=== PATIENT | female | born 1955 | race Caucasian/White ===

== ENCOUNTER → 2016-09-05 | Outpatient (CLI) | payer OTHER ==
--- NOTE | 2016-09-05 13:54 | MM ---
Reason for exam: follow-up at short interval from prior study. Last mammogram was performed 9 months ago. Physical Findings: Nurse did not find any significant physical abnormalities on exam. MG Diagnostic Mammo w CAD JENNIE Bilateral CC and MLO view(s) were taken. Prior study comparison: December 07, 2015, bilateral MG work up mamm w CAD BILAT. November 16, 2015, bilateral MG screening mammo w CAD. The breast tissue is heterogeneously dense. This may lower the sensitivity of mammography. There is no discrete abnormality. These results were verbally communicated with the patient and result sheet given to the patient on 09/05/16. ASSESSMENT: Negative, BI-RAD 1 RECOMMENDATION: Routine screening mammogram of both breasts in 1 year.
== END | disposition home or self-care (01) ==
LOC: RADMAMWWP 13:03
PROVIDERS: ATTEND Family Medicine
DX: R92.8 Other abnormal and inconclusive findings on diagnostic imaging of breast (principal)

== ENCOUNTER → 2017-04-11 | Outpatient (CLI) | payer OTHER ==
--- NOTE | 2017-04-11 13:12 | WWHP ---
[facility] - HISTORY AND PHYSICAL DATE OF SERVICE: 04/11/2017 CHIEF COMPLAINT: The patient is here for her routine gynecologic exam. HPI: This is a 61-year-old, G1, P1, with an LMP of 2006. The patient states she continues to have vaginal discomfort with intercourse. She states it feels very dry and uncomfortable. She did not use the estrogen cream which was prescribed to her last year. She believes it was because of the cost. The patient had an abnormal Pap smear showing atypical squamous cells of undetermined significance last year. Reflex HPV testing was negative for high-risk HPV. PAST MEDICAL HISTORY: Chronic hypertension, emphysema and arthritis. MEDICATIONS: Albuterol inhaler p.r.n. ALLERGIES: Allergies to SULFA, which caused hives. PAST SURGICAL HISTORY: section x1, tonsillectomy in the past and upper endoscopy 2016. PAST CALCIMINER HISTORY: She has been menopausal since 2006 and has no history of STDs. SOCIAL HISTORY: She continues to smoke about 1 pack of cigarettes per day and denies current alcohol use. She is a recovering alcoholic. She denies drug use. She quit drinking alcohol in 06/2015. She has been with her boyfriend since about 2000. 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 FAMILY HISTORY: Sister has diabetes. REVIEW OF SYSTEMS: Weight has been stable. She denies respiratory, cardiac or GI problems. PHYSICAL EXAM: Blood pressure 127/81, height 5 feet 1 inch, weight 120 pounds, temperature 98.2, pulse 82. This is a well-developed, well-nourished, white female, who is alert and oriented x3, in no acute distress. HEENT is within normal limits. NECK: Supple without mass or thyromegaly. CHEST AND LUNGS: Clear to auscultation. HEART: Regular rate and rhythm. Breasts are without mass or discharge. Axillary exam is negative for adenopathy. BACK: Negative for CVA tenderness. ABDOMEN: Soft, nontender, without palpable masses. PELVIC EXAM: External genitalia reveals [id number]-gm-[id number] atrophy without lesions. Cervix and vagina reveals dcrx-ph-[id number] atrophy without lesions. There is no evidence of prolapse. The uterus is mid position, nongravid size and nontender. There are no palpable adnexal masses or tenderness. Rectovaginal exam is negative for mass or tenderness and is negative for occult blood. EXTREMITIES: Nontender. IMPRESSION: 1. A 61-year-old, menopausal female with dcnx-xv-zwkhlbax genital atrophy in otherwise unremarkable gynecologic exam. 2. Dyspareunia probably secondary to genital atrophy. The patient did not use the estrogen vaginal cream, which was prescribed last year. 3. Previous abnormal Pap smear showing ASCUS with negative high-risk HPV last year. PLAN: 1. Pap smear was performed. 2. Self breast examination was discussed. 3. Mammogram was done in November of 2015 and they did recommend a diagnostic left mammogram in 6 months. A slip was given to the patient for this. 4. Trial of Premarin vaginal cream 1to 2 grams intravaginally 2 times weekly. 5. I have recommended screening colonoscopy based on her age and she states she will look into doing this. 6. I have recommended that she try to quit smoking. 7. She will return in one year. MMODL / IJN: [id number] /
== END ==
LOC: WWCWWP 08:40
PROVIDERS: ATTEND Obstetrics & Gynecology
DX: Z01.419 Encounter for gynecological examination (general) (routine) without abnormal findings (principal)

== ENCOUNTER → 2017-09-11 | Outpatient (CLI) | payer OTHER ==
--- NOTE | 2017-09-13 13:54 | MM ---
Reason for exam: screening (asymptomatic). Last mammogram was performed 1 year ago. Physical Findings: A clinical breast exam by your physician is recommended on an annual basis and results should be correlated with mammographic findings. MG Screening Mammo w CAD Bilateral CC and MLO view(s) were taken. Prior study comparison: September 05, 2016, bilateral MG diagnostic mammo w CAD JENNIE. December 07, 2015, bilateral MG work up mamm w CAD BILAT. The breast tissue is heterogeneously dense. This may lower the sensitivity of mammography. There is chronic nodularity bilaterally. No significant changes when compared with prior studies. ASSESSMENT: Benign, BI-RAD 2 RECOMMENDATION: Routine screening mammogram of both breasts in 1 year.
== END ==
LOC: RADMAMWWP 11:56
PROVIDERS: ATTEND Family Medicine
DX: Z12.31 Encounter for screening mammogram for malignant neoplasm of breast (principal)
CPT/HCPCS: 77067

== ENCOUNTER 2018-01-15 20:11 | Inpatient (IN) | payer OTHER ==
[2018-01-15] MEDS ORDERED: SODIUM CHLORIDE 0.9% 1,000 ML IV STA (21:03)
[2018-01-15 21:25] LABS: ALT 76 U/L (9-52); AST 109 U/L (14-36); Albumin 3.5 g/dL (3.5-5.0); Alkaline Phosphatase 105 U/L (38-126); Amylase <30 U/L (30-110); Anion Gap 21 mmol/L; Blood Urea Nitrogen 4 mg/dL (7-17); Calcium 7.4 mg/dL (8.4-10.2); Carbon Dioxide 33 mmol/L (22-30); Glucose 94 mg/dL (74-99); Lipase 30 U/L (23-300); Total Bilirubin 1.5 mg/dL (0.2-1.3); Total Protein 5.9 g/dL (6.3-8.2)
[2018-01-15 21:27] LABS: Basophils % (A) 0 %; Eosinophils # (A) 0.1 k/uL (0-0.7); Eosinophils % (A) 1 %; HCT 40.3 % (34.0-46.0); HGB 14.5 gm/dL (11.4-16.0); Hyperchromasia Moderate; INR 1.1 (<1.2); Lymphocytes # (A) 1.5 k/uL (1.0-4.8); Lymphocytes % (A) 31 %; MCH 34.9 pg (25.0-35.0); MCV 97.1 fL (80.0-100.0); Mean Platelet Volume 7.3; Monocytes # (A) 0.4 k/uL (0-1.0); Monocytes % (A) 7 %; Neutrophils # (A) 2.9 k/uL (1.3-7.7); Neutrophils % (A) 59 %; Partial Thromboplastin Time 24.2 sec (22.0-30.0); Prothrombin Time 10.7 sec (9.0-12.0); RBC 4.15 m/uL (3.80-5.40); RDW 14.4 % (11.5-15.5); WBC 4.9 k/uL (3.8-10.6)
[2018-01-15 21:29] LABS: Chloride 63 mmol/L (98-107); Potassium 1.9 mmol/L (3.5-5.1); Sodium 117 mmol/L (137-145)
--- NOTE | 2018-01-15 21:41 | ED ---
General Adult HPI - General Chief complaint: Alcohol Stated complaint: Weakness Time Seen by Provider: 01/15/18 20:29 Source: EMS Mode of arrival: EMS Limitations: no limitations - History of Present Illness Initial comments: 62-year-old female patient with past medical history significant for chronic alcohol abuse presents the emergency department today for evaluation of dizziness. Patient states that she has been sick for the last 9 days with upper respiratory symptoms including cough and nasal congestion. Patient states for the last several days she has been dizzy, states it is worsened today. Patient states whenever she stands up she feels like she is going to fall over. She denies any headache, chest pain, shortness of breath, nausea, vomiting, or abdominal pain. She denies any fevers or chills with this. States she is coughing up sputum however she does have COPD this is normal for her. Denies any numbness, tingling, or weakness in her extremities. Patient denies any recent rash, diarrhea, constipation, back pain, numbness, tingling, hematuria, dysuria, urinary urgency, urinary frequency, visual changes, or any other complaints. - Related Data Home Medications Medication Instructions Recorded Confirmed Albuterol Inhaler [Ventolin Hfa 1 - 2 puff INHALATION RT-Q6H PRN 06/25/16 Inhaler] Multivitamins, Thera [Multivitamin 1 tab PO DAILY 06/25/16 01/15/18 (formulary)] Allergies Allergy/AdvReac Type Severity Reaction Status Date / Time Sulfa (Sulfonamide AdvReac Unknown Verified 01/15/18 20:30 Antibiotics) Review of Systems ROS Statement: Those systems with pertinent positive or pertinent negative responses have been documented in the HPI. ROS Other: All systems not noted in ROS Statement are negative. Past Medical History Past Medical History: Hypertension Additional Past Medical History / Comment(s): Alcohol dependence; C-diff 06/2015 History of Any Multi-Drug Resistant Organisms: None Reported Past Surgical History: Section Past Anesthesia/Blood Transfusion Reactions: No Reported Reaction Past Psychological History: Anxiety, Depression Smoking Status: Current every day smoker Past Alcohol Use History: Abuse, Daily, Heavy Past Drug Use History: None Reported General Exam Limitations: no limitations General appearance: alert, in no apparent distress, other (This is a thin appearing elderly female patient in no acute distress. Vital signs upon presentation are temperature 98.3F, pulse 93, respirations 18, blood pressure 168/94, pulse ox 95% on room air.) Eye exam: Present: normal appearance, PERRL, EOMI. Absent: scleral icterus, conjunctival injection, nystagmus, periorbital swelling Neck exam: Present: normal inspection. Absent: tenderness, meningismus, lymphadenopathy Respiratory exam: Present: normal lung sounds bilaterally. Absent: respiratory distress, wheezes, rales, rhonchi, stridor Cardiovascular Exam: Present: regular rate, normal rhythm, normal heart sounds. Absent: systolic murmur, diastolic murmur, rubs, gallop, clicks GI/Abdominal exam: Present: soft, normal bowel sounds. Absent: distended, tenderness, guarding, rebound, rigid Neurological exam: Present: alert, oriented X3, CN II-XII intact Psychiatric exam: Present: normal affect, normal mood Skin exam: Present: warm, dry, intact, normal color. Absent: rash Course Vital Signs 01/15/18 20:18 Temperature 98.3 F Pulse Rate 93 Respiratory 18 Rate Blood Pressure 168/94 O2 Sat by Pulse 95 Oximetry EKG Findings - EKG Comments: EKG Findings:: EKG obtained at 2140 shows normal sinus rhythm with ventricular rate of 96, DE interval 174, QR mormonism 86, QT 436, QTc 550. No evidence of ST elevation or depression. Reading is somewhat limited by motion artifact. Medical Decision Making - Medical Decision Making 62-year-old female patient presented to the emergency department today for evaluation of dizziness. Patient states that she has been feeling dizzy for the last few days. Labs reviewed and did show potassium level of 1.9, sodium 117, chloride 63, we did repeat these levels for confirmation showed a sodium of 120, potassium 2.2, chloride of 70. We will replace potassium. Patient was started on a banana bag. She'll be admitted to the hospital for monitoring. Alcohol withdrawal protocol entered. Admission to Dr. Elizabeth. - Lab Data Result diagrams: 01/15/18 21:06 01/15/18 21:39 Lab Results 01/15/18 01/15/18 01/15/18 Range/Units 21:06 21:06 21:06 WBC 4.9 (3.8-10.6) k/uL RBC 4.15 (3.80-5.40) m/uL Hgb 14.5 (11.4-16.0) gm/dL Hct 40.3 (34.0-46.0) % MCV 97.1 (80.0-100.0) fL MCH 34.9 (25.0-35.0) pg MCHC 36.0 (31.0-37.0) g/dL RDW 14.4 (11.5-15.5) % Plt Count 69 L (150-450) k/uL Neutrophils % 59 % Lymphocytes % 31 % Monocytes % 7 % Eosinophils % 1 % Basophils % 0 % Neutrophils # 2.9 (1.3-7.7) k/uL Lymphocytes # 1.5 (1.0-4.8) k/uL Monocytes # 0.4 (0-1.0) k/uL Eosinophils # 0.1 (0-0.7) k/uL Basophils # 0.0 (0-0.2) k/uL Manual Slide Review Performed Hyperchromasia Moderate PT 10.7 (9.0-12.0) sec INR 1.1 (<1.2) APTT 24.2 (22.0-30.0) sec Sodium 117 L* (137-145) mmol/L Potassium 1.9 L* (3.5-5.1) mmol/L Chloride 63 L* (98-107) mmol/L Carbon Dioxide 33 H (22-30) mmol/L Anion Gap 21 mmol/L BUN 4 L (7-17) mg/dL Creatinine 0.40 L (0.52-1.04) mg/dL Est GFR (CKD-EPI)AfAm >90 (>60 ml/min/1.73 sqM) Est GFR (CKD-EPI)NonAf >90 (>60 ml/min/1.73 sqM) Glucose 94 (74-99) mg/dL Calcium 7.4 L (8.4-10.2) mg/dL Total Bilirubin 1.5 H (0.2-1.3) mg/dL AST 109 H (14-36) U/L ALT 76 H (9-52) U/L Alkaline Phosphatase 105 (38-126) U/L Troponin I (0.000-0.034) ng/mL Total Protein 5.9 L (6.3-8.2) g/dL Albumin 3.5 (3.5-5.0) g/dL Amylase <30 L (30-110) U/L Lipase 30 (23-300) U/L Urine Color Urine Appearance (Clear) Urine pH (5.0-8.0) Ur Specific Lena (1.001-1.035) Urine Protein (Negative) Urine Glucose (UA) (Negative) Urine Ketones (Negative) Urine Blood (Negative) Urine Nitrite (Negative) Urine Bilirubin (Negative) Urine Urobilinogen (<2.0) mg/dL Ur Leukocyte Esterase (Negative) Urine RBC (0-5) /hpf Urine WBC (0-5) /hpf Ur Squamous Epith Cells (0-4) /hpf Urine Bacteria (None) /hpf Urine Mucus (None) /hpf 01/15/18 01/15/18 01/15/18 Range/Units 21:06 21:39 22:01 WBC (3.8-10.6) k/uL RBC (3.80-5.40) m/uL Hgb (11.4-16.0) gm/dL Hct (34.0-46.0) % MCV (80.0-100.0) fL MCH (25.0-35.0) pg MCHC (31.0-37.0) g/dL RDW (11.5-15.5) % Plt Count (150-450) k/uL Neutrophils % % Lymphocytes % % Monocytes % % Eosinophils % % Basophils % % Neutrophils # (1.3-7.7) k/uL Lymphocytes # (1.0-4.8) k/uL Monocytes # (0-1.0) k/uL Eosinophils # (0-0.7) k/uL Basophils # (0-0.2) k/uL Manual Slide Review Hyperchromasia PT (9.0-12.0) sec INR (<1.2) APTT (22.0-30.0) sec Sodium 120 L* (137-145) mmol/L Potassium 2.2 L* (3.5-5.1) mmol/L Chloride 70 L* (98-107) mmol/L Carbon Dioxide 33 H (22-30) mmol/L Anion Gap 17 mmol/L BUN 4 L (7-17) mg/dL Creatinine 0.30 L (0.52-1.04) mg/dL Est GFR (CKD-EPI)AfAm >90 (>60 ml/min/1.73 sqM) Est GFR (CKD-EPI)NonAf >90 (>60 ml/min/1.73 sqM) Glucose 88 (74-99) mg/dL Calcium 6.8 L (8.4-10.2) mg/dL Total Bilirubin 1.5 H (0.2-1.3) mg/dL AST 101 H (14-36) U/L ALT 72 H (9-52) U/L Alkaline Phosphatase 91 (38-126) U/L Troponin I <0.012 (0.000-0.034) ng/mL Total Protein 5.3 L (6.3-8.2) g/dL Albumin 3.1 L (3.5-5.0) g/dL Amylase (30-110) U/L Lipase (23-300) U/L Urine Color Yellow Urine Appearance Clear (Clear) Urine pH 6.5 (5.0-8.0) Ur Specific Lena 1.003 (1.001-1.035) Urine Protein 1+ H (Negative) Urine Glucose (UA) Negative (Negative) Urine Ketones Negative (Negative) Urine Blood Negative (Negative) Urine Nitrite Negative (Negative) Urine Bilirubin Negative (Negative) Urine Urobilinogen 2.0 (<2.0) mg/dL Ur Leukocyte Esterase Large H (Negative) Urine RBC 3 (0-5) /hpf Urine WBC 12 H (0-5) /hpf Ur Squamous Epith Cells <1 (0-4) /hpf Urine Bacteria Rare H (None) /hpf Urine Mucus Rare H (None) /hpf - Radiology Data Radiology results: report reviewed, image reviewed Two-view x-ray of the chest is obtained. There is no heart failure flung pneumonic infiltrate. costophrenic angles are clear. thoracic aorta is atheromatous. there are chest leads. there is no pleural effusion. bony thorax is intact. impression by dr. truong shows no active cardiopulmonary disease. No change. Disposition Clinical Impression: Hypokalemia, Hyponatremia, Hypochloremia, Alcohol intoxication Disposition: ADMITTED IP TO THIS [facility] Condition: Serious Referrals: Luz Marina Hannon MD [Primary Care Provider] - 1-2 days Decision to Admit Reason: Admit from EC Decision Date: 01/15/18 Decision Time: 23:31
[2018-01-15 22:02] LABS: Platelet Count 69 k/uL (150-450)
[2018-01-15 22:04] LABS: ALT 72 U/L (9-52); AST 101 U/L (14-36); Albumin 3.1 g/dL (3.5-5.0); Alkaline Phosphatase 91 U/L (38-126); Anion Gap 17 mmol/L; Blood Urea Nitrogen 4 mg/dL (7-17); Calcium 6.8 mg/dL (8.4-10.2); Carbon Dioxide 33 mmol/L (22-30); Glucose 88 mg/dL (74-99); Total Bilirubin 1.5 mg/dL (0.2-1.3); Total Protein 5.3 g/dL (6.3-8.2)
[2018-01-15 22:08] LABS: Chloride 70 mmol/L (98-107); Potassium 2.2 mmol/L (3.5-5.1); Sodium 120 mmol/L (137-145)
--- NOTE | 2018-01-15 22:12 | XR ---
EXAMINATION TYPE: XR chest 2V DATE OF EXAM: 01/15/2018 COMPARISON: NONE HISTORY: Cough TECHNIQUE: Frontal and lateral views of the chest are obtained. FINDINGS: There is no heart failure nor confluent pneumonic infiltrate. Costophrenic angles are marcos r. Thoracic aorta is atheromatous. There are chest leads. There is no pleural effusion. Bony thorax i s intact. IMPRESSION: No active cardiopulmonary disease. No change.
[2018-01-15 22:14] LABS: Appearance,Urine Clear (Clear); Bacteria,Urine Rare /hpf; Bilirubin,Urine Negative (Negative); Blood,Urine Negative (Negative); Color,Urine Yellow; Glucose,Urine (UA) Negative (Negative); Ketones,Urine Negative (Negative); Leukocyte Esterase,Urine Large (Negative); Mucus,Urine Rare /hpf; Nitrite,Urine Negative (Negative); PH, Urine 6.5 (5.0-8.0); Protein,Urine 1+ (Negative); RBC,Urine 3 /hpf (0-5); Specific Gravity,Urine 1.003 (1.001-1.035); Squamous Epithelial Cell,Urine <1 /hpf (0-4); WBC,Urine 12 /hpf (0-5)
[2018-01-15] MEDS ORDERED: Potassium Replacement Protocol 1 EACH MISC MISCELLANE PRN (22:30)
[2018-01-15] MEDS: POTASSIUM CHLORIDE 10 MEQ in WATER FOR INJECTION 1 100ML.BAG IVPB SCH (23:00)
[2018-01-15] MEDS ORDERED: THIAMINE 100 MG/ML 2 ML VIAL IM STA (23:26)
[2018-01-15] MEDS ORDERED: NALOXONE 0.4 MG/ML 1 ML VIAL IV PRN (23:26)
[2018-01-15] MEDS ORDERED: LORazepam 2 MG/ML INJ IV PRN ×3 (23:26)
[2018-01-15 23:44] LABS: Phosphorus 2.8 mg/dL (2.5-4.5)
[2018-01-15 23:53] LABS: Magnesium 0.8 mg/dL (1.6-2.3)
[2018-01-15] MEDS ORDERED: Magnesium Replacement Protocol 1 EACH MISC MISCELLANE PRN (23:56)
[2018-01-16] MEDS ORDERED: SODIUM CHLORIDE 0.9% 1,000 ML with MVI, ADULT NO.4 WITH VIT K 10 ML, THIAMINE 100 MG, F... IV ONE ×4
[2018-01-16] MEDS: POTASSIUM CHLORIDE 10 MEQ in WATER FOR INJECTION 1 100ML.BAG IVPB SCH ×2 (00:13→01:55)
[2018-01-16] MEDS: THIAMINE 100 MG TAB PO SCH ×3 (00:22→18:31)
[2018-01-16] MEDS: MAGNESIUM SULFATE-D5W PMX 1 GM in DEXTROSE/WATER 1 100ML.BAG IVPB SCH ×4 (03:39→07:15)
[2018-01-16 09:36] LABS: ALT 68 U/L (9-52); AST 129 U/L (14-36); Albumin 2.9 g/dL (3.5-5.0); Alkaline Phosphatase 105 U/L (38-126); Anion Gap 11 mmol/L; Blood Urea Nitrogen 5 mg/dL (7-17); Carbon Dioxide 38 mmol/L (22-30); Glucose 125 mg/dL (74-99); Sodium 125 mmol/L (137-145); Total Bilirubin 2.4 mg/dL (0.2-1.3)
[2018-01-16 10:02] LABS: Chloride 76 mmol/L (98-107); Potassium 2.2 mmol/L (3.5-5.1)
[2018-01-16] MEDS: POTASSIUM CHLORIDE 20 MEQ in WATER FOR INJECTION 1 100ML.BAG IVPB SCH ×2 (10:29→12:53)
[2018-01-16] MEDS ORDERED: DEXTROSE 5% IN WATER 1,000 ML IV SCH (10:30)
[2018-01-16 11:16] LABS: Glucose,Whole Blood 115 mg/dL (75-99)
--- NOTE | 2018-01-16 11:28 | P.HPIM ---
History of Present Illness This is a pleasant 62 years old female with past medical history of hypertension and alcohol dependence, C. diff in 2015, depression, hyponatremia and 2016 as low as 118, and in 2015 as low as 120 , current smoker and alcohol abuse. Patient is a drowsy this morning when I came to see the patient , she is easy to arouse but go back to sleep right away, patient could not contribute to the history so most of the information is taken from medical records and the staff. As per ED input Patient came to the emergency room last night for evaluation of dizziness. Patient has been sick for 9 days with upper respiratory symptoms including cough and nasal congestion. Associated with dizziness over the last several days which was worse on the day of admission. Patient stated whenever she stands up she feels like she is going to fall over. She denied headache, no chest pain or shortness of breath. No nausea vomiting or abdominal pain either. Patient denies fever or chills. Patient has cough with phlegm of unspecified color. Patient denies numbness, tingling or weakness in her extremities. No back pain or change in urine habits like no hematuria no dysuria no urinary urgency or frequency. No visual changes or other complaints. I have been told by the ED staff about this patient this morning when I came to the hospital and that she's been admitted with sodium 117, 120. She has already got 2 L of normal saline by ED staff .Repeat sodium level was ordered right away and show sodium 125, nephrology consult is called right away and the recommended D5W and recheck sodium and 2 hours. Potassium was low on admission at 1.91 up to 2.2. Patient's has prolonged QTc at 550 and 560 on EKGx2. Alcohol level Was 15 [WNL]. UA was suspicion for infection with leukocyte esterase: large and 12 WBC, we will send for urine culture and start ceftriaxone empirically , patient was admitted originally to the fourth floor, when I saw the patient we transferred her to the intensive care unit. Discussed with the staff. i spoke with daughter Lois Ordonez at [phone], and updated her about her mother's situation. As per Daughter who is next of kin [she told me the patient was not , and she doesn't have siblings other than this her daughter] patient has been sick with common cold and not feeling well for the last few days and she is alcoholic she drinks about a pint a day of liquor usually vodka as per daughter. Ask about the patient wishes doctor said there is nothing documented but according to her knowledge she wanted to be DO NOT RESUSCITATE/DO NOT INTUBATE, she says at baseline she doesn't use a walker but she has COPD and uses inhaler for, patient was informed about the clinical situations of the daughters and she currently took note of this Review of Systems unable to perform Past Medical History Past Medical History: Hypertension Additional Past Medical History / Comment(s): Alcohol dependence; C-diff 06/2015 History of Any Multi-Drug Resistant Organisms: None Reported Past Surgical History: Section Past Anesthesia/Blood Transfusion Reactions: No Reported Reaction Past Psychological History: Anxiety, Depression Smoking Status: Current every day smoker Past Alcohol Use History: Abuse, Daily, Heavy Past Drug Use History: None Reported Medications and Allergies Home Medications Medication Instructions Recorded Confirmed Type Albuterol Inhaler [Ventolin Hfa 1 - 2 puff INHALATION RT-Q6H PRN 06/25/16 History Inhaler] Multivitamins, Thera [Multivitamin 1 tab PO DAILY 06/25/16 01/15/18 History (formulary)] Allergies Allergy/AdvReac Type Severity Reaction Status Date / Time Sulfa (Sulfonamide AdvReac Unknown Verified 01/15/18 20:30 Antibiotics) Physical Exam Vitals: Vital Signs Temp Pulse Pulse Resp BP BP BP 01/16/18 07:59 120/64 01/16/18 06:13 98.3 F 97 18 90/58 01/16/18 01:46 98.6 F 106 H 17 143/88 01/16/18 00:23 99.0 F 100 17 172/95 01/15/18 23:48 106 H 18 161/97 01/15/18 20:18 98.3 F 93 18 168/94 Pulse Ox 01/16/18 07:59 01/16/18 06:13 90 L 01/16/18 01:46 91 L 01/16/18 00:23 96 01/15/18 23:48 94 L 01/15/18 20:18 95 Intake and Output 01/15/18 01/16/18 01/16/18 22:59 06:59 14:59 Other: # Voids 2 # Bowel Movements 1 Weight 49.895 kg 49.895 kg -GENERAL: The patient is drowsy , she wakes up but goes to sleep right away, not participate in conversation and not follow commands. HEENT: Pupils are round and equally reacting to light. EOMI. No scleral icterus. No conjunctival pallor. Normocephalic, atraumatic. No pharyngeal erythema. No thyromegaly. CARDIOVASCULAR: S1 and S2 present. No murmurs, rubs, or gallops. PULMONARY: Chest is clear to auscultation, no wheezing or crackles. ABDOMEN: Soft, nontender, nondistended, normoactive bowel sounds. No palpable organomegaly. MUSCULOSKELETAL: No joint swelling or deformity. EXTREMITIES: No cyanosis, clubbing, or pedal edema. -NEUROLOGICAL: Gross neurological examination did not reveal any focal deficits. sensory and motor exam or difficult because of patient mental statu Meningeal signs are absents . SKIN: No rashes. Results CBC & Chem 7: 01/15/18 21:06 01/16/18 08:02 Labs: Abnormal Lab Results - Last 24 Hours (Table) 01/15/18 01/15/18 01/15/18 Range/Units 21:06 21:06 21:39 Plt Count 69 L (150-450) k/uL Sodium 117 L* 120 L* (137-145) mmol/L Potassium 1.9 L* 2.2 L* (3.5-5.1) mmol/L Chloride 63 L* 70 L* (98-107) mmol/L Carbon Dioxide 33 H 33 H (22-30) mmol/L BUN 4 L 4 L (7-17) mg/dL Creatinine 0.40 L 0.30 L (0.52-1.04) mg/dL Glucose (74-99) mg/dL Calcium 7.4 L 6.8 L (8.4-10.2) mg/dL Magnesium (1.6-2.3) mg/dL Total Bilirubin 1.5 H 1.5 H (0.2-1.3) mg/dL AST 109 H 101 H (14-36) U/L ALT 76 H 72 H (9-52) U/L Total Protein 5.9 L 5.3 L (6.3-8.2) g/dL Albumin 3.1 L (3.5-5.0) g/dL Amylase <30 L (30-110) U/L Urine Protein (Negative) Ur Leukocyte Esterase (Negative) Urine WBC (0-5) /hpf Urine Bacteria (None) /hpf Urine Mucus (None) /hpf 01/15/18 01/15/18 01/16/18 Range/Units 21:39 22:01 08:02 Plt Count (150-450) k/uL Sodium 125 L (137-145) mmol/L Potassium 2.2 L* (3.5-5.1) mmol/L Chloride 76 L* (98-107) mmol/L Carbon Dioxide 38 H (22-30) mmol/L BUN 5 L (7-17) mg/dL Creatinine 0.40 L (0.52-1.04) mg/dL Glucose 125 H (74-99) mg/dL Calcium 7.0 L (8.4-10.2) mg/dL Magnesium 0.8 L* 3.0 H (1.6-2.3) mg/dL Total Bilirubin 2.4 H (0.2-1.3) mg/dL AST 129 H (14-36) U/L ALT 68 H (9-52) U/L Total Protein 5.0 L (6.3-8.2) g/dL Albumin 2.9 L (3.5-5.0) g/dL Amylase (30-110) U/L Urine Protein 1+ H (Negative) Ur Leukocyte Esterase Large H (Negative) Urine WBC 12 H (0-5) /hpf Urine Bacteria Rare H (None) /hpf Urine Mucus Rare H (None) /hpf Microbiology - Last 24 Hours (Table) 01/15/18 22:01 Urine Culture - Preliminary Urine,Voided Thrombosis Risk Factor Assmnt - Choose All That Apply Any of the Below Risk Factors Present?: Yes Each Factor Represents 1 point: Age 41-60 years Other Risk Factors: No Thrombosis Risk Factor Assessment Total Risk Factor Score: 1 Thrombosis Risk Factor Assessment Level: Low Risk Assessment and Plan Plan: -Hyponatremia of 117 on admissions went up to 125 this morning, patient already got 2 L of normal saline in the ED. nephrology consult was contacted and recommended D5W and the re-check sodium in 2 hours. Patient will be admitted to the ICU for further monitoring of electrolytes and clinical status. We will consult pediatric critical care nurse -hypokalemia with potassium 1.9 on admissions went up to 2.2, continue with telemetry and check EKG normal sinus rhythm at 91 BPM, no significant ST-T changes, prolonged QTC 565 [was 550 in ED]. Replace electrolytes, check magnesium level and Admit to the ICU with cardiology consult -Acute delirium secondary mostly to metabolic encephalopathy, as patients with alcohol intoxication, hyponatremia, possible UTI as well as patient got Ativan for her CIWA protocol. No asymmetry is noted in the exam . meningeal signs are absent. No fever and leukocytosis. We will check a stat CT of the head -Possible UTI as per UA, possible contributing to metabolic encephalopathy. Send UC and start Rocephin 1 g daily -History of upper respiratory infection, we'll check influenza DVT prophylaxis subcutaneous heparin GI prophylaxis Pepcid PT/OT, not ordered given condition condition CODE STATUS: Unable to discuss with the patient due to her clinical situation, as per daughter patient wishes to be DO NOT INTUBATE/DO NOT RESUSCITATE. We'll keep patient is DO NOT RESUSCITATE now and We will discuss with the patient if she wakes up Prognosis is very guarded given the severity and multiple medical problems Discussed with staff Time spent more than 35 minutes
[2018-01-16] MEDS: cefTRIAXone IN SWFI 1,000 MG/10 ML SYRINGE IVP SCH (12:53)
[2018-01-16] MEDS ORDERED: POTASSIUM CHLORIDE 40 MEQ in DEXTROSE 5% IN WATER 250 ML IV SCH ×4 (13:00→15:00)
--- NOTE | 2018-01-16 13:40 | CT ---
EXAMINATION TYPE: CT brain kristan chiu con DATE OF EXAM: 01/16/2018 COMPARISON: NONE HISTORY: 62-year-old female unarousable, possible fall CT DLP: 1337.4 mGycm Automated exposure control for dose reduction was used. Technique: Examination of the head was done in axial plane without intravenous contrast. Coronal and sagittal reconstructions performed. CT of the cervical spine was obtained in axial plane without intravenous injection of contrast mater ial. Coronal and sagittal reformatted images were obtained from the axial views for evaluation of f ractures, spinal alignment and canal. FINDINGS: Head: There is no evidence of acute intracranial hemorrhage, acute ischemic changes, mass, mass-effect, or extra-axial fluid collection. There is no effacement of cerebral sulci or basal subarachnoid cister ns. There is no hydrocephalus. There is no midline shift. Dalotn-white matter distinction is preserv ed. Mild generalized supratentorial volume loss and moderate patchy white matter hypodensities in both ce rebral hemispheres suggesting changes of chronic small vessel ischemic disease. Moderate to severe mucosal thickening right greater than left maxillary sinuses. Rightward nasal sept al deviation. Mastoid air cells well pneumatized. No calvarial fracture. Orbits and globes appear int act. Cervical spine: No craniocervical junction abnormality, predental space widening, or prevertebral soft tissue swellin g. Multilevel ligamentum flavum thickening and scattered facet degenerative change. Mild degenerative di sc disease with disc osteophyte complex particularly at C5-C6. Bulging discs are present at multiple levels along with a small central disc protrusion at C6-C7 which mildly narrows the spinal canal. Scattered mild facet and uncovertebral joint degenerative change. This results in mild right-sided ne ural foraminal narrowing at C5-C6 Preserved alignment of the cervical spine. No acute fracture. Medial biapical pleural parenchymal sca rring with underlying volume loss and emphysema. Sagittal and coronal reformatted images confirm above findings. COMBINED IMPRESSION: 1. Similar mild atrophy and moderate patchy changes of chronic small vessel ischemic disease. No acut e intracranial abnormality seen. 2. No acute fracture or malalignment of the cervical spine. Mild spondylotic change as outlined above . A small central disc herniation at C6-C7 mildly narrows the spinal canal. 3. Moderate chronic maxillary sinusitis.
[2018-01-16 14:29] LABS: Anion Gap 11 mmol/L; Blood Urea Nitrogen 6 mg/dL (7-17); Calcium 7.2 mg/dL (8.4-10.2); Carbon Dioxide 34 mmol/L (22-30); Chloride 81 mmol/L (98-107); Glucose 116 mg/dL (74-99); Magnesium 1.9 mg/dL (1.6-2.3); Sodium 126 mmol/L (137-145)
[2018-01-16 14:43] LABS: Potassium 2.6 mmol/L (3.5-5.1)
[2018-01-16] MEDS ORDERED: POTASSIUM CHLORIDE 20 MEQ in WATER FOR INJECTION 1 100ML.BAG IVPB ONE (15:22)
[2018-01-16] MEDS ORDERED: DEXTROSE 5% IN WATER 1,000 ML with POTASSIUM CHLORIDE 40 MEQ IV SCH (15:30)
[2018-01-16] MEDS: POTASSIUM CHLORIDE ER 20 MEQ TAB.ER PO SCH ×2 (15:54→18:11)
[2018-01-16] MEDS: VANCOMYCIN ORAL SOLUTION 250 MG/5 ML BOTTLE PO SCH ×3 (15:54→23:08)
--- NOTE | 2018-01-16 16:57 | P.CNPUL ---
History of Present Illness Consult date: 01/16/18 Chief complaint: Altered mental status, electrolyte imbalance, critical care management History of present illness: A pleasant 62-year-old female patient, alcoholic, known to me from prior hospitalization, as the patient has history of alcoholic liver disease in addition to stigmata of chronic liver disease secondary to alcoholism. The patient also has history of C. diff colitis, depression and hypertension. The patient comes into the hospital because of generalized weakness, chest congestion and increased cough and increased dyspnea and in the center the patient was getting profoundly weak and having altered mentation. No headaches. No neck stiffness. No pleurisy. No hemoptysis. No nausea or vomiting. No abdominal distention. No worsening in lower extremity edema. She drinks around pint of vodka on a daily basis pH she drinks also wind. She smokes a pack of cigarettes on a daily basis. The patient presented to the hospital and the patient was found to have a sodium level of 117 initially and she was given a bolus of normal saline in the emergency department and she was given another bolus making a total of 2 L. In addition the patient was found to have profound hypokalemia and the potassium on admission was as low as 1.9 and came up to 2.2 after being replaced with 80 mEq of potassium. Potassium level remains low and the sodium level has come up to 125 and based on that nephrology has made the adjustment to switch her to D5 water with 40 mEq of potassium running at 50 mL an hour. At the same time the patient will be given an additional 80 mEq of potassium right now. The patient also had her magnesium level replaced knowing that on presentation she had hypomagnesemia with a magnesium level of 0.8. Clinically she is improved and the patient is more awake and at this point time she is following commands and answering questions. No focal neurological deficits. CAT scan of the head and cervical spine showed no acute abnormalities and the findings are essentially of a chronic in nature. EKG showed no significant changes related to hypokalemia. No signs of acute delirium tremens for now. There is a concern of an underlying urine checked infection and the patient was given a dose of Rocephin. Also, after arriving to the intensive care unit the patient started developing diarrhea and stool analysis showed positivity towards C. diff and the patient was started on oral vancomycin. No abdominal distention. No fever or chills. No reported aspiration. Chest x-ray is not showing any acute pneumonia. The patient is tolerating oral intake at this point in time. Review of Systems Constitutional: Reports daytime sleepiness, Reports fatigue, Reports lethargy, Reports poor appetite, Reports weakness, Reports weight loss Eyes: denies blurred vision, denies bulging eye, denies decreased vision Ears: deny: decreased hearing, ear discharge, earache Ears, nose, mouth and throat: Denies headache, Denies sore throat Cardiovascular: Reports decreased exercise tolerance, Reports dyspnea on exertion Respiratory: Reports cough, Reports dyspnea Gastrointestinal: Reports as per HPI, Reports diarrhea Genitourinary: Denies dysuria, Denies hematuria Menstruation: Reports as per HPI Musculoskeletal: Reports gait dysfunction, Reports muscle cramps, Reports muscle weakness Musculoskeletal: absent: ankle pain, ankle stiffness, ankle swelling Integumentary: Denies pruritus, Denies rash Neurological: Reports gait dysfunction, Reports weakness Psychiatric: Reports as per HPI Endocrine: Reports fatigue, Reports weight change Hematologic/Lymphatic: Reports as per HPI Allergic/Immunologic: Reports as per HPI Past Medical History Past Medical History: Hypertension Additional Past Medical History / Comment(s): Alcohol dependence; C-diff 06/2015 , alcoholic liver disease, COPD, anxiety, depression, alcoholism History of Any Multi-Drug Resistant Organisms: None Reported Past Surgical History: Section Past Anesthesia/Blood Transfusion Reactions: No Reported Reaction Past Psychological History: Anxiety, Depression Smoking Status: Current every day smoker Past Alcohol Use History: Abuse, Daily, Heavy Past Drug Use History: None Reported Medications and Allergies Home Medications Medication Instructions Recorded Confirmed Type Albuterol Inhaler [Ventolin Hfa 1 - 2 puff INHALATION RT-Q6H PRN 06/25/16 History Inhaler] Multivitamins, Thera [Multivitamin 1 tab PO DAILY 06/25/16 01/15/18 History (formulary)] Allergies Allergy/AdvReac Type Severity Reaction Status Date / Time Sulfa (Sulfonamide AdvReac Unknown Verified 01/15/18 20:30 Antibiotics) Physical Exam Vitals: Vital Signs Temp Pulse Pulse Resp BP BP BP 01/16/18 07:59 120/64 01/16/18 06:13 98.3 F 97 18 90/58 01/16/18 01:46 98.6 F 106 H 17 143/88 01/16/18 00:23 99.0 F 100 17 172/95 01/15/18 23:48 106 H 18 161/97 01/15/18 20:18 98.3 F 93 18 168/94 Pulse Ox 01/16/18 07:59 01/16/18 06:13 90 L 01/16/18 01:46 91 L 01/16/18 00:23 96 01/15/18 23:48 94 L 01/15/18 20:18 95 Intake and Output 01/16/18 01/16/18 01/16/18 06:59 14:59 22:59 Other: # Voids 2 # Bowel Movements 1 Weight 49.895 kg 49.895 kg Clinically the patient is calm and comfortable and she is laying comfortably in bed. She is arousable however she can go back to sleep if left unstimulated. No agitation. She is slow in answering questions however she is aware that she is in the hospital and she was able to recognize her daughter the bedside. She is not jaundiced. Head exam was generally normal. There was no scleral icterus or corneal arcus. Mucous membranes were moist. Examination of the neck shows no neck stiffness no goiter or neck masses. The patient is conjunctival icterus and pallor. No nystagmus. Pupils are equal and reactive to light. There is no facial asymmetry. Lungs were clear to auscultation and percussion, and with normal diaphragmatic excursion. No wheezes or rales were noted. Cardiac exam revealed the PMI to be normally situated and sized. The rhythm was regular and no extrasystoles were noted during several minutes of auscultation. The first and second heart sounds were normal and physiologic splitting of the second heart sound was noted. There were no murmurs, rubs, clicks, or gallops.Abdominal exam revealed normal bowel sounds. The abdomen was soft, non- tender, and without masses, organomegaly, or appreciable enlargement of the abdominal aorta. Examination of the extremities revealed easily palpable radial, femoral and pedal pulses. There was no cyanosis, clubbing or edema. Skin shows no ulcerations or open wounds. The patient is profoundly jaundiced. Neurologically, the patient is moving all 4 extremities. She is awake 3. Cranial nerves are intact. Results - Laboratory Findings CBC and BMP: 01/15/18 21:06 01/16/18 13:41 PT/INR, D-dimer PT 10.7 sec (9.0-12.0) 01/15/18 21:06 INR 1.1 (<1.2) 01/15/18 21:06 Abnormal lab findings: Abnormal Labs 01/15/18 01/15/18 01/15/18 21:06 21:06 21:39 Plt Count 69 L Sodium 117 L* 120 L* Potassium 1.9 L* 2.2 L* Chloride 63 L* 70 L* Carbon Dioxide 33 H 33 H BUN 4 L 4 L Creatinine 0.40 L 0.30 L Glucose POC Glucose (mg/dL) Calcium 7.4 L 6.8 L Magnesium Total Bilirubin 1.5 H 1.5 H AST 109 H 101 H ALT 76 H 72 H Total Protein 5.9 L 5.3 L Albumin 3.1 L Amylase <30 L Urine Protein Ur Leukocyte Esterase Urine WBC Urine Bacteria Urine Mucus Ur Random Sodium C. difficile (EIA) Intrp 01/15/18 01/15/18 01/15/18 21:39 22:01 22:01 Plt Count Sodium Potassium Chloride Carbon Dioxide BUN Creatinine Glucose POC Glucose (mg/dL) Calcium Magnesium 0.8 L* Total Bilirubin AST ALT Total Protein Albumin Amylase Urine Protein 1+ H Ur Leukocyte Esterase Large H Urine WBC 12 H Urine Bacteria Rare H Urine Mucus Rare H Ur Random Sodium 11 L C. difficile (EIA) Intrp 01/16/18 01/16/18 01/16/18 08:02 11:13 12:05 Plt Count Sodium 125 L Potassium 2.2 L* Chloride 76 L* Carbon Dioxide 38 H BUN 5 L Creatinine 0.40 L Glucose 125 H POC Glucose (mg/dL) 115 H Calcium 7.0 L Magnesium 3.0 H Total Bilirubin 2.4 H AST 129 H ALT 68 H Total Protein 5.0 L Albumin 2.9 L Amylase Urine Protein Ur Leukocyte Esterase Urine WBC Urine Bacteria Urine Mucus Ur Random Sodium C. difficile (EIA) Intrp Positive A 01/16/18 13:41 Plt Count Sodium 126 L Potassium 2.6 L* Chloride 81 L Carbon Dioxide 34 H BUN 6 L Creatinine 0.40 L Glucose 116 H POC Glucose (mg/dL) Calcium 7.2 L Magnesium Total Bilirubin AST ALT Total Protein Albumin Amylase Urine Protein Ur Leukocyte Esterase Urine WBC Urine Bacteria Urine Mucus Ur Random Sodium C. difficile (EIA) Intrp - Diagnostic Findings Chest x-ray: image reviewed Assessment and Plan Plan: Assessment 1 acute symptoms of bronchitis without indication for an underlying pneumonia 2 acute diarrhea with C. diff colitis 3 severe electrolyte imbalance with hypokalemia and hypomagnesemia and hyponatremia, being replaced accordingly 4 acute change in mental status secondary to above 5 chronic alcoholic liver disease/cirrhosis with stigmata of chronic renal failure 6 alcoholism, active 7 abnormalities in LFTs related to alcoholic hepatitis 8 chronic anxiety/depression 9 chronic normocytic. 10 questionable urine tract infection Plan Check urine and blood cultures. Rocephin of the cultures come back negative. Oral vancomycin regarding C. diff colitis. Fluid with D5 water and potassium supplements. Avoid rapid correction of the sodium level due to concerns of PIN OR [employer]IP [employer]ENER toxicity of chronic hyponatremia. Replace magnesium. Replace potassium. Watch for any signs of delirium tremens. Pepcid 20 mg IV every 12 hours for GI prophylaxis. Gradually advance diet as tolerated. We'll continue to follow. Keep the patient ICU for another 24 hours.
[2018-01-16] MEDS: FAMOTIDINE 20 MG/2 ML VIAL IV SCH (21:16)
[2018-01-16] MEDS: HEPARIN SODIUM,PORCINE 5,000 UNIT/ML 1 ML VIAL SQ SCH (21:17)
[2018-01-16] MEDS ORDERED: POTASSIUM CHLORIDE ER 20 MEQ TAB.ER PO SCH (22:00)
[2018-01-17 00:29] LABS: Potassium 3.6 mmol/L (3.5-5.1)
[2018-01-17] MEDS ORDERED: POTASSIUM CHLORIDE ER 20 MEQ TAB.ER PO SCH (02:00)
[2018-01-17 04:55] LABS: Basophils % (A) 0 %; Eosinophils # (A) 0.1 k/uL (0-0.7); Eosinophils % (A) 2 %; HCT 35.5 % (34.0-46.0); HGB 12.9 gm/dL (11.4-16.0); Lymphocytes # (A) 1.2 k/uL (1.0-4.8); Lymphocytes % (A) 32 %; MCH 36.6 pg (25.0-35.0); MCHC 36.4 g/dL (31.0-37.0); MCV 100.6 fL (80.0-100.0); Macrocytosis Slight; Mean Platelet Volume 7.9; Monocytes # (A) 0.3 k/uL (0-1.0); Monocytes % (A) 8 %; Neutrophils # (A) 2.1 k/uL (1.3-7.7); Neutrophils % (A) 56 %; RBC 3.53 m/uL (3.80-5.40); RDW 14.1 % (11.5-15.5); WBC 3.8 k/uL (3.8-10.6)
[2018-01-17 04:57] LABS: Platelet Count 54 k/uL (150-450)
[2018-01-17 05:10] LABS: ALT 86 U/L (9-52); AST 200 U/L (14-36); Albumin 2.8 g/dL (3.5-5.0); Alkaline Phosphatase 104 U/L (38-126); Anion Gap 5 mmol/L; Blood Urea Nitrogen 3 mg/dL (7-17); Calcium 7.9 mg/dL (8.4-10.2); Carbon Dioxide 33 mmol/L (22-30); Chloride 90 mmol/L (98-107); Glucose 98 mg/dL (74-99); Magnesium 1.3 mg/dL (1.6-2.3); Phosphorus 1.7 mg/dL (2.5-4.5); Sodium 128 mmol/L (137-145); Total Bilirubin 1.7 mg/dL (0.2-1.3); Total Protein 5.1 g/dL (6.3-8.2)
[2018-01-17] MEDS: MAGNESIUM SULFATE-D5W PMX 1 GM in DEXTROSE/WATER 1 100ML.BAG IVPB SCH ×3 (06:45→09:28)
[2018-01-17] MEDS: VANCOMYCIN ORAL SOLUTION 250 MG/5 ML BOTTLE PO SCH ×3 (06:45→17:37)
--- NOTE | 2018-01-17 07:36 | P.PN ---
Subjective Progress Note Date: 01/17/18 A pleasant 62-year-old female patient, alcoholic, known to me from prior hospitalization, as the patient has history of alcoholic liver disease in addition to stigmata of chronic liver disease secondary to alcoholism. The patient also has history of C. diff colitis, depression and hypertension. The patient comes into the hospital because of generalized weakness, chest congestion and increased cough and increased dyspnea and in the center the patient was getting profoundly weak and having altered mentation. No headaches. No neck stiffness. No pleurisy. No hemoptysis. No nausea or vomiting. No abdominal distention. No worsening in lower extremity edema. She drinks around pint of vodka on a daily basis pH she drinks also wind. She smokes a pack of cigarettes on a daily basis. The patient presented to the hospital and the patient was found to have a sodium level of 117 initially and she was given a bolus of normal saline in the emergency department and she was given another bolus making a total of 2 L. In addition the patient was found to have profound hypokalemia and the potassium on admission was as low as 1.9 and came up to 2.2 after being replaced with 80 mEq of potassium. Potassium level remains low and the sodium level has come up to 125 and based on that nephrology has made the adjustment to switch her to D5 water with 40 mEq of potassium running at 50 mL an hour. At the same time the patient will be given an additional 80 mEq of potassium right now. The patient also had her magnesium level replaced knowing that on presentation she had hypomagnesemia with a magnesium level of 0.8. Clinically she is improved and the patient is more awake and at this point time she is following commands and answering questions. No focal neurological deficits. CAT scan of the head and cervical spine showed no acute abnormalities and the findings are essentially of a chronic in nature. EKG showed no significant changes related to hypokalemia. No signs of acute delirium tremens for now. There is a concern of an underlying urine checked infection and the patient was given a dose of Rocephin. Also, after arriving to the intensive care unit the patient started developing diarrhea and stool analysis showed positivity towards C. diff and the patient was started on oral vancomycin. No abdominal distention. No fever or chills. No reported aspiration. Chest x-ray is not showing any acute pneumonia. The patient is tolerating oral intake at this point in time. On 01/18/2008 and I'm seeing this patient for a follow-up. The patient is awake and alert and following commands and answering questions. Sodium level is up to 128 and the patient is currently on no IV fluids. She is KVO IV fluids. Potassium was replaced and it's up to 4.0. Magnesium is also being replaced this morning. She is afebrile. She has a congested cough that she may have an underlying component of chronic bronchitis. She is a chronic smoker. No shaking. No tremors. No confusion. No delirium. No agitation. She is resting comfortably in bed. She had another bout of diarrhea last night and this morning she has no nausea or vomiting or abdominal pain and in fact she is stating that she is hungry and she is requesting for foods. She is on IV Rocephin as an empiric antibiotic coverage and she is also receiving oral vancomycin regarding her C. diff colitis. No fever. No chills. Adequate urine output. No altered mentation. No focal neurological deficit. Objective - Vital Signs Vital signs: Vital Signs Temp 97.9 F 01/17/18 04:00 Pulse 88 01/17/18 07:00 Resp 20 01/17/18 07:00 BP 124/86 01/17/18 07:00 Pulse Ox 98 01/17/18 07:00 Intake & Output 01/16/18 01/17/18 01/17/18 18:59 06:59 18:59 Intake Total 750 290 100 Output Total 850 1510 125 Balance -100 -1220 -25 Weight 49.895 kg 39 kg Intake: Intake, IV Titration 350 50 100 Amount Dextrose 5% in Water 1, 200 000 ml @ 50 mls/hr IV . Q20H ALEX Rx#:[id number] Dextrose 5% in Water 1, 150 50 000 ml @ 50 mls/hr IV . [id number] ALEX with Potassium Chloride 40 meq Rx#:[id number] Magnesium Sulfate-D5w Pmx 100 1 gm In Dextrose/Water 1 100ml.bag @ 100 mls/hr IVPB Q1H ALEX Rx#: [id number] Oral 400 240 Output: Urine 850 1510 125 Other: Voiding Method Bedside Commode Bedside Commode # Voids 1 1 # Bowel Movements 1 - Exam Clinically the patient is calm and comfortable and she is laying comfortably in bed. Head exam was generally normal. There was no scleral icterus or corneal arcus. Mucous membranes were moist. Examination of the neck shows no neck stiffness no goiter or neck masses. The patient is conjunctival icterus and pallor. No nystagmus. Pupils are equal and reactive to light. There is no facial asymmetry. Lungs were clear to auscultation and percussion, and with normal diaphragmatic excursion. No wheezes or rales were noted. Cardiac exam revealed the PMI to be normally situated and sized. The rhythm was regular and no extrasystoles were noted during several minutes of auscultation. The first and second heart sounds were normal and physiologic splitting of the second heart sound was noted. There were no murmurs, rubs, clicks, or gallops.Abdominal exam revealed normal bowel sounds. The abdomen was soft, non- tender, and without masses, organomegaly, or appreciable enlargement of the abdominal aorta. Examination of the extremities revealed easily palpable radial, femoral and pedal pulses. There was no cyanosis, clubbing or edema. Skin shows no ulcerations or open wounds. The patient is profoundly jaundiced. Neurologically, the patient is moving all 4 extremities. She is awake 3. Cranial nerves are intact. - Labs CBC & Chem 7: 01/17/18 04:38 01/17/18 04:38 Labs: Abnormal Lab Results - Last 24 Hours (Table) 01/15/18 01/16/18 01/16/18 Range/Units 22:01 08:02 11:13 RBC (3.80-5.40) m/uL MCV (80.0-100.0) fL MCH (25.0-35.0) pg Plt Count (150-450) k/uL Sodium 125 L (137-145) mmol/L Potassium 2.2 L* (3.5-5.1) mmol/L Chloride 76 L* (98-107) mmol/L Carbon Dioxide 38 H (22-30) mmol/L BUN 5 L (7-17) mg/dL Creatinine 0.40 L (0.52-1.04) mg/dL Glucose 125 H (74-99) mg/dL POC Glucose (mg/dL) 115 H (75-99) mg/dL Calcium 7.0 L (8.4-10.2) mg/dL Phosphorus (2.5-4.5) mg/dL Magnesium 3.0 H (1.6-2.3) mg/dL Total Bilirubin 2.4 H (0.2-1.3) mg/dL AST 129 H (14-36) U/L ALT 68 H (9-52) U/L Total Protein 5.0 L (6.3-8.2) g/dL Albumin 2.9 L (3.5-5.0) g/dL Ur Random Sodium 11 L (30-90) mmol/L C. difficile (EIA) Intrp (Negative) 01/16/18 01/16/18 01/16/18 Range/Units 12:05 13:41 18:29 RBC (3.80-5.40) m/uL MCV (80.0-100.0) fL MCH (25.0-35.0) pg Plt Count (150-450) k/uL Sodium 126 L 125 L (137-145) mmol/L Potassium 2.6 L* (3.5-5.1) mmol/L Chloride 81 L (98-107) mmol/L Carbon Dioxide 34 H (22-30) mmol/L BUN 6 L (7-17) mg/dL Creatinine 0.40 L (0.52-1.04) mg/dL Glucose 116 H (74-99) mg/dL POC Glucose (mg/dL) (75-99) mg/dL Calcium 7.2 L (8.4-10.2) mg/dL Phosphorus (2.5-4.5) mg/dL Magnesium (1.6-2.3) mg/dL Total Bilirubin (0.2-1.3) mg/dL AST (14-36) U/L ALT (9-52) U/L Total Protein (6.3-8.2) g/dL Albumin (3.5-5.0) g/dL Ur Random Sodium (30-90) mmol/L C. difficile (EIA) Intrp Positive A (Negative) 01/16/18 01/17/18 01/17/18 Range/Units 23:44 04:38 04:38 RBC 3.53 L (3.80-5.40) m/uL MCV 100.6 H (80.0-100.0) fL MCH 36.6 H (25.0-35.0) pg Plt Count 54 L (150-450) k/uL Sodium 126 L 128 L (137-145) mmol/L Potassium (3.5-5.1) mmol/L Chloride 90 L (98-107) mmol/L Carbon Dioxide 33 H (22-30) mmol/L BUN 3 L (7-17) mg/dL Creatinine 0.30 L (0.52-1.04) mg/dL Glucose (74-99) mg/dL POC Glucose (mg/dL) (75-99) mg/dL Calcium 7.9 L (8.4-10.2) mg/dL Phosphorus 1.7 L (2.5-4.5) mg/dL Magnesium 1.3 L (1.6-2.3) mg/dL Total Bilirubin 1.7 H (0.2-1.3) mg/dL AST 200 H (14-36) U/L ALT 86 H (9-52) U/L Total Protein 5.1 L (6.3-8.2) g/dL Albumin 2.8 L (3.5-5.0) g/dL Ur Random Sodium (30-90) mmol/L C. difficile (EIA) Intrp (Negative) Microbiology - Last 24 Hours (Table) 01/16/18 16:10 Urine Culture - Preliminary Urine,Catheterized 01/15/18 22:01 Urine Culture - Preliminary Urine,Voided Assessment and Plan Plan: Assessment 1 acute symptoms of bronchitis without indication for an underlying pneumonia also a component of chronic bronchitis as the patient is a chronic smoker. 2 acute diarrhea with C. diff colitis, currently on oral vancomycin 3 severe electrolyte imbalance with hypokalemia and hypomagnesemia and hyponatremia, being replaced accordingly, and the potassium level is normalized and the sodium level is up to 128 4 acute change in mental status secondary to above 5 chronic alcoholic liver disease/cirrhosis with stigmata of chronic hepatic failure 6 alcoholism, active 7 abnormalities in LFTs related to alcoholic hepatitis 8 chronic anxiety/depression 9 chronic normocytic. 10 questionable urine tract infection Plan lStop the Rocephin. Continue oral vancomycin. Start the patient on DuoNeb nebulized treatments twice a day. Advance diet. IV fluids to KVO. Monitor electrolytes. Monitor LFTs. Can be transferred to a medical floor.
[2018-01-17] MEDS: FAMOTIDINE 20 MG/2 ML VIAL IV SCH ×2 (08:10→20:17)
[2018-01-17] MEDS: HEPARIN SODIUM,PORCINE 5,000 UNIT/ML 1 ML VIAL SQ SCH ×2 (08:10→20:17)
--- NOTE | 2018-01-17 08:42 | P.PN ---
Objective - Vital Signs Vital signs: Vital Signs Temp 97.9 F 01/17/18 04:00 Pulse 111 H 01/17/18 08:00 Resp 22 01/17/18 08:00 BP 119/81 01/17/18 08:00 Pulse Ox 93 L 01/17/18 08:00 Intake & Output 01/16/18 01/17/18 01/17/18 18:59 06:59 18:59 Intake Total 750 290 560 Output Total 850 1510 275 Balance -100 -1220 285 Weight 49.895 kg 39 kg Intake: Intake, IV Titration 350 50 200 Amount Dextrose 5% in Water 1, 200 000 ml @ 50 mls/hr IV . Q20H ALEX Rx#:[id number] Dextrose 5% in Water 1, 150 50 000 ml @ 50 mls/hr IV . [id number] ALEX with Potassium Chloride 40 meq Rx#:[id number] Magnesium Sulfate-D5w Pmx 200 1 gm In Dextrose/Water 1 100ml.bag @ 100 mls/hr IVPB Q1H ALEX Rx#: [id number] Oral 400 240 360 Output: Urine 850 1510 275 Other: Voiding Method Bedside Commode Bedside Commode Bedside Commode # Voids 1 1 # Bowel Movements 1 - Exam GENERAL: The patient is alert and oriented x3, not in any acute distress. Well developed, well nourished. HEENT: Pupils are round and equally reacting to light. EOMI. No scleral icterus. No conjunctival pallor. Normocephalic, atraumatic. No pharyngeal erythema. No thyromegaly. CARDIOVASCULAR: S1 and S2 present. No murmurs, rubs, or gallops. -PULMONARY: Chest is clear to auscultation, no crackles. She has some bilateral scattered wheezing, with harsh breath sounds ABDOMEN: Soft, nontender, nondistended, normoactive bowel sounds. No palpable organomegaly. MUSCULOSKELETAL: No joint swelling or deformity. EXTREMITIES: No cyanosis, clubbing, or pedal edema. NEUROLOGICAL: Gross neurological examination did not reveal any focal deficits. SKIN: No rashes. - Labs CBC & Chem 7: 01/17/18 04:38 01/17/18 04:38 Labs: Abnormal Lab Results - Last 24 Hours (Table) 01/15/18 01/16/18 01/16/18 Range/Units 22:01 08:02 11:13 RBC (3.80-5.40) m/uL MCV (80.0-100.0) fL MCH (25.0-35.0) pg Plt Count (150-450) k/uL Sodium 125 L (137-145) mmol/L Potassium 2.2 L* (3.5-5.1) mmol/L Chloride 76 L* (98-107) mmol/L Carbon Dioxide 38 H (22-30) mmol/L BUN 5 L (7-17) mg/dL Creatinine 0.40 L (0.52-1.04) mg/dL Glucose 125 H (74-99) mg/dL POC Glucose (mg/dL) 115 H (75-99) mg/dL Calcium 7.0 L (8.4-10.2) mg/dL Phosphorus (2.5-4.5) mg/dL Magnesium 3.0 H (1.6-2.3) mg/dL Total Bilirubin 2.4 H (0.2-1.3) mg/dL AST 129 H (14-36) U/L ALT 68 H (9-52) U/L Total Protein 5.0 L (6.3-8.2) g/dL Albumin 2.9 L (3.5-5.0) g/dL Ur Random Sodium 11 L (30-90) mmol/L C. difficile (EIA) Intrp (Negative) 01/16/18 01/16/18 01/16/18 Range/Units 12:05 13:41 18:29 RBC (3.80-5.40) m/uL MCV (80.0-100.0) fL MCH (25.0-35.0) pg Plt Count (150-450) k/uL Sodium 126 L 125 L (137-145) mmol/L Potassium 2.6 L* (3.5-5.1) mmol/L Chloride 81 L (98-107) mmol/L Carbon Dioxide 34 H (22-30) mmol/L BUN 6 L (7-17) mg/dL Creatinine 0.40 L (0.52-1.04) mg/dL Glucose 116 H (74-99) mg/dL POC Glucose (mg/dL) (75-99) mg/dL Calcium 7.2 L (8.4-10.2) mg/dL Phosphorus (2.5-4.5) mg/dL Magnesium (1.6-2.3) mg/dL Total Bilirubin (0.2-1.3) mg/dL AST (14-36) U/L ALT (9-52) U/L Total Protein (6.3-8.2) g/dL Albumin (3.5-5.0) g/dL Ur Random Sodium (30-90) mmol/L C. difficile (EIA) Intrp Positive A (Negative) 01/16/18 01/17/18 01/17/18 Range/Units 23:44 04:38 04:38 RBC 3.53 L (3.80-5.40) m/uL MCV 100.6 H (80.0-100.0) fL MCH 36.6 H (25.0-35.0) pg Plt Count 54 L (150-450) k/uL Sodium 126 L 128 L (137-145) mmol/L Potassium (3.5-5.1) mmol/L Chloride 90 L (98-107) mmol/L Carbon Dioxide 33 H (22-30) mmol/L BUN 3 L (7-17) mg/dL Creatinine 0.30 L (0.52-1.04) mg/dL Glucose (74-99) mg/dL POC Glucose (mg/dL) (75-99) mg/dL Calcium 7.9 L (8.4-10.2) mg/dL Phosphorus 1.7 L (2.5-4.5) mg/dL Magnesium 1.3 L (1.6-2.3) mg/dL Total Bilirubin 1.7 H (0.2-1.3) mg/dL AST 200 H (14-36) U/L ALT 86 H (9-52) U/L Total Protein 5.1 L (6.3-8.2) g/dL Albumin 2.8 L (3.5-5.0) g/dL Ur Random Sodium (30-90) mmol/L C. difficile (EIA) Intrp (Negative) Microbiology - Last 24 Hours (Table) 01/16/18 16:10 Urine Culture - Preliminary Urine,Catheterized 01/15/18 22:01 Urine Culture - Preliminary Urine,Voided Assessment and Plan Plan: -Hyponatremia of 117 on admissions went up to 128 this morning, patient iv fluids was a stopped. nephrology consult is appreciated. Patient is more stable and can be transferred out of the ICU -C. diff colitis, she has 1 bowel movement last night which is loose. Improving. No abdominal pain nausea vomiting. DC Rocephin and continue with oral vancomycin -Elevated liver enzymes, follow-up levels -hypokalemia and hypomagnesemia were placed -Acute delirium secondary mostly to metabolic encephalopathy, resolveing and today patient is more awake and alert. CT of the head: No acute changes -Possible UTI as per UA, possible contributing to metabolic encephalopathy. Send UC and start Rocephin 1 g daily -History of upper respiratory infection, influenza is negative, resolved -Heavy smoker she smokes 1 pack per day. With some elements of COPD with expiratory wheezing. Continue with a breathing treatment DVT prophylaxis subcutaneous heparin GI prophylaxis Pepcid PT/OT, pending CODE STATUS: Discussed with the patient today and she prefers full code. Orders placed in the system. Patient has capacity to make medical decisions based upon my evaluation Prognosis is very guarded given the severity and multiple medical problems Discussed with staff Time spent more than 35 minutes
[2018-01-17] MEDS: POTASSIUM PHOSPHATE 10 MMOL in SODIUM CHLORIDE 0.9% 250 ML IV SCH ×2 (09:29→12:46)
[2018-01-17] MEDS: IPRATROPIUM-ALBUTEROL 3 ML NEB INHALATION SCH ×2 (10:59→19:09)
[2018-01-17 11:34] VITALS: BMI 16.2
[2018-01-17] MEDS: THIAMINE 100 MG TAB PO SCH ×2 (12:48→17:37)
[2018-01-17] MEDS: cefTRIAXone IN SWFI 1,000 MG/10 ML SYRINGE IVP SCH (12:50)
--- NOTE | 2018-01-17 14:43 | CONS ---
CONSULTATION REASON FOR CONSULT: Hyponatremia. HISTORY OF PRESENT ILLNESS: The patient is a 62-year-old female with history of EtOH abuse. She was admitted to the hospital with the complaints of dizziness, feeling weak and tired. She was also having some cough and nasal congestion. The blood pressure was not low. It was at 168/94 when she initially presented. The patient was noted to have a serum sodium of 117. The patient received normal saline initially and serum sodium improved, although there was a rapid increase to 125. Following which patient was started on D5W to slow correction. The patient states she is feeling much better. She did get Ativan for DTs and her mentation is back to baseline. PAST MEDICAL HISTORY: History of EtOH abuse, hypertension, history of C diff colitis, COPD, anxiety, depression. PAST SURGICAL HISTORY: . SOCIAL HISTORY: Positive for smoking as well as heavy alcohol use. MEDICATIONS: Medications at home include a multivitamin. ALLERGIES: Include SULFA. REVIEW OF SYSTEMS: As per HPI. Other systems negative. EXAMINATION: Patient is comfortable, awake. She is not in any acute distress. She is oriented x3. Blood pressure is 102/70. This morning it was 117/88. Examination of the heart: S1, S2. Examination lungs: Bilateral breath sounds are heard. Abdomen is soft, nontender. Examination lower extremities shows no evidence of edema. RN OR LPN exam is grossly intact. Patient is moving all 4 extremities. LABS: Show sodium 128, potassium 4.0, BUN 3, serum creatinine 0.3, hemoglobin 12.9 g/dL. Magnesium is 1.3, phosphorus 1.7, albumin 2.8. C diff toxin is negative. ASSESSMENT: 1. Hyponatremia initially hypovolemic. Urine sodium was low and urine osmolality was low as well. The patient initially received normal saline, following which the correction was slowed down, but now patient is off of all IV fluids. We can allow serum sodium to continue to rise. I will maintain her off of all IV fluids and she can increase her oral intake. 2. Severe hypokalemia associated with decreased oral intake and diarrhea, status post replacement and now improved. 3. C diff colitis with previous history of C diff colitis, maintained on oral vancomycin. 4. Hypomagnesemia secondary to ETOH abuse and decreased oral intake, currently being replaced. 5. Hypophosphatemia secondary to malnutrition and an element of hungry bone disease. PLAN: Increase oral intake. Repeat labs in a.m. Replace magnesium and phosphorus. Thank you for this consultation. We will continue to follow the patient with you during her hospitalization. JF / FRIEDA: [id number] /
[2018-01-18] MEDS: VANCOMYCIN ORAL SOLUTION 250 MG/5 ML BOTTLE PO SCH ×4 (00:20→17:42)
[2018-01-18 04:56] LABS: Basophils % (A) 1 %; Eosinophils # (A) 0.1 k/uL (0-0.7); Eosinophils % (A) 2 %; HCT 35.8 % (34.0-46.0); HGB 12.5 gm/dL (11.4-16.0); Lymphocytes # (A) 1.6 k/uL (1.0-4.8); Lymphocytes % (A) 39 %; MCH 36.2 pg (25.0-35.0); MCV 103.4 fL (80.0-100.0); Macrocytosis Slight; Mean Platelet Volume 8.1; Monocytes # (A) 0.3 k/uL (0-1.0); Monocytes % (A) 8 %; Neutrophils % (A) 48 %; RBC 3.46 m/uL (3.80-5.40); WBC 4.2 k/uL (3.8-10.6)
[2018-01-18 05:09] LABS: Platelet Count 61 k/uL (150-450)
[2018-01-18 05:11] LABS: ALT 90 U/L (9-52); AST 154 U/L (14-36); Alkaline Phosphatase 89 U/L (38-126); Anion Gap 10 mmol/L; Bilirubin, Delta 0.7 mg/dL (0.0-0.2); Bilirubin,Unconjugated 0.7 mg/dL (0.0-1.1); Blood Urea Nitrogen 3 mg/dL (7-17); Calcium 8.1 mg/dL (8.4-10.2); Carbon Dioxide 27 mmol/L (22-30); Chloride 89 mmol/L (98-107); Glucose 140 mg/dL (74-99); Magnesium 1.1 mg/dL (1.6-2.3); Potassium 3.8 mmol/L (3.5-5.1); Sodium 126 mmol/L (137-145); Total Bilirubin 1.4 mg/dL (0.2-1.3); Total Protein 5.3 g/dL (6.3-8.2)
[2018-01-18] MEDS ORDERED: POTASSIUM CHLORIDE ER 20 MEQ TAB.ER PO SCH (06:00)
[2018-01-18] MEDS: MAGNESIUM SULFATE-D5W PMX 1 GM in DEXTROSE/WATER 1 100ML.BAG IVPB SCH ×3 (06:58→11:45)
--- NOTE | 2018-01-18 07:58 | PN ---
PROGRESS NOTE Patient is seen for followup for hyponatremia which was mainly hypovolemic. Serum sodium increased from 117 to 125. The patient received D5W for a short period of time following which it was discontinued and the serum sodium had come up to 128. The patient was not on any fluids overnight and this morning her sodium is down to 126. She has been eating. Urine osmolality was low at 104 and random urine sodium was also low at 11. This morning I will start the patient on normal saline. PHYSICAL EXAMINATION: On examination, blood pressure is 120/71, heart rate 84 per minute. She is afebrile. EXAMINATION OF THE HEART: S1, S2. EXAMINATION OF THE LUNGS: Bilateral breath sounds are heard. Abdomen is soft, nontender. Exam of lower extremities shows no evidence of edema. REGISTERED NURSE CARDIAC exam is grossly intact. Patient moving all 4 extremities. She is not confused. She is awake and alert. LAB: Labs show sodium 126, potassium 3.8, BUN 3, serum creatinine 0.3, hemoglobin 12.5 g/dL. ALT, AST are decreasing. ALT is 90 and AST 154, albumin 3.0. ASSESSMENT: 1. Hypovolemic hyponatremia. Serum sodium had come up to 128 and this morning it is down to 126. The patient has been started on normal saline. We will recheck another sodium level in about 3 to 4 hours. 2. Severe hypomagnesemia secondary to malnutrition and EtOH abuse, status post replacement. 3. Severe hypokalemia secondary to decreased oral intake, gastrointestinal fluid loss and ETOH abuse, currently status post replacement and improved. 4. Elevated liver enzymes associated with ethanol abuse. 5. Altered mentation with mild delirium tremens, now resolved. PLAN: Start normal saline. Repeat sodium in 3 to 4 hours. Continue potassium and magnesium replacement. MMODL / IJN: [id number] /
[2018-01-18] MEDS: IPRATROPIUM-ALBUTEROL 3 ML NEB INHALATION SCH ×2 (08:03→20:11)
[2018-01-18] MEDS: SODIUM CHLORIDE 0.9% 1,000 ML IV SCH (08:06)
[2018-01-18] MEDS: HEPARIN SODIUM,PORCINE 5,000 UNIT/ML 1 ML VIAL SQ SCH ×2 (08:06→22:46)
[2018-01-18] MEDS: FAMOTIDINE 20 MG/2 ML VIAL IV SCH ×2 (08:06→22:46)
--- NOTE | 2018-01-18 08:32 | P.PN ---
Subjective Subjective Patient is more awake today, she answers appropriately and she knows where she is and why she is in the hospital. Patient denies nausea vomiting, no chest pain or dyspnea. Patient had 1 loose bowel movement yesterday. No urinary complaints and no fever. As patient is more awake she get more history stating that she has been feeling generally weak, with nausea vomiting, with worsening cough and phlegm over the few days before coming to the hospital without specification per patient.Patient confirms to me history of drinking alcohol and smoking cigarettes 1 PDD. Patient's sodium this morning was 128, she she was on IV fluids which were stopped now. Patient is able to eat and drink with no problems. Patient states she is able to ambulate with no problems 01/18/2018 Patient is still having diarrhea, she had 1 loose bowel movement this morning, she had about 2-3 BPM as per patient over the last 24 hours area patient doesn' t complain from abdominal pain, no nausea vomiting. And abdominal examination shows mild generalized tenderness with no rebound tenderness. Patient is fully awake oriented, not in respiratory distress. No chest pain, no dyspnea. Her sodium still on the low side went from 1.8-126. Discussed the case with the coach professional athletes on the case and will going to start her on IV fluids as her sodium in the urine is low too. Patient might benefit from sodium tablets on discharge as per nephrology recommendation since she is chronic alcohol drinker with recurrent problems of hyponatremia ROS CONSTITUTIONAL: No fever, no malaise, no fatigue. HEENT: No recent visual problems or hearing problems. Denied any sore throat. CARDIOVASCULAR: No orthopnea, PND, no palpitations, no syncope. PULMONARY: No shortness of breath, no cough, no hemoptysis. GASTROINTESTINAL: no nausea, no vomiting, no abdominal pain. Normoactive bowel sounds. NEUROLOGICAL: No headaches, no weakness, no numbness. HEMATOLOGICAL: Denies any bleeding or petechiae. GENITOURINARY: Denies any burning micturition, frequency, or urgency. MUSCULOSKELETAL/RHEUMATOLOGICAL: Denies any joint pain, swelling, or any muscle pain. ENDOCRINE: Denies any polyuria or polydipsia. Objective - Vital Signs Vital signs: Vital Signs Temp 98.3 F 01/18/18 04:00 Pulse 82 01/18/18 08:13 Resp 17 01/18/18 04:00 BP 120/71 01/18/18 04:00 Pulse Ox 95 01/18/18 08:03 Intake & Output 01/17/18 01/18/18 01/18/18 18:59 06:59 18:59 Intake Total 1400 960 250 Output Total 1750 1800 300 Balance -350 -840 -50 Weight 39 kg 40 kg 40 kg Intake: Intake, IV Titration 800 250 Amount Magnesium Sulfate-D5w Pmx 300 1 gm In Dextrose/Water 1 100ml.bag @ 100 mls/hr IVPB Q1H ALEX Rx#: [id number] Magnesium Sulfate-D5w Pmx 200 1 gm In Dextrose/Water 1 100ml.bag @ 100 mls/hr IVPB Q1H ALEX Rx#: [id number] Potassium Phosphate 10 500 mmol In Sodium Chloride 0 .9% 250 ml @ 125 mls/hr IV Q2H ALEX Rx#:[id number] Sodium Chloride 0.9% 1, 50 000 ml @ 50 mls/hr IV . Q20H ALEX Rx#:[id number] Oral 600 720 Tube Feeding 240 Output: Urine 1750 1800 300 Other: Voiding Method Bedside Commode Bedside Commode # Voids 1 # Bowel Movements 2 2 - Labs CBC & Chem 7: 01/18/18 04:38 01/18/18 04:38 Labs: Abnormal Lab Results - Last 24 Hours (Table) 01/18/18 01/18/18 Range/Units 04:38 04:38 RBC 3.46 L (3.80-5.40) m/uL MCV 103.4 H (80.0-100.0) fL MCH 36.2 H (25.0-35.0) pg Plt Count 61 L (150-450) k/uL Sodium 126 L (137-145) mmol/L Chloride 89 L (98-107) mmol/L BUN 3 L (7-17) mg/dL Creatinine 0.30 L (0.52-1.04) mg/dL Glucose 140 H (74-99) mg/dL Calcium 8.1 L (8.4-10.2) mg/dL Magnesium 1.1 L (1.6-2.3) mg/dL Total Bilirubin 1.4 H (0.2-1.3) mg/dL Delta Bilirubin 0.7 H (0.0-0.2) mg/dL AST 154 H (14-36) U/L ALT 90 H (9-52) U/L Total Protein 5.3 L (6.3-8.2) g/dL Albumin 3.0 L (3.5-5.0) g/dL Microbiology - Last 24 Hours (Table) 01/16/18 16:10 Urine Culture - Final Urine,Catheterized 01/15/18 22:01 Urine Culture - Final Urine,Voided Assessment and Plan Plan: -Hyponatremia of 117 on admissions went up to 128 to 128, start iv fluids as per nephrology recommendations. Mostly related to her diarrhea and history of drinking -C. diff colitis, still has loose bowel movement . No abdominal pain nausea vomiting. DC Rocephin and continue with oral vancomycin --Elevated liver enzymes, follow-up levels -hypokalemia and hypomagnesemia were placed -Acute delirium secondary mostly to metabolic encephalopathy, resolved and today patient is more awake and alert. CT of the head: No acute changes -Possible asymptomatic bacteriuria versus contamination. UC is negative and DC Rocephin 1 g daily. -History of upper respiratory infection, influenza is negative, resolved -Heavy smoker she smokes 1 pack per day. With some elements of COPD with expiratory wheezing. Continue with a breathing treatment DVT prophylaxis subcutaneous heparin GI prophylaxis Pepcid PT/OT, pending CODE STATUS: Discussed with the patient today and she prefers full code. Orders placed in the system. Patient has capacity to make medical decisions based upon my evaluation Prognosis is very guarded given the severity and multiple medical problems Discussed with staff Time spent more than 35 minutes
[2018-01-18 10:32] LABS: Potassium 4.2 mmol/L (3.5-5.1)
[2018-01-18] MEDS: THIAMINE 100 MG TAB PO SCH ×2 (11:46→17:43)
--- NOTE | 2018-01-18 14:29 | P.PN ---
Subjective Progress Note Date: 01/18/18 A pleasant 62-year-old female patient, alcoholic, known to me from prior hospitalization, as the patient has history of alcoholic liver disease in addition to stigmata of chronic liver disease secondary to alcoholism. The patient also has history of C. diff colitis, depression and hypertension. The patient comes into the hospital because of generalized weakness, chest congestion and increased cough and increased dyspnea and in the center the patient was getting profoundly weak and having altered mentation. No headaches. No neck stiffness. No pleurisy. No hemoptysis. No nausea or vomiting. No abdominal distention. No worsening in lower extremity edema. She drinks around pint of vodka on a daily basis pH she drinks also wind. She smokes a pack of cigarettes on a daily basis. The patient presented to the hospital and the patient was found to have a sodium level of 117 initially and she was given a bolus of normal saline in the emergency department and she was given another bolus making a total of 2 L. In addition the patient was found to have profound hypokalemia and the potassium on admission was as low as 1.9 and came up to 2.2 after being replaced with 80 mEq of potassium. Potassium level remains low and the sodium level has come up to 125 and based on that nephrology has made the adjustment to switch her to D5 water with 40 mEq of potassium running at 50 mL an hour. At the same time the patient will be given an additional 80 mEq of potassium right now. The patient also had her magnesium level replaced knowing that on presentation she had hypomagnesemia with a magnesium level of 0.8. Clinically she is improved and the patient is more awake and at this point time she is following commands and answering questions. No focal neurological deficits. CAT scan of the head and cervical spine showed no acute abnormalities and the findings are essentially of a chronic in nature. EKG showed no significant changes related to hypokalemia. No signs of acute delirium tremens for now. There is a concern of an underlying urine checked infection and the patient was given a dose of Rocephin. Also, after arriving to the intensive care unit the patient started developing diarrhea and stool analysis showed positivity towards C. diff and the patient was started on oral vancomycin. No abdominal distention. No fever or chills. No reported aspiration. Chest x-ray is not showing any acute pneumonia. The patient is tolerating oral intake at this point in time. On 01/18/2008 and I'm seeing this patient for a follow-up. The patient is awake and alert and following commands and answering questions. Sodium level is up to 128 and the patient is currently on no IV fluids. She is KVO IV fluids. Potassium was replaced and it's up to 4.0. Magnesium is also being replaced this morning. She is afebrile. She has a congested cough that she may have an underlying component of chronic bronchitis. She is a chronic smoker. No shaking. No tremors. No confusion. No delirium. No agitation. She is resting comfortably in bed. She had another bout of diarrhea last night and this morning she has no nausea or vomiting or abdominal pain and in fact she is stating that she is hungry and she is requesting for foods. She is on IV Rocephin as an empiric antibiotic coverage and she is also receiving oral vancomycin regarding her C. diff colitis. No fever. No chills. Adequate urine output. No altered mentation. No focal neurological deficit. On 01/18/2018, I'm seeing this patient for a follow-up. The patient is looking well. No specific complaints. She is still having some liquidy diarrhea and the patient will be taken off the Rocephin and the patient will be continued on oral vancomycin. Note that she was diagnosed having a recurrent C. diff colitis. May consider transferring this patient to [facility] if there is no improvement. Otherwise, her sodium level is up to 1:30. Potassium level is up to 4.2. No significant electrodes imbalance. Magnesium level is at 1.1 and this will be replaced. Patient is awake and alert and following commands and answering questions appropriately. No respiratory distress. No fever or chills. No abdominal distention. Adequate urine output. No other significant events overnight. Objective - Vital Signs Vital signs: Vital Signs Temp 98.2 F 01/18/18 12:00 Pulse 87 01/18/18 12:00 Resp 17 01/18/18 12:00 BP 125/68 01/18/18 12:00 Pulse Ox 95 01/18/18 08:03 Intake & Output 01/17/18 01/18/18 01/18/18 18:59 06:59 18:59 Intake Total 1400 960 910 Output Total 1750 1800 900 Balance -350 -840 10 Weight 39 kg 40 kg 40 kg Intake: Intake, IV Titration 800 550 Amount Magnesium Sulfate-D5w Pmx 300 1 gm In Dextrose/Water 1 100ml.bag @ 100 mls/hr IVPB Q1H ALEX Rx#: [id number] Magnesium Sulfate-D5w Pmx 300 1 gm In Dextrose/Water 1 100ml.bag @ 100 mls/hr IVPB Q1H ALEX Rx#: [id number] Potassium Phosphate 10 500 mmol In Sodium Chloride 0 .9% 250 ml @ 125 mls/hr IV Q2H ALEX Rx#:[id number] Sodium Chloride 0.9% 1, 250 000 ml @ 50 mls/hr IV . Q20H ALEX Rx#:[id number] Oral 600 720 360 Tube Feeding 240 Output: Urine 1750 1800 900 Other: Voiding Method Bedside Commode Bedside Commode Bedside Commode # Voids 1 # Bowel Movements 2 2 - Exam Clinically the patient is calm and comfortable and she is laying comfortably in bed. Head exam was generally normal. There was no scleral icterus or corneal arcus. Mucous membranes were moist. Examination of the neck shows no neck stiffness no goiter or neck masses. The patient is conjunctival icterus and pallor. No nystagmus. Pupils are equal and reactive to light. There is no facial asymmetry. Lungs were clear to auscultation and percussion, and with normal diaphragmatic excursion. No wheezes or rales were noted. Cardiac exam revealed the PMI to be normally situated and sized. The rhythm was regular and no extrasystoles were noted during several minutes of auscultation. The first and second heart sounds were normal and physiologic splitting of the second heart sound was noted. There were no murmurs, rubs, clicks, or gallops.Abdominal exam revealed normal bowel sounds. The abdomen was soft, non- tender, and without masses, organomegaly, or appreciable enlargement of the abdominal aorta. Examination of the extremities revealed easily palpable radial, femoral and pedal pulses. There was no cyanosis, clubbing or edema. Skin shows no ulcerations or open wounds. The patient is profoundly jaundiced. Neurologically, the patient is moving all 4 extremities. She is awake 3. Cranial nerves are intact. - Labs CBC & Chem 7: 01/18/18 04:38 01/18/18 10:11 Labs: Abnormal Lab Results - Last 24 Hours (Table) 01/18/18 01/18/18 01/18/18 Range/Units 04:38 04:38 10:11 RBC 3.46 L (3.80-5.40) m/uL MCV 103.4 H (80.0-100.0) fL MCH 36.2 H (25.0-35.0) pg Plt Count 61 L (150-450) k/uL Sodium 126 L 130 L (137-145) mmol/L Chloride 89 L (98-107) mmol/L BUN 3 L (7-17) mg/dL Creatinine 0.30 L (0.52-1.04) mg/dL Glucose 140 H (74-99) mg/dL Calcium 8.1 L (8.4-10.2) mg/dL Magnesium 1.1 L (1.6-2.3) mg/dL Total Bilirubin 1.4 H (0.2-1.3) mg/dL Delta Bilirubin 0.7 H (0.0-0.2) mg/dL AST 154 H (14-36) U/L ALT 90 H (9-52) U/L Total Protein 5.3 L (6.3-8.2) g/dL Albumin 3.0 L (3.5-5.0) g/dL Microbiology - Last 24 Hours (Table) 01/16/18 16:10 Urine Culture - Final Urine,Catheterized 01/15/18 22:01 Urine Culture - Final Urine,Voided Assessment and Plan Plan: Assessment 1 acute symptoms of bronchitis without indication for an underlying pneumonia also a component of chronic bronchitis as the patient is a chronic smoker. His symptoms improved with a combination of DuoNeb nebulized treatments around the clock. 2 acute diarrhea with C. diff colitis, currently on oral vancomycin, the diarrhea has improved although not completely subsided. 3 severe electrolyte imbalance with hypokalemia and hypomagnesemia and hyponatremia, being replaced accordingly, and the potassium level is normalized and the sodium level is up to 130 4 acute change in mental status secondary to above, improved and recovered and the patient is back to normal 5 chronic alcoholic liver disease/cirrhosis with stigmata of chronic hepatic failure 6 alcoholism, active 7 abnormalities in LFTs related to alcoholic hepatitis 8 chronic anxiety/depression 9 chronic normocytic. 10 questionable urine tract infection Plan Stop the IV Rocephin. Continue oral vancomycin. Monitor mental status. Monitor electrolytes. Replace magnesium. Continue DuoNeb the regiment around- the-clock. Transfer this patient to a medical floor. We'll continue to follow.
[2018-01-19] MEDS: VANCOMYCIN ORAL SOLUTION 250 MG/5 ML BOTTLE PO SCH ×4 (00:55→17:14)
[2018-01-19] MEDS: SODIUM CHLORIDE 0.9% 1,000 ML IV SCH (05:58)
[2018-01-19 07:32] LABS: Basophils % (A) 1 %; Eosinophils # (A) 0.1 k/uL (0-0.7); Eosinophils % (A) 2 %; HCT 35.7 % (34.0-46.0); HGB 11.9 gm/dL (11.4-16.0); Lymphocytes # (A) 1.5 k/uL (1.0-4.8); Lymphocytes % (A) 34 %; MCH 35.5 pg (25.0-35.0); MCHC 33.4 g/dL (31.0-37.0); MCV 106.6 fL (80.0-100.0); Macrocytosis Moderate; Mean Platelet Volume 7.9; Monocytes # (A) 0.4 k/uL (0-1.0); Monocytes % (A) 10 %; Neutrophils # (A) 2.1 k/uL (1.3-7.7); Neutrophils % (A) 50 %; RBC 3.35 m/uL (3.80-5.40); RDW 15.1 % (11.5-15.5); WBC 4.3 k/uL (3.8-10.6)
[2018-01-19] MEDS: IPRATROPIUM-ALBUTEROL 3 ML NEB INHALATION SCH ×2 (07:36→19:09)
[2018-01-19 07:42] LABS: ALT 87 U/L (9-52); AST 127 U/L (14-36); Alkaline Phosphatase 85 U/L (38-126); Anion Gap 11 mmol/L; Bilirubin, Delta 0.5 mg/dL (0.0-0.2); Bilirubin,Unconjugated 0.5 mg/dL (0.0-1.1); Blood Urea Nitrogen 3 mg/dL (7-17); Calcium 8.3 mg/dL (8.4-10.2); Carbon Dioxide 25 mmol/L (22-30); Chloride 94 mmol/L (98-107); Glucose 111 mg/dL (74-99); Magnesium 1.1 mg/dL (1.6-2.3); Phosphorus 3.8 mg/dL (2.5-4.5); Potassium 3.8 mmol/L (3.5-5.1); Sodium 130 mmol/L (137-145); Total Protein 5.3 g/dL (6.3-8.2)
[2018-01-19 07:42] LABS: Platelet Count 76 k/uL (150-450)
[2018-01-19] MEDS: FAMOTIDINE 20 MG/2 ML VIAL IV SCH ×2 (08:06→21:08)
[2018-01-19] MEDS: HEPARIN SODIUM,PORCINE 5,000 UNIT/ML 1 ML VIAL SQ SCH ×2 (08:06→21:08)
--- NOTE | 2018-01-19 11:19 | P.PN ---
Subjective Patient is seen in follow-up for hyponatremia. Sodium level stable at 130 today. She is noted to be C. diff positive. She does admit to having loose bowel movements. Oral intake is fair. She does make to drinking quite a bit of water. No vomiting. Vital signs are stable. General: The patient appeared well nourished and normally developed. HEENT: Head exam is unremarkable. Neck is without jugular venous distension. LUNGS: Lungs are clear to auscultation and percussion. Breath sounds decreased. HEART: Rate and Rhythm are regular. First and second heart sounds normal. No murmurs, rubs or gallops. ABDOMEN: Abdominal exam reveals normal bowel sounds. Non-tender and non- distended. No evidence of peritonitis. EXTREMITITES: No clubbing, cyanosis, or edema. Objective - Vital Signs Vital signs: Vital Signs Temp 98.0 F 01/19/18 05:59 Pulse 96 01/19/18 07:50 Resp 15 01/19/18 05:59 BP 121/68 01/19/18 05:59 Pulse Ox 98 01/19/18 05:59 Intake & Output 01/18/18 01/19/18 01/19/18 18:59 06:59 18:59 Intake Total 1110 170 Output Total 902 1 Balance 208 169 Weight 40 kg Intake: IV 50 Sodium Chloride 0.9% 1, 50 000 ml @ 50 mls/hr IV . Q20H ALEX Rx#:[id number] Intake, IV Titration 750 Amount Magnesium Sulfate-D5w Pmx 300 1 gm In Dextrose/Water 1 100ml.bag @ 100 mls/hr IVPB Q1H ALEX Rx#: [id number] Sodium Chloride 0.9% 1, 450 000 ml @ 50 mls/hr IV . Q20H ALEX Rx#:[id number] Oral 360 120 Output: Urine 900 Stool 2 1 Other: Voiding Method Bedside Commode Toilet # Voids 2 1 - Labs CBC & Chem 7: 01/19/18 07:17 01/19/18 07:11 Labs: Abnormal Lab Results - Last 24 Hours (Table) 01/19/18 01/19/18 Range/Units 07:11 07:17 RBC 3.35 L (3.80-5.40) m/uL MCV 106.6 H (80.0-100.0) fL MCH 35.5 H (25.0-35.0) pg Plt Count 76 L (150-450) k/uL Sodium 130 L (137-145) mmol/L Chloride 94 L (98-107) mmol/L BUN 3 L (7-17) mg/dL Creatinine 0.35 L (0.52-1.04) mg/dL Glucose 111 H (74-99) mg/dL Calcium 8.3 L (8.4-10.2) mg/dL Magnesium 1.1 L (1.6-2.3) mg/dL Delta Bilirubin 0.5 H (0.0-0.2) mg/dL AST 127 H (14-36) U/L ALT 87 H (9-52) U/L Total Protein 5.3 L (6.3-8.2) g/dL Albumin 3.0 L (3.5-5.0) g/dL Assessment and Plan Plan: Assessment: 1. Hypovolemic hyponatremia improved with IV hydration. Sodium level stable at 130 this morning. Component of tea and toast diet as urine sodium is low at 11 and urine osmolality is quite dilute at 104. 2. Hypomagnesemia from alcohol abuse and malnutrition. 3. Alcohol abuse. 4. C. diff colitis. Plan: Continue normal saline at 50 mL an hour. Encouraged oral solute intake. 1.5 L fluid restriction. Replace magnesium. 4 g IV today to be infused over 24 hours for better absorption. Repeat electrolytes in the morning.
--- NOTE | 2018-01-19 11:52 | P.PN ---
Subjective Progress Note Date: 01/19/18 Principal diagnosis: Acute diarrhea with C. difficile colitis. Acute on chronic bronchitis. A pleasant 62-year-old female patient, alcoholic, known to me from prior hospitalization, as the patient has history of alcoholic liver disease in addition to stigmata of chronic liver disease secondary to alcoholism. The patient also has history of C. diff colitis, depression and hypertension. The patient comes into the hospital because of generalized weakness, chest congestion and increased cough and increased dyspnea and in the center the patient was getting profoundly weak and having altered mentation. No headaches. No neck stiffness. No pleurisy. No hemoptysis. No nausea or vomiting. No abdominal distention. No worsening in lower extremity edema. She drinks around pint of vodka on a daily basis pH she drinks also wind. She smokes a pack of cigarettes on a daily basis. The patient presented to the hospital and the patient was found to have a sodium level of 117 initially and she was given a bolus of normal saline in the emergency department and she was given another bolus making a total of 2 L. In addition the patient was found to have profound hypokalemia and the potassium on admission was as low as 1.9 and came up to 2.2 after being replaced with 80 mEq of potassium. Potassium level remains low and the sodium level has come up to 125 and based on that nephrology has made the adjustment to switch her to D5 water with 40 mEq of potassium running at 50 mL an hour. At the same time the patient will be given an additional 80 mEq of potassium right now. The patient also had her magnesium level replaced knowing that on presentation she had hypomagnesemia with a magnesium level of 0.8. Clinically she is improved and the patient is more awake and at this point time she is following commands and answering questions. No focal neurological deficits. CAT scan of the head and cervical spine showed no acute abnormalities and the findings are essentially of a chronic in nature. EKG showed no significant changes related to hypokalemia. No signs of acute delirium tremens for now. There is a concern of an underlying urine checked infection and the patient was given a dose of Rocephin. Also, after arriving to the intensive care unit the patient started developing diarrhea and stool analysis showed positivity towards C. diff and the patient was started on oral vancomycin. No abdominal distention. No fever or chills. No reported aspiration. Chest x-ray is not showing any acute pneumonia. The patient is tolerating oral intake at this point in time. On 01/18/2008 and I'm seeing this patient for a follow-up. The patient is awake and alert and following commands and answering questions. Sodium level is up to 128 and the patient is currently on no IV fluids. She is KVO IV fluids. Potassium was replaced and it's up to 4.0. Magnesium is also being replaced this morning. She is afebrile. She has a congested cough that she may have an underlying component of chronic bronchitis. She is a chronic smoker. No shaking. No tremors. No confusion. No delirium. No agitation. She is resting comfortably in bed. She had another bout of diarrhea last night and this morning she has no nausea or vomiting or abdominal pain and in fact she is stating that she is hungry and she is requesting for foods. She is on IV Rocephin as an empiric antibiotic coverage and she is also receiving oral vancomycin regarding her C. diff colitis. No fever. No chills. Adequate urine output. No altered mentation. No focal neurological deficit. On 01/18/2018, I'm seeing this patient for a follow-up. The patient is looking well. No specific complaints. She is still having some liquidy diarrhea and the patient will be taken off the Rocephin and the patient will be continued on oral vancomycin. Note that she was diagnosed having a recurrent C. diff colitis. May consider transferring this patient to [facility] if there is no improvement. Otherwise, her sodium level is up to 1:30. Potassium level is up to 4.2. No significant electrodes imbalance. Magnesium level is at 1.1 and this will be replaced. Patient is awake and alert and following commands and answering questions appropriately. No respiratory distress. No fever or chills. No abdominal distention. Adequate urine output. No other significant events overnight. The patient is seen again today 01/19/2018 in follow-up on the regular medical floor. She's been up ambulating in her room. She is doing quite well from the pulmonary standpoint. No worsening shortness of breath, cough or congestion. Maintaining good O2 saturations in the high 90s on room air. She has not had any further diarrhea. She remains on oral vancomycin. White count 4.3. Hemoglobin 11.9. Creatinine 0.35. Objective - Vital Signs Vital signs: Vital Signs Temp 98.0 F 01/19/18 05:59 Pulse 96 01/19/18 07:50 Resp 15 01/19/18 05:59 BP 121/68 01/19/18 05:59 Pulse Ox 98 01/19/18 05:59 Intake & Output 01/18/18 01/19/18 01/19/18 18:59 06:59 18:59 Intake Total 1110 170 Output Total 902 1 Balance 208 169 Weight 40 kg Intake: IV 50 Sodium Chloride 0.9% 1, 50 000 ml @ 50 mls/hr IV . Q20H ALEX Rx#:[id number] Intake, IV Titration 750 Amount Magnesium Sulfate-D5w Pmx 300 1 gm In Dextrose/Water 1 100ml.bag @ 100 mls/hr IVPB Q1H ALEX Rx#: [id number] Sodium Chloride 0.9% 1, 450 000 ml @ 50 mls/hr IV . Q20H ALEX Rx#:[id number] Oral 360 120 Output: Urine 900 Stool 2 1 Other: Voiding Method Bedside Commode Toilet # Voids 2 1 - Exam Clinically the patient is calm and comfortable and she is laying comfortably in bed. Head exam was generally normal. There was no scleral icterus or corneal arcus. Mucous membranes were moist. Examination of the neck shows no neck stiffness no goiter or neck masses. The patient is conjunctival icterus and pallor. No nystagmus. Pupils are equal and reactive to light. There is no facial asymmetry. Lungs were clear to auscultation and percussion, and with normal diaphragmatic excursion. No wheezes or rales were noted. Cardiac exam revealed the PMI to be normally situated and sized. The rhythm was regular and no extrasystoles were noted during several minutes of auscultation. The first and second heart sounds were normal and physiologic splitting of the second heart sound was noted. There were no murmurs, rubs, clicks, or gallops.Abdominal exam revealed normal bowel sounds. The abdomen was soft, non- tender, and without masses, organomegaly, or appreciable enlargement of the abdominal aorta. Examination of the extremities revealed easily palpable radial, femoral and pedal pulses. There was no cyanosis, clubbing or edema. Skin shows no ulcerations or open wounds. The patient is profoundly jaundiced. Neurologically, the patient is moving all 4 extremities. She is awake 3. Cranial nerves are intact. - Labs CBC & Chem 7: 01/19/18 07:17 01/19/18 07:11 Labs: Abnormal Lab Results - Last 24 Hours (Table) 01/19/18 01/19/18 Range/Units 07:11 07:17 RBC 3.35 L (3.80-5.40) m/uL MCV 106.6 H (80.0-100.0) fL MCH 35.5 H (25.0-35.0) pg Plt Count 76 L (150-450) k/uL Sodium 130 L (137-145) mmol/L Chloride 94 L (98-107) mmol/L BUN 3 L (7-17) mg/dL Creatinine 0.35 L (0.52-1.04) mg/dL Glucose 111 H (74-99) mg/dL Calcium 8.3 L (8.4-10.2) mg/dL Magnesium 1.1 L (1.6-2.3) mg/dL Delta Bilirubin 0.5 H (0.0-0.2) mg/dL AST 127 H (14-36) U/L ALT 87 H (9-52) U/L Total Protein 5.3 L (6.3-8.2) g/dL Albumin 3.0 L (3.5-5.0) g/dL Assessment and Plan Assessment: Assessment 1 acute symptoms of bronchitis without indication for an underlying pneumonia also a component of chronic bronchitis as the patient is a chronic smoker. His symptoms improved with a combination of DuoNeb nebulized treatments around the clock. 2 acute diarrhea with C. diff colitis, currently on oral vancomycin, the diarrhea has improved although not completely subsided. 3 severe electrolyte imbalance with hypokalemia and hypomagnesemia and hyponatremia, being replaced accordingly, and the potassium level is normalized and the sodium level is up to 130 4 acute change in mental status secondary to above, improved and recovered and the patient is back to normal 5 chronic alcoholic liver disease/cirrhosis with stigmata of chronic hepatic failure 6 alcoholism, active 7 abnormalities in LFTs related to alcoholic hepatitis 8 chronic anxiety/depression 9 chronic normocytic. 10 questionable urine tract infection Plan The patient was seen and evaluated by Dr. Barron. She is stable from the pulmonary and critical care standpoint. We'll continue with her current medications. We'll follow the patient as-needed basis. I, the cosigning physician, performed a history & physical examination of the patient. Lungs sounds are clear. Maintaining good O2 saturations in the 90s on room air. I discussed the assessment and plan of care with my nurse practitioner, Jacki Castaneda. I attest to the above note as dictated by her.
[2018-01-19] MEDS: MAGNESIUM SULFATE-D5W PMX 1 GM in DEXTROSE/WATER 1 100ML.BAG IVPB SCH ×2 (12:23→17:10)
[2018-01-19] MEDS: THIAMINE 100 MG TAB PO SCH ×2 (12:24→17:10)
--- NOTE | 2018-01-19 13:19 | P.PN ---
Subjective Subjective Patient is more awake today, she answers appropriately and she knows where she is and why she is in the hospital. Patient denies nausea vomiting, no chest pain or dyspnea. Patient had 1 loose bowel movement yesterday. No urinary complaints and no fever. As patient is more awake she get more history stating that she has been feeling generally weak, with nausea vomiting, with worsening cough and phlegm over the few days before coming to the hospital without specification per patient.Patient confirms to me history of drinking alcohol and smoking cigarettes 1 PDD. Patient's sodium this morning was 128, she she was on IV fluids which were stopped now. Patient is able to eat and drink with no problems. Patient states she is able to ambulate with no problems 01/18/2018 Patient is still having diarrhea, she had 1 loose bowel movement this morning, she had about 2-3 BPM as per patient over the last 24 hours area patient doesn' t complain from abdominal pain, no nausea vomiting. And abdominal examination shows mild generalized tenderness with no rebound tenderness. Patient is fully awake oriented, not in respiratory distress. No chest pain, no dyspnea. Her sodium still on the low side went from 128 to 126. Discussed the case with the machine bookkeeper on the case and will going to start her on IV fluids as her sodium in the urine is low too. Patient might benefit from sodium tablets on discharge as per nephrology recommendation since she is chronic alcohol drinker with recurrent problems of hyponatremia 1 01/19/2018 Patient is fully awake and oriented. She still have diarrhea. She has 3 episodes since morning which were loose. No nausea vomiting or abdominal pain. Sodium is trending up slowly with IV fluids and nephrology R following the patient. Patient is consult to restrict water drinking ROS CONSTITUTIONAL: No fever, no malaise, no fatigue. HEENT: No recent visual problems or hearing problems. Denied any sore throat. CARDIOVASCULAR: No orthopnea, PND, no palpitations, no syncope. PULMONARY: No shortness of breath, no cough, no hemoptysis. GASTROINTESTINAL: no nausea, no vomiting, no abdominal pain. Normoactive bowel sounds. NEUROLOGICAL: No headaches, no weakness, no numbness. HEMATOLOGICAL: Denies any bleeding or petechiae. GENITOURINARY: Denies any burning micturition, frequency, or urgency. MUSCULOSKELETAL/RHEUMATOLOGICAL: Denies any joint pain, swelling, or any muscle pain. ENDOCRINE: Denies any polyuria or polydipsia. Objective - Vital Signs Vital signs: Vital Signs Temp 98.0 F 01/19/18 05:59 Pulse 95 01/19/18 08:00 Resp 15 01/19/18 08:00 BP 121/68 01/19/18 05:59 Pulse Ox 98 01/19/18 05:59 Intake & Output 01/18/18 01/19/18 01/19/18 18:59 06:59 18:59 Intake Total 1110 170 Output Total 902 1 Balance 208 169 Weight 40 kg Intake: IV 50 Sodium Chloride 0.9% 1, 50 000 ml @ 50 mls/hr IV . Q20H ALEX Rx#:[id number] Intake, IV Titration 750 Amount Magnesium Sulfate-D5w Pmx 300 1 gm In Dextrose/Water 1 100ml.bag @ 100 mls/hr IVPB Q1H ALEX Rx#: [id number] Sodium Chloride 0.9% 1, 450 000 ml @ 50 mls/hr IV . Q20H ALEX Rx#:[id number] Oral 360 120 Output: Urine 900 Stool 2 1 Other: Voiding Method Bedside Commode Toilet Toilet # Voids 2 1 - Exam GENERAL: The patient is alert and oriented x3, not in any acute distress. Well developed, well nourished. HEENT: Pupils are round and equally reacting to light. EOMI. No scleral icterus. No conjunctival pallor. Normocephalic, atraumatic. No pharyngeal erythema. No thyromegaly. CARDIOVASCULAR: S1 and S2 present. No murmurs, rubs, or gallops. -PULMONARY: Chest is clear to auscultation, no crackles. She has some bilateral scattered wheezing, with harsh breath sounds ABDOMEN: Soft, nontender, nondistended, normoactive bowel sounds. No palpable organomegaly. MUSCULOSKELETAL: No joint swelling or deformity. EXTREMITIES: No cyanosis, clubbing, or pedal edema. NEUROLOGICAL: Gross neurological examination did not reveal any focal deficits. SKIN: No rashes. - Labs CBC & Chem 7: 01/19/18 07:17 01/19/18 07:11 Labs: Abnormal Lab Results - Last 24 Hours (Table) 01/19/18 01/19/18 Range/Units 07:11 07:17 RBC 3.35 L (3.80-5.40) m/uL MCV 106.6 H (80.0-100.0) fL MCH 35.5 H (25.0-35.0) pg Plt Count 76 L (150-450) k/uL Sodium 130 L (137-145) mmol/L Chloride 94 L (98-107) mmol/L BUN 3 L (7-17) mg/dL Creatinine 0.35 L (0.52-1.04) mg/dL Glucose 111 H (74-99) mg/dL Calcium 8.3 L (8.4-10.2) mg/dL Magnesium 1.1 L (1.6-2.3) mg/dL Delta Bilirubin 0.5 H (0.0-0.2) mg/dL AST 127 H (14-36) U/L ALT 87 H (9-52) U/L Total Protein 5.3 L (6.3-8.2) g/dL Albumin 3.0 L (3.5-5.0) g/dL Assessment and Plan Plan: -Hyponatremia of 117 on admissions went up to 122 to 130, start iv fluids as per nephrology recommendations. Mostly related to her diarrhea and history of drinking -C. diff colitis, still has loose bowel movement . No abdominal pain nausea vomiting. DC Rocephin and continue with oral vancomycin --Elevated liver enzymes, follow-up levels -hypokalemia and hypomagnesemia were placed -Acute delirium secondary mostly to metabolic encephalopathy, resolved and today patient is more awake and alert. CT of the head: No acute changes -Possible asymptomatic bacteriuria versus contamination. UC is negative and DC Rocephin 1 g daily. -History of upper respiratory infection, influenza is negative, resolved -Heavy smoker she smokes 1 pack per day. With some elements of COPD with expiratory wheezing. Continue with a breathing treatment DVT prophylaxis subcutaneous heparin GI prophylaxis Pepcid PT/OT, home with home health care CODE STATUS: Discussed with the patient today and she prefers full code. Orders placed in the system. Patient has capacity to make medical decisions based upon my evaluation Prognosis is very guarded given the severity and multiple medical problems Discussed with staff Time spent more than 35 minutes
[2018-01-20] MEDS: MAGNESIUM SULFATE-D5W PMX 1 GM in DEXTROSE/WATER 1 100ML.BAG IVPB SCH ×2 (00:02→06:12)
[2018-01-20] MEDS: VANCOMYCIN ORAL SOLUTION 250 MG/5 ML BOTTLE PO SCH ×4 (00:02→17:45)
[2018-01-20] MEDS: SODIUM CHLORIDE 0.9% 1,000 ML IV SCH ×2 (06:13→10:31)
[2018-01-20 08:45] LABS: Basophils % (A) 1 %; Eosinophils % (A) 1 %; HCT 37.2 % (34.0-46.0); HGB 12.5 gm/dL (11.4-16.0); Lymphocytes # (A) 1.1 k/uL (1.0-4.8); Lymphocytes % (A) 31 %; MCH 36.1 pg (25.0-35.0); MCHC 33.6 g/dL (31.0-37.0); MCV 107.6 fL (80.0-100.0); Macrocytosis Moderate; Mean Platelet Volume 8.8; Monocytes # (A) 0.4 k/uL (0-1.0); Monocytes % (A) 10 %; Neutrophils % (A) 55 %; RBC 3.46 m/uL (3.80-5.40); RDW 15.4 % (11.5-15.5); WBC 3.6 k/uL (3.8-10.6)
[2018-01-20] MEDS: IPRATROPIUM-ALBUTEROL 3 ML NEB INHALATION SCH (08:50)
[2018-01-20 09:00] LABS: Platelet Count 84 k/uL (150-450)
[2018-01-20 09:05] LABS: ALT 86 U/L (9-52); AST 106 U/L (14-36); Albumin 3.2 g/dL (3.5-5.0); Alkaline Phosphatase 76 U/L (38-126); Anion Gap 8 mmol/L; Bilirubin, Delta 0.4 mg/dL (0.0-0.2); Bilirubin,Unconjugated 0.5 mg/dL (0.0-1.1); Blood Urea Nitrogen 3 mg/dL (7-17); Calcium 8.5 mg/dL (8.4-10.2); Carbon Dioxide 27 mmol/L (22-30); Chloride 99 mmol/L (98-107); Glucose 103 mg/dL (74-99); Magnesium 1.9 mg/dL (1.6-2.3); Potassium 3.6 mmol/L (3.5-5.1); Sodium 134 mmol/L (137-145); Total Bilirubin 0.9 mg/dL (0.2-1.3); Total Protein 5.5 g/dL (6.3-8.2)
[2018-01-20] MEDS: FAMOTIDINE 20 MG/2 ML VIAL IV SCH (10:23)
[2018-01-20] MEDS: HEPARIN SODIUM,PORCINE 5,000 UNIT/ML 1 ML VIAL SQ SCH (10:23)
[2018-01-20] MEDS: THIAMINE 100 MG TAB PO SCH ×2 (10:24→17:45)
--- NOTE | 2018-01-20 11:28 | P.PN ---
Subjective Patient is seen in follow-up for hyponatremia. Sodium level improved to 134 today. She is noted to be C. diff positive. Denies diarrhea. Oral intake is fair. She does admit to drinking quite a bit of water and was put on fluid restriction yesterday. No vomiting. Vital signs are stable. General: The patient appeared well nourished and normally developed. HEENT: Head exam is unremarkable. Neck is without jugular venous distension. LUNGS: Lungs are clear to auscultation and percussion. Breath sounds decreased. HEART: Rate and Rhythm are regular. First and second heart sounds normal. No murmurs, rubs or gallops. ABDOMEN: Abdominal exam reveals normal bowel sounds. Non-tender and non- distended. No evidence of peritonitis. EXTREMITITES: No clubbing, cyanosis, or edema. Objective - Vital Signs Vital signs: Vital Signs Temp 98.5 F 01/20/18 05:36 Pulse 80 01/20/18 08:59 Resp 16 01/20/18 05:36 BP 132/80 01/20/18 05:36 Pulse Ox 98 01/20/18 05:36 Intake & Output 01/19/18 01/20/18 01/20/18 18:59 06:59 18:59 Output Total 1 Balance -1 Output: Stool 1 Other: Voiding Method Toilet Toilet Toilet # Voids 2 - Labs CBC & Chem 7: 01/20/18 08:26 01/20/18 08:26 Labs: Abnormal Lab Results - Last 24 Hours (Table) 01/20/18 01/20/18 Range/Units 08:26 08:26 WBC 3.6 L (3.8-10.6) k/uL RBC 3.46 L (3.80-5.40) m/uL MCV 107.6 H (80.0-100.0) fL MCH 36.1 H (25.0-35.0) pg Plt Count 84 L (150-450) k/uL Sodium 134 L (137-145) mmol/L BUN 3 L (7-17) mg/dL Creatinine 0.33 L (0.52-1.04) mg/dL Glucose 103 H (74-99) mg/dL Delta Bilirubin 0.4 H (0.0-0.2) mg/dL AST 106 H (14-36) U/L ALT 86 H (9-52) U/L Total Protein 5.5 L (6.3-8.2) g/dL Albumin 3.2 L (3.5-5.0) g/dL Assessment and Plan Plan: Assessment: 1. Hypovolemic hyponatremia improved with IV hydration. Sodium level improved to 134 this morning. Component of tea and toast diet as urine sodium is low at 11 and urine osmolality is quite dilute at 104. 2. Hypomagnesemia from alcohol abuse and malnutrition. Improved post replacement. 3. Alcohol abuse. 4. C. diff colitis. Plan: Continue normal saline at 50 mL an hour. Encouraged oral solute intake. 1.5 L fluid restriction. Repeat electrolytes in the morning.
[2018-01-20] MEDS ORDERED: POTASSIUM CHLORIDE ER 20 MEQ TAB.ER PO STA (12:02)
[2018-01-20] MEDS ORDERED: MAGNESIUM SULFATE-D5W PMX 1 GM in DEXTROSE/WATER 1 100ML.BAG IVPB ONE (12:30)
--- NOTE | 2018-01-20 15:02 | P.PN ---
Subjective Progress Note Date: 01/20/18 A pleasant 62-year-old female patient, alcoholic, known to me from prior hospitalization, as the patient has history of alcoholic liver disease in addition to stigmata of chronic liver disease secondary to alcoholism. The patient also has history of C. diff colitis, depression and hypertension. The patient comes into the hospital because of generalized weakness, chest congestion and increased cough and increased dyspnea and in the center the patient was getting profoundly weak and having altered mentation. No headaches. No neck stiffness. No pleurisy. No hemoptysis. No nausea or vomiting. No abdominal distention. No worsening in lower extremity edema. She drinks around pint of vodka on a daily basis pH she drinks also wind. She smokes a pack of cigarettes on a daily basis. The patient presented to the hospital and the patient was found to have a sodium level of 117 initially and she was given a bolus of normal saline in the emergency department and she was given another bolus making a total of 2 L. In addition the patient was found to have profound hypokalemia and the potassium on admission was as low as 1.9 and came up to 2.2 after being replaced with 80 mEq of potassium. Potassium level remains low and the sodium level has come up to 125 and based on that nephrology has made the adjustment to switch her to D5 water with 40 mEq of potassium running at 50 mL an hour. At the same time the patient will be given an additional 80 mEq of potassium right now. The patient also had her magnesium level replaced knowing that on presentation she had hypomagnesemia with a magnesium level of 0.8. Clinically she is improved and the patient is more awake and at this point time she is following commands and answering questions. No focal neurological deficits. CAT scan of the head and cervical spine showed no acute abnormalities and the findings are essentially of a chronic in nature. EKG showed no significant changes related to hypokalemia. No signs of acute delirium tremens for now. There is a concern of an underlying urine checked infection and the patient was given a dose of Rocephin. Also, after arriving to the intensive care unit the patient started developing diarrhea and stool analysis showed positivity towards C. diff and the patient was started on oral vancomycin. No abdominal distention. No fever or chills. No reported aspiration. Chest x-ray is not showing any acute pneumonia. The patient is tolerating oral intake at this point in time. On 01/18/2008 and I'm seeing this patient for a follow-up. The patient is awake and alert and following commands and answering questions. Sodium level is up to 128 and the patient is currently on no IV fluids. She is KVO IV fluids. Potassium was replaced and it's up to 4.0. Magnesium is also being replaced this morning. She is afebrile. She has a congested cough that she may have an underlying component of chronic bronchitis. She is a chronic smoker. No shaking. No tremors. No confusion. No delirium. No agitation. She is resting comfortably in bed. She had another bout of diarrhea last night and this morning she has no nausea or vomiting or abdominal pain and in fact she is stating that she is hungry and she is requesting for foods. She is on IV Rocephin as an empiric antibiotic coverage and she is also receiving oral vancomycin regarding her C. diff colitis. No fever. No chills. Adequate urine output. No altered mentation. No focal neurological deficit. On 01/18/2018, I'm seeing this patient for a follow-up. The patient is looking well. No specific complaints. She is still having some liquidy diarrhea and the patient will be taken off the Rocephin and the patient will be continued on oral vancomycin. Note that she was diagnosed having a recurrent C. diff colitis. May consider transferring this patient to [facility] if there is no improvement. Otherwise, her sodium level is up to 1:30. Potassium level is up to 4.2. No significant electrodes imbalance. Magnesium level is at 1.1 and this will be replaced. Patient is awake and alert and following commands and answering questions appropriately. No respiratory distress. No fever or chills. No abdominal distention. Adequate urine output. No other significant events overnight. The patient is seen again today 01/19/2018 in follow-up on the regular medical floor. She's been up ambulating in her room. She is doing quite well from the pulmonary standpoint. No worsening shortness of breath, cough or congestion. Maintaining good O2 saturations in the high 90s on room air. She has not had any further diarrhea. She remains on oral vancomycin. White count 4.3. Hemoglobin 11.9. Creatinine 0.35. On 01/20/2018 I'm seeing this patient for a follow-up. The patient is doing extremely well. No signs of any shortness of breath chest pain or altered mentation. Sodium level is improved and is up to 134. Potassium level is up to 3.6. Creatinine is stable with a creatinine level of 0.3. Diarrhea is improved as the patient is receiving oral vancomycin. Afebrile. No nausea vomiting. No abdominal pain. Platelet counts are stable at 84,000. Objective - Vital Signs Vital signs: Vital Signs Temp 98.5 F 01/20/18 05:36 Pulse 80 01/20/18 08:59 Resp 16 01/20/18 05:36 BP 132/80 01/20/18 05:36 Pulse Ox 98 01/20/18 05:36 Intake & Output 01/19/18 01/20/18 01/20/18 18:59 06:59 18:59 Output Total 1 Balance -1 Output: Stool 1 Other: Voiding Method Toilet Toilet Toilet # Voids 2 - Exam Clinically the patient is calm and comfortable and she is laying comfortably in bed. Head exam was generally normal. There was no scleral icterus or corneal arcus. Mucous membranes were moist. Examination of the neck shows no neck stiffness no goiter or neck masses. The patient is conjunctival icterus and pallor. No nystagmus. Pupils are equal and reactive to light. There is no facial asymmetry. Lungs were clear to auscultation and percussion, and with normal diaphragmatic excursion. No wheezes or rales were noted. Cardiac exam revealed the PMI to be normally situated and sized. The rhythm was regular and no extrasystoles were noted during several minutes of auscultation. The first and second heart sounds were normal and physiologic splitting of the second heart sound was noted. There were no murmurs, rubs, clicks, or gallops.Abdominal exam revealed normal bowel sounds. The abdomen was soft, non- tender, and without masses, organomegaly, or appreciable enlargement of the abdominal aorta. Examination of the extremities revealed easily palpable radial, femoral and pedal pulses. There was no cyanosis, clubbing or edema. Skin shows no ulcerations or open wounds. The patient is profoundly jaundiced. Neurologically, the patient is moving all 4 extremities. She is awake 3. Cranial nerves are intact. - Labs CBC & Chem 7: 01/20/18 08:26 01/20/18 08:26 Labs: Abnormal Lab Results - Last 24 Hours (Table) 01/20/18 01/20/18 Range/Units 08:26 08:26 WBC 3.6 L (3.8-10.6) k/uL RBC 3.46 L (3.80-5.40) m/uL MCV 107.6 H (80.0-100.0) fL MCH 36.1 H (25.0-35.0) pg Plt Count 84 L (150-450) k/uL Sodium 134 L (137-145) mmol/L BUN 3 L (7-17) mg/dL Creatinine 0.33 L (0.52-1.04) mg/dL Glucose 103 H (74-99) mg/dL Delta Bilirubin 0.4 H (0.0-0.2) mg/dL AST 106 H (14-36) U/L ALT 86 H (9-52) U/L Total Protein 5.5 L (6.3-8.2) g/dL Albumin 3.2 L (3.5-5.0) g/dL Assessment and Plan Plan: Assessment 1 acute symptoms of bronchitis without indication for an underlying pneumonia also a component of chronic bronchitis as the patient is a chronic smoker. His symptoms improved with a combination of DuoNeb nebulized treatments around the clock. Clinically improved and the patient shortness of breath is improved considerably while being on DuoNeb the regiment [id number]. 2 acute diarrhea with C. diff colitis, currently on oral vancomycin, the diarrhea has improved although not completely subsided. Patient remains on oral vancomycin. 3 severe electrolyte imbalance with hypokalemia and hypomagnesemia and hyponatremia, recovered 4 acute change in mental status secondary to above, improved and recovered and the patient is back to normal 5 chronic alcoholic liver disease/cirrhosis with stigmata of chronic hepatic failure 6 alcoholism, active 7 abnormalities in LFTs related to alcoholic hepatitis 8 chronic anxiety/depression 9 chronic normocytic. 10 questionable urine tract infection Plan Continue oral vancomycin. Electrodes are within normal limits. We'll sign off the case.
[2018-01-20 16:05] VITALS: BP 142/83; PULSE 96; RESP 18; TEMP 97.9
--- NOTE | 2018-01-20 18:34 | P.DS ---
Providers Date of admission: 01/15/18 23:31 Attending physician: Farrukh Elizabeth MD Consults: 01/16/18 10:30 Consult Physician Routine Consulting Provider: Alysia Lopes Consult Reason/Comments: hyponatremia, Do you want consulting provider notified?: Yes 01/16/18 10:36 Consult Physician Routine Consulting Provider: Marcos Barron Consult Reason/Comments: icu management Do you want consulting provider notified?: Yes 01/16/18 12:01 Consult Physician Routine Consulting Provider: Alysia Lopes Consult Reason/Comments: hyponatremia, hypokalemia Do you want consulting provider notified?: Yes Primary care physician: [facility] Course: This is a pleasant 62 years old female with past medical history of hypertension and alcohol dependence, C. diff in 2015, depression, hyponatremia and 2016 as low as 118, and in 2015 as low as 120 , current smoker and alcohol abuse. Patient came to the emergency room for evaluation of dizziness. Patient has been sick for 9 days with upper respiratory symptoms including cough and nasal congestion. Associated with dizziness over the last several days which was worse on the day of admission. Patient stated whenever she stands up she feels like she is going to fall over. On admission patient was noticed to have low sodium level in view of her history of hyponatremia. Her sodium level on admission was 117, 120. She has already got 2 L of normal saline in the ED. patient was admitted to the intensive care unit for close monitoring of her Na level, and paint tester team has evaluated the patient and starting on fluid management with fluid restriction sodium trended up slowly and on the day of the discharge was 134. Patient to the ICU was found to have diarrhea. C. diff test came back positive. Patient was started on oral vancomycin and she showed interval improvement. On the day of discharge patient told me that her last area was yesterday and last night her bowel movement was almost formed. She denies abdominal pain. No nausea vomiting. She tolerating diet. She is mobile with no difficulty. No fever. She is eating and drinking well with no problems. She denies headache or any other symptoms no chest pain no dyspnea. Physical therapy evaluated the patient and recommended home with home health care. Patient was cleared by pulmonary and nephrology for discharge. Problems and management plan were discussed in details with the patient and she verbalized understanding and acceptance and Patient is found stable and can be discharged home however she needs follow-up as an outpatient. Recommendation was made to follow-up with her PCP in one week and she agrees. Patient stated she'll call and make appointment with Dr. Raza "she is very thorough and she will need the discharge summary" as per pt pt is instructed to restrict fluid to 2000 per day Encourage salt intake counseled against alcohol drinking and smoking pt has elevated liver function tests mostly related to her alcohol effect, it was trending down. pt is asymptomatic eg no RUQ pain. pt is instructed to recheck LFT with her pcp and she wanted prescription to take it to her doctor , she was provided with these scripts upon her request and asked to take the results to her doctor Luz Marina and she verbalized understanding and acceptance " it is not my first time" Patient Condition at Discharge: Serious Plan - Discharge Summary Discharge Rx Participant: Yes New Discharge Prescriptions: New Folic Acid 1 mg PO DAILY #14 tablet Multivitamin [Multivitamins Adult Gummies] 1 each PO DAILY #30 tablet Thiamine [Vitamin B-1] 100 mg PO DAILY 30 Days #30 tab Vancomycin HCl 250 mg PO Q6HR 5 Days #20 capsule Continue Albuterol Inhaler [Ventolin Hfa Inhaler] 1 - 2 puff INHALATION RT-Q6H PRN PRN Reason: Shortness Of Breath Multivitamins, Thera [Multivitamin (formulary)] 1 tab PO DAILY Discharge Medication List Albuterol Inhaler [Ventolin Hfa Inhaler] 1 - 2 puff INHALATION RT-Q6H PRN [History] Multivitamins, Thera [Multivitamin (formulary)] 1 tab PO DAILY 06/25/16 [History ] Folic Acid 1 mg PO DAILY #14 tablet 01/20/18 [Rx] Multivitamin [Multivitamins Adult Gummies] 1 each PO DAILY #30 tablet 01/20/18 [ Rx] Thiamine [Vitamin B-1] 100 mg PO DAILY 30 Days #30 tab 01/20/18 [Rx] Vancomycin HCl 250 mg PO Q6HR 5 Days #20 capsule 01/20/18 [Rx] Follow up Appointment(s)/Referral(s): [facility], [NON-STAFF] - Luz Marina Hannon MD [Primary Care Provider] - 1-2 days Ambulatory/Diagnostic Orders: ALT [LAB.AMB] Time Frame: 1 Week, Location: preference of patient ALT [LAB.AMB] Location: Determined By Patient AST [LAB.AMB] Time Frame: 1 Week, Location: preference of patient Patient Instructions/Handouts: Clostridium Difficile Infection (DC), Abuse of Alcohol (DC), Hyponatremia (DC) Activity/Diet/Wound Care/Special Instructions: cardiac diet , encourage salt intake in moderate amount activity is limited till evaluated by your physician Discharge Disposition: HOME WITH HOME HEALTH SERVICES
--- NOTE | 2018-01-22 08:48 | CDI ---
Last Revision, June 2017 Documentation Clarification Form Date: 01/22/18 From: Christina Cespedes Phone: If you have a question regarding this query, please contact Kathleen Torres at [phone] between 8am and 5pm. Admit Date: 01/15/2018 11:31:00 PM Patient Name: Uma Calix Visit Number: [id number] Discharge Date: 01/20/18 ATTENTION: The Clinical Documentation Specialists (CDI) and [facility] Coding Staff appreciate your assistance in clarifying documentation. Please respond to the clarification below the line at the bottom and electronically sign. The CDI & [facility] Coding staff will review the response and follow-up if needed. Please note: Queries are made part of the Legal Health Record. If you have any questions, please contact the author of this message via ITS. Dr. Chadwick E Sheet Malnutrition has been documented in Dr. Lopes's consult note and progress note and Dr. Torres's progress notes. History/Risk Factors: Patient has a history of alcohol dependence and was admitted for hyponatremia, hypokalemia, hypomagnesemia and alcohol intoxication. Clinical Indicators: Decreased albumin and protein. Labs: Albumin/Total Protein: 3.5 on admission then down to 3.1 on same day/5.9 Current BMI: 16.7 Insufficient energy intake: Per social media designer: suboptimal energy intake Weight Loss: Per Dr. Barron's consult note the patient reports weight loss. Treatment: Dietary Consult: Patient is underweight has decreased appetite and suboptimal energy intake. Supplements/TPN: Magic cup supplement Lab monitoring: Repeated total protein, albumin and electrolytes daily. In your professional opinion, can you please clarify if these findings signify one of the following conditions? Mild Protein-Calorie Malnutrition Moderate Protein-Calorie Malnutrition Severe Protein-Calorie Malnutrition Malnutrition following GI surgery Malnutrition, Unspecified Other condition, please specify Unable to determine unable to determine MTDD
== END 2018-01-20 19:27 | disposition home health service (06) | DRG 640 ==
LOC: EC 20:11 → 4MS4W 23:31 → 6ICU 01-16 10:48 → 5MS5E 01-18 21:04
PROVIDERS: ADMIT Internal Medicine; ATTEND Internal Medicine
DX: E87.1 Hypo-osmolality and hyponatremia (principal); G93.41 Metabolic encephalopathy; A04.71 Enterocolitis due to Clostridium difficile, recurrent; F10.231 Alcohol dependence with withdrawal delirium; J44.0 Chronic obstructive pulmonary disease with (acute) lower respiratory infection; F10.221 Alcohol dependence with intoxication delirium; N39.0 Urinary tract infection, site not specified; E46 Unspecified protein-calorie malnutrition; Z68.1 Body mass index [BMI] 19.9 or less, adult; E87.6 Hypokalemia; E83.42 Hypomagnesemia; E83.39 Other disorders of phosphorus metabolism; E86.1 Hypovolemia; E87.8 Other disorders of electrolyte and fluid balance, not elsewhere classified; F17.210 Nicotine dependence, cigarettes, uncomplicated; F32.9 Major depressive disorder, single episode, unspecified; F41.9 Anxiety disorder, unspecified; I10 Essential (primary) hypertension; J20.9 Acute bronchitis, unspecified; K70.10 Alcoholic hepatitis without ascites; K70.30 Alcoholic cirrhosis of liver without ascites; E83.81 Hungry bone syndrome; I45.81 Long QT syndrome; Z88.2 Allergy status to sulfonamides; Z66 Do not resuscitate; Z86.19 Personal history of other infectious and parasitic diseases; Z71.6 Tobacco abuse counseling; Z71.41 Alcohol abuse counseling and surveillance of alcoholic
CPT/HCPCS: 36415; 70450; 71046; 72125; 80048; 80053; 80076; 80320; 81001; 82150; 83690; 83735; 83935; 84100; 84132; 84295; 84300; 84484; 85025; 85610; 85730; 87086; 87324; 87502; 93005; 94640; 96361; 96365; 96366; 96368; 96372; 99285

== ENCOUNTER 2018-06-20 08:09 | Emergency (ER) | payer OTHER ==
[2018-06-20] MEDS ORDERED: LORazepam 1 MG TAB PO STA (08:43)
[2018-06-20] MEDS ORDERED: SODIUM CHLORIDE 0.9% 1,000 ML IV STA (08:43)
[2018-06-20 09:16] LABS: Albumin 3.6 g/dL (3.5-5.0); Calcium 9.6 mg/dL (8.4-10.2); Magnesium 1.9 mg/dL (1.6-2.3); Phosphorus 3.7 mg/dL (2.5-4.5); Total Protein 6.5 g/dL (6.3-8.2)
[2018-06-20 09:17] LABS: HCT 37.1 % (34.0-46.0); MCH 37.6 pg (25.0-35.0); MCHC 32.4 g/dL (31.0-37.0); MCV 116.2 fL (80.0-100.0); Macrocytosis Marked; Mean Platelet Volume 9.9; Platelet Count 107 k/uL (150-450); RBC 3.19 m/uL (3.80-5.40); RDW 14.2 % (11.5-15.5)
--- NOTE | 2018-06-20 09:19 | CT ---
EXAMINATION TYPE: CT facial bones wo con DATE OF EXAM: 06/20/2018 COMPARISON: None HISTORY: Pain, facial bruising CT DLP: included in brain/c-spine dose mGycm Unenhanced CT of the facial bones was performed in the axial and coronal planes. Bone and soft tissu e window settings are submitted. No significant soft tissue swelling is appreciated. I do not see evidence for displaced facial bone fracture or depressed facial bone fracture. The globes are intact. Chronic right maxillary sinusitis noted. IMPRESSION: 1. No evidence for depressed or displaced facial bone fracture.
[2018-06-20 09:27] LABS: INR 1.4 (<1.2); Potassium 2.4 mmol/L (3.5-5.1); Prothrombin Time 13.5 sec (9.0-12.0); Total Bilirubin 15.7 mg/dL (0.2-1.3)
[2018-06-20] MEDS ORDERED: SODIUM CHLORIDE 0.9% 2,000 ML IV STA (09:39)
--- NOTE | 2018-06-20 09:50 | CT ---
EXAMINATION TYPE: CT brain kristan velazco DATE OF EXAM: 06/20/2018 COMPARISON: None HISTORY: Pain, facial bruising CT DLP: 1046.[address] of the brain was performed. The ventricles, basal cisterns and sulci overlying the cerebral convexities demonstrate mild enlargem ent. Right-sided subdural hematoma noted posterior parietal region with the greatest transverse measuremen t of 1.3 cm. No evidence for midline shift. No additional areas of hemorrhage appreciated. There is decreased attenuation about the periventricular white matter and deep white matter of both c erebral hemispheres, compatible with chronic small vessel ischemia. No mass effects are seen. If symptoms persist consider MRI. Osseous calvarium is intact. IMPRESSION: 1. Right-sided subdural hematoma noted posterior parietal region with the greatest transverse measur ement of 1.3 cm. No evidence for midline shift. No additional areas of hemorrhage appreciated. CT Cervical Spine: Unenhanced CT of the cervical spine was performed with bone and soft tissue window settings submitted . Coronal and sagittal reconstruction is obtained. There is normal alignment and prevertebral soft tissues. No evidence for acute cervical fracture . Scattered degenerative disc disease and spondylosis. Biapical scarring. IMPRESSION: 1. No evidence for acute fracture or subluxation of the cervical spine.
[2018-06-20 09:52] LABS: Band Neutrophils % 1 %; Eosinophils # (M) 0.08 k/uL (0-0.7); Monocytes # (M) 0.33 k/uL (0-1.0); Myelocytes # (M) 0.08 k/uL (0); Myelocytes % 1 %; Neutrophils % (M) 84 %; Nucleated Red Blood Cells 4 /100 WBC (0-0); Total Cells Counted 200; WBC 8.3 k/uL (3.8-10.6)
[2018-06-20 09:54] LABS: Polychromasia Present
[2018-06-20 10:10] LABS: VBG PH 7.23 (7.31-7.41)
[2018-06-20 10:19] LABS: Ammonia 20 umol/L (<30)
[2018-06-20 10:21] LABS: Acetaminophen <10.0 ug/mL; Salicylate <1.0 mg/dL
[2018-06-20 10:44] LABS: Lactic Acid, Venous >24.0 mmol/L (0.7-2.0)
[2018-06-20] MEDS ORDERED: LORazepam 2 MG/ML INJ IV PRN ×3 (11:22)
[2018-06-20] MEDS ORDERED: cefTRIAXone 2,000 MG in SODIUM CHLORIDE 0.9% 100 ML IVPB STA (11:22)
[2018-06-20] MEDS ORDERED: THIAMINE 100 MG/ML 2 ML VIAL IM STA (11:22)
[2018-06-20] MEDS ORDERED: POTASSIUM CHLORIDE ER 20 MEQ TAB.ER PO STA (11:23)
--- NOTE | 2018-06-20 12:04 | XR ---
EXAMINATION TYPE: XR chest 2V DATE OF EXAM: 06/20/2018 COMPARISON: 01/15/2018 HISTORY: Shortness of breath TECHNIQUE: Frontal and lateral views of the chest are obtained. FINDINGS: Scattered senescent parenchymal changes noted. Hyperinflation compatible with COPD. No evidence for infiltrate. No evidence for atelectasis. Heart size is stable. Mediastinal structures are stable and grossly unremarkable. No evidence for hilar prominence. Degenerative changes dorsal spine. IMPRESSION: 1. No evidence for acute pulmonary disease.
--- NOTE | 2018-06-20 12:40 | CT ---
EXAMINATION TYPE: CT abdomen pelvis w con DATE OF EXAM: 06/20/2018 HISTORY: Alcohol withdrawals, pain not further specified per order. CT DLP: 429.1mGycm Automated Exposure Control for Dose Reduction was Utilized. CONTRAST: CT scan of the abdomen and pelvis is performed without oral but with IV Contrast, patient injected wi th 100 ml mL of Isovue 300. COMPARISON: None. FINDINGS: LUNG BASES: There is emphysematous change in lung bases with central linear scarring and/or atelectas is. LIVER/GB: Marked hepatomegaly is present with marked low-density consistent with fatty infiltration. Liver occupies majority of the right abdomen above the umbilicus with significant local mass effect PANCREAS: No significant abnormality is seen. SPLEEN: Splenomegaly is upper limits of normal in size. ADRENALS: No significant abnormality is seen. KIDNEYS: No significant abnormality is seen. BOWEL: Evaluation of bowel is suboptimal secondary to lack of enteric contrast. There is no suspiciou s small or large bowel dilatation. Mass effect and duodenal sweep from hepatomegaly is noted. Mass ef fect and right colon is also present. There is right groin or inguinal hernia containing portion of c ecum seen best on coronal image 34 mild wall thickening is still present in the cecum as well as sigm oid rectal colon. Mild areas of wall thickening throughout small bowel loops are also present. Cannot exclude mild colitis versus products of poor distention. Finding could also be related to underlying liver disease or marked fatty infiltration. Correlate clinically. UTERUS/ADNEXA: Anteverted uterus is seen. LYMPH NODES: No greater than 1cm abdominal or pelvic lymph nodes are appreciated. OSSEOUS STRUCTURES: Focal disc herniation L4-L5 level effaces the anterior thecal sac on sagittal kraig ge 63. OTHER: Moderate to severe calcified plaque of the aorta extends into branch vessels IMPRESSION: Marked hepatomegaly and fatty infiltration of liver. Cannot exclude mild diffuse enteroco litis, correlate clinically though finding is more likely product of underlying alcoholic liver disea se.
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
--- NOTE | 2018-06-20 13:11 | US ---
EXAMINATION TYPE: US gallbladder DATE OF EXAM: 06/20/2018 COMPARISON: CT abdomen and pelvis earlier today. CLINICAL HISTORY: Pain. alcohol withdraw. Poor historian. EXAM MEASUREMENTS: Liver Length: 22.3 cm Gallbladder Wall: 0.6 cm CHD: 0.5 cm Right Kidney: 11.0 x 5.5 x 4.7 cm Limited exam Pancreas: dilated main pancreatic duct - 4.3mm Liver: Enlarged in size. Increased attenuation, decreased visualization of vessels suggestive of fa tty infiltrate Gallbladder: Unable to determine GB vs very prominent loop of bowel. If GB, size- 14.0 cm with thic kened bee. Possible FF adjacent to. Evidence for sonographic Abraham's sign: neg CBD: Obscured by overlying bowel gas CHD: wnl Right Kidney: wnl Main pancreatic duct is dilated in the central body, less prominent in the head. Finding favored rela ethel to mass effect from marked hepatomegaly. Mild proximal ductal stenosis cannot be excluded. No obv ious mass seen on CT or ultrasound images saved. Marked hepatomegaly and fatty infiltration of liver redemonstrated. No free fluid seen near gallbladder on recent CT. Irregular gallbladder wall thickeni ng is seen without shadowing mobile gallstones. IMPRESSION: Marked hepatomegaly and fatty infiltration of liver. No shadowing mobile gallstones. Mode rate irregular gallbladder wall thickening likely product of underlying alcoholic liver disease.
[2018-06-20 13:28] VITALS: TEMP 98
[2018-06-20 13:57] VITALS: BP 110/76; PULSE 108; RESP 18
[2018-06-20] MEDS ORDERED: THIAMINE 100 MG TAB PO SCH (17:00)
== END 2018-06-20 13:55 | disposition other institution (70) ==
LOC: EC 08:09
DX: S06.5X9A Traumatic subdural hemorrhage with loss of consciousness of unspecified duration, initial encounter (principal); E87.2 Acidosis; E87.6 Hypokalemia; E87.1 Hypo-osmolality and hyponatremia; F10.10 Alcohol abuse, uncomplicated; R16.0 Hepatomegaly, not elsewhere classified; K76.0 Fatty (change of) liver, not elsewhere classified; R74.0 Nonspecific elevation of levels of transaminase and lactic acid dehydrogenase [LDH]; I10 Essential (primary) hypertension; F17.200 Nicotine dependence, unspecified, uncomplicated; Z79.899 Other long term (current) drug therapy; Z88.2 Allergy status to sulfonamides; Y09 Assault by unspecified means; Y92.009 Unspecified place in unspecified non-institutional (private) residence as the place of occurrence of the external cause
CPT/HCPCS: 36415; 70450; 70486; 71046; 72125; 74177; 76705; 80053; 80320; 82140; 82150; 82803; 83520; 83605; 83690; 83735; 84100; 85025; 85610; 87040; 93005; 96365; 96375; 99285

== ENCOUNTER 2018-10-31 13:18 | Inpatient (IN) | payer OTHER ==
[2018-10-31] MEDS ORDERED: LORazepam 2 MG/ML INJ IV PRN ×2 (14:03)
[2018-10-31] MEDS ORDERED: THIAMINE 100 MG/ML 2 ML VIAL IM STA (14:03)
--- NOTE | 2018-10-31 14:43 | ED ---
Alcohol HPI <Pepito Gordillo - Last Filed: 10/31/18 17:03> - General Source: patient, EMS Mode of arrival: EMS Limitations: no limitations <Suki Peng - Last Filed: 10/31/18 17:11> - General Chief Complaint: Alcohol Stated Complaint: ETOH Time Seen by Provider: 10/31/18 14:02 - History of Present Illness Initial Comments: 63-year-old female presenting today via EMS with history of alcohol abuse and liver cirrhosis chief complaint of alcohol intoxication, requesting rehabilitation and evaluation. Patient states she has had an issue with alcohol abuse for greater than 20 years. Patient states she believes she has liver cirrhosis. Patient states she has been to rehabilitation facilities twice in the past 10 years. Patient states she has had increasing falls for the past year, she states her last fall was 3 days prior. Patient states she believes she had head injury. Patient denies anticoagulation use. Patient denies loss of consciousness. Patient states that her family brought her walker which is helped with decreasing the frequency of falls. Patient denies any pain in the shoulders back and neck, headache visual changes diplopia speech changes muscle weakness or sensation deficits. Patient remaining review of systems negative, patient denies any recent syncope, seizure activity, fever, chills, shortness of breath, chest pain, back pain, abdominal pain, nausea or vomiting, numbness or tingling, dysuria or hematuria, constipation or diarrhea, headaches or visual changes, or any other complaints. Upon arrival patient is AAOx3. Appearing well. No signs of tremor. (Suki Peng) - Related Data Home Medications Medication Instructions Recorded Confirmed Albuterol Inhaler [Ventolin Hfa 1 - 2 puff INHALATION RT-Q6H PRN 06/25/16 10/31/18 Inhaler] Multivitamins, Thera [Multivitamin 1 tab PO DAILY 06/25/16 10/31/18 (formulary)] amLODIPine [Norvasc] 5 mg PO DAILY 06/20/18 10/31/18 Magnesium Oxide [Mag-Ox] 400 mg PO DAILY 10/31/18 10/31/18 Melatonin 5 mg PO HS 10/31/18 10/31/18 Potassium Chloride ER [K-Dur 20] 20 meq PO BID 10/31/18 10/31/18 Previous Rx's Medication Instructions Recorded Thiamine [Vitamin B-1] 100 mg PO DAILY 30 Days #30 tab 01/20/18 Allergies Allergy/AdvReac Type Severity Reaction Status Date / Time folic acid AdvReac hair falls Verified 10/31/18 16:22 out Sulfa (Sulfonamide AdvReac Unknown Verified 10/31/18 16:22 Antibiotics) Review of Systems ROS Other: All systems not noted in ROS Statement are negative. <Pepito Gordillo - Last Filed: 10/31/18 17:03> ROS Other: All systems not noted in ROS Statement are negative. <TonibreaSuki L - Last Filed: 10/31/18 17:11> ROS Statement: Those systems with pertinent positive or pertinent negative responses have been documented in the HPI. Past Medical History Past Medical History: COPD, Hypertension Additional Past Medical History / Comment(s): Alcohol dependence; C-diff 06/2015, alcoholic liver disease, COPD, anxiety, depression, alcoholism History of Any Multi-Drug Resistant Organisms: None Reported Past Surgical History: Section Past Anesthesia/Blood Transfusion Reactions: No Reported Reaction Past Psychological History: Anxiety, Depression Smoking Status: Current every day smoker Past Alcohol Use History: Abuse, Daily, Heavy Past Drug Use History: Marijuana <TonibreaSuki L - Last Filed: 10/31/18 17:11> General Exam Limitations: no limitations <Elaine Pengyelena Rubin - Last Filed: 10/31/18 17:11> - General Exam Comments Initial Comments: General: The patient is awake and alert, in no distress, and does not appear ac utely ill. Smell of ETOH on breath Eye: +3 mm pupils are equal, round and reactive to light, extra-ocular movements are intact. No nystagmus. There is normal conjunctiva bilaterally. No signs of icterus. Ears, nose, mouth and throat: There are moist mucous membranes and no oral lesions. Neck: The neck is supple, there is no tenderness or JVD. No midline tenderness to cervical spine. No raccoon or Guadalupe sign. No blood in tympanic membrane. Cardiovascular: There is a regular rate and rhythm. No murmur, rub or gallop is appreciated. Respiratory: Lungs are clear to auscultation, respirations are non-labored, breath sounds are equal. No wheezes, stridor, rales, or rhonchi. Gastrointestinal: Soft, non-distended, non-tender abdomen without masses or organomegaly noted. There is no rebound or guarding present. No CVA tenderness. Bowel sounds are unremarkable. Musculoskeletal: Bruising noted over left hand. Patient denies tenderness to palpation. Patient is able to fully range at the upper x-rays including the wrists elbows and shoulders bilaterally. Denies pain. No pain to palpation of these joints. No soft tissue swelling. Normal ROM, no tenderness. Strength 5/5. Sensation intact. Radial pulses equal bilaterally 2+. Neurological: A&O x 3. CN II-XII intact, There are no obvious motor or sensory deficits. Coordination appears grossly intact. Speech is normal. Skin: Skin is warm and dry and no rashes or lesions are noted. Psychiatric: Cooperative (Suki Peng) Course <Pepito Gordillo - Last Filed: 10/31/18 17:03> Vital Signs 10/31/18 10/31/18 10/31/18 13:27 14:34 16:00 Temperature 98.0 F Pulse Rate 105 H 103 H 105 H Respiratory 20 20 20 Rate Blood Pressure 120/70 110/62 125/76 O2 Sat by Pulse 99 99 Oximetry - Reevaluation(s) Reevaluation #1: 10/31/18 17:03 PA supervision: I proceed evaluate this patient's case patient will be admitted she has demonstrate a long history of alcoholism she was intoxicated. She did demonstrate hypokalemia and hypomagnesemia. She will be admitted place on the alcohol withdrawal protocol as well as supplementation of the electrolytes. I did discuss this with Dr. Mott. (Pepito Gordillo) Medical Decision Making - Lab Data Result diagrams: 10/31/18 15:16 10/31/18 15:16 <Pepito Gordillo - Last Filed: 10/31/18 17:03> - Lab Data Result diagrams: 10/31/18 15:16 10/31/18 15:16 <Suki Peng - Last Filed: 10/31/18 17:11> - Medical Decision Making 63-year-old female presenting from: Intoxication, as well as presentation for rehabilitation. Patient states she had a milly and Coke earlier this morning. Patient states she has had increasing recent falls to loss of balance or tripping over objects, states they are mechanical nature. She denies syncope or seizure-like activity. Patient has bruise on left hand upon examination and faint bruising under the eyes bilaterally. Patient be resolving. No focal neurological deficits. No tenderness to palpation of the cervical spine midline. Patient placed on CIWA protocols given thiamine. Pt given IVF. Laboratory studies revealed. (Suki Peng) - Lab Data Lab Results 10/31/18 10/31/18 10/31/18 Range/Units 15:16 15:16 15:16 WBC 6.0 (3.8-10.6) k/uL RBC 3.50 L (3.80-5.40) m/uL Hgb 11.4 (11.4-16.0) gm/dL Hct 32.2 L (34.0-46.0) % MCV 91.9 (80.0-100.0) fL MCH 32.7 (25.0-35.0) pg MCHC 35.6 (31.0-37.0) g/dL RDW 21.9 H (11.5-15.5) % Plt Count 80 L (150-450) k/uL Neutrophils % (Manual) 73 % Lymphocytes % (Manual) 19 % Monocytes % (Manual) 9 % Eosinophils % (Manual) 1 % Neutrophils # (Manual) 4.38 (1.3-7.7) k/uL Lymphocytes # (Manual) 1.14 (1.0-4.8) k/uL Monocytes # (Manual) 0.54 (0-1.0) k/uL Eosinophils # (Manual) 0.06 (0-0.7) k/uL Nucleated RBCs 2 H (0-0) /100 WBC Polychromasia Present Anisocytosis Moderate Macrocytosis Slight PT 11.2 (9.0-12.0) sec INR 1.1 (<1.2) APTT 23.3 (22.0-30.0) sec Sodium 127 L (137-145) mmol/L Potassium 1.9 L* (3.5-5.1) mmol/L Chloride 83 L (98-107) mmol/L Carbon Dioxide 21 L (22-30) mmol/L Anion Gap 23 mmol/L BUN 10 (7-17) mg/dL Creatinine 0.48 L (0.52-1.04) mg/dL Est GFR (CKD-EPI)AfAm >90 (>60 ml/min/1.73 sqM) Est GFR (CKD-EPI)NonAf >90 (>60 ml/min/1.73 sqM) Glucose 107 H (74-99) mg/dL Calcium 8.6 (8.4-10.2) mg/dL Phosphorus 1.7 L (2.5-4.5) mg/dL Magnesium 1.0 L (1.6-2.3) mg/dL Total Bilirubin 3.7 H (0.2-1.3) mg/dL AST 93 H (14-36) U/L ALT 44 (9-52) U/L Alkaline Phosphatase 109 (38-126) U/L Total Protein 6.5 (6.3-8.2) g/dL Albumin 3.8 (3.5-5.0) g/dL Salicylates <1.0 mg/dL Acetaminophen <10.0 ug/mL Serum Alcohol 155 mg/dL Disposition <Pepito Gordillo - Last Filed: 10/31/18 17:03> Is patient prescribed a controlled substance at d/c from ED?: No Time of Disposition: 17:11 Decision to Admit Reason: Admit from EC Decision Date: 10/31/18 Decision Time: 17:11 <Suki Peng - Last Filed: 10/31/18 17:11> Clinical Impression: Hyponatremia, Chronic alcohol abuse, Alcohol intoxication, Hypokalemia, Low magnesium level, Frequent falls Disposition: ADMITTED IP TO THIS [facility] Condition: Serious Referrals: Luz Marina Hannon MD [Primary Care Provider] - 1-2 days
--- NOTE | 2018-10-31 15:11 | CT ---
EXAMINATION TYPE: CT brain cspine wo con DATE OF EXAM: 10/31/2018 COMPARISON: Prior CT brain and cervical spine 06/20/2018 HISTORY: Multiple falls, altered mental status, trauma and pain CT DLP: 1184.3 mGycm Automated exposure control for dose reduction was used. TECHNIQUE: CT scan of the head and cervical spine are performed without contrast. FINDINGS: There is no acute intracranial hemorrhage, mass effect, or midline shift identified. The ventricles and sulci are within normal limits in size. The globes are intact and the visualized sin uses are remarkable for mild mucosal disease right maxillary sinus. Periventricular white matter low- attenuation again noted. Previously identified subdural hematoma has resolved. Cervical spine is visualized in its entirety from C1 through upper thoracic levels and demonstrates s atisfactory alignment without evidence of acute fracture or dislocation. Prevertebral soft tissue ap pears within normal limits. The C1-C2 articulation is unremarkable. Emphysematous changes are extens chapito at the lung apices dense atherosclerotic calcifications present in the carotid artery distributio n. IMPRESSION: 1. There is no acute fracture or dislocation evident in the cervical spine. 2. No acute intracranial hemorrhage, mass effect, or midline shift is seen.
[2018-10-31 15:39] LABS: ALT 44 U/L (9-52); AST 93 U/L (14-36); Acetaminophen <10.0 ug/mL; Albumin 3.8 g/dL (3.5-5.0); Alkaline Phosphatase 109 U/L (38-126); Anion Gap 23 mmol/L; Blood Urea Nitrogen 10 mg/dL (7-17); Calcium 8.6 mg/dL (8.4-10.2); Carbon Dioxide 21 mmol/L (22-30); Chloride 83 mmol/L (98-107); Glucose 107 mg/dL (74-99); Phosphorus 1.7 mg/dL (2.5-4.5); Salicylate <1.0 mg/dL; Sodium 127 mmol/L (137-145); Total Bilirubin 3.7 mg/dL (0.2-1.3); Total Protein 6.5 g/dL (6.3-8.2)
[2018-10-31 15:41] LABS: INR 1.1 (<1.2); Partial Thromboplastin Time 23.3 sec (22.0-30.0); Prothrombin Time 11.2 sec (9.0-12.0)
[2018-10-31 15:42] LABS: Alcohol 155 mg/dL; Potassium 1.9 mmol/L (3.5-5.1)
[2018-10-31 15:53] LABS: Anisocytosis Moderate; HCT 32.2 % (34.0-46.0); HGB 11.4 gm/dL (11.4-16.0); MCH 32.7 pg (25.0-35.0); MCHC 35.6 g/dL (31.0-37.0); MCV 91.9 fL (80.0-100.0); Macrocytosis Slight; Mean Platelet Volume 8.4; RDW 21.9 % (11.5-15.5)
[2018-10-31] MEDS ORDERED: POTASSIUM CHLORIDE ER 20 MEQ TAB.ER PO STA ×2 (15:56→21:44)
[2018-10-31] MEDS: MAGNESIUM SULFATE-D5W PMX 1 GM in DEXTROSE/WATER 1 100ML.BAG IVPB SCH ×2 (16:11→17:09)
[2018-10-31 16:50] LABS: Eosinophils # (M) 0.06 k/uL (0-0.7); Neutrophils % (M) 73 %; Nucleated Red Blood Cells 2 /100 WBC (0-0); Total Cells Counted 200
[2018-10-31 16:51] LABS: Lymphocytes # (M) 1.14 k/uL (1.0-4.8); Monocytes # (M) 0.54 k/uL (0-1.0); Neutrophils # (M) 4.38 k/uL (1.3-7.7); Platelet Count 80 k/uL (150-450); Polychromasia Present
[2018-10-31] MEDS ORDERED: SODIUM CHLORIDE 0.9% 1,000 ML IV ONE (17:04)
[2018-10-31] MEDS ORDERED: NALOXONE 0.4 MG/ML 1 ML VIAL IV PRN (17:05)
[2018-10-31] MEDS ORDERED: 1: MVI, ADULT NO.4 WITH VIT K 10 ML, THIAMINE 100 MG, FOLIC ACID 1 MG in SODIUM CHLORIDE IV SCH ×4 (18:00)
[2018-10-31] MEDS: POTASSIUM CHLORIDE 10 MEQ in WATER FOR INJECTION 1 100ML.BAG IVPB SCH ×4 (18:10→22:17)
[2018-10-31] MEDS: THIAMINE 100 MG TAB PO SCH (19:13)
[2018-10-31] MEDS ORDERED: ALBUTEROL NEBULIZED 2.5 MG/3 ML INHALATION PRN (21:05)
[2018-10-31] MEDS ORDERED: HYDROcodone/APAP 5-325MG 1 EACH TAB PO PRN (21:07)
[2018-10-31 21:34] LABS: ALT 41 U/L (9-52); AST 108 U/L (14-36); Albumin 3.4 g/dL (3.5-5.0); Alkaline Phosphatase 95 U/L (38-126); Anion Gap 18 mmol/L; Blood Urea Nitrogen 9 mg/dL (7-17); Carbon Dioxide 22 mmol/L (22-30); Chloride 87 mmol/L (98-107); Glucose 107 mg/dL (74-99); Potassium 2.8 mmol/L (3.5-5.1); Sodium 127 mmol/L (137-145); Total Bilirubin 3.4 mg/dL (0.2-1.3); Total Protein 6.1 g/dL (6.3-8.2)
[2018-10-31] MEDS: PANTOPRAZOLE 40 MG/10 ML VIAL IVP SCH (22:07)
[2018-10-31] MEDS: SODIUM CHLORIDE 0.9% 1,000 ML with POTASSIUM CHLORIDE 20 MEQ, MVI, ADULT NO.4 WITH VIT ... IV SCH ×5 (22:15)
[2018-10-31 22:29] VITALS: BMI 18.8
--- NOTE | 2018-11-01 | HP ---
HISTORY AND PHYSICAL DATE OF SERVICE: 10/31/2018 CHIEF COMPLAINTS: Weakness and alcohol intoxication and falls. HISTORY OF PRESENT ILLNESS: This 63-year-old woman with a past medical history of multiple medical problems, including COPD, history of hypertension, history of alcohol dependence, history of C difficile colitis, history of anxiety, depression, being followed by Dr. Luz Marina Hannon in the outpatient setting, also has significant smoking. Patient drinks at least a pint a day, and the patient apparently had weakness and multiple falls. The patient came to [facility] today and was admitted for further evaluation. Potassium was found to be 1.9, sodium 127. Magnesium was found to be 1. There is no history of any fever, rigor or chills. No history of headache, loss of consciousness, seizures. The patient is emaciated. PAST MEDICAL HISTORY: 1. Alcoholism. 2. COPD. 3. Hypertension. 4. History of anxiety, depression. HOME MEDICATIONS: 1. Norvasc 5 mg p.o. daily. 2. Vitamin B1 100 mg daily. 3. K-Dur 20 mEq p.o. b.i.d. 4. Multivitamins 1 p.o. daily. 5. Melatonin 5 mg at bedtime. 6. Magnesium oxide 400 mg daily. 7. Ventolin 1-2 puffs q.6 p.r.n. ALLERGIES: FOLIC ACID and SULFA. FAMILY HISTORY: No history of heart disease or strokes in the family. SOCIAL HISTORY: History of alcohol, smoking and marijuana. REVIEW OF SYSTEMS: ENT: Diminished hearing. Diminished vision. CARDIOVASCULAR SYSTEM: No angina, palpitations. RESPIRATORY SYSTEM: As mentioned earlier. GI: As mentioned earlier. : No dysuria or retention. NERVOUS SYSTEM: As mentioned earlier. ALLERGY/IMMUNOLOGY: No asthma, hayfever. MUSCULOSKELETAL: As mentioned earlier. HEMATOLOGY/ONCOLOGY: No history of anemia. ENDOCRINE: No history of diabetes, hypothyroidism. CONSTITUTIONAL: As mentioned earlier. DERMATOLOGY: Negative. RHEUMATOLOGY: Negative. PSYCHIATRY: As mentioned earlier. PHYSICAL EXAMINATION: Patient alert and oriented x3. Pulse is 95, blood pressure 102/56, respirations 16, temperature normal, pulse ox 99% on room air. HEENT: Conjunctivae normal. Oral mucosa moist. NECK: No jugular venous distention. No carotid bruit. No lymph node enlargement. CARDIOVASCULAR SYSTEM: S1, S2 muffled. RESPIRATORY SYSTEM: Breath sounds diminished at the bases. Scattered rhonchi. No crackles. ABDOMEN: Soft, non-tender. No mass palpable. LEGS: No edema. No swelling. NERVOUS SYSTEM: Higher functions as mentioned earlier. Moves all 4 limbs. No focal motor or sensory deficit. LYMPHATICS: No lymph node palpable in neck, axillae or groin. SKIN: No ulcer, rash, bleeding. JOINTS: No active deforming arthropathy. LABS: Labs at this time show WBC 6, hemoglobin 11.4, platelets 80. Sodium 127, potassium 1.9, phosphorus 1.7. Magnesium is 1. AST is 93. Total bilirubin is 3.7. ASSESSMENT: 1. Acute alcohol intoxication and early withdrawal symptoms. 2. Acute alcoholic hepatitis. 3. Severe hypokalemia secondary to alcohol. 4. Hyponatremia. 5. Hypomagnesemia. 6. Alcoholic hepatitis with elevated bilirubin and AST. 7. Thrombocytopenia. 8. History of nicotine dependence. 9. History of chronic obstructive pulmonary disease. 10.Hypertension. 11.History of Clostridium difficile colitis. 12.History of anxiety, depression. 13.FULL CODE. 14.Mild to moderate protein-calorie malnutrition with a body mass index of 18.9. RECOMMENDATIONS AND DISCUSSION: In this 63-year-old woman who presented with multiple complex medical issues, we will monitor the patient closely, continue the current medications, continue with symptomatic treatment. I will initiate CIWA protocol, supplement vitamins, check electrolytes. Supplement electrolyte. Monitor potassium, magnesium. DVT prophylaxis. 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 Guarded prognosis because of multiple complex medical issues. A copy of this dictation is being forwarded to Dr. Luz Marina Hannon, who is the primary physician. MMODL / IJN: [id number] /
[2018-11-01] MEDS: POTASSIUM CHLORIDE 10 MEQ in WATER FOR INJECTION 1 100ML.BAG IVPB SCH ×2 (00:37→02:06)
[2018-11-01] MEDS: TEMAZEPAM 15 MG CAP PO PRN (01:00)
[2018-11-01 06:53] LABS: ALT 48 U/L (9-52); AST 96 U/L (14-36); Albumin 2.9 g/dL (3.5-5.0); Alkaline Phosphatase 93 U/L (38-126); Anion Gap 11 mmol/L; Blood Urea Nitrogen 9 mg/dL (7-17); Calcium 8.1 mg/dL (8.4-10.2); Carbon Dioxide 25 mmol/L (22-30); Chloride 97 mmol/L (98-107); Glucose 78 mg/dL (74-99); Magnesium 1.8 mg/dL (1.6-2.3); Potassium 3.3 mmol/L (3.5-5.1); Sodium 133 mmol/L (137-145); Total Bilirubin 2.6 mg/dL (0.2-1.3); Total Protein 5.4 g/dL (6.3-8.2)
[2018-11-01 07:21] LABS: Anisocytosis Moderate; Basophils % (A) 0 %; Eosinophils # (A) 0.1 k/uL (0-0.7); Eosinophils % (A) 2 %; HCT 28.8 % (34.0-46.0); HGB 10.1 gm/dL (11.4-16.0); Lymphocytes # (A) 0.7 k/uL (1.0-4.8); Lymphocytes % (A) 21 %; MCH 33.1 pg (25.0-35.0); MCHC 34.9 g/dL (31.0-37.0); MCV 94.8 fL (80.0-100.0); Macrocytosis Slight; Mean Platelet Volume 8.5; Monocytes # (A) 0.3 k/uL (0-1.0); Monocytes % (A) 7 %; Neutrophils # (A) 2.4 k/uL (1.3-7.7); Neutrophils % (A) 67 %; RBC 3.04 m/uL (3.80-5.40); RDW 22.2 % (11.5-15.5); WBC 3.5 k/uL (3.8-10.6)
[2018-11-01 07:26] LABS: Platelet Count 57 k/uL (150-450)
[2018-11-01] MEDS: HEPARIN SODIUM,PORCINE 5,000 UNIT/ML 1 ML VIAL SQ SCH ×2 (09:51→20:18)
[2018-11-01] MEDS: NICOTINE 14MG/24HR PATCH TRANSDERM SCH (09:51)
[2018-11-01] MEDS: PANTOPRAZOLE 40 MG/10 ML VIAL IVP SCH (09:51)
[2018-11-01] MEDS: MAGNESIUM OXIDE 400 MG TAB PO SCH (09:52)
[2018-11-01] MEDS: cloNIDine HCL 0.1 MG TAB PO SCH ×3 (09:52→20:31)
[2018-11-01] MEDS: POTASSIUM CHLORIDE ER 20 MEQ TAB.ER PO SCH ×2 (09:52→20:18)
[2018-11-01] MEDS: SODIUM CHLORIDE 0.9% 1,000 ML with POTASSIUM CHLORIDE 20 MEQ, MVI, ADULT NO.4 WITH VIT ... IV SCH ×5 (12:38)
[2018-11-01] MEDS: THIAMINE 100 MG TAB PO SCH ×2 (12:38→17:01)
[2018-11-01 22:06] LABS: Appearance,Urine Cloudy (Clear); Bacteria,Urine Moderate /hpf; Bilirubin,Urine Negative (Negative); Blood,Urine Negative (Negative); Color,Urine Yellow; Glucose,Urine (UA) Negative (Negative); Hyaline Casts,Urine 3 /lpf (0-2); Ketones,Urine Negative (Negative); Leukocyte Esterase,Urine Large (Negative); Mucus,Urine Rare /hpf; Nitrite,Urine Positive (Negative); Protein,Urine Trace (Negative); RBC,Urine 3 /hpf (0-5); Specific Gravity,Urine 1.016 (1.001-1.035); Squamous Epithelial Cell,Urine 1 /hpf (0-4); WBC,Urine 120 /hpf (0-5)
[2018-11-01 22:10] LABS: Amphetamine Screen,Urine Not Detected (NotDetected); Barbiturate Screen,Urine Not Detected (NotDetected); Benzodiazepines Screen,Urine Detected (NotDetected); Cocaine Screen,Urine Not Detected (NotDetected); Methadone Screen, Urine Not Detected (NotDetected); Opiate Screen,Urine Not Detected (NotDetected); Oxycodone Screen, Urine Not Detected (NotDetected); Phencyclidine Screen,Urine Not Detected (NotDetected); Tricyclic Antidepressant,Urine Not Detected (NotDetected); Urn Cannabinoid Scrn Not Detected (NotDetected)
[2018-11-02] MEDS: TEMAZEPAM 15 MG CAP PO PRN ×2 (01:05→22:13)
[2018-11-02] MEDS: SODIUM CHLORIDE 0.9% 1,000 ML with POTASSIUM CHLORIDE 20 MEQ, MVI, ADULT NO.4 WITH VIT ... IV SCH ×10 (02:21→14:38)
--- NOTE | 2018-11-02 08:20 | PN ---
PROGRESS NOTE DATE OF SERVICE: 11/01/2018 This 63-year-old woman was admitted with alcohol intoxication, weakness and also had features of UTI. The patient is complaining of dizziness and weakness. Potassium and magnesium has been replaced. Multiple consultants are following the patient closely. PAST MEDICAL: Reviewed. REVIEW OF SYSTEMS: Cardiac: No chest pain. Respiratory: As mentioned earlier. GI: As mentioned earlier. : No dysuria. Neuro: No weakness, no numbness. CURRENT MEDICATIONS ARE: 1. [place] 5 mg q.6h. 2. ( ) p.r.n. 3. Rocephin 1 g daily. 4. Catapres 0.1 b.i.d. 5. Heparin subcu b.i.d. 6. Ativan, CIWA protocol. 7. Magnesium oxide 400 mg. 8. Narcan 0.2 q.2h p.r.n. 9. Habitrol 14 daily. 10.Protonix 20 mg b.i.d. 11.Restoril 50 mg q.h.s. 12.Vitamin B1 100 mg p.o. daily. PHYSICAL EXAM: HEENT: Conjunctivae normal. Oral mucosa moist. NECK: No jugular venous distention. No lymph node enlargement. CARDIOVASCULAR: S1, S2. RESPIRATORY: Diminished breath sounds at the bases. Scattered rhonchi and crackles. ABDOMEN: Soft, nontender. No mass palpable. LEGS: No edema, no swelling. NERVOUS SYSTEM: Higher functions as mentioned earlier. JOINTS: No active deforming arthropathy. LABS: WBC 3.2, hemoglobin 10.1, platelets 57. Sodium 133, potassium 3.3, and total bilirubin is 2.6 and AST is 96. UA noted. ASSESSMENT: 1. Acute alcohol intoxication with early withdrawal symptoms. 2. Acute urinary tract infection present on admission. 3. Acute alcoholic hepatitis. 4. Severe hypokalemia secondary to alcohol. 5. Hyponatremia. 6. Hypomagnesemia. 7. Alcoholic hepatitis with elevated bilirubin and AST. 8. Thrombocytopenia. 9. History of nicotine dependence. 10.History of chronic obstructive pulmonary disease. 11.Hypertension. 12.History of C. difficile colitis. 13.History of anxiety, depression. 14.FULL CODE. 15.Mild to moderate protein calorie malnutrition with body mass index 18.9. RECOMMENDATIONS AND DISCUSSION: In this 63-year-old woman who presented with multiple complex medical issues, we will monitor the patient closely, continue the current management, continue symptomatic treatment. Recommend repeat cultures, add antibiotics. Otherwise continue with CIWA protocol. PT/OT evaluation. Possible alcohol rehab. Guarded prognosis because of multiple complex medical issues and further recommendations to follow. JF / DANDREN: [id number] /
[2018-11-02] MEDS: NICOTINE 14MG/24HR PATCH TRANSDERM SCH (09:46)
[2018-11-02] MEDS: cloNIDine HCL 0.1 MG TAB PO SCH ×2 (09:47→20:56)
[2018-11-02] MEDS: PANTOPRAZOLE 40 MG/10 ML VIAL IVP SCH (09:47)
[2018-11-02] MEDS: MAGNESIUM OXIDE 400 MG TAB PO SCH (09:47)
[2018-11-02] MEDS: POTASSIUM CHLORIDE ER 20 MEQ TAB.ER PO SCH ×2 (09:47→20:56)
[2018-11-02] MEDS: HEPARIN SODIUM,PORCINE 5,000 UNIT/ML 1 ML VIAL SQ SCH ×2 (09:47→20:56)
[2018-11-02] MEDS: THIAMINE 100 MG TAB PO SCH ×2 (11:51→16:17)
[2018-11-02 12:00] LABS: Anisocytosis Moderate; Basophils % (A) 1 %; Eosinophils # (A) 0.1 k/uL (0-0.7); Eosinophils % (A) 2 %; HCT 27.3 % (34.0-46.0); HGB 8.9 gm/dL (11.4-16.0); Hypochromasia Slight; Lymphocytes # (A) 0.8 k/uL (1.0-4.8); Lymphocytes % (A) 28 %; MCH 32.1 pg (25.0-35.0); MCHC 32.7 g/dL (31.0-37.0); MCV 98.1 fL (80.0-100.0); Macrocytosis Moderate; Mean Platelet Volume 9.2; Monocytes # (A) 0.2 k/uL (0-1.0); Monocytes % (A) 8 %; Neutrophils # (A) 1.6 k/uL (1.3-7.7); Neutrophils % (A) 58 %; RBC 2.78 m/uL (3.80-5.40); RDW 22.3 % (11.5-15.5); WBC 2.8 k/uL (3.8-10.6)
[2018-11-02 12:15] LABS: Platelet Count 53 k/uL (150-450)
[2018-11-02 12:19] LABS: ALT 50 U/L (9-52); AST 143 U/L (14-36); Albumin 2.6 g/dL (3.5-5.0); Alkaline Phosphatase 84 U/L (38-126); Anion Gap 6 mmol/L; Blood Urea Nitrogen 4 mg/dL (7-17); Calcium 8.1 mg/dL (8.4-10.2); Carbon Dioxide 24 mmol/L (22-30); Chloride 105 mmol/L (98-107); Glucose 173 mg/dL (74-99); Magnesium 1.3 mg/dL (1.6-2.3); Potassium 3.8 mmol/L (3.5-5.1); Sodium 135 mmol/L (137-145); Total Bilirubin 1.5 mg/dL (0.2-1.3); Total Protein 4.9 g/dL (6.3-8.2)
[2018-11-02] MEDS ORDERED: Magnesium Replacement Protocol 1 EACH MISC MISCELLANE PRN (13:22)
[2018-11-02] MEDS: MAGNESIUM SULFATE-D5W PMX 1 GM in DEXTROSE/WATER 1 100ML.BAG IVPB SCH ×3 (14:38→17:14)
[2018-11-02] MEDS: guaiFENesin SYRUP 100MG/5ML 200 MG/10 ML CUP PO PRN (22:06)
--- NOTE | 2018-11-02 23:23 | PN ---
PROGRESS NOTE DATE OF SERVICE: 11/02/2018 This 63-year-old woman was admitted with alcohol intoxication also had multiple other medical problems and acute abnormalities. The patient has significant emaciation and weakness. No chest pain. No palpitations. No fever. PT/OT is evaluating the patient for possible ECF rehab. EXAM: Alert and oriented times three. Pulse 101. Blood pressure 114/72, respiration 16, temperature 98.2, pulse ox 98% on room air. HEENT: Conjunctivae normal. NECK: No jugular venous distention. CARDIOVASCULAR: S1, S2 muffled. RESPIRATIONS: Breath sounds diminished in the bases. A few scattered rhonchi and crackles. ABDOMEN soft. NERVOUS SYSTEM: Diffusely weak and wasted. BMI is only 19.4. ASSESSMENT: 1. Acute alcohol intoxication with early withdrawal symptoms present on admission. 2. Acute urinary tract infection present on admission. 3. Acute alcoholic hepatitis. 4. Severe hypokalemia secondary to alcohol. 5. Hyponatremia. 6. Hypomagnesemia. 7. Alcoholic hepatitis with elevated bilirubin, AST. 8. Thrombocytopenia. 9. History of nicotine dependence. 10.History of chronic obstructive pulmonary disease. 11.Hypertension. 12.History of C difficile colitis. 13.History of anxiety, depression. 14.Mild to moderate protein calorie malnutrition with body mass index 19.9. 15.FULL CODE. RECOMMENDATIONS AND DISCUSSION: Recommend to continue current medications, monitoring and symptomatic treatment. Otherwise, at this time, I would recommend continue the current medications, continue with the PT/OT evaluation, possible ECF rehab. Guarded prognosis. Further recommendations to follow. MMODL / IJN: [id number] /
[2018-11-03] MEDS: guaiFENesin SYRUP 100MG/5ML 200 MG/10 ML CUP PO PRN ×3 (05:34→21:04)
[2018-11-03] MEDS: POTASSIUM CHLORIDE ER 20 MEQ TAB.ER PO SCH ×2 (08:07→20:47)
[2018-11-03] MEDS: HEPARIN SODIUM,PORCINE 5,000 UNIT/ML 1 ML VIAL SQ SCH ×2 (08:07→20:47)
[2018-11-03] MEDS: MAGNESIUM OXIDE 400 MG TAB PO SCH ×3 (08:08→20:47)
[2018-11-03] MEDS: PANTOPRAZOLE 40 MG/10 ML VIAL IVP SCH (08:08)
[2018-11-03] MEDS: NICOTINE 14MG/24HR PATCH TRANSDERM SCH (08:08)
[2018-11-03] MEDS: cloNIDine HCL 0.1 MG TAB PO SCH ×2 (08:08→20:45)
[2018-11-03] MEDS: THIAMINE 100 MG TAB PO SCH ×2 (10:57→16:54)
[2018-11-03] MEDS: SODIUM CHLORIDE 0.9% 1,000 ML with POTASSIUM CHLORIDE 20 MEQ, MVI, ADULT NO.4 WITH VIT ... IV SCH ×10 (10:58→16:54)
[2018-11-03 11:47] LABS: Anisocytosis Moderate; Basophils % (A) 1 %; Eosinophils # (A) 0.2 k/uL (0-0.7); Eosinophils % (A) 6 %; HCT 25.8 % (34.0-46.0); HGB 8.4 gm/dL (11.4-16.0); Hypochromasia Slight; Lymphocytes # (A) 0.7 k/uL (1.0-4.8); Lymphocytes % (A) 27 %; MCH 32.6 pg (25.0-35.0); MCHC 32.7 g/dL (31.0-37.0); MCV 99.7 fL (80.0-100.0); Macrocytosis Moderate; Mean Platelet Volume 9.3; Monocytes # (A) 0.2 k/uL (0-1.0); Monocytes % (A) 9 %; Neutrophils # (A) 1.5 k/uL (1.3-7.7); Neutrophils % (A) 54 %; RBC 2.59 m/uL (3.80-5.40); RDW 22.5 % (11.5-15.5); WBC 2.7 k/uL (3.8-10.6)
[2018-11-03 11:58] LABS: ALT 51 U/L (9-52); AST 135 U/L (14-36); Albumin 2.3 g/dL (3.5-5.0); Alkaline Phosphatase 80 U/L (38-126); Anion Gap 5 mmol/L; Blood Urea Nitrogen 2 mg/dL (7-17); Calcium 7.9 mg/dL (8.4-10.2); Carbon Dioxide 25 mmol/L (22-30); Chloride 104 mmol/L (98-107); Glucose 110 mg/dL (74-99); Magnesium 1.4 mg/dL (1.6-2.3); Potassium 3.9 mmol/L (3.5-5.1); Sodium 134 mmol/L (137-145); Total Bilirubin 1.1 mg/dL (0.2-1.3); Total Protein 4.5 g/dL (6.3-8.2)
[2018-11-03 12:04] LABS: Platelet Count 43 k/uL (150-450)
--- NOTE | 2018-11-03 18:24 | PN ---
PROGRESS NOTE DATE OF SERVICE: 11/03/2018 This 63-year-old woman who was admitted with acute alcohol intoxication and also had electrolytes imbalance. Patient improved significantly. PT/OT evaluating the patient. Possible ECF rehab is being considered. Patient has no chest pain. No palpitations. No fever. EXAM: Alert and oriented times three. Pulse 105. Blood pressure 103/64, respiratory 20, temperature 97.2, pulse ox 98% on room air. HEENT: Conjunctivae normal. NECK: No jugular venous distention. CARDIOVASCULAR: S1, S2 muffled. RESPIRATORY: Breath sounds diminished in the bases. A few rhonchi. No crackles. Abdomen is soft, nontender. Legs no edema. No swelling. CENTRAL NERVOUS SYSTEM: Diffusely weak and emaciated. LAB STUDIES: WBC 2.6, hemoglobin is 8.4, sodium 134. UA is noted. ASSESSMENT: 1. Acute alcohol intoxication with early withdrawal symptoms present on admission. 2. Acute urinary tract infection present on admission. 3. Acute alcoholic hepatitis. 4. Severe hypokalemia secondary to alcohol. 5. Hyponatremia. 6. Hypomagnesemia. 7. Alcoholic hepatitis with elevated bilirubin, AST. 8. Thrombocytopenia. 9. History of nicotine dependence. 10.History of chronic obstructive pulmonary disease. 11.Hypertension. 12.History of C difficile colitis. 13.Anxiety, depression. 14.Mild to moderate protein calorie malnutrition with body mass index 19.9. 15.FULL CODE. RECOMMENDATIONS AND DISCUSSION: Recommend to continue current medications, management and symptomatic treatment. Otherwise, at this time, I recommend continue monitor. PT/OT evaluation, possible ECF rehab. Further recommendations to follow. Magnesium is still low. We will continue to replace. MMODL / IJN: [id number] / MTDD
[2018-11-03] MEDS: LORazepam 2 MG/ML INJ IV PRN (23:46)
[2018-11-04] MEDS: SODIUM CHLORIDE 0.9% 1,000 ML with POTASSIUM CHLORIDE 20 MEQ, MVI, ADULT NO.4 WITH VIT ... IV SCH ×5 (05:07)
[2018-11-04] MEDS: POTASSIUM CHLORIDE ER 20 MEQ TAB.ER PO SCH ×2 (08:37→20:30)
[2018-11-04] MEDS: MAGNESIUM OXIDE 400 MG TAB PO SCH ×3 (08:37→20:30)
[2018-11-04] MEDS: NICOTINE 14MG/24HR PATCH TRANSDERM SCH (08:37)
[2018-11-04] MEDS: cloNIDine HCL 0.1 MG TAB PO SCH ×2 (08:38→20:29)
[2018-11-04] MEDS: HEPARIN SODIUM,PORCINE 5,000 UNIT/ML 1 ML VIAL SQ SCH ×2 (08:38→20:29)
[2018-11-04] MEDS: PANTOPRAZOLE 40 MG/10 ML VIAL IVP SCH (08:38)
[2018-11-04 09:07] LABS: Anisocytosis Moderate; Basophils % (A) 0 %; Eosinophils % (A) 2 %; HCT 29.2 % (34.0-46.0); Hypochromasia Moderate; Lymphocytes # (A) 0.7 k/uL (1.0-4.8); Lymphocytes % (A) 28 %; MCH 31.4 pg (25.0-35.0); MCHC 30.7 g/dL (31.0-37.0); MCV 102.3 fL (80.0-100.0); Macrocytosis Marked; Mean Platelet Volume 9.2; Monocytes # (A) 0.3 k/uL (0-1.0); Monocytes % (A) 12 %; Neutrophils # (A) 1.4 k/uL (1.3-7.7); Neutrophils % (A) 56 %; RBC 2.86 m/uL (3.80-5.40); RDW 22.7 % (11.5-15.5); WBC 2.4 k/uL (3.8-10.6)
[2018-11-04 09:13] LABS: Platelet Count 45 k/uL (150-450)
[2018-11-04 09:16] LABS: ALT 57 U/L (9-52); AST 128 U/L (14-36); Albumin 2.4 g/dL (3.5-5.0); Alkaline Phosphatase 73 U/L (38-126); Anion Gap 6 mmol/L; Blood Urea Nitrogen 3 mg/dL (7-17); Calcium 7.9 mg/dL (8.4-10.2); Carbon Dioxide 26 mmol/L (22-30); Chloride 103 mmol/L (98-107); Glucose 102 mg/dL (74-99); Magnesium 1.3 mg/dL (1.6-2.3); Potassium 4.8 mmol/L (3.5-5.1); Sodium 135 mmol/L (137-145); Total Protein 4.7 g/dL (6.3-8.2)
[2018-11-04] MEDS: THIAMINE 100 MG TAB PO SCH ×2 (12:55→15:27)
[2018-11-04] MEDS: MAGNESIUM SULFATE-D5W PMX 1 GM in DEXTROSE/WATER 1 100ML.BAG IVPB SCH ×2 (12:55→13:42)
--- NOTE | 2018-11-04 14:10 | P.DS ---
Providers Date of admission: 10/31/18 17:03 Attending physician: Jen Mott Primary care physician: Luz Marina [facility] Course: Final diagnosis Acute alcohol intoxication with early withdrawal symptoms present on admission Acute UTI present on admission Acute alcoholic hepatitis Severe hypokalemia secondary to alcohol Hyponatremia Hypomagnesemia Acute alcoholic hepatitis with elevated bilirubin AST Thrombocytopenia History and nicotine dependence History of COPD Hypertension History of C. difficile colitis History of anxiety depression Mild to moderate protein calorie malnutrition with body mass in this of 19.9 Full code History of present illness this 63-year-old woman with a past medical history multiple medical problems was admitted with acute alcohol intoxication UTI and multiple medical issues as mentioned earlier patient also had a select. Anemia. Patient was treated with the supplementation. Patient improved significantly. On exam vitals are stable. Cardio S1 and S2 normal. Abdomen soft nontender. Nervous system no focaldeficit. I recommended the patient to attend AA meetings in the outpatient setting and attend alcohol rehab. Currently the patient is severely weak and the patient be transferred to rehab at [facility] in a stable condition with guarded prognosis. Total time taken 35 minutes. Patient Condition at Discharge: Serious Plan - Discharge Summary Discharge Rx Participant: Yes New Discharge Prescriptions: New cloNIDine HCL [Catapres] 0.1 mg PO BID #60 tab Cefuroxime Axetil [Ceftin] 500 mg PO BID 3 Days #6 tab Folic Acid 1 mg PO DAILY #30 tablet Nicotine 14Mg/24Hr Patch [Habitrol] 1 patch TRANSDERM DAILY patch Continue Albuterol Inhaler [Ventolin Hfa Inhaler] 1 - 2 puff INHALATION RT-Q6H PRN PRN Reason: Shortness Of Breath Multivitamins, Thera [Multivitamin (formulary)] 1 tab PO DAILY Thiamine [Vitamin B-1] 100 mg PO DAILY 30 Days #30 tab amLODIPine [Norvasc] 5 mg PO DAILY Potassium Chloride ER [K-Dur 20] 20 meq PO BID Melatonin 5 mg PO HS Changed Magnesium Oxide [Mag-Ox] 400 mg PO TID #120 Discharge Medication List Albuterol Inhaler [Ventolin Hfa Inhaler] 1 - 2 puff INHALATION RT-Q6H PRN 06/25/16 [History] Multivitamins, Thera [Multivitamin (formulary)] 1 tab PO DAILY 06/25/16 [History] Thiamine [Vitamin B-1] 100 mg PO DAILY 30 Days #30 tab 01/20/18 [Rx] amLODIPine [Norvasc] 5 mg PO DAILY 06/20/18 [History] Melatonin 5 mg PO HS 10/31/18 [History] Potassium Chloride ER [K-Dur 20] 20 meq PO BID 10/31/18 [History] Cefuroxime Axetil [Ceftin] 500 mg PO BID 3 Days #6 tab 11/04/18 [Rx] Folic Acid 1 mg PO DAILY #30 tablet 11/04/18 [Rx] Magnesium Oxide [Mag-Ox] 400 mg PO TID #120 11/04/18 [Rx] Nicotine 14Mg/24Hr Patch [Habitrol] 1 patch TRANSDERM DAILY patch 11/04/18 [Rx] cloNIDine HCL [Catapres] 0.1 mg PO BID #60 tab 11/04/18 [Rx] Follow up Appointment(s)/Referral(s): Luz Marina Hannon MD [Primary Care Provider] - 1-2 days (Patient to call Dr. Rodriguez's office to schedule follow up appointment. The office has questions for the patient. ) Ambulatory/Diagnostic Orders: Complete Blood Count w/diff [LAB.AMB] Location: None Selected Patient Instructions/Handouts: Cefuroxime (By mouth), Clonidine (By mouth), Folic Acid (By mouth), Hyponatremia (DC), Alcohol Intoxication (DC), Abuse of Alcohol (DC)
--- NOTE | 2018-11-04 20:01 | PN ---
PROGRESS NOTE DATE OF SERVICE: 11/04/2018 This 63-year-old woman was admitted with acute alcoholic intoxication, UTI is being closely monitored. Patient complaining of weakness. PT/OT evaluating for possible ECF rehab. No chest pain. No palpitation. EXAM: Alert and oriented times three. Pulse 96, blood pressure 103/60, respirations 16, temperature 97.2, pulse ox 94% on room air. HEENT: Conjunctivae normal. NECK: No jugular venous distention. CARDIOVASCULAR: S1, S2 muffled. Respirations: Breath sounds diminished in the bases. A few scattered rhonchi and crackles. Abdomen is soft. CENTRAL NERVOUS SYSTEM: No focal deficits. LAB STUDIES: WBC 2.5, hemoglobin 9, sodium 135. ASSESSMENT: 1. Acute alcohol intoxication with early withdrawal symptoms present on admission. 2. Acute urinary tract infection present on admission. 3. Acute alcoholic hepatitis. 4. Severe hypokalemia secondary to alcohol. 5. Hyponatremia. 6. Hypomagnesemia. 7. Acute alcoholic hepatitis with elevated bilirubin and AST. 8. Thrombocytopenia. 9. History of nicotine dependence. 10.History of chronic obstructive pulmonary disease. 11.Hypertension. 12.C difficile colitis. 13.History of anxiety, depression. 14.History of mild to moderate protein calorie malnutrition with body mass index 19.9. 15.FULL CODE. RECOMMENDATIONS AND DISCUSSION: Recommend to continue current medications, monitoring and symptomatic treatment. Otherwise, continue current medication, continue with alcohol cessation advice. Otherwise, PT/OT evaluation. 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 Guarded prognosis. Further recommendations to follow. MMODL / IJN: [id number] /
[2018-11-04] MEDS: guaiFENesin SYRUP 100MG/5ML 200 MG/10 ML CUP PO PRN (20:29)
[2018-11-05] MEDS: SODIUM CHLORIDE 0.9% 1,000 ML with POTASSIUM CHLORIDE 20 MEQ, MVI, ADULT NO.4 WITH VIT ... IV SCH ×10 (02:11→15:12)
[2018-11-05] MEDS: guaiFENesin SYRUP 100MG/5ML 200 MG/10 ML CUP PO PRN ×2 (03:29→11:35)
[2018-11-05] MEDS: LORazepam 2 MG/ML INJ IV PRN (03:30)
[2018-11-05 05:26] VITALS: TEMP 97.9
[2018-11-05] MEDS ORDERED: PANTOPRAZOLE 40 MG TABLET PO SCH (07:30)
[2018-11-05] MEDS: MAGNESIUM OXIDE 400 MG TAB PO SCH ×2 (07:56→15:15)
[2018-11-05] MEDS: THIAMINE 100 MG TAB PO SCH ×2 (07:56→15:15)
[2018-11-05] MEDS: HEPARIN SODIUM,PORCINE 5,000 UNIT/ML 1 ML VIAL SQ SCH (07:56)
[2018-11-05] MEDS: cloNIDine HCL 0.1 MG TAB PO SCH (07:56)
[2018-11-05] MEDS: POTASSIUM CHLORIDE ER 20 MEQ TAB.ER PO SCH (07:56)
[2018-11-05] MEDS: NICOTINE 14MG/24HR PATCH TRANSDERM SCH (07:57)
[2018-11-05] MEDS ORDERED: LORazepam 0.5 MG TAB PO PRN (10:34)
[2018-11-05] MEDS ORDERED: LORazepam 1 MG TAB PO PRN (10:34)
[2018-11-05 11:03] LABS: ALT 50 U/L (9-52); AST 84 U/L (14-36); Albumin 2.3 g/dL (3.5-5.0); Alkaline Phosphatase 63 U/L (38-126); Anion Gap 3 mmol/L; Blood Urea Nitrogen 6 mg/dL (7-17); Calcium 7.9 mg/dL (8.4-10.2); Carbon Dioxide 23 mmol/L (22-30); Chloride 107 mmol/L (98-107); Glucose 92 mg/dL (74-99); Magnesium 1.5 mg/dL (1.6-2.3); Potassium 4.2 mmol/L (3.5-5.1); Sodium 133 mmol/L (137-145); Total Bilirubin 0.9 mg/dL (0.2-1.3); Total Protein 4.6 g/dL (6.3-8.2)
[2018-11-05 11:04] LABS: Anisocytosis Moderate; Basophils % (A) 1 %; Eosinophils # (A) 0.1 k/uL (0-0.7); Eosinophils % (A) 3 %; HGB 8.3 gm/dL (11.4-16.0); Hypochromasia Marked; Lymphocytes # (A) 0.6 k/uL (1.0-4.8); Lymphocytes % (A) 28 %; MCH 33.5 pg (25.0-35.0); MCV 104.5 fL (80.0-100.0); Macrocytosis Marked; Mean Platelet Volume 9.4; Monocytes # (A) 0.3 k/uL (0-1.0); Monocytes % (A) 12 %; Neutrophils # (A) 1.3 k/uL (1.3-7.7); Neutrophils % (A) 56 %; RBC 2.49 m/uL (3.80-5.40); WBC 2.3 k/uL (3.8-10.6)
[2018-11-05 11:10] LABS: Platelet Count 46 k/uL (150-450)
[2018-11-05 12:47] VITALS: BP 93/60; PULSE 91; RESP 16
--- NOTE | 2018-11-05 18:17 | PN ---
PROGRESS NOTE DATE OF SERVICE: 11/05/2018 This 63-year-old woman who was admitted with acute alcohol intoxication, UTI and multiple other medical problems is being closely monitored. The patient also has severe gait dysfunction. PT/OT evaluated the patient. Rehab is planned. No chest pain. No palpitation. The patient had extreme anxiety as well. PHYSICAL EXAMINATION: Alert and oriented x3. Pulse 100, blood pressure 92/58, respiration 17, temperature 97.9, pulse ox 93% on room air. HEENT: Conjunctivae normal. NECK: No jugular venous distention. CARDIOVASCULAR SYSTEM: S1, S2 muffled. RESPIRATORY SYSTEM: Breath sounds diminished at the bases. No rhonchi. No crackles. ABDOMEN: Soft. NERVOUS SYSTEM: Diffusely emaciated and weak. LABS: WBC 2.3, hemoglobin 8.3, platelets 46. Sodium 133 and magnesium 1.5. ASSESSMENT: 1. Acute alcohol intoxication with early withdrawal symptoms, present on admission. 2. Acute urinary tract infection, present on admission. 3. Acute alcoholic hepatitis. 4. Severe hypokalemia secondary to alcohol and poor oral intake. 5. Hyponatremia. 6. Hypomagnesemia. 7. Acute alcoholic hepatitis, elevated bilirubin and AST. 8. Thrombocytopenia. 9. History of nicotine dependence. 10.History of chronic obstructive pulmonary disease. 11.Hypertension. 12.History of Clostridium difficile colitis. 13.History of anxiety, depression. 14.Mild to moderate protein-calorie malnutrition with body mass of 19.9 and emaciation. 15.Gait dysfunction. 16.FULL CODE. RECOMMENDATIONS AND DISCUSSION: In this 63-year-old woman who presented with multiple complex medical issues, we will monitor the patient closely, continue the current medications, continue with symptomatic treatment. Otherwise at this time I would recommend supplementing magnesium. Continue to monitor. Closely follow with PT/OT as well as Case Management Department for possible discharge. Further recommendations to follow. MMODL / IJN: [id number] / MTDD
--- NOTE | 2018-11-06 09:35 | DS ---
DISCHARGE SUMMARY DISCHARGE ADDENDUM: DATE OF SERVICE: 11/05/2018 HISTORY OF PRESENT ILLNESS: This 63-year-old woman who was admitted with acute alcohol intoxication and multiple medical problems with significant gait dysfunction. Also PT, OT evaluated the patient and recommended ECF rehab. The preauthorization is cleared today apparently. On exam, vitals are stable. CARDIOVASCULAR: S1, S2, muffled. ABDOMEN: Soft. NERVOUS SYSTEM: Mild diffuse weakness. Please refer to my previous dictation for list of diagnoses and list of medications. The patient is stable for discharge. The overall prognosis guarded. Total time taken 35 minutes. MMODL / IJN: [id number] /
== END 2018-11-05 18:23 | DRG 896 ==
LOC: EC 13:18 → 3SCARD 17:03 → 4MS4W 11-01 21:07
PROVIDERS: ADMIT Hospitalist; ATTEND Hospitalist
DX: F10.229 Alcohol dependence with intoxication, unspecified (principal); E41 Nutritional marasmus; E44.0 Moderate protein-calorie malnutrition; E87.1 Hypo-osmolality and hyponatremia; N39.0 Urinary tract infection, site not specified; Z68.1 Body mass index [BMI] 19.9 or less, adult; F10.239 Alcohol dependence with withdrawal, unspecified; Y90.6 Blood alcohol level of 120-199 mg/100 ml; D69.6 Thrombocytopenia, unspecified; D64.9 Anemia, unspecified; E83.42 Hypomagnesemia; E87.6 Hypokalemia; F17.210 Nicotine dependence, cigarettes, uncomplicated; F32.9 Major depressive disorder, single episode, unspecified; F41.9 Anxiety disorder, unspecified; I10 Essential (primary) hypertension; J44.9 Chronic obstructive pulmonary disease, unspecified; K70.10 Alcoholic hepatitis without ascites; R29.6 Repeated falls; S09.90XA Unspecified injury of head, initial encounter; S60.222A Contusion of left hand, initial encounter; S00.12XA Contusion of left eyelid and periocular area, initial encounter; S00.11XA Contusion of right eyelid and periocular area, initial encounter; W19.XXXA Unspecified fall, initial encounter; Z79.899 Other long term (current) drug therapy; Z86.19 Personal history of other infectious and parasitic diseases; Z88.2 Allergy status to sulfonamides; Z88.8 Allergy status to other drugs, medicaments and biological substances
CPT/HCPCS: 36415; 70450; 72125; 80053; 80306; 80320; 81001; 83520; 83735; 84100; 85025; 85610; 85730; 87040; 87077; 87086; 87186; 87502; 93005; 96361; 96365; 96366; 96367; 96368; 96372; 96375; 99285

== ENCOUNTER 2022-02-03 15:01 | Inpatient (IN) | payer OTHER ==
--- NOTE | 2022-02-03 18:05 | ED ---
General Adult HPI - General Chief complaint: Recheck/Abnormal Lab/Rx Stated complaint: ETOH withdrawals Time Seen by Provider: 02/03/22 15:30 Source: patient, RN notes reviewed, old records reviewed Mode of arrival: wheelchair Limitations: no limitations - History of Present Illness Initial comments: This is a 66-year-old female presents emergency Department complaining of alcohol withdrawal. Patient states his been 2 days and she drank. Patient sta charanjit 5 days ago she fell down 14 steps and that is where she get all the bruising. Patient also states her belly is been quite large for a while now and her swelling in her legs is getting progressively worse as of late. Patient denies any difficulty breathing or chest pain. Patient denies hitting her head or neck. Patient denies any headache or neck pain. Patient is able to move all 4 extremities. Patient states all the bruising and ecchymosis on her side and leg are from the fall. Patient states since then she's been able to ablate without problem. She denies any drug use. - Related Data Home Medications Medication Instructions Recorded Confirmed No Known Home Medications 02/03/22 02/03/22 Allergies Allergy/AdvReac Type Severity Reaction Status Date / Time Sulfa (Sulfonamide Allergy Rash/Hives Verified 02/03/22 21:05 Antibiotics) folic acid AdvReac hair falls Verified 02/03/22 21:05 out Review of Systems ROS Statement: Those systems with pertinent positive or pertinent negative responses have been documented in the HPI. ROS Other: All systems not noted in ROS Statement are negative. Past Medical History Past Medical History: COPD, Hypertension Additional Past Medical History / Comment(s): Alcohol dependence; C-diff 06/2015, alcoholic liver disease, COPD, anxiety, depression, alcoholism History of Any Multi-Drug Resistant Organisms: None Reported Past Surgical History: Section Past Anesthesia/Blood Transfusion Reactions: No Reported Reaction Past Psychological History: Anxiety, Depression Past Alcohol Use History: Abuse, Daily, Heavy Past Drug Use History: Marijuana General Exam - General Exam Comments Initial Comments: GENERAL: Patient is well-developed and well-nourished. Patient is nontoxic and well- hydrated and is in mild distress. ENT: Neck is soft and supple. No significant lymphadenopathy is noted. Oropharynx is clear. Moist mucous membranes. Neck has full range of motion without eliciting any pain. EYES: The sclera were anicteric and conjunctiva were pink and moist. Extraocular movements were intact and pupils were equal round and reactive to light. Eyelids were unremarkable. PULMONARY: Unlabored respirations. Good breath sounds bilaterally. No audible rales rhonchi or wheezing was noted. CARDIOVASCULAR: There is a regular rate and rhythm without any murmurs gallops or rubs. ABDOMEN: She is admitted quite distended with an umbilical hernia this is very indicative of ascites.. SKIN: Patient has ecchymosis on her back and around the right hip and down the leg. NEUROLOGIC: Patient is alert and oriented x3. Cranial nerves II through XII are grossly intact. Motor and sensory are also intact. Normal speech, volume and content. Symmetrical smile. MUSCULOSKELETAL: Normal extremities with adequate strength and full range of motion. 2+ edema bilaterally LYMPHATICS: No significant lymphadenopathy is noted PSYCHIATRIC: Normal psychiatric evaluation. Limitations: no limitations Course Vital Signs 02/03/22 02/03/22 15:15 19:06 Temperature 97.4 F L Pulse Rate 105 H 104 H Respiratory 16 18 Rate Blood Pressure 134/73 121/66 O2 Sat by Pulse 98 95 Oximetry Medical Decision Making - Medical Decision Making I spoke with [facility] agreed to admit the patient minute the patient wrote admitting orders. Patient received magnesium and potassium in the emergency department. Patient was also put on a seawall protocol. Chest x-ray shows no acute abnormality - Lab Data Result diagrams: 02/03/22 20:10 02/03/22 18:19 Lab Results 02/03/22 02/03/22 02/03/22 Range/Units 18:19 18:19 18:19 WBC 3.8 (3.8-10.6) k/uL RBC 3.78 L (3.80-5.40) m/uL Hgb 9.7 L (11.4-16.0) gm/dL Hct 32.7 L (34.0-46.0) % MCV 86.5 (80.0-100.0) fL MCH 25.6 (25.0-35.0) pg MCHC 29.7 L (31.0-37.0) g/dL RDW 22.1 H (11.5-15.5) % Plt Count 48 L (150-450) k/uL MPV 9.1 Neutrophils % Not Reportable Neutrophils % (Manual) 66 % Band Neuts % (Manual) 1 % Lymphocytes % Not Reportable Lymphocytes % (Manual) 28 % Monocytes % Not Reportable Monocytes % (Manual) 3 % Eosinophils % Not Reportable Eosinophils % (Manual) 2 % Basophils % Not Reportable Neutrophils # Not Reportable Neutrophils # (Manual) 2.50 (1.3-7.7) k/uL Lymphocytes # Not Reportable Lymphocytes # (Manual) 1.06 (1.0-4.8) k/uL Monocytes # Not Reportable Monocytes # (Manual) 0.11 (0-1.0) k/uL Eosinophils # Not Reportable Eosinophils # (Manual) 0.08 (0-0.7) k/uL Basophils # Not Reportable Nucleated RBCs 1 H (0-0) /100 WBC Manual Slide Review Performed Large Platelets Present Polychromasia Present Hypochromasia Marked Poikilocytosis Slight Anisocytosis Moderate Microcytosis Slight PT (9.0-12.0) sec INR (<1.2) APTT (22.0-30.0) sec Sodium 135 L (137-145) mmol/L Potassium 3.2 L (3.5-5.1) mmol/L Chloride 96 L (98-107) mmol/L Carbon Dioxide 34 H (22-30) mmol/L Anion Gap 5 mmol/L BUN 8 (7-17) mg/dL Creatinine 0.38 L (0.52-1.04) mg/dL Est GFR (CKD-EPI)AfAm >90 (>60 ml/min/1.73 sqM) Est GFR (CKD-EPI)NonAf >90 (>60 ml/min/1.73 sqM) Glucose 116 H (74-99) mg/dL Calcium 8.1 L (8.4-10.2) mg/dL Magnesium 1.2 L (1.6-2.3) mg/dL Total Bilirubin 3.2 H (0.2-1.3) mg/dL AST 74 H (14-36) U/L ALT 34 (4-34) U/L Alkaline Phosphatase 85 (38-126) U/L NT-Pro-B Natriuret Pep 378 pg/mL Total Protein 6.3 (6.3-8.2) g/dL Albumin 3.3 L (3.5-5.0) g/dL Serum Alcohol <10 mg/dL 02/03/22 02/03/22 Range/Units 20:10 20:10 WBC 3.4 L (3.8-10.6) k/uL RBC 3.35 L (3.80-5.40) m/uL Hgb 8.5 L (11.4-16.0) gm/dL Hct 28.5 L (34.0-46.0) % MCV 85.0 (80.0-100.0) fL MCH 25.4 (25.0-35.0) pg MCHC 29.9 L (31.0-37.0) g/dL RDW 21.8 H (11.5-15.5) % Plt Count (150-450) k/uL MPV 8.2 Neutrophils % Neutrophils % (Manual) % Band Neuts % (Manual) % Lymphocytes % Lymphocytes % (Manual) % Monocytes % Monocytes % (Manual) % Eosinophils % Eosinophils % (Manual) % Basophils % Neutrophils # Neutrophils # (Manual) (1.3-7.7) k/uL Lymphocytes # Lymphocytes # (Manual) (1.0-4.8) k/uL Monocytes # Monocytes # (Manual) (0-1.0) k/uL Eosinophils # Eosinophils # (Manual) (0-0.7) k/uL Basophils # Nucleated RBCs (0-0) /100 WBC Manual Slide Review Large Platelets Polychromasia Hypochromasia Marked Poikilocytosis Slight Anisocytosis Moderate Microcytosis Slight PT 14.3 H (9.0-12.0) sec INR 1.4 H (<1.2) APTT 22.8 (22.0-30.0) sec Sodium (137-145) mmol/L Potassium (3.5-5.1) mmol/L Chloride (98-107) mmol/L Carbon Dioxide (22-30) mmol/L Anion Gap mmol/L BUN (7-17) mg/dL Creatinine (0.52-1.04) mg/dL Est GFR (CKD-EPI)AfAm (>60 ml/min/1.73 sqM) Est GFR (CKD-EPI)NonAf (>60 ml/min/1.73 sqM) Glucose (74-99) mg/dL Calcium (8.4-10.2) mg/dL Magnesium (1.6-2.3) mg/dL Total Bilirubin (0.2-1.3) mg/dL AST (14-36) U/L ALT (4-34) U/L Alkaline Phosphatase (38-126) U/L NT-Pro-B Natriuret Pep pg/mL Total Protein (6.3-8.2) g/dL Albumin (3.5-5.0) g/dL Serum Alcohol mg/dL Disposition Clinical Impression: Alcohol abuse, Hypomagnesemia, Hypokalemia, Anemia, Peripheral edema, Ascites Disposition: ADMITTED IP TO THIS HOSP Time of Disposition: 20:46
[2022-02-03 18:42] LABS: ALT 34 U/L (4-34); AST 74 U/L (14-36); African American GFR (CKD) >90 (>60 ml/min/1.73 sqM); Albumin 3.3 g/dL (3.5-5.0); Alcohol <10 mg/dL; Alkaline Phosphatase 85 U/L (38-126); Anion Gap 5 mmol/L; Blood Urea Nitrogen 8 mg/dL (7-17); Calcium 8.1 mg/dL (8.4-10.2); Carbon Dioxide 34 mmol/L (22-30); Chloride 96 mmol/L (98-107); Glucose 116 mg/dL (74-99); Magnesium 1.2 mg/dL (1.6-2.3); Non-African American GFR(CKD) >90 (>60 ml/min/1.73 sqM); Potassium 3.2 mmol/L (3.5-5.1); Sodium 135 mmol/L (137-145); Total Bilirubin 3.2 mg/dL (0.2-1.3); Total Protein 6.3 g/dL (6.3-8.2)
[2022-02-03 18:43] LABS: Anisocytosis Moderate; HCT 32.7 % (34.0-46.0); HGB 9.7 gm/dL (11.4-16.0); Hypochromasia Marked; MCH 25.6 pg (25.0-35.0); MCHC 29.7 g/dL (31.0-37.0); MCV 86.5 fL (80.0-100.0); Mean Platelet Volume 9.1; Microcytosis Slight; Poikilocytosis Slight; RBC 3.78 m/uL (3.80-5.40); RDW 22.1 % (11.5-15.5); WBC 3.8 k/uL (3.8-10.6)
--- NOTE | 2022-02-03 19:20 | XR ---
EXAMINATION TYPE: XR chest 2V DATE OF EXAM: 02/03/2022 COMPARISON: NONE HISTORY: 06/20/2018 TECHNIQUE: 2 views FINDINGS: Heart is normal. Lungs are clear of consolidation. There are no hilar masses. There is slig ht coarsening of interstitial markings in the lower lung owen. No heart failure. There is osteopeni a. There is slight anterior wedging of mid thoracic vertebra. IMPRESSION: No active cardiopulmonary disease. Minimal fibrotic changes. Normal heart. No significant change.
[2022-02-03] MEDS ORDERED: POTASSIUM CHLORIDE ER 20 MEQ TAB.ER PO STA (19:52)
[2022-02-03 20:22] LABS: Anisocytosis Moderate; HCT 28.5 % (34.0-46.0); HGB 8.5 gm/dL (11.4-16.0); Hypochromasia Marked; MCH 25.4 pg (25.0-35.0); MCHC 29.9 g/dL (31.0-37.0); Mean Platelet Volume 8.2; Microcytosis Slight; Poikilocytosis Slight; RBC 3.35 m/uL (3.80-5.40); RDW 21.8 % (11.5-15.5); WBC 3.4 k/uL (3.8-10.6)
[2022-02-03] MEDS: MAGNESIUM SULFATE-D5W PMX 1 GM in DEXTROSE/WATER 1 100ML.BAG IVPB SCH ×2 (20:25→23:11)
[2022-02-03 20:33] LABS: Platelet Count 38 k/uL (150-450)
[2022-02-03] MEDS ORDERED: SODIUM CHLORIDE 0.9% 1,000 ML IV ONE (20:46)
[2022-02-03 20:47] LABS: INR 1.4 (<1.2); Partial Thromboplastin Time 22.8 sec (22.0-30.0); Prothrombin Time 14.3 sec (9.0-12.0)
[2022-02-03] MEDS ORDERED: LORazepam 2 MG/ML INJ IV PRN ×3 (20:55)
[2022-02-03] MEDS ORDERED: THIAMINE 100 MG/ML 2 ML VIAL IM STA (20:55)
[2022-02-03] MEDS ORDERED: chlordiazePOXIDE 25 MG CAP PO PRN ×4 (20:57)
[2022-02-03 21:02] LABS: Band Neutrophils % 1 %; Eosinophils # (M) 0.08 k/uL (0-0.7); Lymphocytes # (M) 1.06 k/uL (1.0-4.8); Monocytes # (M) 0.11 k/uL (0-1.0); Neutrophils % (M) 66 %; Nucleated Red Blood Cells 1 /100 WBC (0-0); Total Cells Counted 100
[2022-02-03 21:03] LABS: Large Platelets Present; Platelet Count 48 k/uL (150-450); Polychromasia Present
[2022-02-03 21:11] LABS: Lymphocytes # (M) 0.88 k/uL (1.0-4.8); Monocytes # (M) 0.14 k/uL (0-1.0); Neutrophils # (M) 2.38 k/uL (1.3-7.7); Neutrophils % (M) 70 %; Nucleated Red Blood Cells 1 /100 WBC (0-0); Total Cells Counted 100
[2022-02-03 21:14] LABS: Large Platelets Present; Polychromasia Present
[2022-02-04] MEDS: ACETAMINOPHEN TAB 325 MG TAB PO PRN ×2 (03:42→10:21)
[2022-02-04] MEDS: THIAMINE 100 MG TAB PO SCH ×2 (07:52→17:32)
[2022-02-04 09:19] LABS: Anisocytosis Moderate; Basophils % (A) 1 %; Eosinophils % (A) 1 %; HCT 28.3 % (34.0-46.0); HGB 8.4 gm/dL (11.4-16.0); Hypochromasia Marked; Lymphocytes # (A) 0.3 k/uL (1.0-4.8); Lymphocytes % (A) 8 %; MCH 26.2 pg (25.0-35.0); MCHC 29.7 g/dL (31.0-37.0); MCV 88.3 fL (80.0-100.0); Mean Platelet Volume 8.4; Microcytosis Slight; Monocytes # (A) 0.2 k/uL (0-1.0); Monocytes % (A) 6 %; Neutrophils % (A) 84 %; Platelet Count 36 k/uL (150-450); Poikilocytosis Slight; RBC 3.21 m/uL (3.80-5.40); RDW 22.2 % (11.5-15.5); WBC 3.6 k/uL (3.8-10.6)
[2022-02-04] MEDS ORDERED: PANTOPRAZOLE 40 MG/10 ML VIAL IVP SCH (09:30)
--- NOTE | 2022-02-04 12:42 | XR ---
EXAMINATION TYPE: XR Hip Complete RT DATE OF EXAM: 02/04/2022 CLINICAL HISTORY: Right hip pain after fall injury. TECHNIQUE: AP and frogleg views of the right hip are obtained. COMPARISON: CT abdomen and pelvis 2018 FINDINGS: Osseous structures are demineralized. There is no acute fracture/dislocation evident in th e right hip. Mild acetabular spurring in the right hip. Scattered tiny pelvic phleboliths are partial ly imaged. IMPRESSION: There is no acute fracture or dislocation in the right hip.
[2022-02-04 12:44] LABS: African American GFR (CKD) 130.5 (60.0-200.0); Albumin 2.9 g/dL (3.8-4.9); Albumin/Globulin Ratio 1.41 (1.60-3.17); Anion Gap 8.4 mmol/L (10.00-18.00); BUN/Creat Ratio 16.14 Ratio (12.00-20.00); Calcium 7.9 mg/dL (8.7-10.3); Carbon Dioxide 28.9 mmol/L (20.0-27.5); Non-African American GFR(CKD) 112.6 (60.0-200.0); Potassium 3.6 mmol/L (3.5-5.5); Total Bilirubin 2.7 mg/dL (0.30-1.20); Total Protein 4.9 g/dL (6.2-8.2)
[2022-02-04 13:13] LABS: INR 1.4 (<1.2); Prothrombin Time 14.1 sec (9.0-12.0)
--- NOTE | 2022-02-04 13:43 | P.HPIM ---
History of Present Illness H&P Date: 02/04/22 This is a 66-year-old female presents to the hospital with concern for acute alcohol withdrawal, patient also had a fall at home 5 days ago states she fell down 14 steps and has significant bruising on her side and legs. On admission alcohol level <10, patient has not had a drink in the last 2 days. Patient follows with Dr. Luz Marina Hannon in the primary care setting, chronic medical conditions include COPD, hypertension, alcohol dependence with alcoholic liver disease, anxiety depression, current daily smoker 1 pack per day also reports 3- 4 drinks of alcohol per day, mixed drinks or beer she drinks more or less depending on her mood and states that it helps her get to sleep. She has cut d own on drinking in the last 10-15 years. She plans for alcohol cessation and will discharged to [place] for rehab. She also follows with Dr Medellin outpatient for umbilical hernia pending surgical repair outpatient. Labs on admission showing a white count 3.4, hemoglobin 8.5 which is dropped from 9.7 on admission, platelet count of 38, INR 1.4, sodium 135, potassium 3.2, chloride 96, CO2 34, BUN 8, creatinine 0.3, glucose 116, magnesium 1.2, AST 74, ALT 34, total bili 3.2, BNP 378, a BUN 3.3. Chest x-ray completed showing no active cardiac disease with minimal fibrotic changes. EKG showing sinus rhythm heart rate of 99, QT interval 410. Patient received 2 g IV magnesium, oral potassium, has been started on thiamine supplementation as well as Librium taper is receiving IV fluids at normal saline 75 mL per hour. Patient is tachycardic at 108, blood pressure 123/76, 92% on room air. Patient is admitted to the hospital for alcohol withdrawal monitoring and evaluation regarding increased peripheral edema and ascites. Repeat labs are pending. REVIEW OF SYSTEMS: CONSTITUTIONAL: No fever, no malaise, no fatigue. HEENT: No recent visual problems or hearing problems. Denied any sore throat. CARDIOVASCULAR: No chest pain, orthopnea, PND, no palpitations, no syncope. PULMONARY: No shortness of breath, no cough, no hemoptysis. GASTROINTESTINAL: No diarrhea, no nausea, no vomiting, no abdominal pain. NEUROLOGICAL: No headaches, no weakness, no numbness. HEMATOLOGICAL: Denies any bleeding or petechiae. GENITOURINARY: Denies any burning micturition, frequency, or urgency. MUSCULOSKELETAL/RHEUMATOLOGICAL: Reports mild pain to her right hip radiating to out of 10 and also pain to her right foot. ENDOCRINE: Denies any polyuria or polydipsia. The rest of the 14-point review of systems is negative. PHYSICAL EXAMINATION: GENERAL: The patient is alert and oriented x3, not in any acute distress. Well developed, well nourished. HEENT: Pupils are round and equally reacting to light. EOMI. No scleral icterus. No conjunctival pallor. Normocephalic, atraumatic. No pharyngeal erythema. No thyromegaly. CARDIOVASCULAR: S1 and S2 present. No murmurs, rubs, or gallops. PULMONARY: Chest is clear to auscultation, no wheezing or crackles. ABDOMEN: Soft, nontender, distended, normoactive bowel sounds. No palpable organomegaly. Abdominal umbilical hernia present. MUSCULOSKELETAL: No joint swelling or deformity. EXTREMITIES: No cyanosis, clubbing, or pedal edema. NEUROLOGICAL: Gross neurological examination did not reveal any focal deficits. SKIN: No rashes. Assessment and plan Assessment Chronic alcohol abuse Acute on chronic alcoholic hepatitis Anemia, normocytic, ongoing work up Thrombocytopenia secondary to chronic liver disease Supratherapeutic INR at 1.4 Tachycardia suspect from acute alcohol withdrawal Hyponatremia from poor oral intake Hypokalemia from poor oral intake Non-anion gap metabolic alkalosis Hyperglycemia Hypomagnesemia History of COPD not in acute exacerbation Hypertension currently normotensive Chronic nicotine dependence GI Prophylaxis IV Protonix DVT Prophylaxis deferred due to low platelet count Full Code Plan Monitor for acute alcohol withdrawal patient is on oral librium Continue with gentle hydration Thiamine supplementation Check B12, Folate, Iron studies Repeat labs pending Replace electrolytes Transfuse for hemoglobin less than 7, platelets less than 10,000 or signs of active bleeding Recommend GI consultation outpatient The impression and plan of care has been dictated by Anay Alford, Nurse Practitioner as directed. Dr. Shelby MD I have performed a history and physical examination and medical decision making of this patient, discussed the same with the dictator, and agree with the dictators assessment and plan as written, documented as a scribe. Based on total visit time, I have performed more than 50% of this visit. Past Medical History Past Medical History: COPD, Hypertension Additional Past Medical History / Comment(s): Alcohol dependence; C-diff 06/2015, alcoholic liver disease, COPD, anxiety, depression, alcoholism History of Any Multi-Drug Resistant Organisms: None Reported Past Surgical History: Section Past Anesthesia/Blood Transfusion Reactions: No Reported Reaction Past Psychological History: Anxiety, Depression Smoking Status: Current every day smoker Past Alcohol Use History: Abuse, Daily, Heavy Additional Past Alcohol Use History / Comment(s): Pt reports that she smokes one pack per day. Started smokin gin 1973. Pt reports that she has 3-4 drinks a day. Past Drug Use History: Marijuana Medications and Allergies Home Medications Medication Instructions Recorded Confirmed Type No Known Home Medications 02/03/22 02/03/22 History Allergies Allergy/AdvReac Type Severity Reaction Status Date / Time Sulfa (Sulfonamide Allergy Rash/Hives Verified 02/03/22 21:05 Antibiotics) folic acid AdvReac hair falls Verified 02/03/22 21:05 out Physical Exam Vitals: Vital Signs Temp Pulse Pulse Resp BP BP Pulse Ox 02/04/22 04:48 98.4 F 108 H 18 123/76 92 L 02/03/22 22:07 98 F 101 H 18 121/71 93 L 02/03/22 21:12 99 16 115/85 94 L 02/03/22 19:06 104 H 18 121/66 95 02/03/22 15:15 97.4 F L 105 H 16 134/73 98 Intake and Output 02/03/22 02/04/22 02/04/22 22:59 06:59 14:59 Intake Total 625 Balance 625 Intake: Intake, IV Titration 625 Amount Magnesium Sulfate-D5w Pmx 100 1 gm In Dextrose/Water 1 100ml.bag @ 100 mls/hr IVPB Q1H [facility] Rx#: [id number] Sodium Chloride 0.9% 1, 525 000 ml @ 75 mls/hr IV . [id number] ONE Rx#:[id number] Other: # Voids 1 # Bowel Movements 1 Weight 68.039 kg Results CBC & Chem 7: 02/04/22 08:21 02/04/22 08:21 Labs: Abnormal Lab Results - Last 24 Hours (Table) 02/03/22 02/03/22 02/03/22 Range/Units 18:19 18:19 20:10 WBC 3.4 L (3.8-10.6) k/uL RBC 3.78 L 3.35 L (3.80-5.40) m/uL Hgb 9.7 L 8.5 L (11.4-16.0) gm/dL Hct 32.7 L 28.5 L (34.0-46.0) % MCHC 29.7 L 29.9 L (31.0-37.0) g/dL RDW 22.1 H 21.8 H (11.5-15.5) % Plt Count 48 L 38 L (150-450) k/uL Lymphocytes # (Manual) 0.88 L (1.0-4.8) k/uL Nucleated RBCs 1 H 1 H (0-0) /100 WBC PT (9.0-12.0) sec INR (<1.2) Sodium 135 L (137-145) mmol/L Potassium 3.2 L (3.5-5.1) mmol/L Chloride 96 L (98-107) mmol/L Carbon Dioxide 34 H (22-30) mmol/L Creatinine 0.38 L (0.52-1.04) mg/dL Glucose 116 H (74-99) mg/dL Calcium 8.1 L (8.4-10.2) mg/dL Magnesium 1.2 L (1.6-2.3) mg/dL Total Bilirubin 3.2 H (0.2-1.3) mg/dL AST 74 H (14-36) U/L Albumin 3.3 L (3.5-5.0) g/dL 02/03/22 Range/Units 20:10 WBC (3.8-10.6) k/uL RBC (3.80-5.40) m/uL Hgb (11.4-16.0) gm/dL Hct (34.0-46.0) % MCHC (31.0-37.0) g/dL RDW (11.5-15.5) % Plt Count (150-450) k/uL Lymphocytes # (Manual) (1.0-4.8) k/uL Nucleated RBCs (0-0) /100 WBC PT 14.3 H (9.0-12.0) sec INR 1.4 H (<1.2) Sodium (137-145) mmol/L Potassium (3.5-5.1) mmol/L Chloride (98-107) mmol/L Carbon Dioxide (22-30) mmol/L Creatinine (0.52-1.04) mg/dL Glucose (74-99) mg/dL Calcium (8.4-10.2) mg/dL Magnesium (1.6-2.3) mg/dL Total Bilirubin (0.2-1.3) mg/dL AST (14-36) U/L Albumin (3.5-5.0) g/dL Thrombosis Risk Factor Assmnt - Choose All That Apply Any of the Below Risk Factors Present?: Yes Each Factor Represents 1 point: Abnormal pulmonary function (COPD) Other Risk Factors: Yes Each Risk Factor Represents 2 Points: Age 61-74 years Other congenital or acquired thrombophilia - If yes, enter type in comment: No Thrombosis Risk Factor Assessment Total Risk Factor Score: 3 Thrombosis Risk Factor Assessment Level: Moderate Risk Assessment and Plan Time with Patient: Less than 30
[2022-02-04] MEDS ORDERED: POTASSIUM CHLORIDE ER 20 MEQ TAB.ER PO STA (14:04)
[2022-02-04] MEDS ORDERED: Magnesium Replacement Protocol 1 EACH MISC MISCELLANE PRN (14:35)
[2022-02-04] MEDS: ALBUTEROL NEBULIZED 2.5 MG/3 ML INHALATION PRN ×2 (15:08→19:05)
[2022-02-04] MEDS: chlordiazePOXIDE 25 MG CAP PO SCH ×2 (17:32→21:08)
[2022-02-05] MEDS: ACETAMINOPHEN TAB 325 MG TAB PO PRN ×2 (01:48→08:51)
[2022-02-05 08:27] LABS: Anisocytosis Moderate; Basophils % (A) 0 %; Eosinophils # (A) 0.1 k/uL (0-0.7); Eosinophils % (A) 1 %; HCT 24.6 % (34.0-46.0); HGB 7.2 gm/dL (11.4-16.0); Hypochromasia Marked; Lymphocytes # (A) 0.7 k/uL (1.0-4.8); Lymphocytes % (A) 18 %; MCH 26.1 pg (25.0-35.0); MCHC 29.2 g/dL (31.0-37.0); MCV 89.5 fL (80.0-100.0); Macrocytosis Slight; Mean Platelet Volume 11.8; Microcytosis Slight; Monocytes # (A) 0.3 k/uL (0-1.0); Monocytes % (A) 6 %; Neutrophils # (A) 2.9 k/uL (1.3-7.7); Neutrophils % (A) 72 %; Poikilocytosis Slight; RBC 2.74 m/uL (3.80-5.40)
[2022-02-05] MEDS: THIAMINE 100 MG TAB PO SCH ×2 (08:44→17:14)
[2022-02-05] MEDS: chlordiazePOXIDE 25 MG CAP PO SCH (08:45)
[2022-02-05] MEDS: PANTOPRAZOLE 40 MG TABLET PO SCH (08:45)
[2022-02-05 10:07] LABS: Platelet Count 42 k/uL (150-450)
[2022-02-05 10:26] LABS: African American GFR (CKD) 127.6 (60.0-200.0); Albumin 2.5 g/dL (3.8-4.9); Albumin/Globulin Ratio 1.25 (1.60-3.17); Anion Gap 7.2 mmol/L (10.00-18.00); BUN/Creat Ratio 18.25 Ratio (12.00-20.00); Blood Urea Nitrogen 7.3 mg/dL (9.0-27.0); Calcium 7.6 mg/dL (8.7-10.3); Carbon Dioxide 26.8 mmol/L (20.0-27.5); Magnesium 1.5 mg/dL (1.5-2.4); Non-African American GFR(CKD) 110.1 (60.0-200.0); Potassium 4.4 mmol/L (3.5-5.5); Total Bilirubin 1.4 mg/dL (0.30-1.20); Total Protein 4.5 g/dL (6.2-8.2)
[2022-02-05] MEDS: FUROSEMIDE 10 MG/ML 4 ML VIAL IV SCH ×2 (11:46→20:05)
[2022-02-05] MEDS: MAGNESIUM SULFATE-D5W PMX 1 GM in DEXTROSE/WATER 1 100ML.BAG IVPB SCH ×2 (11:47→14:47)
[2022-02-05] MEDS: SPIRONOLACTONE 25 MG TAB PO SCH (11:47)
[2022-02-05] MEDS ORDERED: LORazepam 0.5 MG TAB PO PRN (13:38)
--- NOTE | 2022-02-05 13:41 | P.PN ---
Subjective Progress Note Date: 02/05/22 This is a 66-year-old female presents to the hospital with concern for acute alcohol withdrawal, patient also had a fall at home 5 days ago states she fell down 14 steps and has significant bruising on her side and legs. On admission alcohol level <10, patient has not had a drink in the last 2 days. Patient follows with Dr. Luz Marina Hannon in the primary care setting, chronic medical conditions include COPD, hypertension, alcohol dependence with alcoholic liver disease, anxiety depression, current daily smoker 1 pack per day also reports 3- 4 drinks of alcohol per day, mixed drinks or beer she drinks more or less depending on her mood and states that it helps her get to sleep. She has cut down on drinking in the last 10-15 years. She plans for alcohol cessation and will discharged to [place] for rehab. She also follows with Dr Medellin outpatient for umbilical hernia pending surgical repair outpatient. Labs on admission showing a white count 3.4, hemoglobin 8.5 which is dropped from 9.7 on admission, platelet count of 38, INR 1.4, sodium 135, potassium 3.2, chloride 96, CO2 34, BUN 8, creatinine 0.3, glucose 116, magnesium 1.2, AST 74, ALT 34, total bili 3.2, BNP 378, a BUN 3.3. Chest x-ray completed showing no active cardiac disease with minimal fibrotic changes. EKG showing sinus rhythm heart rate of 99, QT interval 410. Patient received 2 g IV magnesium, oral potassium, has been started on thiamine supplementation as well as Librium taper is receiving IV fluids at normal saline 75 mL per hour. Patient is tachycardic at 108, blood pressure 123/76, 92% on room air. Patient is admitted to the hospital for alcohol withdrawal monitoring and evaluation regarding increased peripheral edema and ascites. Repeat labs are pending. 02/05/2022 Patient evaluated today resting in bed, she has been unable to ambulate due to significant weakness. She does report decrease pain to her right lower extremity. She continues with peripheral edema and has been started on IV lasix as well as oral aldactone. She is slightly lethargic today as well and her speech pattern is slow. She states the librium made her hallucinate last night and will discontinue this. We will also check an ammonia level today. Labs today show white count 4.0, hemoglobin 7.2, platelet count 42, sodium 132, potassium 4.4, BUN 7.3, creatinine 0.4, magnesium 1.5, total bili 1.40. Total protein 4.5, albumin 2.5. She is afebrile, heart rate 90, blood pressure on the lower side at 94/60 she is 96% nasal cannula. She does have significant expiratory wheezing today which we will order DuoNeb's. B12 folate and iron studies are pending. Review of Systems Constitutional: Reports fatigue. denied any fever. Cardio vascular: denied any chest pain, palpitations Gastrointestinal: denied any nausea, vomiting, diarrhea Pulmonary: Denied any shortness of breath. Reports cough, wheeze. Neurologic denied any new focal deficits All inpatient medications were reviewed and appropriate changes in these medic ations as dictated in the interval history and assessment and plan. PHYSICAL EXAMINATION: GENERAL: The patient is alert and oriented x3, not in any acute distress. Well developed, well nourished. lethargic. HEENT: Pupils are round and equally reacting to light. EOMI. No scleral icterus. No conjunctival pallor. Normocephalic, atraumatic. No pharyngeal erythema. No thyromegaly. CARDIOVASCULAR: S1 and S2 present. No murmurs, rubs, or gallops. PULMONARY: expiratory wheezing throughout. Bronchospastic cough. ABDOMEN: Soft, nontender, distended, normoactive bowel sounds. No palpable organomegaly. Abdominal umbilical hernia present. MUSCULOSKELETAL: No joint swelling or deformity. EXTREMITIES: No cyanosis, clubbing, or pedal edema. NEUROLOGICAL: Gross neurological examination did not reveal any focal deficits. SKIN: No rashes. Assessment and plan Assessment Chronic alcohol abuse Acute on chronic alcoholic hepatitis Anemia, normocytic, ongoing work up Thrombocytopenia secondary to chronic liver disease Supratherapeutic INR at 1.4 Tachycardia suspect from acute alcohol withdrawal Hyponatremia from poor oral intake Hypokalemia from poor oral intake Non-anion gap metabolic alkalosis Hyperglycemia Hypomagnesemia History of COPD not in acute exacerbation Hypertension currently normotensive Chronic nicotine dependence GI Prophylaxis IV Protonix DVT Prophylaxis deferred due to low platelet count Full Code Plan Monitor for acute alcohol withdrawal IV lasix, aldactone has been added today Thiamine supplementation Check B12, Folate, Iron studies Ammonia level pending Repeat labs pending Replace electrolytes Transfuse for hemoglobin less than 7, platelets less than 10,000 or signs of active bleeding Recommend GI consultation outpatient PT/OT consultation The impression and plan of care has been dictated by Anay Alford Nurse Practitioner as directed. Dr. Shelby MD I have performed a history and physical examination and medical decision making of this patient, discussed the same with the dictator, and agree with the dictators assessment and plan as written, documented as a scribe. Based on total visit time, I have performed more than 50% of this visit. Objective - Vital Signs Vital signs: Vital Signs Temp 98.2 F 02/05/22 05:00 Pulse 100 02/05/22 05:00 Resp 16 02/05/22 05:00 BP 98/63 02/05/22 05:00 Pulse Ox 93 L 02/05/22 05:00 FiO2 Intake & Output 02/04/22 02/05/22 02/05/22 18:59 06:59 18:59 Other: Voiding Method Toilet # Voids 3 4 # Bowel Movements 2 1 - Labs CBC & Chem 7: 02/05/22 05:33 02/05/22 05:33 Labs: Abnormal Lab Results - Last 24 Hours (Table) 02/04/22 02/04/22 02/04/22 Range/Units 08:21 08:21 11:58 WBC 3.6 L (3.8-10.6) k/uL RBC 3.21 L (3.80-5.40) m/uL Hgb 8.4 L (11.4-16.0) gm/dL Hct 28.3 L (34.0-46.0) % MCHC 29.7 L (31.0-37.0) g/dL RDW 22.2 H (11.5-15.5) % Plt Count 36 L (150-450) k/uL Lymphocytes # 0.3 L (1.0-4.8) k/uL PT 14.1 H (9.0-12.0) sec INR 1.4 H (<1.2) Carbon Dioxide 28.9 H (20.0-27.5) mmol/L Anion Gap 8.40 L (10.00-18.00) mmol/L BUN 6.0 L (9.0-27.0) mg/dL Creatinine 0.4 L (0.6-1.5) mg/dL Calcium 7.9 L (8.7-10.3) mg/dL Total Bilirubin 2.70 H (0.30-1.20) mg/dL AST 50 H (13-35) U/L Total Protein 4.9 L (6.2-8.2) g/dL Albumin 2.9 L (3.8-4.9) g/dL Albumin/Globulin Ratio 1.41 L (1.60-3.17) g/dL 02/05/22 Range/Units 05:33 WBC (3.8-10.6) k/uL RBC 2.74 L (3.80-5.40) m/uL Hgb 7.2 L (11.4-16.0) gm/dL Hct 24.6 L (34.0-46.0) % MCHC 29.2 L (31.0-37.0) g/dL RDW 23.0 H (11.5-15.5) % Plt Count (150-450) k/uL Lymphocytes # (1.0-4.8) k/uL PT (9.0-12.0) sec INR (<1.2) Carbon Dioxide (20.0-27.5) mmol/L Anion Gap (10.00-18.00) mmol/L BUN (9.0-27.0) mg/dL Creatinine (0.6-1.5) mg/dL Calcium (8.7-10.3) mg/dL Total Bilirubin (0.30-1.20) mg/dL AST (13-35) U/L Total Protein (6.2-8.2) g/dL Albumin (3.8-4.9) g/dL Albumin/Globulin Ratio (1.60-3.17) g/dL Assessment and Plan Time with Patient: Less than 30
[2022-02-06] MEDS: FUROSEMIDE 10 MG/ML 4 ML VIAL IV SCH ×2 (07:43→19:56)
[2022-02-06] MEDS: PANTOPRAZOLE 40 MG TABLET PO SCH (07:43)
[2022-02-06] MEDS: THIAMINE 100 MG TAB PO SCH ×2 (07:43→18:01)
[2022-02-06] MEDS: SPIRONOLACTONE 25 MG TAB PO SCH (07:43)
--- NOTE | 2022-02-06 07:54 | XR ---
EXAMINATION TYPE: XR chest 2V DATE OF EXAM: 02/06/2022 7:31 AM COMPARISON: Chest radiograph 02/03/2022 TECHNIQUE: XR chest 2V. CLINICAL INDICATION:Female, 66 years old with history of dyspnea; FINDINGS: Lungs/Pleura: There is no evidence of pleural effusion, focal consolidation, or pneumothorax. Simila r slight coarsening of interstitial markings in the lower lung owen. Pulmonary vascularity: Unremarkable. Heart/mediastinum: Cardiomediastinal silhouette is unremarkable. Atherosclerotic calcification of th e aorta. Musculoskeletal: No acute osseous pathology. Similar anterior wedging of the T7 vertebral body from p rior examination. IMPRESSION: No acute cardiopulmonary disease/process. No significant change from prior examination.
[2022-02-06 09:58] LABS: % Iron Saturation 5.13 (12.00-45.00); Ferritin 32.5 ng/mL (10.0-291.0); Magnesium 1.5 mg/dL (1.5-2.4)
[2022-02-06 10:50] LABS: African American GFR (CKD) 127.6 (60.0-200.0); Anion Gap 7.8 mmol/L (10.00-18.00); BUN/Creat Ratio 18.75 Ratio (12.00-20.00); Blood Urea Nitrogen 7.5 mg/dL (9.0-27.0); Calcium 7.7 mg/dL (8.7-10.3); Carbon Dioxide 27.2 mmol/L (20.0-27.5); Non-African American GFR(CKD) 110.1 (60.0-200.0); Potassium 4.3 mmol/L (3.5-5.5)
[2022-02-06 11:34] LABS: Anisocytosis (M) 2+; Basophils # (A) 0.01 X 10*3/uL (0.00-0.10); Basophils % (A) 0.2 %; Eosinophils # (A) 0.17 X 10*3/uL (0.04-0.35); HCT 27.1 % (37.2-46.3); HGB 7.7 g/dL (12.0-15.0); Hypochromasia (M) 2+; Immature Grans, Automated 0.4 %; Immature Platelet Fraction 14.4 % (1.1-6.1); Lymphocytes # (A) 0.86 X 10*3/uL (0.90-5.00); Lymphocytes % (A) 15.3 %; MCH 24.8 pg (27.0-32.0); MCHC 28.4 g/dL (32.0-37.0); MCV 87.4 fL (80.0-97.0); Monocytes # (A) 0.49 X 10*3/uL (0.20-1.00); Monocytes % (A) 8.7 %; NRBC Per 100 WBC 0 /100 WBCS (0.0-0.0); Neutrophils # (A) 4.06 X 10*3/uL (1.80-7.70); Neutrophils % (A) 72.4 %; Platelet Count 47 X 10*3/uL (140-440); RDW 23.5 % (11.5-14.5); WBC 5.61 X 10*3/uL (4.50-10.00)
[2022-02-06] MEDS ORDERED: MAGNESIUM SULFATE-D5W PMX 1 GM in DEXTROSE/WATER 1 100ML.BAG IVPB SCH (13:45)
--- NOTE | 2022-02-06 13:45 | P.PN ---
Subjective Progress Note Date: 02/06/22 This is a 66-year-old female presents to the hospital with concern for acute alcohol withdrawal, patient also had a fall at home 5 days ago states she fell down 14 steps and has significant bruising on her side and legs. On admission alcohol level <10, patient has not had a drink in the last 2 days. Patient follows with Dr. Luz Marina Hannon in the primary care setting, chronic medical conditions include COPD, hypertension, alcohol dependence with alcoholic liver disease, anxiety depression, current daily smoker 1 pack per day also reports 3- 4 drinks of alcohol per day, mixed drinks or beer she drinks more or less depending on her mood and states that it helps her get to sleep. She has cut down on drinking in the last 10-15 years. She plans for alcohol cessation and will discharged to [facility] for rehab. She also follows with Dr Medellin outpatient for umbilical hernia pending surgical repair outpatient. Labs on admission showing a white count 3.4, hemoglobin 8.5 which is dropped from 9.7 on admission, platelet count of 38, INR 1.4, sodium 135, potassium 3.2, chloride 96, CO2 34, BUN 8, creatinine 0.3, glucose 116, magnesium 1.2, AST 74, ALT 34, total bili 3.2, BNP 378, a BUN 3.3. Chest x-ray completed showing no active cardiac disease with minimal fibrotic changes. EKG showing sinus rhythm heart rate of 99, QT interval 410. Patient received 2 g IV magnesium, oral potassium, has been started on thiamine supplementation as well as Librium taper is receiving IV fluids at normal saline 75 mL per hour. Patient is tachycardic at 108, blood pressure 123/76, 92% on room air. Patient is admitted to the hospital for alcohol withdrawal monitoring and evaluation regarding increased peripheral edema and ascites. Repeat labs are pending. 02/05/2022 Patient evaluated today resting in bed, she has been unable to ambulate due to significant weakness. She does report decrease pain to her right lower extremity. She continues with peripheral edema and has been started on IV lasix as well as oral aldactone. She is slightly lethargic today as well and her speech pattern is slow. She states the librium made her hallucinate last night and will discontinue this. We will also check an ammonia level today. Labs today show white count 4.0, hemoglobin 7.2, platelet count 42, sodium 132, potassium 4.4, BUN 7.3, creatinine 0.4, magnesium 1.5, total bili 1.40. Total protein 4.5, albumin 2.5. She is afebrile, heart rate 90, blood pressure on the lower side at 94/60 she is 96% nasal cannula. She does have significant expiratory wheezing today which we will order DuoNeb's. B12 folate and iron studies are pending. 02/06/2022 Patient evaluated today resting in bed, still reports weakness and unable to ambulate. PT has evaluated patient and she will require sub acute rehab on di scharge. Wheezing has improved, continues on 2L Nasal cannula and duonebs as needed. Denies need for nicotine patch. No signs for acute alcohol withdrawal. Librium has been discontinued. Ammonia level 22. hgb today 7.7, platelets 47, sodium 133, potassium 4.3, BUN 7.5, creat 0.4, calcium 7.7. She will continue on IV lasix, mild improvement in lower extremity peripheral edema however still 2+. Iron studies showing total iron 17, %saturation 5.13. TIBC 333. B12 and folate are within normal limits. Heart rate is elevated today at 114, EKG pending. Review of Systems Constitutional: Reports fatigue. denied any fever. Cardio vascular: denied any chest pain, palpitations Gastrointestinal: denied any nausea, vomiting, diarrhea Pulmonary: Denied any shortness of breath. Reports cough, wheeze. Neurologic denied any new focal deficits All inpatient medications were reviewed and appropriate changes in these medications as dictated in the interval history and assessment and plan. PHYSICAL EXAMINATION: GENERAL: The patient is alert and oriented x3, not in any acute distress. Well developed, well nourished. lethargic. HEENT: Pupils are round and equally reacting to light. EOMI. No scleral icterus. No conjunctival pallor. Normocephalic, atraumatic. No pharyngeal erythema. No thyromegaly. CARDIOVASCULAR: S1 and S2 present. No murmurs, rubs, or gallops. PULMONARY: expiratory wheezing throughout, improved Bronchospastic cough. ABDOMEN: Soft, nontender, distended, normoactive bowel sounds. No palpable organomegaly. Abdominal umbilical hernia present. MUSCULOSKELETAL: No joint swelling or deformity. EXTREMITIES: No cyanosis, clubbing. +2 lower extremity and pedal edema. +2 dorsalis pedis pulse bilateral NEUROLOGICAL: Gross neurological examination did not reveal any focal deficits. SKIN: Significant bruising to right hip/groin/upper thigh. There is also skin tear to right kelly. Assessment and plan Assessment Chronic alcohol abuse Acute on chronic alcoholic hepatitis Anemia, normocytic, ongoing work up Thrombocytopenia secondary to chronic liver disease Supratherapeutic INR at 1.4 Tachycardia suspect from acute alcohol withdrawal Hyponatremia from poor oral intake Hypokalemia, resolved Non-anion gap metabolic alkalosis Hypomagnesemia History of COPD, no acute exacerbation Hypertension currently normotensive Chronic nicotine dependence GI Prophylaxis IV Protonix DVT Prophylaxis deferred due to low platelet count Full Code Plan Monitor for acute alcohol withdrawal Continue on IV lasix, aldactone with strict I and O Remy wrap bilateral lower extremity Thiamine supplementation Repeat labs in AM Recommend GI consultation outpatient Patient will require subacute rehab on discharge The impression and plan of care has been dictated by Anay Alford Nurse Practitioner as directed. Dr. Shelby MD I have performed a history and physical examination and medical decision making of this patient, discussed the same with the dictator, and agree with the dictators assessment and plan as written, documented as a scribe. Based on total visit time, I have performed more than 50% of this visit. Objective - Vital Signs Vital signs: Vital Signs Temp 98 F 02/06/22 04:42 Pulse 115 H 02/06/22 04:42 Resp 16 02/06/22 04:42 BP 106/69 02/06/22 04:42 Pulse Ox 91 L 02/06/22 04:42 FiO2 Intake & Output 02/05/22 02/06/22 02/06/22 18:59 06:59 18:59 Intake Total 180 Balance 180 Intake: Oral 180 Other: Voiding Method Toilet # Voids 5 4 1 # Bowel Movements 2 2 1 - Labs CBC & Chem 7: 02/06/22 06:52 02/06/22 06:52 Labs: Abnormal Lab Results - Last 24 Hours (Table) 02/04/22 Range/Units 08:21 Iron 17 L (50-170) ug/dL % Saturation 5.13 L (12.00-45.00) Assessment and Plan Time with Patient: Less than 30
[2022-02-06] MEDS: IPRATROPIUM-ALBUTEROL 3 ML NEB INHALATION PRN (16:37)
[2022-02-07] MEDS: THIAMINE 100 MG TAB PO SCH ×2 (07:55→17:42)
[2022-02-07] MEDS: FUROSEMIDE 10 MG/ML 4 ML VIAL IV SCH ×2 (07:55→20:46)
[2022-02-07] MEDS: PANTOPRAZOLE 40 MG TABLET PO SCH (07:55)
[2022-02-07] MEDS: SPIRONOLACTONE 25 MG TAB PO SCH (07:55)
[2022-02-07] MEDS: predniSONE 20 MG TAB PO SCH (11:05)
[2022-02-07 11:06] LABS: Basophils # (A) 0.02 X 10*3/uL (0.00-0.10); Basophils % (A) 0.5 %; Eosinophils # (A) 0.15 X 10*3/uL (0.04-0.35); Eosinophils % (A) 3.6 %; HCT 27.4 % (37.2-46.3); HGB 7.5 g/dL (12.0-15.0); Immature Grans, Automated 0.5 %; Lymphocytes # (A) 0.99 X 10*3/uL (0.90-5.00); Lymphocytes % (A) 23.5 %; MCH 24.1 pg (27.0-32.0); MCHC 27.4 g/dL (32.0-37.0); MCV 88.1 fL (80.0-97.0); Monocytes # (A) 0.55 X 10*3/uL (0.20-1.00); Monocytes % (A) 13.1 %; NRBC Per 100 WBC 0 /100 WBCS (0.0-0.0); Neutrophils # (A) 2.48 X 10*3/uL (1.80-7.70); Neutrophils % (A) 58.8 %; Platelet Count 58 X 10*3/uL (140-440); RBC 3.11 X 10*6/uL (4.10-5.20); RDW 24.1 % (11.5-14.5); WBC 4.21 X 10*3/uL (4.50-10.00)
[2022-02-07 11:07] LABS: Immature Platelet Fraction 12.4 % (1.1-6.1)
[2022-02-07 11:49] LABS: African American GFR (CKD) 131.6 (60.0-200.0); Anion Gap 9.3 mmol/L (10.00-18.00); BUN/Creat Ratio 25.88 Ratio (12.00-20.00); Blood Urea Nitrogen 9.4 mg/dL (9.0-27.0); Calcium 7.8 mg/dL (8.7-10.3); Carbon Dioxide 27.7 mmol/L (20.0-27.5); Magnesium 1.4 mg/dL (1.5-2.4); Non-African American GFR(CKD) 113.5 (60.0-200.0); Potassium 4.3 mmol/L (3.5-5.5)
[2022-02-07] MEDS ORDERED: MAGNESIUM SULFATE-D5W PMX 1 GM in DEXTROSE/WATER 1 100ML.BAG IVPB ONE (14:11)
--- NOTE | 2022-02-07 14:26 | P.PN ---
Subjective Progress Note Date: 02/07/22 This is a 66-year-old female presents to the hospital with concern for acute alcohol withdrawal, patient also had a fall at home 5 days ago states she fell down 14 steps and has significant bruising on her side and legs. On admission alcohol level <10, patient has not had a drink in the last 2 days. Patient follows with Dr. Luz Marina Hannon in the primary care setting, chronic medical conditions include COPD, hypertension, alcohol dependence with alcoholic liver disease, anxiety depression, current daily smoker 1 pack per day also reports 3- 4 drinks of alcohol per day, mixed drinks or beer she drinks more or less depending on her mood and states that it helps her get to sleep. She has cut down on drinking in the last 10-15 years. She plans for alcohol cessation and will discharged to [facility] for rehab. She also follows with Dr Medellin outpatient for umbilical hernia pending surgical repair outpatient. Labs on admission showing a white count 3.4, hemoglobin 8.5 which is dropped from 9.7 on admission, platelet count of 38, INR 1.4, sodium 135, potassium 3.2, chloride 96, CO2 34, BUN 8, creatinine 0.3, glucose 116, magnesium 1.2, AST 74, ALT 34, total bili 3.2, BNP 378, a BUN 3.3. Chest x-ray completed showing no active cardiac disease with minimal fibrotic changes. EKG showing sinus rhythm heart rate of 99, QT interval 410. Patient received 2 g IV magnesium, oral potassium, has been started on thiamine supplementation as well as Librium taper is receiving IV fluids at normal saline 75 mL per hour. Patient is tachycardic at 108, blood pressure 123/76, 92% on room air. Patient is admitted to the hospital for alcohol withdrawal monitoring and evaluation regarding increased peripheral edema and ascites. Repeat labs are pending. 02/05/2022 Patient evaluated today resting in bed, she has been unable to ambulate due to significant weakness. She does report decrease pain to her right lower extremity. She continues with peripheral edema and has been started on IV lasix as well as oral aldactone. She is slightly lethargic today as well and her speech pattern is slow. She states the librium made her hallucinate last night and will discontinue this. We will also check an ammonia level today. Labs today show white count 4.0, hemoglobin 7.2, platelet count 42, sodium 132, potassium 4.4, BUN 7.3, creatinine 0.4, magnesium 1.5, total bili 1.40. Total protein 4.5, albumin 2.5. She is afebrile, heart rate 90, blood pressure on the lower side at 94/60 she is 96% nasal cannula. She does have significant expiratory wheezing today which we will order DuoNeb's. B12 folate and iron studies are pending. 02/06/2022 Patient evaluated today resting in bed, still reports weakness and unable to ambulate. PT has evaluated patient and she will require sub acute rehab on di scharge. Wheezing has improved, continues on 2L Nasal cannula and duonebs as needed. Denies need for nicotine patch. No signs for acute alcohol withdrawal. Librium has been discontinued. Ammonia level 22. hgb today 7.7, platelets 47, sodium 133, potassium 4.3, BUN 7.5, creat 0.4, calcium 7.7. She will continue on IV lasix, mild improvement in lower extremity peripheral edema however still 2+. Iron studies showing total iron 17, %saturation 5.13. TIBC 333. B12 and folate are within normal limits. Heart rate is elevated today at 114, EKG pending. 02/07/2022 Patient continues to report generalized pain secondary to fall. She does have bruising on her left hip as well. She continues with bilateral peripheral edema and continues on IV lasix. Continue with strict intake and output documentation. REMY wrap to bilateral lower extremities as well. Labs today showing stable hemoglobin 7.5, platelets 58. Sodium today is 135, potassium 4.3, calcium 7.8, magnesium 1.4. She will receive 3 grams of magnesium today. Procalcitonin 0.18. Patient continues with expiratory wheeze. Will continue duonebs and add a short course of oral steroids. She is also tachycardic with heart rate in the low 100s to 110s. EKG completed showing sinus tachycardia will continue with telemetry monitoring. She is afebrile, blood pressure 110/72, 92% on 2L nasal cannula. Review of Systems Constitutional: Reports fatigue. denied any fever. Cardio vascular: denied any chest pain, palpitations Gastrointestinal: denied any nausea, vomiting, diarrhea Pulmonary: Denied any shortness of breath. Reports cough, wheeze. Neurologic denied any new focal deficits All inpatient medications were reviewed and appropriate changes in these medications as dictated in the interval history and assessment and plan. PHYSICAL EXAMINATION: GENERAL: The patient is alert and oriented x3, not in any acute distress. Well developed, well nourished. lethargic. HEENT: Pupils are round and equally reacting to light. EOMI. No scleral icterus. No conjunctival pallor. Normocephalic, atraumatic. No pharyngeal erythema. No thyromegaly. CARDIOVASCULAR: S1 and S2 present. No murmurs, rubs, or gallops. PULMONARY: expiratory wheezing throughout, improved Bronchospastic cough. ABDOMEN: Soft, nontender, distended, normoactive bowel sounds. No palpable organomegaly. Abdominal umbilical hernia present. MUSCULOSKELETAL: No joint swelling or deformity. EXTREMITIES: No cyanosis, clubbing. +2 lower extremity and pedal edema. +2 dorsa lis pedis pulse bilateral NEUROLOGICAL: Gross neurological examination did not reveal any focal deficits. SKIN: Significant bruising to right hip/groin/upper thigh. There is also skin tear to right kelly. bruising noted to left hip as well. Assessment and plan Assessment Chronic alcohol abuse Acute on chronic alcoholic hepatitis Anemia, normocytic, ongoing work up Thrombocytopenia secondary to chronic liver disease Supratherapeutic INR at 1.4 Tachycardia suspect from acute alcohol withdrawal Hyponatremia from poor oral intake, resolved Hypokalemia, resolved metabolic alkalosis Hypomagnesemia History of COPD, mild acute exacerbation Hypertension currently normotensive Chronic nicotine dependence GI Prophylaxis IV Protonix DVT Prophylaxis deferred due to low platelet count Full Code Plan Monitor for acute alcohol withdrawal Continue on IV lasix, aldactone with strict I and O Remy wrap bilateral lower extremity Thiamine supplementation Replace magnesium Repeat labs in AM Recommend GI consultation outpatient Patient will require subacute rehab on discharge Possible D/C tomorrow pending insurance authorization The impression and plan of care has been dictated by Anay Alford Nurse Practitioner as directed. Dr. Shelby MD I have performed a history and physical examination and medical decision making of this patient, discussed the same with the dictator, and agree with the dictators assessment and plan as written, documented as a scribe. Based on total visit time, I have performed more than 50% of this visit. Objective - Vital Signs Vital signs: Vital Signs Temp 98.5 F 02/07/22 03:55 Pulse 100 07/12/22 03:55 Resp 16 02/07/22 03:55 BP 108/66 02/07/22 03:55 Pulse Ox 100 02/07/22 03:55 FiO2 Intake & Output 02/06/22 02/07/22 02/07/22 18:59 06:59 18:59 Other: Voiding Method Toilet # Voids 1 1 # Bowel Movements 1 1 - Labs CBC & Chem 7: 02/07/22 06:19 02/07/22 06:19 Labs: Abnormal Lab Results - Last 24 Hours (Table) 02/04/22 02/06/22 02/06/22 Range/Units 08:21 06:52 06:52 RBC 3.10 L (4.10-5.20) X 10*6/uL Hgb 7.7 L (12.0-15.0) g/dL Hct 27.1 L (37.2-46.3) % MCH 24.8 L (27.0-32.0) pg MCHC 28.4 L (32.0-37.0) g/dL RDW 23.5 H (11.5-14.5) % Plt Count 47 L (140-440) X 10*3/uL Plt Count Comment A Lymphocytes # 0.86 L (0.90-5.00) X 10*3/uL Immature Plt Fraction 14.4 H (1.1-6.1) % Sodium 133 L (135-145) mmol/L Anion Gap 7.80 L (10.00-18.00) mmol/L BUN 7.5 L (9.0-27.0) mg/dL Creatinine 0.4 L (0.6-1.5) mg/dL Calcium 7.7 L (8.7-10.3) mg/dL Iron 17 L (50-170) ug/dL % Saturation 5.13 L (12.00-45.00) Assessment and Plan Time with Patient: Less than 30
[2022-02-07] MEDS: MAGNESIUM SULFATE-D5W PMX 1 GM in DEXTROSE/WATER 1 100ML.BAG IVPB SCH ×3 (16:09→20:46)
[2022-02-08] MEDS: IPRATROPIUM-ALBUTEROL 3 ML NEB INHALATION PRN ×3 (07:59→19:50)
[2022-02-08] MEDS: PANTOPRAZOLE 40 MG TABLET PO SCH (10:11)
[2022-02-08] MEDS: predniSONE 20 MG TAB PO SCH (10:12)
[2022-02-08] MEDS: SPIRONOLACTONE 25 MG TAB PO SCH (10:12)
[2022-02-08] MEDS: THIAMINE 100 MG TAB PO SCH ×2 (10:13→17:40)
[2022-02-08] MEDS: FUROSEMIDE 10 MG/ML 4 ML VIAL IV SCH ×2 (10:13→21:53)
[2022-02-08] MEDS: AZITHROMYCIN 500 MG TAB PO SCH (10:20)
[2022-02-08 10:50] LABS: African American GFR (CKD) 118.5 (60.0-200.0); Anion Gap 9.4 mmol/L (10.00-18.00); BUN/Creat Ratio 20.4 Ratio (12.00-20.00); Blood Urea Nitrogen 10.2 mg/dL (9.0-27.0); Calcium 7.8 mg/dL (8.7-10.3); Carbon Dioxide 30.6 mmol/L (20.0-27.5); Non-African American GFR(CKD) 102.3 (60.0-200.0); Potassium 3.4 mmol/L (3.5-5.5)
[2022-02-08] MEDS ORDERED: POTASSIUM CHLORIDE ER 20 MEQ TAB.ER PO STA (10:55)
[2022-02-08] MEDS: SODIUM FERRIC GLUCONAT-SUCROSE 125 MG in SODIUM CHLORIDE 0.9% 100 ML IVPB SCH (12:46)
[2022-02-08] MEDS: methylPREDNISolone SOD SUCCI 40 MG/ML 1 ML VIAL IV SCH ×2 (12:46→21:53)
--- NOTE | 2022-02-08 12:49 | P.PN ---
Subjective Progress Note Date: 02/08/22 This is a 66-year-old female presents to the hospital with concern for acute alcohol withdrawal, patient also had a fall at home 5 days ago states she fell down 14 steps and has significant bruising on her side and legs. On admission alcohol level <10, patient has not had a drink in the last 2 days. Patient follows with Dr. Luz Marina Hannon in the primary care setting, chronic medical conditions include COPD, hypertension, alcohol dependence with alcoholic liver disease, anxiety depression, current daily smoker 1 pack per day also reports 3- 4 drinks of alcohol per day, mixed drinks or beer she drinks more or less depending on her mood and states that it helps her get to sleep. She has cut down on drinking in the last 10-15 years. She plans for alcohol cessation and will discharged to [place] for rehab. She also follows with Dr Medellin outpatient for umbilical hernia pending surgical repair outpatient. Labs on admission showing a white count 3.4, hemoglobin 8.5 which is dropped from 9.7 on admission, platelet count of 38, INR 1.4, sodium 135, potassium 3.2, chloride 96, CO2 34, BUN 8, creatinine 0.3, glucose 116, magnesium 1.2, AST 74, ALT 34, total bili 3.2, BNP 378, a BUN 3.3. Chest x-ray completed showing no active cardiac disease with minimal fibrotic changes. EKG showing sinus rhythm heart rate of 99, QT interval 410. Patient received 2 g IV magnesium, oral potassium, has been started on thiamine supplementation as well as Librium taper is receiving IV fluids at normal saline 75 mL per hour. Patient is tachycardic at 108, blood pressure 123/76, 92% on room air. Patient is admitted to the hospital for alcohol withdrawal monitoring and evaluation regarding increased peripheral edema and ascites. Repeat labs are pending. 02/05/2022 Patient evaluated today resting in bed, she has been unable to ambulate due to significant weakness. She does report decrease pain to her right lower extremity. She continues with peripheral edema and has been started on IV lasix as well as oral aldactone. She is slightly lethargic today as well and her speech pattern is slow. She states the librium made her hallucinate last night and will discontinue this. We will also check an ammonia level today. Labs today show white count 4.0, hemoglobin 7.2, platelet count 42, sodium 132, potassium 4.4, BUN 7.3, creatinine 0.4, magnesium 1.5, total bili 1.40. Total protein 4.5, albumin 2.5. She is afebrile, heart rate 90, blood pressure on the lower side at 94/60 she is 96% nasal cannula. She does have significant expiratory wheezing today which we will order DuoNeb's. B12 folate and iron studies are pending. 02/06/2022 Patient evaluated today resting in bed, still reports weakness and unable to ambulate. PT has evaluated patient and she will require sub acute rehab on di scharge. Wheezing has improved, continues on 2L Nasal cannula and duonebs as needed. Denies need for nicotine patch. No signs for acute alcohol withdrawal. Librium has been discontinued. Ammonia level 22. hgb today 7.7, platelets 47, sodium 133, potassium 4.3, BUN 7.5, creat 0.4, calcium 7.7. She will continue on IV lasix, mild improvement in lower extremity peripheral edema however still 2+. Iron studies showing total iron 17, %saturation 5.13. TIBC 333. B12 and folate are within normal limits. Heart rate is elevated today at 114, EKG pending. 02/07/2022 Patient continues to report generalized pain secondary to fall. She does have bruising on her left hip as well. She continues with bilateral peripheral edema and continues on IV lasix. Continue with strict intake and output documentation. ISABELLA wrap to bilateral lower extremities as well. Labs today showing stable hemoglobin 7.5, platelets 58. Sodium today is 135, potassium 4.3, calcium 7.8, magnesium 1.4. She will receive 3 grams of magnesium today. Procalcitonin 0.18. Patient continues with expiratory wheeze. Will continue duonebs and add a short course of oral steroids. She is also tachycardic with heart rate in the low 100s to 110s. EKG completed showing sinus tachycardia will continue with telemetry monitoring. She is afebrile, blood pressure 110/72, 92% on 2L nasal cannula. 02/08/2022 Patient evaluated today she is up ambulating in the hallway with physical therapy. Unable to find a sub acute rehab on discharge. Lung sounds have improved this afternoon after breathing treatments, she is now on room air. Labs today showing sodium 136, potassium 3.4, magnesium level pending. She had some green sputum last night and azithromycin for 3 days has been added and IV solumedrol. Covid is negative. Suspect anemia mostly from myelosuppresion probably some underlying iron deficiency and we will also give patient some fe rrlecit. Continue IV lasix overnight, and can transition to oral lasix tomorrow. She is afebrile, heart rate 107, blood pressure 116/65, 92% room air. Possible DC tomorrow. Review of Systems Constitutional: Reports fatigue. denied any fever. Cardio vascular: denied any chest pain, palpitations Gastrointestinal: denied any nausea, vomiting, diarrhea Pulmonary: Denied any shortness of breath. Reports cough, wheeze. Neurologic denied any new focal deficits All inpatient medications were reviewed and appropriate changes in these medications as dictated in the interval history and assessment and plan. PHYSICAL EXAMINATION: GENERAL: The patient is alert and oriented x3, not in any acute distress. Well developed, well nourished. HEENT: Pupils are round and equally reacting to light. EOMI. No scleral icterus. No conjunctival pallor. Normocephalic, atraumatic. No pharyngeal erythema. No t hyromegaly. CARDIOVASCULAR: S1 and S2 present. No murmurs, rubs, or gallops. PULMONARY: Lungs are clear, she does have a congested cough. ABDOMEN: Soft, nontender, distended, normoactive bowel sounds. No palpable organomegaly. Abdominal umbilical hernia present. MUSCULOSKELETAL: No joint swelling or deformity. EXTREMITIES: No cyanosis, clubbing. +2 lower extremity and pedal edema. +2 dorsalis pedis pulse bilateral NEUROLOGICAL: Gross neurological examination did not reveal any focal deficits. SKIN: Significant bruising to right hip/groin/upper thigh. There is also skin tear to right kelly. bruising noted to left hip as well. Assessment and plan Assessment Chronic alcohol abuse Acute on chronic alcoholic hepatitis Anemia most likely chronic from myelosupression with underlying iron deficiency Thrombocytopenia secondary to chronic liver disease Supratherapeutic INR at 1.4 Tachycardia suspect from acute alcohol withdrawal Hyponatremia from poor oral intake, resolved Hypokalemia metabolic alkalosis Hypomagnesemia History of COPD, mild acute exacerbation Hypertension currently normotensive Chronic nicotine dependence GI Prophylaxis: Protonix DVT Prophylaxis deferred due to low platelet count Full Code Plan Monitor for acute alcohol withdrawal Continue on IV lasix, aldactone with strict I and O Patient has been started on IV ferrlecit She is also started on IV solumedrol and azithromycin Recommend GI consultation outpatient Possible discharge home with home care tomorrow Continue to work with PT/OT The impression and plan of care has been dictated by Anay Alford, Nurse Practitioner as directed. Dr. Shelby MD I have performed a history and physical examination and medical decision making of this patient, discussed the same with the dictator, and agree with the dictators assessment and plan as written, documented as a scribe. Based on total visit time, I have performed more than 50% of this visit. Objective - Vital Signs Vital signs: Vital Signs Temp 97.9 F 02/08/22 11:05 Pulse 72 02/08/22 11:42 Resp 16 02/08/22 11:05 BP 116/65 02/08/22 11:05 Pulse Ox 92 L 02/08/22 11:05 FiO2 Intake & Output 02/07/22 02/08/22 02/08/22 18:59 06:59 18:59 Intake Total 240 Balance 240 Intake: Oral 240 Other: Voiding Method Bedside Commode Bedside Commode # Voids 1 4 1 # Bowel Movements 1 1 1 - Labs CBC & Chem 7: 02/07/22 06:19 02/08/22 05:55 Labs: Abnormal Lab Results - Last 24 Hours (Table) 02/07/22 02/07/22 02/08/22 Range/Units 06:19 06:19 05:55 Potassium 3.4 L (3.5-5.5) mmol/L Carbon Dioxide 27.7 H 30.6 H (20.0-27.5) mmol/L Anion Gap 9.30 L 9.40 L (10.00-18.00) mmol/L Creatinine 0.4 L 0.5 L (0.6-1.5) mg/dL BUN/Creatinine Ratio 25.88 H 20.40 H (12.00-20.00) Ratio Glucose 139 H 157 H (70-110) mg/dL Calcium 7.8 L 7.8 L (8.7-10.3) mg/dL Magnesium 1.4 L (1.5-2.4) mg/dL Procalcitonin 0.18 H (0.02-0.09) ng/mL Assessment and Plan Time with Patient: Less than 30
[2022-02-08 12:54] LABS: Basophils # (A) 0 X 10*3/uL (0.00-0.10); Basophils % (A) 0 %; Eosinophils # (A) 0.03 X 10*3/uL (0.04-0.35); Eosinophils % (A) 1.1 %; HCT 24.7 % (37.2-46.3); Immature Grans, Automated 0.4 %; Immature Platelet Fraction 12.7 % (1.1-6.1); Lymphocytes # (A) 0.57 X 10*3/uL (0.90-5.00); Lymphocytes % (A) 21.8 %; MCH 24.6 pg (27.0-32.0); MCHC 28.3 g/dL (32.0-37.0); Monocytes # (A) 0.49 X 10*3/uL (0.20-1.00); Monocytes % (A) 18.7 %; NRBC Per 100 WBC 0 /100 WBCS (0.0-0.0); Neutrophils # (A) 1.52 X 10*3/uL (1.80-7.70); Platelet Count 57 X 10*3/uL (140-440); RBC 2.84 X 10*6/uL (4.10-5.20); RDW 23.5 % (11.5-14.5); WBC 2.62 X 10*3/uL (4.50-10.00)
[2022-02-08] MEDS: ACETAMINOPHEN TAB 325 MG TAB PO PRN (17:40)
[2022-02-09] MEDS: IPRATROPIUM-ALBUTEROL 3 ML NEB INHALATION PRN (07:19)
[2022-02-09] MEDS: PANTOPRAZOLE 40 MG TABLET PO SCH (09:16)
[2022-02-09] MEDS: THIAMINE 100 MG TAB PO SCH ×2 (09:17→17:36)
[2022-02-09] MEDS: SPIRONOLACTONE 25 MG TAB PO SCH (09:18)
[2022-02-09] MEDS: AZITHROMYCIN 500 MG TAB PO SCH (09:18)
[2022-02-09 09:36] LABS: Basophils # (A) 0 X 10*3/uL (0.00-0.10); Basophils % (A) 0 %; Eosinophils # (A) 0 X 10*3/uL (0.04-0.35); Eosinophils % (A) 0 %; HCT 24.8 % (37.2-46.3); Immature Grans, Automated 0.4 %; Immature Platelet Fraction 12.8 % (1.1-6.1); Lymphocytes % (A) 12.8 %; MCH 24.1 pg (27.0-32.0); MCHC 28.2 g/dL (32.0-37.0); MCV 85.5 fL (80.0-97.0); Monocytes # (A) 0.32 X 10*3/uL (0.20-1.00); Monocytes % (A) 13.6 %; NRBC Per 100 WBC 0 /100 WBCS (0.0-0.0); Neutrophils # (A) 1.72 X 10*3/uL (1.80-7.70); Neutrophils % (A) 73.2 %; Platelet Count 71 X 10*3/uL (140-440); RDW 23.1 % (11.5-14.5); WBC 2.35 X 10*3/uL (4.50-10.00)
[2022-02-09] MEDS: SODIUM FERRIC GLUCONAT-SUCROSE 125 MG in SODIUM CHLORIDE 0.9% 100 ML IVPB SCH ×2 (10:40→14:56)
[2022-02-09] MEDS: FUROSEMIDE 10 MG/ML 4 ML VIAL IV SCH ×2 (10:40→21:25)
[2022-02-09] MEDS: methylPREDNISolone SOD SUCCI 40 MG/ML 1 ML VIAL IV SCH ×2 (10:40→21:24)
[2022-02-09 14:24] LABS: Magnesium 1.6 mg/dL (1.5-2.4)
--- NOTE | 2022-02-09 14:33 | P.PN ---
Subjective Progress Note Date: 02/09/22 This is a 66-year-old female presents to the hospital with concern for acute alcohol withdrawal, patient also had a fall at home 5 days ago states she fell down 14 steps and has significant bruising on her side and legs. On admission alcohol level <10, patient has not had a drink in the last 2 days. Patient follows with Dr. Luz Marina Hannon in the primary care setting, chronic medical conditions include COPD, hypertension, alcohol dependence with alcoholic liver disease, anxiety depression, current daily smoker 1 pack per day also reports 3- 4 drinks of alcohol per day, mixed drinks or beer she drinks more or less depending on her mood and states that it helps her get to sleep. She has cut down on drinking in the last 10-15 years. She plans for alcohol cessation and will discharged to [place] for rehab. She also follows with Dr Medellin outpatient for umbilical hernia pending surgical repair outpatient. Labs on admission showing a white count 3.4, hemoglobin 8.5 which is dropped from 9.7 on admission, platelet count of 38, INR 1.4, sodium 135, potassium 3.2, chloride 96, CO2 34, BUN 8, creatinine 0.3, glucose 116, magnesium 1.2, AST 74, ALT 34, total bili 3.2, BNP 378, a BUN 3.3. Chest x-ray completed showing no active cardiac disease with minimal fibrotic changes. EKG showing sinus rhythm heart rate of 99, QT interval 410. Patient received 2 g IV magnesium, oral potassium, has been started on thiamine supplementation as well as Librium taper is receiving IV fluids at normal saline 75 mL per hour. Patient is tachycardic at 108, blood pressure 123/76, 92% on room air. Patient is admitted to the hospital for alcohol withdrawal monitoring and evaluation regarding increased peripheral edema and ascites. Repeat labs are pending. 02/05/2022 Patient evaluated today resting in bed, she has been unable to ambulate due to significant weakness. She does report decrease pain to her right lower extremity. She continues with peripheral edema and has been started on IV lasix as well as oral aldactone. She is slightly lethargic today as well and her speech pattern is slow. She states the librium made her hallucinate last night and will discontinue this. We will also check an ammonia level today. Labs today show white count 4.0, hemoglobin 7.2, platelet count 42, sodium 132, potassium 4.4, BUN 7.3, creatinine 0.4, magnesium 1.5, total bili 1.40. Total protein 4.5, albumin 2.5. She is afebrile, heart rate 90, blood pressure on the lower side at 94/60 she is 96% nasal cannula. She does have significant expiratory wheezing today which we will order DuoNeb's. B12 folate and iron studies are pending. 02/06/2022 Patient evaluated today resting in bed, still reports weakness and unable to ambulate. PT has evaluated patient and she will require sub acute rehab on di scharge. Wheezing has improved, continues on 2L Nasal cannula and duonebs as needed. Denies need for nicotine patch. No signs for acute alcohol withdrawal. Librium has been discontinued. Ammonia level 22. hgb today 7.7, platelets 47, sodium 133, potassium 4.3, BUN 7.5, creat 0.4, calcium 7.7. She will continue on IV lasix, mild improvement in lower extremity peripheral edema however still 2+. Iron studies showing total iron 17, %saturation 5.13. TIBC 333. B12 and folate are within normal limits. Heart rate is elevated today at 114, EKG pending. 02/07/2022 Patient continues to report generalized pain secondary to fall. She does have bruising on her left hip as well. She continues with bilateral peripheral edema and continues on IV lasix. Continue with strict intake and output documentation. REMY wrap to bilateral lower extremities as well. Labs today showing stable hemoglobin 7.5, platelets 58. Sodium today is 135, potassium 4.3, calcium 7.8, magnesium 1.4. She will receive 3 grams of magnesium today. Procalcitonin 0.18. Patient continues with expiratory wheeze. Will continue duonebs and add a short course of oral steroids. She is also tachycardic with heart rate in the low 100s to 110s. EKG completed showing sinus tachycardia will continue with telemetry monitoring. She is afebrile, blood pressure 110/72, 92% on 2L nasal cannula. 02/08/2022 Patient evaluated today she is up ambulating in the hallway with physical therapy. Unable to find a sub acute rehab on discharge. Lung sounds have improved this afternoon after breathing treatments, she is now on room air. Labs today showing sodium 136, potassium 3.4, magnesium level pending. She had some green sputum last night and azithromycin for 3 days has been added and IV solumedrol. Covid is negative. Suspect anemia mostly from myelosuppresion probably some underlying iron deficiency and we will also give patient some fe rrlecit. Continue IV lasix overnight, and can transition to oral lasix tomorrow. She is afebrile, heart rate 107, blood pressure 116/65, 92% room air. Possible DC tomorrow. 02/09/2022 Patient is resting in bed today, she has been up ambulating with physical therapy and feels stronger. Pain has improved somewhat, she reports generalized pain. She continues with Remy wrap to lower extremities. She did lose IV access overnight. Midline was placed today. She continues on IV lasix Q12, and can possibly transition to oral lasix tomorrow. She has been started on IV solumedrol and 3 doses of oral azithromycin for possible COPD exacerbation, her wheezing has significant improved. We will arrange for nebulizer on discharge. One more dose of IV ferrlecit tomorrow and will be transitioned to oral ferrous sulfate on discharge. No chest pain, no shortness of breath. Bowels are moving. Vitals today showing temp 97.8, heart rate 106, blood pressure 113/72, 93% room air. Labs reviewed today showing white count 2.35, hgb 7.0, platelet count 71. Review of Systems Constitutional: Reports fatigue. denied any fever. Cardio vascular: denied any chest pain, palpitations Gastrointestinal: denied any nausea, vomiting, diarrhea Pulmonary: Denied any shortness of breath. Reports cough, improved wheze Neurologic denied any new focal deficits All inpatient medications were reviewed and appropriate changes in these medications as dictated in the interval history and assessment and plan. PHYSICAL EXAMINATION: GENERAL: The patient is alert and oriented x3, not in any acute distress. Well developed, well nourished. HEENT: Pupils are round and equally reacting to light. EOMI. No scleral icterus. No conjunctival pallor. Normocephalic, atraumatic. No pharyngeal erythema. No thyromegaly. CARDIOVASCULAR: S1 and S2 present. No murmurs, rubs, or gallops. PULMONARY: Lungs are clear, she does have a congested cough. ABDOMEN: Soft, nontender, distended, normoactive bowel sounds. No palpable organomegaly. Abdominal umbilical hernia present. MUSCULOSKELETAL: No joint swelling or deformity. EXTREMITIES: No cyanosis, clubbing. +2 lower extremity and pedal edema. +2 dorsalis pedis pulse bilateral NEUROLOGICAL: Gross neurological examination did not reveal any focal deficits. SKIN: Significant bruising to right hip/groin/upper thigh. There is also skin tear to right kelly. bruising noted to left hip as well. Assessment and plan Assessment Chronic alcohol abuse Acute on chronic alcoholic hepatitis Anemia most likely chronic from myelosupression with underlying iron deficiency Thrombocytopenia secondary to chronic liver disease Supratherapeutic INR at 1.4 Tachycardia suspect from acute alcohol withdrawal Hyponatremia from poor oral intake, resolved Hypokalemia metabolic alkalosis Hypomagnesemia History of COPD, mild acute exacerbation Hypertension currently normotensive Chronic nicotine dependence GI Prophylaxis: Protonix DVT Prophylaxis deferred due to low platelet count Full Code Plan Monitor for acute alcohol withdrawal Continue on IV lasix, aldactone with strict I and O Daily weight Continue with IV ferrlecit for one more day, and transition to oral on discharge She is also started on IV solumedrol and azithromycin Recommend GI consultation outpatient Repeat CBC, CMP, Mag in AM Continue to encourage incentive spirometery Possible discharge home with home care tomorrow Continue to work with PT/OT The impression and plan of care has been dictated by Anay Alford, Nurse Practitioner as directed. Dr. Shelby MD I have performed a history and physical examination and medical decision making of this patient, discussed the same with the dictator, and agree with the dictators assessment and plan as written, documented as a scribe. Based on total visit time, I have performed more than 50% of this visit. Objective - Vital Signs Vital signs: Vital Signs Temp 97.8 F 02/09/22 12:30 Pulse 106 H 02/09/22 12:30 Resp 17 02/09/22 12:30 BP 113/72 02/09/22 12:30 Pulse Ox 89 L 02/09/22 12:30 FiO2 21 02/08/22 19:51 Intake & Output 02/08/22 02/09/22 02/09/22 18:59 06:59 18:59 Other: Voiding Method Bedside Commode Bedside Commode Bedside Commode # Voids 1 1 # Bowel Movements 1 - Labs CBC & Chem 7: 02/09/22 05:39 02/08/22 05:55 Labs: Abnormal Lab Results - Last 24 Hours (Table) 02/09/22 Range/Units 05:39 WBC 2.35 L (4.50-10.00) X 10*3/uL RBC 2.90 L (4.10-5.20) X 10*6/uL Hgb 7.0 L (12.0-15.0) g/dL Hct 24.8 L (37.2-46.3) % MCH 24.1 L (27.0-32.0) pg MCHC 28.2 L (32.0-37.0) g/dL RDW 23.1 H (11.5-14.5) % Plt Count 71 L (140-440) X 10*3/uL Neutrophils # 1.72 L (1.80-7.70) X 10*3/uL Lymphocytes # 0.30 L (0.90-5.00) X 10*3/uL Eosinophils # 0 L (0.04-0.35) X 10*3/uL Immature Plt Fraction 12.8 H (1.1-6.1) % Assessment and Plan Time with Patient: Less than 30
[2022-02-10 08:58] LABS: Anisocytosis Moderate; Basophils % (A) 0 %; Eosinophils % (A) 0 %; HCT 31.2 % (34.0-46.0); Hypochromasia Marked; Lymphocytes # (A) 0.6 k/uL (1.0-4.8); Lymphocytes % (A) 13 %; MCH 25.5 pg (25.0-35.0); MCHC 28.4 g/dL (31.0-37.0); MCV 89.6 fL (80.0-100.0); Macrocytosis Slight; Mean Platelet Volume 7.7; Microcytosis Slight; Monocytes # (A) 0.4 k/uL (0-1.0); Monocytes % (A) 9 %; Neutrophils # (A) 3.3 k/uL (1.3-7.7); Neutrophils % (A) 75 %; Poikilocytosis Slight; RBC 3.48 m/uL (3.80-5.40); RDW 21.9 % (11.5-15.5); WBC 4.4 k/uL (3.8-10.6)
[2022-02-10] MEDS: FUROSEMIDE 10 MG/ML 4 ML VIAL IV SCH ×2 (09:11→19:57)
[2022-02-10] MEDS: SODIUM FERRIC GLUCONAT-SUCROSE 125 MG in SODIUM CHLORIDE 0.9% 100 ML IVPB SCH (09:11)
[2022-02-10] MEDS: THIAMINE 100 MG TAB PO SCH ×2 (09:11→18:47)
[2022-02-10] MEDS: methylPREDNISolone SOD SUCCI 40 MG/ML 1 ML VIAL IV SCH ×2 (09:11→19:57)
[2022-02-10] MEDS: PANTOPRAZOLE 40 MG TABLET PO SCH (09:12)
[2022-02-10] MEDS: AZITHROMYCIN 500 MG TAB PO SCH (09:12)
[2022-02-10] MEDS: SPIRONOLACTONE 25 MG TAB PO SCH (09:12)
[2022-02-10 09:20] LABS: HGB 8.9 gm/dL (11.4-16.0); Platelet Count 104 k/uL (150-450)
[2022-02-10 11:59] LABS: African American GFR (CKD) 127.6 (60.0-200.0); Albumin 3.6 g/dL (3.8-4.9); Albumin/Globulin Ratio 1.2 (1.60-3.17); Anion Gap 14.2 mmol/L (10.00-18.00); BUN/Creat Ratio 35.5 Ratio (12.00-20.00); Blood Urea Nitrogen 14.2 mg/dL (9.0-27.0); Carbon Dioxide 31.8 mmol/L (20.0-27.5); Magnesium 1.4 mg/dL (1.5-2.4); Non-African American GFR(CKD) 110.1 (60.0-200.0); Potassium 4.3 mmol/L (3.5-5.5); Total Protein 6.6 g/dL (6.2-8.2)
[2022-02-10 12:06] VITALS: BMI 28.3
--- NOTE | 2022-02-10 15:14 | P.GSCN ---
History of Present Illness Consult date: 02/10/22 History of present illness: CHIEF COMPLAINT: Falling Reason for consult: Iron deficiency anemia HISTORY OF PRESENT ILLNESS: This is a 66-year-old female who is brought into the hospital due to concerns for alcohol withdraw and falling down 14 steps at home. Patient has a known history of alcoholic liver cirrhosis. Patient has significant edema of the lower extremities and is receiving IV Lasix. Patient is anemic. She had a hemoglobin of 9.7 on admission did drop to 7.0 and is now up to 8.9. She has been receiving IV iron. She did have evidence of iron defi ciency anemia. Also likely anemia due to her underlying liver disease. She also has pancytopenia present as well. Patient denies any blood in her stools or black stools. She reports she's never had a colonoscopy. She was supposed to have one scheduled outpatient but has not gotten around to it. Patient has a known history of a umbilical hernia in which she was supposed to have it repaired by Dr. Mdeellin in the outpatient setting during Covid. However, because of Covid that she did not proceed with the surgery. She denies any pain at the umbilical hernia site and it is reducible. Patient denies any nausea or vomiting. Denies any abdominal pain. PAST MEDICAL HISTORY: See list. PAST SURGICAL HISTORY: See list. MEDICATIONS: See list. ALLERGIES: See list. SOCIAL HISTORY: No illicit drug use. REVIEW OF SYSTEMS: CONSTITUTIONAL: Denies fever or chills. HEENT: Denies blurred vision, vision changes, or eye pain. Denies hemoptysis CARDIOVASCULAR: Denies chest pain or pressure. RESPIRATORY: No shortness of breath. GASTROINTESTINAL: See HPI for pertinent findings HEMATOLOGIC: Denies bleeding disorders. GENITOURINARY: Denies any blood in urine or increased urinary frequency. SKIN: Denies pruitis. Denies rash. PHYSICAL EXAM: VITAL SIGNS: Reviewed GENERAL: Well-developed in no acute distress. HEENT: No sclera icterus. Extraocular movements grossly intact. Moist buccal mucosa. Head is atraumatic, normocephalic. No nasal drainage. ABDOMEN: Soft. Distended. Evidence of abdominal fluid. Nontender. Reducible umbilical hernia NEUROLOGIC: Alert and oriented. Cranial nerves II through XII grossly intact. Extremities: Significant bilateral lower extremity edema Skin exam no significant bruising noted LABORATORY DATA: WBC 2.35 to 4.4 HGB 7.0-8.9 platelets 104 sodium 138 potassium 4.3 creatinine 0.4 total bilirubin 1.0 AST 59 ALT 46 albumin 3.6 IMAGING: ASSESSMENT: 1. Iron deficiency anemia with no active signs of bleeding. Anemia possibly due to her underlying liver disease 2. Alcoholic liver cirrhosis 3. Moderate protein calorie malnutrition PLAN: -Further recommendations forthcoming per surgeon -Continue IV iron -Continue PPI -Check stool for occult blood -Continue monitor hemoglobin -Continue to monitor for any signs or symptoms of bleeding -Recommend that she follows up with GI service for her liver cirrhosis -Discussed alcohol cessation Physician Circus Artist note has been reviewed by physician. Signing provider agrees with the documented findings, assessment, and plan of care. Past Medical History Past Medical History: COPD, Hypertension Additional Past Medical History / Comment(s): Alcohol dependence; C-diff 06/2015, alcoholic liver disease, COPD, anxiety, depression, alcoholism History of Any Multi-Drug Resistant Organisms: None Reported Past Surgical History: Section Past Anesthesia/Blood Transfusion Reactions: No Reported Reaction Past Psychological History: Anxiety, Depression Smoking Status: Current every day smoker Past Alcohol Use History: Abuse, Daily, Heavy Additional Past Alcohol Use History / Comment(s): Pt reports that she smokes one pack per day. Started smokin gin 1973. Pt reports that she has 3-4 drinks a day. Past Drug Use History: Marijuana Medications and Allergies Home Medications Medication Instructions Recorded Confirmed Type No Known Home Medications 02/03/22 02/03/22 History Allergies Allergy/AdvReac Type Severity Reaction Status Date / Time Sulfa (Sulfonamide Allergy Rash/Hives Verified 02/03/22 21:05 Antibiotics) folic acid AdvReac hair falls Verified 02/03/22 21:05 out Surgical - Exam Vital Signs Temp Pulse Resp BP Pulse Ox 97.4 F L 105 H 16 134/73 98 02/03/22 15:15 02/03/22 15:15 02/03/22 15:15 02/03/22 15:15 02/03/22 15:15 Results - Labs 02/10/22 08:33 02/10/22 07:47 Abnormal Lab Results - Last 24 Hours (Table) 02/10/22 02/10/22 02/10/22 Range/Units 07:47 07:47 08:33 RBC 3.48 L (3.80-5.40) m/uL Hgb 8.9 L D (11.4-16.0) gm/dL Hct 31.2 L (34.0-46.0) % MCHC 28.4 L (31.0-37.0) g/dL RDW 21.9 H (11.5-15.5) % Plt Count 104 L D (150-450) k/uL Lymphocytes # 0.6 L (1.0-4.8) k/uL Chloride 92 L (96-109) mmol/L Carbon Dioxide 31.8 H (20.0-27.5) mmol/L Creatinine 0.4 L (0.6-1.5) mg/dL BUN/Creatinine Ratio 35.50 H (12.00-20.00) Ratio Glucose 117 H (70-110) mg/dL Magnesium 1.4 L (1.5-2.4) mg/dL AST 59 H (13-35) U/L ALT 46 H (8-44) U/L Albumin 3.6 L (3.8-4.9) g/dL Albumin/Globulin Ratio 1.20 L (1.60-3.17) g/dL Procalcitonin 0.14 H (0.02-0.09) ng/mL Diabetes panel 02/10/22 Range/Units 07:47 Sodium 138 (135-145) mmol/L Potassium 4.3 (3.5-5.5) mmol/L Chloride 92 L (96-109) mmol/L Carbon Dioxide 31.8 H (20.0-27.5) mmol/L BUN 14.2 (9.0-27.0) mg/dL Creatinine 0.4 L (0.6-1.5) mg/dL Glucose 117 H (70-110) mg/dL Calcium 9.0 (8.7-10.3) mg/dL AST 59 H (13-35) U/L ALT 46 H (8-44) U/L Alkaline Phosphatase 79 (41-126) U/L Total Protein 6.6 (6.2-8.2) g/dL Albumin 3.6 L (3.8-4.9) g/dL Calcium panel 02/10/22 Range/Units 07:47 Calcium 9.0 (8.7-10.3) mg/dL Albumin 3.6 L (3.8-4.9) g/dL Pituitary panel 02/10/22 Range/Units 07:47 Sodium 138 (135-145) mmol/L Potassium 4.3 (3.5-5.5) mmol/L Chloride 92 L (96-109) mmol/L Carbon Dioxide 31.8 H (20.0-27.5) mmol/L BUN 14.2 (9.0-27.0) mg/dL Creatinine 0.4 L (0.6-1.5) mg/dL Glucose 117 H (70-110) mg/dL Calcium 9.0 (8.7-10.3) mg/dL Adrenal panel 02/10/22 Range/Units 07:47 Sodium 138 (135-145) mmol/L Potassium 4.3 (3.5-5.5) mmol/L Chloride 92 L (96-109) mmol/L Carbon Dioxide 31.8 H (20.0-27.5) mmol/L BUN 14.2 (9.0-27.0) mg/dL Creatinine 0.4 L (0.6-1.5) mg/dL Glucose 117 H (70-110) mg/dL Calcium 9.0 (8.7-10.3) mg/dL Total Bilirubin 1.00 (0.30-1.20) mg/dL AST 59 H (13-35) U/L ALT 46 H (8-44) U/L Alkaline Phosphatase 79 (41-126) U/L Total Protein 6.6 (6.2-8.2) g/dL Albumin 3.6 L (3.8-4.9) g/dL
[2022-02-10] MEDS: ACETAMINOPHEN TAB 325 MG TAB PO PRN (15:53)
--- NOTE | 2022-02-10 20:51 | P.PN ---
Subjective This is a 66-year-old female presents to the hospital with concern for acute alcohol withdrawal, patient also had a fall at home 5 days ago states she fell down 14 steps and has significant bruising on her side and legs. On admission alcohol level <10, patient has not had a drink in the last 2 days. Patient follows with Dr. Luz Marina Hannon in the primary care setting, chronic medical conditions include COPD, hypertension, alcohol dependence with alcoholic liver disease, anxiety depression, current daily smoker 1 pack per day also reports 3- 4 drinks of alcohol per day, mixed drinks or beer she drinks more or less depending on her mood and states that it helps her get to sleep. She has cut down on drinking in the last 10-15 years. She plans for alcohol cessation and will discharged to [place] for rehab. She also follows with Dr Medellin outpatient for umbilical hernia pending surgical repair outpatient. Labs on admission showing a white count 3.4, hemoglobin 8.5 which is dropped from 9.7 on admission, platelet count of 38, INR 1.4, sodium 135, potassium 3.2, chloride 96, CO2 34, BUN 8, creatinine 0.3, glucose 116, magnesium 1.2, AST 74, ALT 34, total bili 3.2, BNP 378, a BUN 3.3. Chest x-ray completed showing no active c ardiac disease with minimal fibrotic changes. EKG showing sinus rhythm heart rate of 99, QT interval 410. Patient received 2 g IV magnesium, oral potassium, has been started on thiamine supplementation as well as Librium taper is receiving IV fluids at normal saline 75 mL per hour. Patient is tachycardic at 108, blood pressure 123/76, 92% on room air. Patient is admitted to the hospital for alcohol withdrawal monitoring and evaluation regarding increased peripheral edema and ascites. Repeat labs are pending. 02/05/2022 Patient evaluated today resting in bed, she has been unable to ambulate due to significant weakness. She does report decrease pain to her right lower extremity. She continues with peripheral edema and has been started on IV lasix as well as oral aldactone. She is slightly lethargic today as well and her speech pattern is slow. She states the librium made her hallucinate last night and will discontinue this. We will also check an ammonia level today. Labs today show white count 4.0, hemoglobin 7.2, platelet count 42, sodium 132, potassium 4.4, BUN 7.3, creatinine 0.4, magnesium 1.5, total bili 1.40. Total protein 4.5, albumin 2.5. She is afebrile, heart rate 90, blood pressure on the lower side at 94/60 she is 96% nasal cannula. She does have significant expi ratory wheezing today which we will order DuoNeb's. B12 folate and iron studies are pending. 02/06/2022 Patient evaluated today resting in bed, still reports weakness and unable to ambulate. PT has evaluated patient and she will require sub acute rehab on discharge. Wheezing has improved, continues on 2L Nasal cannula and duonebs as needed. Denies need for nicotine patch. No signs for acute alcohol withdrawal. Librium has been discontinued. Ammonia level 22. hgb today 7.7, platelets 47, sodium 133, potassium 4.3, BUN 7.5, creat 0.4, calcium 7.7. She will continue on IV lasix, mild improvement in lower extremity peripheral edema however still 2+. Iron studies showing total iron 17, %saturation 5.13. TIBC 333. B12 and folate are within normal limits. Heart rate is elevated today at 114, EKG pending. 02/07/2022 Patient continues to report generalized pain secondary to fall. She does have bruising on her left hip as well. She continues with bilateral peripheral edema and continues on IV lasix. Continue with strict intake and output documentation. REMY wrap to bilateral lower extremities as well. Labs today showing stable hemoglobin 7.5, platelets 58. Sodium today is 135, potassium 4.3, calcium 7.8, magnesium 1.4. She will receive 3 grams of magnesium today. Procalcitonin 0.18. Patient continues with expiratory wheeze. Will continue duonebs and add a short course of oral steroids. She is also tachycardic with heart rate in the low 100s to 110s. EKG completed showing sinus tachycardia will continue with telemetry monitoring. She is afebrile, blood pressure 110/72, 92% on 2L nasal cannula. 02/08/2022 Patient evaluated today she is up ambulating in the hallway with physical therapy. Unable to find a sub acute rehab on discharge. Lung sounds have improved this afternoon after breathing treatments, she is now on room air. Labs today showing sodium 136, potassium 3.4, magnesium level pending. She had some green sputum last night and azithromycin for 3 days has been added and IV solumedrol. Covid is negative. Suspect anemia mostly from myelosuppresion probably some underlying iron deficiency and we will also give patient some ferrlecit. Continue IV lasix overnight, and can transition to oral lasix tomorrow. She is afebrile, heart rate 107, blood pressure 116/65, 92% room air. Possible DC tomorrow. 02/09/2022 Patient is resting in bed today, she has been up ambulating with physical therapy and feels stronger. Pain has improved somewhat, she reports generalized pain. She continues with Remy wrap to lower extremities. She did lose IV access overnight. Midline was placed today. She continues on IV lasix Q12, and can possibly transition to oral lasix tomorrow. She has been started on IV solumedrol and 3 doses of oral azithromycin for possible COPD exacerbation, her wheezing has significant improved. We will arrange for nebulizer on discharge. One more dose of IV ferrlecit tomorrow and will be transitioned to oral ferrous sulfate on discharge. No chest pain, no shortness of breath. Bowels are moving. Vitals today showing temp 97.8, heart rate 106, blood pressure 113/72, 93% room air. Labs reviewed today showing white count 2.35, hgb 7.0, platelet count 71. 02/10/2022, resume the care of the patient today This is a pleasant 66 years old female who presents because she fell at home from stairs, she is alcohol drinker and this fall was awake, call for her as she describes and she decided to quit drinking and came to emergency room. She is fully awake and oriented, standing and walking in the room, however she is generally weak and she has distended abdomen Physical therapy recommended treatment However most subacute rehab the don't take her insurance, and sent patient wants to go home with home care, discussed with drug abuse social worker. She remains on Zithromax for possible infection, she has significant bilateral leg swelling on IV Lasix 40 mg twice daily however there is no evidence of pulmonary edema. She has history of COPD and she is not compliant with her floor manager for her PCP Dr. kruger. She is currently on Solu-Medrol 40 mg twice daily, she still has some limitation of air entry. She was taken IV iron which is stopped and switched to oral iron from tomorrow. WBC is 4.4 and hemoglobin 8.9 and platelet 104, all numbers shown improvement but looks concentrated sample as she is on IV Lasix. Liver enzymes mildly elevated We will check liver ultrasound and leg ultrasound She has evidence of an deficiency anemia and she never had colonoscopy so surgery team were consulted who recommended occult blood in his stool Vitamin B12 is 724 and folate 17.5. And TSH normal. proCalcitonin not elevated to 0.18 and 0.14 Review of systems CONSTITUTIONAL: No fever, no malaise, no fatigue. HEENT: No recent visual problems or hearing problems. Denied any sore throat. CARDIOVASCULAR: No orthopnea, PND, no palpitations, no syncope. PULMONARY: No shortness of breath, no cough, no hemoptysis. NEUROLOGICAL: No headaches, no weakness, no numbness. HEMATOLOGICAL: Denies any bleeding or petechiae. GENITOURINARY: Denies any burning micturition, frequency, or urgency. Active Medications Generic Name Dose Route Start Last Admin Trade Name Freq PRN Reason Stop Dose Admin Acetaminophen 650 mg 02/04/22 03:33 02/10/22 15:53 Acetaminophen Tab 325 Mg Tab PO 650 mg Q6HR PRN Administration Fever and/ or Pain Albuterol/Ipratropium 3 ml 02/05/22 13:37 02/09/22 07:19 Ipratropium-Albuterol 3 Ml Neb INHALATION 3 ml RT-Q4H PRN Administration Shortness Of Breath Or Wheezing Ferrous Sulfate 325 mg 02/11/22 07:30 Ferrous Sulfate 325 Mg Tab PO BID-W/MEALS ALEX Furosemide 40 mg 02/05/22 11:00 02/10/22 19:57 Furosemide 10 Mg/Ml 4 Ml Vial IV 40 mg Q12HR ALEX Administration Magnesium Sulfate/Dextrose 1 100 mls @ 100 mls/hr 02/10/22 21:00 gm/ IV Solution IVPB 02/10/22 21:59 ONCE ONE Lorazepam 0.5 mg 02/05/22 13:38 02/09/22 21:31 Lorazepam 0.5 Mg Tab PO 0.5 mg Q8H PRN Administration Anxiety Methylprednisolone Sodium Succinate 40 mg 02/08/22 11:00 02/10/22 19:57 Methylprednisolone Sod Succi 40 Mg/Ml 1 Ml Vial IV 40 mg Q12HR ALEX Administration Miscellaneous Information 1 each 02/04/22 14:35 Magnesium Replacement Protocol 1 Each [facility] MISCELLANE DAILY PRN Per Protocol Protocol Pantoprazole Sodium 40 mg 02/05/22 07:30 02/10/22 09:12 Pantoprazole 40 Mg Tablet PO 40 mg [id number] ALEX Administration Spironolactone 50 mg 02/05/22 11:15 02/10/22 09:12 Spironolactone 25 Mg Tab PO 50 mg DAILY ALEX Administration Thiamine HCl 100 mg 02/04/22 07:30 02/10/22 18:47 Thiamine 100 Mg Tab PO 100 mg BID-W/MEALS ALEX Administration Objective - Vital Signs Vital signs: Vital Signs Temp 98 F 02/10/22 11:40 Pulse 98 02/10/22 11:40 Resp 15 02/10/22 11:55 BP 121/72 02/10/22 11:40 Pulse Ox 97 02/10/22 11:55 FiO2 21 02/08/22 19:51 Intake & Output 02/09/22 02/10/22 02/10/22 18:59 06:59 18:59 Weight 68.039 kg Other: Voiding Method Bedside Commode Bedside Commode Bedside Commode # Voids 4 1 # Bowel Movements 4 1 - Exam -GENERAL: The patient is alert and oriented x3, generally weak but mildly, no distress HEENT: Pupils are round and equally reacting to light. EOMI. No scleral icterus. No conjunctival pallor. Normocephalic, atraumatic. No pharyngeal erythema. No thyromegaly. CARDIOVASCULAR: S1 and S2 present. No murmurs, rubs, or gallops. PULMONARY: Chest is clear to auscultation, no wheezing or crackles. -ABDOMEN: Soft, nontender, distended, normoactive bowel sounds. No palpable organomegaly. MUSCULOSKELETAL: No joint swelling or deformity. EXTREMITIES: No cyanosis, clubbing,, 3+ bilateral pitting leg edema NEUROLOGICAL: Gross neurological examination did not reveal any focal deficits. SKIN: No rashes. no petechiae. - Labs CBC & Chem 7: 02/10/22 08:33 02/10/22 07:47 Labs: Abnormal Lab Results - Last 24 Hours (Table) 02/10/22 02/10/22 02/10/22 Range/Units 07:47 07:47 08:33 RBC 3.48 L (3.80-5.40) m/uL Hgb 8.9 L D (11.4-16.0) gm/dL Hct 31.2 L (34.0-46.0) % MCHC 28.4 L (31.0-37.0) g/dL RDW 21.9 H (11.5-15.5) % Plt Count 104 L D (150-450) k/uL Lymphocytes # 0.6 L (1.0-4.8) k/uL Chloride 92 L (96-109) mmol/L Carbon Dioxide 31.8 H (20.0-27.5) mmol/L Creatinine 0.4 L (0.6-1.5) mg/dL BUN/Creatinine Ratio 35.50 H (12.00-20.00) Ratio Glucose 117 H (70-110) mg/dL Magnesium 1.4 L (1.5-2.4) mg/dL AST 59 H (13-35) U/L ALT 46 H (8-44) U/L Albumin 3.6 L (3.8-4.9) g/dL Albumin/Globulin Ratio 1.20 L (1.60-3.17) g/dL Procalcitonin 0.14 H (0.02-0.09) ng/mL Assessment and Plan Assessment: Alcohol abuse at-risk of alcohol withdrawal Anemia most likely chronic from myelosupression with underlying iron deficiency, rule out GI bleed Abdominal distention COPD, mild acute exacerbation Thrombocytopenia secondary to chronic liver disease Fall at home secondary to her liver disease and drinking Bilateral patellar leg edema Mild coagulopathy secondary to liver disease with INR at 1.4 Hyponatremia from poor oral intake, resolved Hypomagnesemia Hypertension currently normotensive Chronic nicotine dependence GI Prophylaxis: Protonix This is a pleasant 66 years old female who presents with alcoholic liver disease, fall, BETTYE and leg edema Continue with IV Lasix Continue with Solu-Medrol Continue with ferrous sulfate Surgical team consult, check occult blood in stool Discontinue Zithromax Labs and medication were reviewed.. Continue same treatment. Continue with symptomatic treatment. Resume home medication. Monitor lytes and vitals. DVT and GI prophylaxis. Further recommendations as per clinical course of the patient DVT prophylaxis: No anticoagulation for significant anemia and thrombocytopenia GI Prophylaxis: Pppu PT/OT: Recommended subacute rehab however patient does not want to go too distant far [facility] because of her insurance so she wants to go home with home care Prognosis is guarded
[2022-02-10] MEDS ORDERED: MAGNESIUM SULFATE-D5W PMX 1 GM in DEXTROSE/WATER 1 100ML.BAG IVPB ONE (21:00)
--- NOTE | 2022-02-10 22:32 | US ---
EXAMINATION TYPE: US venous doppler duplex LE BI DATE OF EXAM: 02/10/2022 10:15 PM COMPARISON: NONE CLINICAL HISTORY: leg swelling. SIDE PERFORMED: Bilateral TECHNIQUE: The lower extremity deep venous system is examined utilizing real time linear array sonog samantha with graded compression, doppler sonography and color-flow sonography. VESSELS IMAGED: Common Femoral Vein Deep Femoral Vein Greater Saphenous Vein * Femoral Vein Popliteal Vein Small Saphenous Vein * Proximal Calf Veins (* superficial vessels) Right Leg: Negative for DVT Left Leg: Negative for DVT Extensive interstitial edema. IMPRESSION: No sign of deep vein thrombosis in both legs.
--- NOTE | 2022-02-10 22:51 | US ---
EXAMINATION TYPE: US abdomen limited DATE OF EXAM: 02/10/2022 COMPARISON: NONE CLINICAL HISTORY: r/o ascites , any other liver lesion. EXAM MEASUREMENTS: Liver Length: 19.7 cm Gallbladder Wall: 0.3 cm CBD: 0.7 cm Right Kidney: 9.3 x 4.3 x 5.1 cm Pancreas: Obscured by bowel gas Liver: enlarged and grossly attenuating Gallbladder: comet tail artifact in wall, probable stone, wall appears slightly thickened Evidence for sonographic Abraham's sign: no CBD: dilated Right Kidney: wnl IMPRESSION: No focal liver defect. There is abdominal ascites. Normal right kidney. Intrahepatic bile ducts are n ot dilated. Gallbladder is contracted. No definite shadowing gallstone. IMPRESSION: There is abdominal ascites. There is increased echogenicity in the liver that could be some fatty inf iltration. No dilated intrahepatic ducts. No definite gallstones.
[2022-02-11] MEDS: FERROUS SULFATE 325 MG TAB PO SCH ×2 (07:45→17:31)
[2022-02-11] MEDS: SPIRONOLACTONE 25 MG TAB PO SCH (07:45)
[2022-02-11] MEDS: methylPREDNISolone SOD SUCCI 40 MG/ML 1 ML VIAL IV SCH (07:45)
[2022-02-11] MEDS: THIAMINE 100 MG TAB PO SCH ×2 (07:45→17:31)
[2022-02-11] MEDS: PANTOPRAZOLE 40 MG TABLET PO SCH (07:45)
[2022-02-11] MEDS: FUROSEMIDE 10 MG/ML 4 ML VIAL IV SCH ×3 (07:46→23:14)
[2022-02-11 08:55] LABS: Basophils # (A) 0 X 10*3/uL (0.00-0.10); Basophils % (A) 0 %; Eosinophils # (A) 0 X 10*3/uL (0.04-0.35); Eosinophils % (A) 0 %; HCT 27.1 % (37.2-46.3); HGB 7.3 g/dL (12.0-15.0); Immature Grans, Automated 1.7 %; Lymphocytes # (A) 0.38 X 10*3/uL (0.90-5.00); Lymphocytes % (A) 9.1 %; MCH 23.9 pg (27.0-32.0); MCHC 26.9 g/dL (32.0-37.0); MCV 88.9 fL (80.0-97.0); Mean Platelet Volume 11.1 fL (9.5-12.2); Monocytes # (A) 0.48 X 10*3/uL (0.20-1.00); Monocytes % (A) 11.5 %; NRBC Per 100 WBC 1.4 /100 WBCS (0.0-0.0); Neutrophils # (A) 3.25 X 10*3/uL (1.80-7.70); Neutrophils % (A) 77.7 %; Platelet Count 105 X 10*3/uL (140-440); RBC 3.05 X 10*6/uL (4.10-5.20); RDW 23.9 % (11.5-14.5); WBC 4.18 X 10*3/uL (4.50-10.00)
[2022-02-11 11:23] LABS: Magnesium 1.4 mg/dL (1.5-2.4)
[2022-02-11] MEDS: MAGNESIUM SULFATE-D5W PMX 1 GM in DEXTROSE/WATER 1 100ML.BAG IVPB SCH ×3 (12:17→14:25)
[2022-02-11 12:29] LABS: African American GFR (CKD) 118.5 (60.0-200.0); Albumin 3.1 g/dL (3.8-4.9); Albumin/Globulin Ratio 1.24 (1.60-3.17); Anion Gap 9.3 mmol/L (10.00-18.00); BUN/Creat Ratio 26.4 Ratio (12.00-20.00); Bilirubin, Conjugated 0.54 mg/dL (0.20-0.40); Bilirubin,Unconjugated 0.26 mg/dL (0.20-1.00); Blood Urea Nitrogen 13.2 mg/dL (9.0-27.0); Calcium 8.2 mg/dL (8.7-10.3); Carbon Dioxide 31.7 mmol/L (20.0-27.5); Globulin 2.5 g/dL (1.6-3.3); Non-African American GFR(CKD) 102.3 (60.0-200.0); Potassium 3.2 mmol/L (3.5-5.5); Total Bilirubin 0.8 mg/dL (0.30-1.20); Total Protein 5.6 g/dL (6.2-8.2)
[2022-02-11] MEDS ORDERED: Potassium Replacement Protocol 1 EACH MISC MISCELLANE PRN (12:53)
[2022-02-11] MEDS: POTASSIUM CHLORIDE ER 20 MEQ TAB.ER PO SCH ×2 (13:20→14:26)
[2022-02-11] MEDS ORDERED: Magnesium Replacement Protocol 1 EACH MISC MISCELLANE PRN (15:15)
--- NOTE | 2022-02-11 15:19 | P.PN ---
Subjective Progress Note Date: 02/11/22 CHIEF COMPLAINT: Iron deficiency anemia HISTORY OF PRESENT ILLNESS: The patient is a 66-year-old female with pre- existing history of anemia. She has chronic liver disease due to alcoholism. She also reports having a ventral hernia. Patient reports not following up with any providers in over 2 years due to the pandemic. She is tolerating diet. She denies acute abdominal pain. ROS: No reports of nausea and vomiting. No bowel movements. No fevers or chills. No new chest pain. No productive sputum PHYSICAL EXAM: VITAL SIGNS: Reviewed CONSTITUTIONAL: Well developed and in no acute distress. EYES: Conjuctivae without sclera icterus. Extraocular movements grossly intact. HEAD, EARS, NOSE, THROAT: Moist buccal mucosa. Head is atraumatic, normocephalic. Hears conversational speech. No nasal drainage. RESPIRATORY: Non-labored respirations and equal bilateral excursions. CARDIOVASCULAR: Palpable 2+ radial pulses. ABDOMEN: Ascites. No abdominal pain. MUSCULOSKELETAL: No gross deformity of the lower extremities noted. No clubbing. No cyanosis. SKIN: Good skin turgor. Well perfused. NEUROLOGIC: Cranial nerves II through XII grossly intact. No focal or lateralizing signs. PSYCH: Appropriate affect. Alert and oriented to person, place and time. CLINICAL LABS: Reviewed. Hgb 7.0to 7.3 ASSESSMENT: 1. Anemia 2. Alcoholism 3. Cirrhoisis of the liver PLAN: 1. Monitor hemoglobin 2. No acute bleeding 3. GI consultation for management of ascites. Objective - Vital Signs Vital signs: Vital Signs Temp 98.1 F 02/11/22 13:00 Pulse 98 02/11/22 13:00 Resp 18 02/11/22 13:00 BP 133/80 02/11/22 13:00 Pulse Ox 96 02/11/22 13:00 FiO2 21 02/08/22 19:51 Intake & Output 02/10/22 02/11/22 02/11/22 18:59 06:59 18:59 Intake Total 300 Balance 300 Weight 56.047 kg 60 kg Intake: Oral 300 Other: Voiding Method Bedside Commode Bedside Commode - Labs CBC & Chem 7: 02/11/22 06:00 02/11/22 18:05 Labs: Abnormal Lab Results - Last 24 Hours (Table) 07/16/22 07/16/22 Range/Units 06:00 06:00 WBC 4.18 L (4.50-10.00) X 10*3/uL RBC 3.05 L (4.10-5.20) X 10*6/uL Hgb 7.3 L (12.0-15.0) g/dL Hct 27.1 L (37.2-46.3) % MCH 23.9 L (27.0-32.0) pg MCHC 26.9 L (32.0-37.0) g/dL RDW 23.9 H (11.5-14.5) % Plt Count 105 L (140-440) X 10*3/uL Absolute Nucleated RBC 0.06 H (0.00-0.00) X 10*3/uL Immature Gran # 0.07 H (0.00-0.04) X 10*3/uL Lymphocytes # 0.38 L (0.90-5.00) X 10*3/uL Eosinophils # 0 L (0.04-0.35) X 10*3/uL NRBC/100 WBC Diff 1.4 H (0.0-0.0) /100 WBCS Potassium 3.2 L (3.5-5.5) mmol/L Carbon Dioxide 31.7 H (20.0-27.5) mmol/L Anion Gap 9.30 L (10.00-18.00) mmol/L Creatinine 0.5 L (0.6-1.5) mg/dL BUN/Creatinine Ratio 26.40 H (12.00-20.00) Ratio Glucose 366 H (70-110) mg/dL Calcium 8.2 L (8.7-10.3) mg/dL Magnesium 1.4 L (1.5-2.4) mg/dL Conjugated Bilirubin 0.54 H (0.20-0.40) mg/dL AST 58 H (13-35) U/L ALT 61 H (8-44) U/L Total Protein 5.6 L (6.2-8.2) g/dL Albumin 3.1 L (3.8-4.9) g/dL Albumin/Globulin Ratio 1.24 L (1.60-3.17) g/dL
--- NOTE | 2022-02-11 18:04 | P.PN ---
Subjective This is a 66-year-old female presents to the hospital with concern for acute alcohol withdrawal, patient also had a fall at home 5 days ago states she fell down 14 steps and has significant bruising on her side and legs. On admission alcohol level <10, patient has not had a drink in the last 2 days. Patient follows with Dr. Luz Marina Hannon in the primary care setting, chronic medical conditions include COPD, hypertension, alcohol dependence with alcoholic liver disease, anxiety depression, current daily smoker 1 pack per day also reports 3- 4 drinks of alcohol per day, mixed drinks or beer she drinks more or less depending on her mood and states that it helps her get to sleep. She has cut down on drinking in the last 10-15 years. She plans for alcohol cessation and will discharged to [facility] for rehab. She also follows with Dr Medellin outpatient for umbilical hernia pending surgical repair outpatient. Labs on admission showing a white count 3.4, hemoglobin 8.5 which is dropped from 9.7 on admission, platelet count of 38, INR 1.4, sodium 135, potassium 3.2, chloride 96, CO2 34, BUN 8, creatinine 0.3, glucose 116, magnesium 1.2, AST 74, ALT 34, total bili 3.2, BNP 378, a BUN 3.3. Chest x-ray completed showing no active c ardiac disease with minimal fibrotic changes. EKG showing sinus rhythm heart rate of 99, QT interval 410. Patient received 2 g IV magnesium, oral potassium, has been started on thiamine supplementation as well as Librium taper is receiving IV fluids at normal saline 75 mL per hour. Patient is tachycardic at 108, blood pressure 123/76, 92% on room air. Patient is admitted to the hospital for alcohol withdrawal monitoring and evaluation regarding increased peripheral edema and ascites. Repeat labs are pending. 02/05/2022 Patient evaluated today resting in bed, she has been unable to ambulate due to significant weakness. She does report decrease pain to her right lower extremity. She continues with peripheral edema and has been started on IV lasix as well as oral aldactone. She is slightly lethargic today as well and her speech pattern is slow. She states the librium made her hallucinate last night and will discontinue this. We will also check an ammonia level today. Labs today show white count 4.0, hemoglobin 7.2, platelet count 42, sodium 132, potassium 4.4, BUN 7.3, creatinine 0.4, magnesium 1.5, total bili 1.40. Total protein 4.5, albumin 2.5. She is afebrile, heart rate 90, blood pressure on the lower side at 94/60 she is 96% nasal cannula. She does have significant expi ratory wheezing today which we will order DuoNeb's. B12 folate and iron studies are pending. 02/06/2022 Patient evaluated today resting in bed, still reports weakness and unable to ambulate. PT has evaluated patient and she will require sub acute rehab on discharge. Wheezing has improved, continues on 2L Nasal cannula and duonebs as needed. Denies need for nicotine patch. No signs for acute alcohol withdrawal. Librium has been discontinued. Ammonia level 22. hgb today 7.7, platelets 47, sodium 133, potassium 4.3, BUN 7.5, creat 0.4, calcium 7.7. She will continue on IV lasix, mild improvement in lower extremity peripheral edema however still 2+. Iron studies showing total iron 17, %saturation 5.13. TIBC 333. B12 and folate are within normal limits. Heart rate is elevated today at 114, EKG pending. 02/07/2022 Patient continues to report generalized pain secondary to fall. She does have bruising on her left hip as well. She continues with bilateral peripheral edema and continues on IV lasix. Continue with strict intake and output documentation. REMY wrap to bilateral lower extremities as well. Labs today showing stable hemoglobin 7.5, platelets 58. Sodium today is 135, potassium 4.3, calcium 7.8, magnesium 1.4. She will receive 3 grams of magnesium today. Procalcitonin 0.18. Patient continues with expiratory wheeze. Will continue duonebs and add a short course of oral steroids. She is also tachycardic with heart rate in the low 100s to 110s. EKG completed showing sinus tachycardia will continue with telemetry monitoring. She is afebrile, blood pressure 110/72, 92% on 2L nasal cannula. 02/08/2022 Patient evaluated today she is up ambulating in the hallway with physical therapy. Unable to find a sub acute rehab on discharge. Lung sounds have improved this afternoon after breathing treatments, she is now on room air. Labs today showing sodium 136, potassium 3.4, magnesium level pending. She had some green sputum last night and azithromycin for 3 days has been added and IV solumedrol. Covid is negative. Suspect anemia mostly from myelosuppresion probably some underlying iron deficiency and we will also give patient some ferrlecit. Continue IV lasix overnight, and can transition to oral lasix tomorrow. She is afebrile, heart rate 107, blood pressure 116/65, 92% room air. Possible DC tomorrow. 02/09/2022 Patient is resting in bed today, she has been up ambulating with physical therapy and feels stronger. Pain has improved somewhat, she reports generalized pain. She continues with Remy wrap to lower extremities. She did lose IV access overnight. Midline was placed today. She continues on IV lasix Q12, and can possibly transition to oral lasix tomorrow. She has been started on IV solumedrol and 3 doses of oral azithromycin for possible COPD exacerbation, her wheezing has significant improved. We will arrange for nebulizer on discharge. One more dose of IV ferrlecit tomorrow and will be transitioned to oral ferrous sulfate on discharge. No chest pain, no shortness of breath. Bowels are moving. Vitals today showing temp 97.8, heart rate 106, blood pressure 113/72, 93% room air. Labs reviewed today showing white count 2.35, hgb 7.0, platelet count 71. 02/10/2022, resume the care of the patient today This is a pleasant 66 years old female who presents because she fell at home from stairs, she is alcohol drinker and this fall was awake, call for her as she describes and she decided to quit drinking and came to emergency room. She is fully awake and oriented, standing and walking in the room, however she is generally weak and she has distended abdomen Physical therapy recommended treatment However most subacute rehab the don't take her insurance, and sent patient wants to go home with home care, discussed with case management social worker. She remains on Zithromax for possible infection, she has significant bilateral leg swelling on IV Lasix 40 mg twice daily however there is no evidence of pulmonary edema. She has history of COPD and she is not compliant with her utility specialist for her PCP Dr. kruger. She is currently on Solu-Medrol 40 mg twice daily, she still has some limitation of air entry. She was taken IV iron which is stopped and switched to oral iron from tomorrow. WBC is 4.4 and hemoglobin 8.9 and platelet 104, all numbers shown improvement but looks concentrated sample as she is on IV Lasix. Liver enzymes mildly elevated We will check liver ultrasound and leg ultrasound She has evidence of an deficiency anemia and she never had colonoscopy so surgery team were consulted who recommended occult blood in his stool Vitamin B12 is 724 and folate 17.5. And TSH normal. proCalcitonin not elevated to 0.18 and 0.14 02/11/2022 Patient with mild exertional dyspnea but she has significant abdominal distent ion and bilateral leg swelling, she drinks a lot of fluid, patient was counseled extensively about fluid restriction and she agrees. Patient was placed on fluid restriction 1200 mL per day. Patient abdominal ultrasound showing ascites, we will consult IR team for paracentesis Increase her Lasix 40 mg 3 times a day, she is already on Aldactone 50 mg His breathing is improving, but her air entry with no wheezing and we switched her some adrenaline to prednisone 30 mg Patient walking in the room more freely. Monitor labs in the morning Objective - Vital Signs Vital signs: Vital Signs Temp 98.1 F 02/11/22 13:00 Pulse 98 02/11/22 13:00 Resp 18 02/11/22 13:00 BP 133/80 02/11/22 13:00 Pulse Ox 96 02/11/22 13:00 FiO2 21 02/08/22 19:51 Intake & Output 02/10/22 02/11/22 02/11/22 18:59 06:59 18:59 Intake Total 300 Balance 300 Weight 56.047 kg 60 kg Intake: Oral 300 Other: Voiding Method Bedside Commode Bedside Commode - Exam -GENERAL: The patient is alert and oriented x3, generally weak but mildly, no distress HEENT: Pupils are round and equally reacting to light. EOMI. No scleral icterus. No conjunctival pallor. Normocephalic, atraumatic. No pharyngeal erythema. No thyromegaly. CARDIOVASCULAR: S1 and S2 present. No murmurs, rubs, or gallops. PULMONARY: Chest is clear to auscultation, no wheezing or crackles. -ABDOMEN: Soft, nontender, distended, normoactive bowel sounds. No palpable organomegaly. MUSCULOSKELETAL: No joint swelling or deformity. EXTREMITIES: No cyanosis, clubbing,, 3+ bilateral pitting leg edema NEUROLOGICAL: Gross neurological examination did not reveal any focal deficits. SKIN: No rashes. no petechiae. - Labs CBC & Chem 7: 02/11/22 06:00 02/11/22 06:00 Labs: Abnormal Lab Results - Last 24 Hours (Table) 02/11/22 02/11/22 Range/Units 06:00 06:00 WBC 4.18 L (4.50-10.00) X 10*3/uL RBC 3.05 L (4.10-5.20) X 10*6/uL Hgb 7.3 L (12.0-15.0) g/dL Hct 27.1 L (37.2-46.3) % MCH 23.9 L (27.0-32.0) pg MCHC 26.9 L (32.0-37.0) g/dL RDW 23.9 H (11.5-14.5) % Plt Count 105 L (140-440) X 10*3/uL Absolute Nucleated RBC 0.06 H (0.00-0.00) X 10*3/uL Immature Gran # 0.07 H (0.00-0.04) X 10*3/uL Lymphocytes # 0.38 L (0.90-5.00) X 10*3/uL Eosinophils # 0 L (0.04-0.35) X 10*3/uL NRBC/100 WBC Diff 1.4 H (0.0-0.0) /100 WBCS Potassium 3.2 L (3.5-5.5) mmol/L Carbon Dioxide 31.7 H (20.0-27.5) mmol/L Anion Gap 9.30 L (10.00-18.00) mmol/L Creatinine 0.5 L (0.6-1.5) mg/dL BUN/Creatinine Ratio 26.40 H (12.00-20.00) Ratio Glucose 366 H (70-110) mg/dL Calcium 8.2 L (8.7-10.3) mg/dL Magnesium 1.4 L (1.5-2.4) mg/dL Conjugated Bilirubin 0.54 H (0.20-0.40) mg/dL AST 58 H (13-35) U/L ALT 61 H (8-44) U/L Total Protein 5.6 L (6.2-8.2) g/dL Albumin 3.1 L (3.8-4.9) g/dL Albumin/Globulin Ratio 1.24 L (1.60-3.17) g/dL Assessment and Plan Assessment: Alcohol abuse at-risk of alcohol withdrawal Anemia most likely chronic from myelosupression with underlying iron deficiency, rule out GI bleed Abdominal distention COPD, mild acute exacerbation Thrombocytopenia secondary to chronic liver disease Fall at home secondary to her liver disease and drinking Bilateral patellar leg edema Mild coagulopathy secondary to liver disease with INR at 1.4 Hyponatremia from poor oral intake, resolved Hypomagnesemia Hypertension currently normotensive Chronic nicotine dependence GI Prophylaxis: Protonix Plan: This is a pleasant 66 years old female who presents with alcoholic liver di sease, fall, BETTYE and leg edema Continue with IV Lasix, increased frequency to every 8 hours Continue with prednisone 30 mg Continue with ferrous sulfate Surgical team consult, check occult blood in stool Change lactulose 10 mg twice a day when necessary into schedule dose Labs and medication were reviewed.. Continue same treatment. Continue with symptomatic treatment. Resume home medication. Monitor lytes and vitals. DVT and GI prophylaxis. Further recommendations as per clinical course of the patient DVT prophylaxis: No anticoagulation for significant anemia and thrombocytopenia GI Prophylaxis: Pppu PT/OT: Recommended subacute rehab however patient does not want to go too distant far [facility] because of her insurance so she wants to go home with home care Prognosis is guarded
[2022-02-11] MEDS ORDERED: POTASSIUM CHLORIDE ER 20 MEQ TAB.ER PO SCH (19:00)
[2022-02-12] MEDS: FUROSEMIDE 10 MG/ML 4 ML VIAL IV SCH ×3 (07:28→23:04)
[2022-02-12] MEDS: SPIRONOLACTONE 25 MG TAB PO SCH (07:28)
[2022-02-12] MEDS: THIAMINE 100 MG TAB PO SCH ×2 (07:28→17:12)
[2022-02-12] MEDS: predniSONE 10 MG TAB PO SCH (07:28)
[2022-02-12] MEDS: PANTOPRAZOLE 40 MG TABLET PO SCH (07:28)
[2022-02-12] MEDS: FERROUS SULFATE 325 MG TAB PO SCH ×2 (07:28→17:12)
[2022-02-12] MEDS ORDERED: predniSONE 20 MG TAB PO SCH (09:00)
[2022-02-12 09:32] LABS: Magnesium 1.6 mg/dL (1.5-2.4)
[2022-02-12 09:36] LABS: African American GFR (CKD) 127.6 (60.0-200.0); Anion Gap 8.9 mmol/L (10.00-18.00); Blood Urea Nitrogen 13.2 mg/dL (9.0-27.0); Calcium 8.1 mg/dL (8.7-10.3); Carbon Dioxide 36.1 mmol/L (20.0-27.5); Non-African American GFR(CKD) 110.1 (60.0-200.0); Potassium 3.4 mmol/L (3.5-5.5)
[2022-02-12 10:31] LABS: Basophils # (A) 0 X 10*3/uL (0.00-0.10); Basophils % (A) 0 %; Eosinophils # (A) 0.03 X 10*3/uL (0.04-0.35); Eosinophils % (A) 0.7 %; HCT 27.7 % (37.2-46.3); HGB 7.4 g/dL (12.0-15.0); Immature Grans, Automated 0.9 %; MCH 24.3 pg (27.0-32.0); MCHC 26.7 g/dL (32.0-37.0); MCV 91.1 fL (80.0-97.0); Mean Platelet Volume 11.5 fL (9.5-12.2); Monocytes # (A) 0.47 X 10*3/uL (0.20-1.00); Monocytes % (A) 10.7 %; NRBC Per 100 WBC 0.9 /100 WBCS (0.0-0.0); Neutrophils # (A) 2.76 X 10*3/uL (1.80-7.70); Neutrophils % (A) 62.7 %; Platelet Count 109 X 10*3/uL (140-440); RBC 3.04 X 10*6/uL (4.10-5.20); RDW 24.9 % (11.5-14.5)
[2022-02-12] MEDS: POTASSIUM CHLORIDE ER 20 MEQ TAB.ER PO SCH ×2 (11:09→12:15)
[2022-02-12] MEDS: MAGNESIUM SULFATE-D5W PMX 1 GM in DEXTROSE/WATER 1 100ML.BAG IVPB SCH ×2 (11:09→12:15)
--- NOTE | 2022-02-12 13:36 | P.PN ---
Subjective Progress Note Date: 02/12/22 CHIEF COMPLAINT: Iron deficiency anemia HISTORY OF PRESENT ILLNESS: The patient is a 66-year-old female with pre- existing history of anemia. She is clinically stable. No signs of bleeding including hematemesis. No bloody bowel movements. She is tolerating diet. ROS: No reports of nausea and vomiting. No bowel movements. No fevers or chills. No new chest pain. No productive sputum PHYSICAL EXAM: VITAL SIGNS: Reviewed CONSTITUTIONAL: Well developed and in no acute distress. EYES: Conjuctivae without sclera icterus. Extraocular movements grossly intact. HEAD, EARS, NOSE, THROAT: Moist buccal mucosa. Head is atraumatic, normocephalic. Hears conversational speech. No nasal drainage. RESPIRATORY: Non-labored respirations and equal bilateral excursions. CARDIOVASCULAR: Palpable 2+ radial pulses. ABDOMEN: Ascites. No abdominal pain. MUSCULOSKELETAL: No gross deformity of the lower extremities noted. No clubbing. No cyanosis. SKIN: Good skin turgor. Well perfused. NEUROLOGIC: Cranial nerves II through XII grossly intact. No focal or lateralizing signs. PSYCH: Appropriate affect. Alert and oriented to person, place and time. CLINICAL LABS: Reviewed. Hgb 7.0 to 7.3, now 7.4. ASSESSMENT: 1. Anemia 2. Alcoholism 3. Cirrhoisis of the liver PLAN: 1. Monitor hemoglobin. 2. Management of ascites per GI Objective - Vital Signs Vital signs: Vital Signs Temp 98.4 F 02/12/22 12:59 Pulse 85 02/12/22 12:59 Resp 18 02/12/22 12:59 BP 110/69 02/12/22 12:59 Pulse Ox 98 02/12/22 12:59 FiO2 21 02/08/22 19:51 Intake & Output 02/11/22 02/12/22 02/12/22 18:59 06:59 18:59 Intake Total 180 Balance 180 Weight 57 kg Intake: Oral 180 Other: Voiding Method Bedside Commode - Labs CBC & Chem 7: 02/12/22 05:47 02/12/22 15:00 Labs: Abnormal Lab Results - Last 24 Hours (Table) 02/12/22 02/12/22 Range/Units 05:47 05:47 WBC 4.40 L (4.50-10.00) X 10*3/uL RBC 3.04 L (4.10-5.20) X 10*6/uL Hgb 7.4 L (12.0-15.0) g/dL Hct 27.7 L (37.2-46.3) % MCH 24.3 L (27.0-32.0) pg MCHC 26.7 L (32.0-37.0) g/dL RDW 24.9 H (11.5-14.5) % Plt Count 109 L (140-440) X 10*3/uL Absolute Nucleated RBC 0.04 H (0.00-0.00) X 10*3/uL Eosinophils # 0.03 L (0.04-0.35) X 10*3/uL NRBC/100 WBC Diff 0.9 H (0.0-0.0) /100 WBCS Potassium 3.4 L (3.5-5.5) mmol/L Chloride 95 L (96-109) mmol/L Carbon Dioxide 36.1 H (20.0-27.5) mmol/L Anion Gap 8.90 L (10.00-18.00) mmol/L Creatinine 0.4 L (0.6-1.5) mg/dL BUN/Creatinine Ratio 33.00 H (12.00-20.00) Ratio Calcium 8.1 L (8.7-10.3) mg/dL
--- NOTE | 2022-02-12 17:57 | P.PN ---
Subjective This is a 66-year-old female presents to the hospital with concern for acute alcohol withdrawal, patient also had a fall at home 5 days ago states she fell down 14 steps and has significant bruising on her side and legs. On admission alcohol level <10, patient has not had a drink in the last 2 days. Patient follows with Dr. Luz Marina Hannon in the primary care setting, chronic medical conditions include COPD, hypertension, alcohol dependence with alcoholic liver disease, anxiety depression, current daily smoker 1 pack per day also reports 3- 4 drinks of alcohol per day, mixed drinks or beer she drinks more or less depending on her mood and states that it helps her get to sleep. She has cut down on drinking in the last 10-15 years. She plans for alcohol cessation and will discharged to [place] for rehab. She also follows with Dr Medellin outpatient for umbilical hernia pending surgical repair outpatient. Labs on admission showing a white count 3.4, hemoglobin 8.5 which is dropped from 9.7 on admission, platelet count of 38, INR 1.4, sodium 135, potassium 3.2, chloride 96, CO2 34, BUN 8, creatinine 0.3, glucose 116, magnesium 1.2, AST 74, ALT 34, total bili 3.2, BNP 378, a BUN 3.3. Chest x-ray completed showing no active c ardiac disease with minimal fibrotic changes. EKG showing sinus rhythm heart rate of 99, QT interval 410. Patient received 2 g IV magnesium, oral potassium, has been started on thiamine supplementation as well as Librium taper is receiving IV fluids at normal saline 75 mL per hour. Patient is tachycardic at 108, blood pressure 123/76, 92% on room air. Patient is admitted to the hospital for alcohol withdrawal monitoring and evaluation regarding increased peripheral edema and ascites. Repeat labs are pending. 02/05/2022 Patient evaluated today resting in bed, she has been unable to ambulate due to significant weakness. She does report decrease pain to her right lower extremity. She continues with peripheral edema and has been started on IV lasix as well as oral aldactone. She is slightly lethargic today as well and her speech pattern is slow. She states the librium made her hallucinate last night and will discontinue this. We will also check an ammonia level today. Labs today show white count 4.0, hemoglobin 7.2, platelet count 42, sodium 132, potassium 4.4, BUN 7.3, creatinine 0.4, magnesium 1.5, total bili 1.40. Total protein 4.5, albumin 2.5. She is afebrile, heart rate 90, blood pressure on the lower side at 94/60 she is 96% nasal cannula. She does have significant expi ratory wheezing today which we will order DuoNeb's. B12 folate and iron studies are pending. 02/06/2022 Patient evaluated today resting in bed, still reports weakness and unable to ambulate. PT has evaluated patient and she will require sub acute rehab on discharge. Wheezing has improved, continues on 2L Nasal cannula and duonebs as needed. Denies need for nicotine patch. No signs for acute alcohol withdrawal. Librium has been discontinued. Ammonia level 22. hgb today 7.7, platelets 47, sodium 133, potassium 4.3, BUN 7.5, creat 0.4, calcium 7.7. She will continue on IV lasix, mild improvement in lower extremity peripheral edema however still 2+. Iron studies showing total iron 17, %saturation 5.13. TIBC 333. B12 and folate are within normal limits. Heart rate is elevated today at 114, EKG pending. 02/07/2022 Patient continues to report generalized pain secondary to fall. She does have bruising on her left hip as well. She continues with bilateral peripheral edema and continues on IV lasix. Continue with strict intake and output documentation. REMY wrap to bilateral lower extremities as well. Labs today showing stable hemoglobin 7.5, platelets 58. Sodium today is 135, potassium 4.3, calcium 7.8, magnesium 1.4. She will receive 3 grams of magnesium today. Procalcitonin 0.18. Patient continues with expiratory wheeze. Will continue duonebs and add a short course of oral steroids. She is also tachycardic with heart rate in the low 100s to 110s. EKG completed showing sinus tachycardia will continue with telemetry monitoring. She is afebrile, blood pressure 110/72, 92% on 2L nasal cannula. 02/08/2022 Patient evaluated today she is up ambulating in the hallway with physical therapy. Unable to find a sub acute rehab on discharge. Lung sounds have improved this afternoon after breathing treatments, she is now on room air. Labs today showing sodium 136, potassium 3.4, magnesium level pending. She had some green sputum last night and azithromycin for 3 days has been added and IV solumedrol. Covid is negative. Suspect anemia mostly from myelosuppresion probably some underlying iron deficiency and we will also give patient some ferrlecit. Continue IV lasix overnight, and can transition to oral lasix tomorrow. She is afebrile, heart rate 107, blood pressure 116/65, 92% room air. Possible DC tomorrow. 02/09/2022 Patient is resting in bed today, she has been up ambulating with physical therapy and feels stronger. Pain has improved somewhat, she reports generalized pain. She continues with Remy wrap to lower extremities. She did lose IV access overnight. Midline was placed today. She continues on IV lasix Q12, and can possibly transition to oral lasix tomorrow. She has been started on IV solumedrol and 3 doses of oral azithromycin for possible COPD exacerbation, her wheezing has significant improved. We will arrange for nebulizer on discharge. One more dose of IV ferrlecit tomorrow and will be transitioned to oral ferrous sulfate on discharge. No chest pain, no shortness of breath. Bowels are moving. Vitals today showing temp 97.8, heart rate 106, blood pressure 113/72, 93% room air. Labs reviewed today showing white count 2.35, hgb 7.0, platelet count 71. 02/10/2022, resume the care of the patient today This is a pleasant 66 years old female who presents because she fell at home from stairs, she is alcohol drinker and this fall was awake, call for her as she describes and she decided to quit drinking and came to emergency room. She is fully awake and oriented, standing and walking in the room, however she is generally weak and she has distended abdomen Physical therapy recommended treatment However most subacute rehab the don't take her insurance, and sent patient wants to go home with home care, discussed with long term care social worker. She remains on Zithromax for possible infection, she has significant bilateral leg swelling on IV Lasix 40 mg twice daily however there is no evidence of pulmonary edema. She has history of COPD and she is not compliant with her testing consultant for her PCP Dr. kruger. She is currently on Solu-Medrol 40 mg twice daily, she still has some limitation of air entry. She was taken IV iron which is stopped and switched to oral iron from tomorrow. WBC is 4.4 and hemoglobin 8.9 and platelet 104, all numbers shown improvement but looks concentrated sample as she is on IV Lasix. Liver enzymes mildly elevated We will check liver ultrasound and leg ultrasound She has evidence of an deficiency anemia and she never had colonoscopy so surgery team were consulted who recommended occult blood in his stool Vitamin B12 is 724 and folate 17.5. And TSH normal. proCalcitonin not elevated to 0.18 and 0.14 02/11/2022 Patient with mild exertional dyspnea but she has significant abdominal distent ion and bilateral leg swelling, she drinks a lot of fluid, patient was counseled extensively about fluid restriction and she agrees. Patient was placed on fluid restriction 1200 mL per day. Patient abdominal ultrasound showing ascites, we will consult IR team for paracentesis Increase her Lasix 40 mg 3 times a day, she is already on Aldactone 50 mg His breathing is improving, but her air entry with no wheezing and we switched her some adrenaline to prednisone 30 mg Patient walking in the room more freely. Monitor labs in the morning 02/12/2022 Patient dyspnea is improving, especially patient might not go to rehab because of her insurance issue, patient might be willing to go home with home care therefore she needs better diuresis. Also we consulted IR team for paracentesis for her significant abdominal distention. Patient is poor in compliance and outpatient follow-up with her doctors. Her vitals and labs are stable, she has mild myelosuppression secondary to her affect off alcohol. She remains on IV Lasix 40 mg every 8 hours. Also she is on prednisone 40 mg. Hemoglobin 7.4 Objective - Vital Signs Vital signs: Vital Signs Temp 98.1 F 02/12/22 05:00 Pulse 107 H 02/12/22 05:00 Resp 16 02/12/22 05:00 BP 109/67 02/12/22 05:00 Pulse Ox 91 L 02/12/22 05:00 FiO2 21 02/08/22 19:51 Intake & Output 02/11/22 02/12/22 02/12/22 18:59 06:59 18:59 Intake Total 180 Balance 180 Weight 57 kg Intake: Oral 180 Other: Voiding Method Bedside Commode - Exam -GENERAL: The patient is alert and oriented x3, generally weak but mildly, no distress HEENT: Pupils are round and equally reacting to light. EOMI. No scleral icterus. No conjunctival pallor. Normocephalic, atraumatic. No pharyngeal erythema. No thyromegaly. CARDIOVASCULAR: S1 and S2 present. No murmurs, rubs, or gallops. PULMONARY: Chest is clear to auscultation, no wheezing or crackles. -ABDOMEN: Soft, nontender, distended, normoactive bowel sounds. No palpable organomegaly. MUSCULOSKELETAL: No joint swelling or deformity. EXTREMITIES: No cyanosis, clubbing,, 3+ bilateral pitting leg edema NEUROLOGICAL: Gross neurological examination did not reveal any focal deficits. SKIN: No rashes. no petechiae. - Labs CBC & Chem 7: 02/12/22 05:47 02/12/22 15:00 Labs: Abnormal Lab Results - Last 24 Hours (Table) 02/11/22 02/12/22 02/12/22 Range/Units 06:00 05:47 05:47 WBC 4.40 L (4.50-10.00) X 10*3/uL RBC 3.04 L (4.10-5.20) X 10*6/uL Hgb 7.4 L (12.0-15.0) g/dL Hct 27.7 L (37.2-46.3) % MCH 24.3 L (27.0-32.0) pg MCHC 26.7 L (32.0-37.0) g/dL RDW 24.9 H (11.5-14.5) % Plt Count 109 L (140-440) X 10*3/uL Absolute Nucleated RBC 0.04 H (0.00-0.00) X 10*3/uL Eosinophils # 0.03 L (0.04-0.35) X 10*3/uL NRBC/100 WBC Diff 0.9 H (0.0-0.0) /100 WBCS Potassium 3.2 L 3.4 L (3.5-5.5) mmol/L Chloride 95 L (96-109) mmol/L Carbon Dioxide 31.7 H 36.1 H (20.0-27.5) mmol/L Anion Gap 9.30 L 8.90 L (10.00-18.00) mmol/L Creatinine 0.5 L 0.4 L (0.6-1.5) mg/dL BUN/Creatinine Ratio 26.40 H 33.00 H (12.00-20.00) Ratio Glucose 366 H (70-110) mg/dL Calcium 8.2 L 8.1 L (8.7-10.3) mg/dL Magnesium 1.4 L (1.5-2.4) mg/dL Conjugated Bilirubin 0.54 H (0.20-0.40) mg/dL AST 58 H (13-35) U/L ALT 61 H (8-44) U/L Total Protein 5.6 L (6.2-8.2) g/dL Albumin 3.1 L (3.8-4.9) g/dL Albumin/Globulin Ratio 1.24 L (1.60-3.17) g/dL Assessment and Plan Assessment: Alcohol abuse at-risk of alcohol withdrawal Anemia most likely chronic from myelosupression with underlying iron deficiency, rule out GI bleed Abdominal distention COPD, mild acute exacerbation Thrombocytopenia secondary to chronic liver disease Fall at home secondary to her liver disease and drinking Bilateral patellar leg edema Mild coagulopathy secondary to liver disease with INR at 1.4 Hyponatremia from poor oral intake, resolved Hypomagnesemia Hypertension currently normotensive Chronic nicotine dependence GI Prophylaxis: Protonix Plan: This is a pleasant 66 years old female who presents with alcoholic liver disease, fall, BETTYE and leg edema Continue with IV Lasix, increased frequency to every 8 hours Continue with prednisone 30 mg Continue with ferrous sulfate Surgical team consult, check occult blood in stool Change lactulose 10 mg twice a day when necessary into schedule dose Labs and medication were reviewed.. Continue same treatment. Continue with symptomatic treatment. Resume home medication. Monitor lytes and vitals. DVT and GI prophylaxis. Further recommendations as per clinical course of the patient DVT prophylaxis: No anticoagulation for significant anemia and thrombocytopenia GI Prophylaxis: Pppu PT/OT: Recommended subacute rehab however patient does not want to go too distant far [facility] because of her insurance so she wants to go home with home care Prognosis is guarded
[2022-02-13] MEDS: ACETAMINOPHEN TAB 325 MG TAB PO PRN (00:21)
[2022-02-13] MEDS: predniSONE 10 MG TAB PO SCH (08:11)
[2022-02-13] MEDS: FERROUS SULFATE 325 MG TAB PO SCH ×2 (08:11→16:30)
[2022-02-13] MEDS: SPIRONOLACTONE 25 MG TAB PO SCH (08:11)
[2022-02-13] MEDS: PANTOPRAZOLE 40 MG TABLET PO SCH (08:11)
[2022-02-13] MEDS: FUROSEMIDE 10 MG/ML 4 ML VIAL IV SCH (08:11)
[2022-02-13] MEDS: THIAMINE 100 MG TAB PO SCH ×2 (08:11→16:27)
[2022-02-13 09:32] LABS: Anisocytosis Marked; HCT 31.4 % (34.0-46.0); Hypochromasia Marked; MCH 26.5 pg (25.0-35.0); MCHC 28.6 g/dL (31.0-37.0); MCV 92.4 fL (80.0-100.0); Macrocytosis Slight; Platelet Count 126 k/uL (150-450); RBC 3.39 m/uL (3.80-5.40); RDW 24.6 % (11.5-15.5); WBC 4.3 k/uL (3.8-10.6)
[2022-02-13 11:28] LABS: Magnesium 1.8 mg/dL (1.5-2.4)
[2022-02-13 11:48] LABS: African American GFR (CKD) 121.3 (60.0-200.0); Albumin 3.4 g/dL (3.8-4.9); Albumin/Globulin Ratio 1.5 (1.60-3.17); Anion Gap 8.4 mmol/L (10.00-18.00); BUN/Creat Ratio 37.34 Ratio (12.00-20.00); Bilirubin, Conjugated 0.51 mg/dL (0.20-0.40); Bilirubin,Unconjugated 0.32 mg/dL (0.20-1.00); Blood Urea Nitrogen 17.4 mg/dL (9.0-27.0); Calcium 8.6 mg/dL (8.7-10.3); Carbon Dioxide 37.8 mmol/L (20.0-27.5); Globulin 2.3 g/dL (1.6-3.3); Non-African American GFR(CKD) 104.7 (60.0-200.0); Potassium 4.6 mmol/L (3.5-5.5); Total Bilirubin 0.8 mg/dL (0.30-1.20); Total Protein 5.7 g/dL (6.2-8.2)
[2022-02-13] MEDS: ALBUMIN HUMAN 25% 50 ML in EMPTY BAG 1 BAG IVPB SCH ×2 (12:43→14:27)
--- NOTE | 2022-02-13 13:18 | US ---
Ultrasound-guided paracentesis. DATE OF EXAM: 02/13/2022 CLINICAL HISTORY: Ascites The procedure was discussed with the patient. The risks, complications, benefits, and alternatives we re discussed and any questions were answered. Informed consent was obtained. The patient was placed s upine on the ultrasound table and prepped and draped in the usual sterile fashion. All elements of maximal barrier technique were utilized. Under ultrasound guidance, access into the right lower quadrant was obtained, via the paracentesis catheter system and direct ultrasound guidanc e. Approximately 2.3 liters of straw-colored fluid was removed. The patient was stable throughout the pr ocedure and remained stable upon discharge from Department of Radiology. IMPRESSION: Successful paracentesis under ultrasound guidance.
--- NOTE | 2022-02-13 14:14 | P.PN ---
Subjective Progress Note Date: 02/13/22 CHIEF COMPLAINT: Iron deficiency anemia HISTORY OF PRESENT ILLNESS: Single service following regards to patient's anemia. She does have a pre-existing history of anemia. Also known liver cirrhosis. Patient denies any blood in her stools or black stools. She is currently on IV Lasix. She is being evaluated for possible paracentesis. Abdominal ascites was noted on ultrasound. Afebrile. WBC is 4.3 Hgb 7.4 up to 9.0 platelets 126 sodium is 139 potassium 4.6 creatinine 0.5 Patient seen and examined with Dr. lynn PHYSICAL EXAM: VITAL SIGNS: Reviewed. GENERAL: Well-developed in no acute distress. HEENT: No sclera icterus. Extraocular movements grossly intact. Moist buccal mucosa. Head is atraumatic, normocephalic. ABDOMEN: Soft. Distended. Ventral hernia that is reducible. Abdominal ascites. NEUROLOGIC: Alert and oriented. Cranial nerves II through XII grossly intact. Extremities: Bilateral lower extremity edema ASSESSMENT: 1. Anemia with iron deficiency anemia 2. Alcoholism 3. Alcoholic liver cirrhosis 4. Reducible ventral hernia PLAN: -Patient is tentatively scheduled for EGD and colonoscopy on , 02/16/[address] lynn if medically stable -Continue management of abdominal ascites -Continue iron supplement -Continue supportive care Physician Heat Treat Inspector note has been reviewed by physician. Signing provider agrees with the documented findings, assessment, and plan of care. Objective - Vital Signs Vital signs: Vital Signs Temp 98.2 F 02/13/22 12:13 Pulse 88 02/13/22 12:13 Resp 18 02/13/22 12:13 BP 135/75 02/13/22 12:13 Pulse Ox 94 L 02/13/22 12:13 FiO2 21 02/08/22 19:51 Intake & Output 02/12/22 02/13/22 02/13/22 18:59 06:59 18:59 Intake Total 680 240 Output Total 1200 2310 Balance -520 240 -2310 Weight 56.3 kg Intake: Intake, IV Titration 200 Amount Magnesium Sulfate-D5w Pmx 200 1 gm In Dextrose/Water 1 100ml.bag @ 100 mls/hr IVPB Q1H ALEX Rx#: [id number] Oral 480 240 Output: Urine 1200 Other 2310 Other: Voiding Method Bedside Commode Bedside Commode # Voids 4 # Bowel Movements 1 3 - Labs CBC & Chem 7: 02/13/22 05:32 02/13/22 05:32 Labs: Abnormal Lab Results - Last 24 Hours (Table) 02/13/22 02/13/22 Range/Units 05:32 05:32 RBC 3.39 L (3.80-5.40) m/uL Hgb 9.0 L (11.4-16.0) gm/dL Hct 31.4 L (34.0-46.0) % MCHC 28.6 L (31.0-37.0) g/dL RDW 24.6 H (11.5-15.5) % Plt Count 126 L (150-450) k/uL Chloride 93 L (96-109) mmol/L Carbon Dioxide 37.8 H (20.0-27.5) mmol/L Anion Gap 8.40 L (10.00-18.00) mmol/L Creatinine 0.5 L (0.6-1.5) mg/dL BUN/Creatinine Ratio 37.34 H (12.00-20.00) Ratio Calcium 8.6 L (8.7-10.3) mg/dL Conjugated Bilirubin 0.51 H (0.20-0.40) mg/dL AST 61 H (13-35) U/L ALT 92 H (8-44) U/L Total Protein 5.7 L (6.2-8.2) g/dL Albumin 3.4 L (3.8-4.9) g/dL Albumin/Globulin Ratio 1.50 L (1.60-3.17) g/dL
[2022-02-13] MEDS: ALBUTEROL NEBULIZED 2.5 MG/3 ML INHALATION SCH ×2 (15:38→19:22)
[2022-02-13] MEDS: FUROSEMIDE 40 MG TAB PO SCH (16:27)
[2022-02-13 21:08] LABS: Appearance,BF Clear
[2022-02-14 07:04] LABS: Amylase, Fluid Source Ascites; Amylase,Body Fluid 24 U/L; Glucose, BF Source Ascites; Glucose, Body Fluid 147 mg/dL; LDH, Body Fluid Source Ascites; T. Protein, Body Fluid Source Ascites; Total Protein, Body Fluid 1170 mg/dL
[2022-02-14] MEDS: ALBUTEROL NEBULIZED 2.5 MG/3 ML INHALATION SCH ×4 (08:13→21:23)
[2022-02-14] MEDS: FUROSEMIDE 40 MG TAB PO SCH ×2 (09:15→16:21)
[2022-02-14] MEDS: SPIRONOLACTONE 25 MG TAB PO SCH (09:15)
[2022-02-14] MEDS: PANTOPRAZOLE 40 MG TABLET PO SCH (09:15)
[2022-02-14] MEDS: predniSONE 10 MG TAB PO SCH (09:16)
[2022-02-14] MEDS: THIAMINE 100 MG TAB PO SCH ×2 (09:16→16:21)
[2022-02-14] MEDS: FERROUS SULFATE 325 MG TAB PO SCH ×2 (09:16→16:21)
[2022-02-14] MEDS: ACETAMINOPHEN TAB 325 MG TAB PO PRN ×2 (09:24→16:22)
--- NOTE | 2022-02-14 09:32 | P.PN ---
Subjective Progress Note Date: 02/13/22 This is a 66-year-old female presents to the hospital with concern for acute alcohol withdrawal, patient also had a fall at home 5 days ago states she fell down 14 steps and has significant bruising on her side and legs. On admission alcohol level <10, patient has not had a drink in the last 2 days. Patient follows with Dr. Luz Marina Hannon in the primary care setting, chronic medical conditions include COPD, hypertension, alcohol dependence with alcoholic liver disease, anxiety depression, current daily smoker 1 pack per day also reports 3- 4 drinks of alcohol per day, mixed drinks or beer she drinks more or less depending on her mood and states that it helps her get to sleep. She has cut down on drinking in the last 10-15 years. She plans for alcohol cessation and will discharged to [facility] for rehab. She also follows with Dr Medellin outpatient for umbilical hernia pending surgical repair outpatient. Labs on admission showing a white count 3.4, hemoglobin 8.5 which is dropped from 9.7 on admission, platelet count of 38, INR 1.4, sodium 135, potassium 3.2, chloride 96, CO2 34, BUN 8, creatinine 0.3, glucose 116, magnesium 1.2, AST 74, ALT 34, total bili 3.2, BNP 378, a BUN 3.3. Chest x-ray completed showing no active cardiac disease with minimal fibrotic changes. EKG showing sinus rhythm heart rate of 99, QT interval 410. Patient received 2 g IV magnesium, oral potassium, has been started on thiamine supplementation as well as Librium taper is receiving IV fluids at normal saline 75 mL per hour. Patient is tachycardic at 108, blood pressure 123/76, 92% on room air. Patient is admitted to the hospital for alcohol withdrawal monitoring and evaluation regarding increased peripheral edema and ascites. Repeat labs are pending. 02/05/2022 Patient evaluated today resting in bed, she has been unable to ambulate due to significant weakness. She does report decrease pain to her right lower extremity. She continues with peripheral edema and has been started on IV lasix as well as oral aldactone. She is slightly lethargic today as well and her speech pattern is slow. She states the librium made her hallucinate last night and will discontinue this. We will also check an ammonia level today. Labs today show white count 4.0, hemoglobin 7.2, platelet count 42, sodium 132, potassium 4.4, BUN 7.3, creatinine 0.4, magnesium 1.5, total bili 1.40. Total protein 4.5, albumin 2.5. She is afebrile, heart rate 90, blood pressure on the lower side at 94/60 she is 96% nasal cannula. She does have significant expiratory wheezing today which we will order DuoNeb's. B12 folate and iron studies are pending. 02/06/2022 Patient evaluated today resting in bed, still reports weakness and unable to ambulate. PT has evaluated patient and she will require sub acute rehab on di scharge. Wheezing has improved, continues on 2L Nasal cannula and duonebs as needed. Denies need for nicotine patch. No signs for acute alcohol withdrawal. Librium has been discontinued. Ammonia level 22. hgb today 7.7, platelets 47, sodium 133, potassium 4.3, BUN 7.5, creat 0.4, calcium 7.7. She will continue on IV lasix, mild improvement in lower extremity peripheral edema however still 2+. Iron studies showing total iron 17, %saturation 5.13. TIBC 333. B12 and folate are within normal limits. Heart rate is elevated today at 114, EKG pending. 02/07/2022 Patient continues to report generalized pain secondary to fall. She does have bruising on her left hip as well. She continues with bilateral peripheral edema and continues on IV lasix. Continue with strict intake and output documentation. REMY wrap to bilateral lower extremities as well. Labs today showing stable hemoglobin 7.5, platelets 58. Sodium today is 135, potassium 4.3, calcium 7.8, magnesium 1.4. She will receive 3 grams of magnesium today. Procalcitonin 0.18. Patient continues with expiratory wheeze. Will continue duonebs and add a short course of oral steroids. She is also tachycardic with heart rate in the low 100s to 110s. EKG completed showing sinus tachycardia will continue with telemetry monitoring. She is afebrile, blood pressure 110/72, 92% on 2L nasal cannula. 02/08/2022 Patient evaluated today she is up ambulating in the hallway with physical therapy. Unable to find a sub acute rehab on discharge. Lung sounds have improved this afternoon after breathing treatments, she is now on room air. Labs today showing sodium 136, potassium 3.4, magnesium level pending. She had some green sputum last night and azithromycin for 3 days has been added and IV solumedrol. Covid is negative. Suspect anemia mostly from myelosuppresion probably some underlying iron deficiency and we will also give patient some fe rrlecit. Continue IV lasix overnight, and can transition to oral lasix tomorrow. She is afebrile, heart rate 107, blood pressure 116/65, 92% room air. Possible DC tomorrow. 02/09/2022 Patient is resting in bed today, she has been up ambulating with physical therapy and feels stronger. Pain has improved somewhat, she reports generalized pain. She continues with Remy wrap to lower extremities. She did lose IV access overnight. Midline was placed today. She continues on IV lasix Q12, and can possibly transition to oral lasix tomorrow. She has been started on IV solumedrol and 3 doses of oral azithromycin for possible COPD exacerbation, her wheezing has significant improved. We will arrange for nebulizer on discharge. One more dose of IV ferrlecit tomorrow and will be transitioned to oral ferrous sulfate on discharge. No chest pain, no shortness of breath. Bowels are moving. Vitals today showing temp 97.8, heart rate 106, blood pressure 113/72, 93% room air. Labs reviewed today showing white count 2.35, hgb 7.0, platelet count 71. 02/10/2022, resume the care of the patient today This is a pleasant 66 years old female who presents because she fell at home from stairs, she is alcohol drinker and this fall was awake, call for her as she describes and she decided to quit drinking and came to emergency room. She is fully awake and oriented, standing and walking in the room, however she is generally weak and she has distended abdomen Physical therapy recommended treatment However most subacute rehab the don't take her insurance, and sent patient wants to go home with home care, discussed with director social welfare. She remains on Zithromax for possible infection, she has significant bilateral leg swelling on IV Lasix 40 mg twice daily however there is no evidence of pulmonary edema. 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 kruger. She is currently on Solu-Medrol 40 mg twice daily, she still has some limitation of air entry. She was taken IV iron which is stopped and switched to oral iron from tomorrow. WBC is 4.4 and hemoglobin 8.9 and platelet 104, all numbers shown improvement but looks concentrated sample as she is on IV Lasix. Liver enzymes mildly elevated We will check liver ultrasound and leg ultrasound She has evidence of an deficiency anemia and she never had colonoscopy so surgery team were consulted who recommended occult blood in his stool Vitamin B12 is 724 and folate 17.5. And TSH normal. proCalcitonin not elevated to 0.18 and 0.14 02/11/2022 Patient with mild exertional dyspnea but she has significant abdominal distention and bilateral leg swelling, she drinks a lot of fluid, patient was counseled extensively about fluid restriction and she agrees. Patient was placed on fluid restriction 1200 mL per day. Patient abdominal ultrasound showing ascites, we will consult IR team for paracentesis Increase her Lasix 40 mg 3 times a day, she is already on Aldactone 50 mg His breathing is improving, but her air entry with no wheezing and we switched her some adrenaline to prednisone 30 mg Patient walking in the room more freely. Monitor labs in the morning 02/12/2022 Patient dyspnea is improving, especially patient might not go to rehab because of her insurance issue, patient might be willing to go home with home care therefore she needs better diuresis. Also we consulted IR team for paracentesis for her significant abdominal distention. Patient is poor in compliance and outpatient follow-up with her doctors. Her vitals and labs are stable, she has mild myelosuppression secondary to her affect off alcohol. She remains on IV Lasix 40 mg every 8 hours. Also she is on prednisone 40 mg. 02/13/2022 Patient evaluated today sitting up at the bedside. She has been continued on IV lasix and we will transition to oral lasix today. She under paracentesis today with 2.3 Liters of fluid removed for abdominal ascites. Culture and cytology completed as baseline as this is first time patient has had a paracentesis. She is seeing general surgery and plan is for EGD/Colonoscopy on . Labs today showing hemoglobin stable at 9.0, platelet count 126, sodium 139, p otassium 4.6, magnesium 1.8. Liver enzymes are elevated, stable. She is afebrile. blood pressure 135/75, 94% room air. Review of Systems Constitutional: Reports fatigue. denied any fever. Cardio vascular: denied any chest pain, palpitations Gastrointestinal: denied any nausea, vomiting, diarrhea Pulmonary: Denied any shortness of breath. Reports cough, improved wheze Neurologic denied any new focal deficits All inpatient medications were reviewed and appropriate changes in these medications as dictated in the interval history and assessment and plan. PHYSICAL EXAMINATION: GENERAL: The patient is alert and oriented x3, not in any acute distress. Well developed, well nourished. HEENT: Pupils are round and equally reacting to light. EOMI. No scleral icterus. No conjunctival pallor. Normocephalic, atraumatic. No pharyngeal erythema. No thyromegaly. CARDIOVASCULAR: S1 and S2 present. No murmurs, rubs, or gallops. PULMONARY: Lungs are clear, she does have a congested cough. ABDOMEN: Soft, nontender, distended, normoactive bowel sounds. No palpable organomegaly. Abdominal umbilical hernia present. MUSCULOSKELETAL: No joint swelling or deformity. EXTREMITIES: No cyanosis, clubbing. +2 lower extremity and pedal edema. +2 dorsalis pedis pulse bilateral NEUROLOGICAL: Gross neurological examination did not reveal any focal deficits. SKIN: Significant bruising to right hip/groin/upper thigh. There is also skin tear to right kelly. bruising noted to left hip as well. Assessment and plan Assessment Chronic alcohol abuse Acute on chronic alcoholic hepatitis Anemia most likely chronic from myelosupression with underlying iron deficiency Rule out GI bleed Thrombocytopenia secondary to chronic liver disease Supratherapeutic INR at 1.4 Tachycardia suspect from acute alcohol withdrawal Hyponatremia from poor oral intake, resolved Hypokalemia metabolic alkalosis Hypomagnesemia History of COPD, mild acute exacerbation Hypertension currently normotensive Chronic nicotine dependence GI Prophylaxis: Protonix DVT Prophylaxis deferred due to low platelet count Full Code Plan EGD/Colonoscopy on Monitor for acute alcohol withdrawal Transition to oral lasix, continue oral aldactone. Daily weight Continue with ferrous sulfate Continue oral steroid taper Continue lactulose Continue to encourage incentive spirometery Continue to work with PT/OT The impression and plan of care has been dictated by Anay Alford, Nurse Practitioner as directed. Dr. Shelby MD I have performed a history and physical examination and medical decision making of this patient, discussed the same with the dictator, and agree with the dictators assessment and plan as written, documented as a scribe. Based on total visit time, I have performed more than 50% of this visit. Objective - Vital Signs Vital signs: Vital Signs Temp 97.7 F 02/14/22 05:00 Pulse 98 02/14/22 08:23 Resp 18 02/14/22 05:00 BP 122/72 02/14/22 05:00 Pulse Ox 97 02/14/22 05:00 FiO2 21 02/08/22 19:51 Intake & Output 02/13/22 02/14/22 02/14/22 18:59 06:59 18:59 Intake Total 100 0 Output Total 2310 Balance -2210 0 Intake: Intake, IV Titration 100 0 Amount Albumin Human 25% 50 ml 100 0 In Empty Bag 1 bag @ 50 mls/hr IVPB Q1H [facility] Rx#: [id number] Output: Other 2310 Other: Voiding Method Bedside Commode Bedside Commode # Voids 6 # Bowel Movements 1 - Labs CBC & Chem 7: 02/13/22 05:32 02/13/22 05:32 Labs: Abnormal Lab Results - Last 24 Hours (Table) 02/13/22 02/13/22 Range/Units 05:32 05:32 RBC 3.39 L (3.80-5.40) m/uL Hgb 9.0 L (11.4-16.0) gm/dL Hct 31.4 L (34.0-46.0) % MCHC 28.6 L (31.0-37.0) g/dL RDW 24.6 H (11.5-15.5) % Plt Count 126 L (150-450) k/uL Chloride 93 L (96-109) mmol/L Carbon Dioxide 37.8 H (20.0-27.5) mmol/L Anion Gap 8.40 L (10.00-18.00) mmol/L Creatinine 0.5 L (0.6-1.5) mg/dL BUN/Creatinine Ratio 37.34 H (12.00-20.00) Ratio Calcium 8.6 L (8.7-10.3) mg/dL Conjugated Bilirubin 0.51 H (0.20-0.40) mg/dL AST 61 H (13-35) U/L ALT 92 H (8-44) U/L Total Protein 5.7 L (6.2-8.2) g/dL Albumin 3.4 L (3.8-4.9) g/dL Albumin/Globulin Ratio 1.50 L (1.60-3.17) g/dL Microbiology - Last 24 Hours (Table) 02/13/22 11:24 Gram Stain - Preliminary Aspirate Body Fluid Culture - Preliminary 02/13/22 11:24 Fungal Culture - Preliminary Ascites Fluid 02/13/22 11:24 Acid Fast Bacilli Culture - Preliminary Peritoneal Fluid Assessment and Plan Time with Patient: Less than 30
[2022-02-14 10:47] LABS: African American GFR (CKD) 127.6 (60.0-200.0); Anion Gap 11.5 mmol/L (10.00-18.00); BUN/Creat Ratio 57.75 Ratio (12.00-20.00); Blood Urea Nitrogen 23.1 mg/dL (9.0-27.0); Calcium 8.7 mg/dL (8.7-10.3); Carbon Dioxide 31.5 mmol/L (20.0-27.5); Magnesium 1.6 mg/dL (1.5-2.4); Non-African American GFR(CKD) 110.1 (60.0-200.0); Potassium 3.9 mmol/L (3.5-5.5)
[2022-02-14 11:51] LABS: Basophils # (A) 0.01 X 10*3/uL (0.00-0.10); Basophils % (A) 0.1 %; Eosinophils # (A) 0.04 X 10*3/uL (0.04-0.35); Eosinophils % (A) 0.5 %; HCT 32.6 % (37.2-46.3); Immature Grans, Automated 0.3 %; Lymphocytes % (A) 8.2 %; MCH 25.4 pg (27.0-32.0); MCHC 27.6 g/dL (32.0-37.0); MCV 91.8 fL (80.0-97.0); Mean Platelet Volume 11.7 fL (9.5-12.2); Monocytes # (A) 0.34 X 10*3/uL (0.20-1.00); Monocytes % (A) 4.7 %; NRBC Per 100 WBC 0 /100 WBCS (0.0-0.0); Neutrophils # (A) 6.27 X 10*3/uL (1.80-7.70); Neutrophils % (A) 86.2 %; Platelet Count 108 X 10*3/uL (140-440); RBC 3.55 X 10*6/uL (4.10-5.20); RDW 27.9 % (11.5-14.5); WBC 7.28 X 10*3/uL (4.50-10.00)
[2022-02-14 11:52] LABS: Hypochromasia (M) 2+
--- NOTE | 2022-02-14 12:57 | P.PN ---
Subjective Progress Note Date: 02/14/22 CHIEF COMPLAINT: Iron deficiency anemia HISTORY OF PRESENT ILLNESS: Surgical service following regards to patient's anemia. She does have a pre-existing history of anemia. Also known liver cirrhosis. Patient denies any blood in her stools or black stools. She is status post paracentesis with 2.3 L removed. Patient reports improvement in her abdominal distention. Denies any nausea or vomiting. Afebrile. WBC 7.28 Hgb 9.0 platelets 108 sodium 140 potassium 3.9 creatinine 0.4 Patient seen and examined with Dr. lynn PHYSICAL EXAM: VITAL SIGNS: Reviewed. GENERAL: Well-developed in no acute distress. HEENT: No sclera icterus. Extraocular movements grossly intact. Moist buccal mucosa. Head is atraumatic, normocephalic. ABDOMEN: Soft. Distended. Ventral hernia that is reducible. Abdominal ascites decreased NEUROLOGIC: Alert and oriented. Cranial nerves II through XII grossly intact. Extremities: Bilateral lower extremity edema ASSESSMENT: 1. Anemia with iron deficiency anemia 2. Alcoholism 3. Alcoholic liver cirrhosis 4. Reducible ventral hernia PLAN: -Patient is scheduled for EGD and colonoscopy on , 02/16/[address] lynn if medically stable -Start colon prep tomorrow -Start full liquid diet for dinner and then clear liquids tomorrow morning -No surgical intervention planned on the ventral hernia Physician Food Service Lead note has been reviewed by physician. Signing provider agrees with the documented findings, assessment, and plan of care. Objective - Vital Signs Vital signs: Vital Signs Temp 99.3 F 02/14/22 11:32 Pulse 95 02/14/22 11:44 Resp 16 02/14/22 11:32 BP 116/70 02/14/22 11:32 Pulse Ox 97 02/14/22 11:32 FiO2 21 02/08/22 19:51 Intake & Output 02/13/22 02/14/22 02/14/22 18:59 06:59 18:59 Intake Total 100 0 Output Total 2310 Balance -2210 0 Weight 47.1 kg Intake: Intake, IV Titration 100 0 Amount Albumin Human 25% 50 ml 100 0 In Empty Bag 1 bag @ 50 mls/hr IVPB Q1H [facility] Rx#: [id number] Output: Other 2310 Other: Voiding Method Bedside Commode Bedside Commode Bedside Commode # Voids 6 2 # Bowel Movements 1 2 - Labs CBC & Chem 7: 02/14/22 06:28 02/14/22 06:28 Labs: Abnormal Lab Results - Last 24 Hours (Table) 02/14/22 02/14/22 Range/Units 06:28 06:28 RBC 3.55 L (4.10-5.20) X 10*6/uL Hgb 9.0 L (12.0-15.0) g/dL Hct 32.6 L (37.2-46.3) % MCH 25.4 L (27.0-32.0) pg MCHC 27.6 L (32.0-37.0) g/dL RDW 27.9 H (11.5-14.5) % Plt Count 108 L (140-440) X 10*3/uL Plt Count Comment DECREASED A Lymphocytes # 0.60 L (0.90-5.00) X 10*3/uL Carbon Dioxide 31.5 H (20.0-27.5) mmol/L Creatinine 0.4 L (0.6-1.5) mg/dL BUN/Creatinine Ratio 57.75 H (12.00-20.00) Ratio Microbiology - Last 24 Hours (Table) 02/13/22 11:24 Gram Stain - Preliminary Aspirate Body Fluid Culture - Preliminary 02/13/22 11:24 Fungal Culture - Preliminary Ascites Fluid 02/13/22 11:24 Acid Fast Bacilli Culture - Preliminary Peritoneal Fluid
--- NOTE | 2022-02-14 13:29 | CA ---
Transthoracic Echo Report Name: Uma Calix Age: 66 Gender: F : 1955 Exam Date: 02/14/2022 07:45 Exam Location: [facility] Ht (in): 60 Wt (lb): 124 Ordering Physician: Anay Alford Attending/Referring Phys: Prashanth LIAO Protection Officer Justine Hagan, MARVIN Procedure CPT: Indications: surgical clearance Cardiac Hx: Technical Quality: Fair Contrast 1: Total Dose (mL): Contrast 2: Total Dose (mL): MEASUREMENTS (Male / Female) Normal Values FINDINGS Left Ventricle Normal left ventricular size, wall thickness, systolic function with no obvious regional wall motion abnormalities. Left ventricular ejection fraction is estimated at 55%. Right Ventricle The right ventricle is normal in size and function. Right Atrium The right atrium is normal in size. Left Atrium The left atrium is normal in size. Mitral Valve Structurally normal mitral valve without significant stenosis or prolapse. There is mild mitral regurgitation. Aortic Valve Structurally normal aortic valve without significant sclerosis or stenosis. There is no aortic regurgitation. Tricuspid Valve Structurally normal tricuspid valve without significant stenosis. Pulmonary artery systolic pressure is normal. Pulmonic Valve Structurally normal pulmonic valve without significant stenosis. There is no pulmonic regurgitation. Pericardium Normal pericardium without effusion. Aorta Normal aortic root dimension. CONCLUSIONS Normal left ventricular ejection fraction 55% Mild mitral regurgitation Normal RVSP No pericardial effusion Previewed by: Dr. Kelton Carey DO (Electronically Signed) Final Date: 14 February 2022 13:29
--- NOTE | 2022-02-14 13:34 | P.PN ---
Subjective Progress Note Date: 02/14/22 This is a 66-year-old female presents to the hospital with concern for acute alcohol withdrawal, patient also had a fall at home 5 days ago states she fell down 14 steps and has significant bruising on her side and legs. On admission alcohol level <10, patient has not had a drink in the last 2 days. Patient follows with Dr. Luz Marina Hannon in the primary care setting, chronic medical conditions include COPD, hypertension, alcohol dependence with alcoholic liver disease, anxiety depression, current daily smoker 1 pack per day also reports 3- 4 drinks of alcohol per day, mixed drinks or beer she drinks more or less depending on her mood and states that it helps her get to sleep. She has cut down on drinking in the last 10-15 years. She plans for alcohol cessation and will discharged to [facility] for rehab. She also follows with Dr Medellin outpatient for umbilical hernia pending surgical repair outpatient. Labs on admission showing a white count 3.4, hemoglobin 8.5 which is dropped from 9.7 on admission, platelet count of 38, INR 1.4, sodium 135, potassium 3.2, chloride 96, CO2 34, BUN 8, creatinine 0.3, glucose 116, magnesium 1.2, AST 74, ALT 34, total bili 3.2, BNP 378, a BUN 3.3. Chest x-ray completed showing no active cardiac disease with minimal fibrotic changes. EKG showing sinus rhythm heart rate of 99, QT interval 410. Patient received 2 g IV magnesium, oral potassium, has been started on thiamine supplementation as well as Librium taper is receiving IV fluids at normal saline 75 mL per hour. Patient is tachycardic at 108, blood pressure 123/76, 92% on room air. Patient is admitted to the hospital for alcohol withdrawal monitoring and evaluation regarding increased peripheral edema and ascites. Repeat labs are pending. 02/05/2022 Patient evaluated today resting in bed, she has been unable to ambulate due to significant weakness. She does report decrease pain to her right lower extremity. She continues with peripheral edema and has been started on IV lasix as well as oral aldactone. She is slightly lethargic today as well and her speech pattern is slow. She states the librium made her hallucinate last night and will discontinue this. We will also check an ammonia level today. Labs today show white count 4.0, hemoglobin 7.2, platelet count 42, sodium 132, potassium 4.4, BUN 7.3, creatinine 0.4, magnesium 1.5, total bili 1.40. Total protein 4.5, albumin 2.5. She is afebrile, heart rate 90, blood pressure on the lower side at 94/60 she is 96% nasal cannula. She does have significant expiratory wheezing today which we will order DuoNeb's. B12 folate and iron studies are pending. 02/06/2022 Patient evaluated today resting in bed, still reports weakness and unable to ambulate. PT has evaluated patient and she will require sub acute rehab on di scharge. Wheezing has improved, continues on 2L Nasal cannula and duonebs as needed. Denies need for nicotine patch. No signs for acute alcohol withdrawal. Librium has been discontinued. Ammonia level 22. hgb today 7.7, platelets 47, sodium 133, potassium 4.3, BUN 7.5, creat 0.4, calcium 7.7. She will continue on IV lasix, mild improvement in lower extremity peripheral edema however still 2+. Iron studies showing total iron 17, %saturation 5.13. TIBC 333. B12 and folate are within normal limits. Heart rate is elevated today at 114, EKG pending. 02/07/2022 Patient continues to report generalized pain secondary to fall. She does have bruising on her left hip as well. She continues with bilateral peripheral edema and continues on IV lasix. Continue with strict intake and output documentation. REMY wrap to bilateral lower extremities as well. Labs today showing stable hemoglobin 7.5, platelets 58. Sodium today is 135, potassium 4.3, calcium 7.8, magnesium 1.4. She will receive 3 grams of magnesium today. Procalcitonin 0.18. Patient continues with expiratory wheeze. Will continue duonebs and add a short course of oral steroids. She is also tachycardic with heart rate in the low 100s to 110s. EKG completed showing sinus tachycardia will continue with telemetry monitoring. She is afebrile, blood pressure 110/72, 92% on 2L nasal cannula. 02/08/2022 Patient evaluated today she is up ambulating in the hallway with physical therapy. Unable to find a sub acute rehab on discharge. Lung sounds have improved this afternoon after breathing treatments, she is now on room air. Labs today showing sodium 136, potassium 3.4, magnesium level pending. She had some green sputum last night and azithromycin for 3 days has been added and IV solumedrol. Covid is negative. Suspect anemia mostly from myelosuppresion probably some underlying iron deficiency and we will also give patient some fe rrlecit. Continue IV lasix overnight, and can transition to oral lasix tomorrow. She is afebrile, heart rate 107, blood pressure 116/65, 92% room air. Possible DC tomorrow. 02/09/2022 Patient is resting in bed today, she has been up ambulating with physical therapy and feels stronger. Pain has improved somewhat, she reports generalized pain. She continues with Remy wrap to lower extremities. She did lose IV access overnight. Midline was placed today. She continues on IV lasix Q12, and can possibly transition to oral lasix tomorrow. She has been started on IV solumedrol and 3 doses of oral azithromycin for possible COPD exacerbation, her wheezing has significant improved. We will arrange for nebulizer on discharge. One more dose of IV ferrlecit tomorrow and will be transitioned to oral ferrous sulfate on discharge. No chest pain, no shortness of breath. Bowels are moving. Vitals today showing temp 97.8, heart rate 106, blood pressure 113/72, 93% room air. Labs reviewed today showing white count 2.35, hgb 7.0, platelet count 71. 02/10/2022, resume the care of the patient today This is a pleasant 66 years old female who presents because she fell at home from stairs, she is alcohol drinker and this fall was awake, call for her as she describes and she decided to quit drinking and came to emergency room. She is fully awake and oriented, standing and walking in the room, however she is generally weak and she has distended abdomen Physical therapy recommended treatment However most subacute rehab the don't take her insurance, and sent patient wants to go home with home care, discussed with protective services social worker. She remains on Zithromax for possible infection, she has significant bilateral leg swelling on IV Lasix 40 mg twice daily however there is no evidence of pulmonary edema. She has history of COPD and she is not compliant with her pitch flaker for her PCP Dr. kruger. She is currently on Solu-Medrol 40 mg twice daily, she still has some limitation of air entry. She was taken IV iron which is stopped and switched to oral iron from tomorrow. WBC is 4.4 and hemoglobin 8.9 and platelet 104, all numbers shown improvement but looks concentrated sample as she is on IV Lasix. Liver enzymes mildly elevated We will check liver ultrasound and leg ultrasound She has evidence of an deficiency anemia and she never had colonoscopy so surgery team were consulted who recommended occult blood in his stool Vitamin B12 is 724 and folate 17.5. And TSH normal. proCalcitonin not elevated to 0.18 and 0.14 02/11/2022 Patient with mild exertional dyspnea but she has significant abdominal distention and bilateral leg swelling, she drinks a lot of fluid, patient was counseled extensively about fluid restriction and she agrees. Patient was placed on fluid restriction 1200 mL per day. Patient abdominal ultrasound showing ascites, we will consult IR team for paracentesis Increase her Lasix 40 mg 3 times a day, she is already on Aldactone 50 mg His breathing is improving, but her air entry with no wheezing and we switched her some adrenaline to prednisone 30 mg Patient walking in the room more freely. Monitor labs in the morning 02/12/2022 Patient dyspnea is improving, especially patient might not go to rehab because of her insurance issue, patient might be willing to go home with home care therefore she needs better diuresis. Also we consulted IR team for paracentesis for her significant abdominal distention. Patient is poor in compliance and outpatient follow-up with her doctors. Her vitals and labs are stable, she has mild myelosuppression secondary to her affect off alcohol. She remains on IV Lasix 40 mg every 8 hours. Also she is on prednisone 40 mg. 02/13/2022 Patient evaluated today sitting up at the bedside. She has been continued on IV lasix and we will transition to oral lasix today. She under paracentesis today with 2.3 Liters of fluid removed for abdominal ascites. Culture and cytology completed as baseline as this is first time patient has had a paracentesis. She is seeing general surgery and plan is for EGD/Colonoscopy on . Labs today showing hemoglobin stable at 9.0, platelet count 126, sodium 139, p otassium 4.6, magnesium 1.8. Liver enzymes are elevated, stable. She is afebrile. blood pressure 135/75, 94% room air. 02/14/2022 Patient is status post paracentesis. Blood pressure 122/72, pulse oximetry 97%. She reports breathing better today, no shortness of breath. Surgery is following with plans for EGD/Colonoscopy to rule out GI bleed. Hemoglobin is stable today at 9.0, platelet count 108. Magnesium today 1.6 will give 2 grams IV today add daily oral magnesium. Echocardiogram has been completed with normal EF 55%, mild mitral regurg. She does have right lower extremity erythema and tenderness. There is also a scab to the right kelly that is not draining, scabbed over. This is a change overnight, and patient was started on cefazolin IV. Review of Systems Constitutional: Reports fatigue. denied any fever. Cardio vascular: denied any chest pain, palpitations Gastrointestinal: denied any nausea, vomiting, diarrhea Pulmonary: Denied any shortness of breath. Denies cough. Neurologic denied any new focal deficits All inpatient medications were reviewed and appropriate changes in these medications as dictated in the interval history and assessment and plan. PHYSICAL EXAMINATION: GENERAL: The patient is alert and oriented x3, not in any acute distress. Well developed, well nourished. HEENT: Pupils are round and equally reacting to light. EOMI. No scleral icterus. No conjunctival pallor. Normocephalic, atraumatic. No pharyngeal erythema. No thyromegaly. CARDIOVASCULAR: S1 and S2 present. No murmurs, rubs, or gallops. PULMONARY: Lungs are clear, she does have a congested cough. ABDOMEN: Soft, nontender, distended, normoactive bowel sounds. No palpable org anomegaly. Abdominal umbilical hernia present. MUSCULOSKELETAL: No joint swelling or deformity. EXTREMITIES: No cyanosis, clubbing. +2 lower extremity and pedal edema. +2 dorsalis pedis pulse bilateral NEUROLOGICAL: Gross neurological examination did not reveal any focal deficits. SKIN: Significant bruising to right hip/groin/upper thigh. bruising noted to left hip as well. There is also skin tear to right kelly, which is now scabbed over. The right lower extremity is red and warm to touch. Assessment and plan Assessment Chronic alcohol abuse Acute on chronic alcoholic hepatitis Anemia most likely chronic from myelosupression with underlying iron deficiency Rule out GI bleed Right lower extremity cellulitis with skin tear that is scabbed over Thrombocytopenia secondary to chronic liver disease Supratherapeutic INR at 1.4 Tachycardia suspect from acute alcohol withdrawal resolved Hyponatremia from poor oral intake, resolved Hypokalemia resolved metabolic alkalosis, resolved Hypomagnesemia History of COPD, mild acute exacerbation, improved Hypertension currently normotensive Chronic nicotine dependence GI Prophylaxis: Protonix DVT Prophylaxis deferred due to low platelet count Full Code Plan EGD/Colonoscopy on Patient has been started on IV cefazolin for right lower extremity cellulitis Monitor for acute alcohol withdrawal Transition to oral lasix, continue oral aldactone. Daily weight Continue with ferrous sulfate Continue oral steroid taper Continue lactulose Continue to encourage incentive spirometery Continue to work with PT/OT Discharge most likely if EGD/Colonoscopy reveals no active GI Bleed. The impression and plan of care has been dictated by Anay Alford, Nurse Practitioner as directed. Dr. Shelby MD I have performed a history and physical examination and medical decision making of this patient, discussed the same with the dictator, and agree with the dictators assessment and plan as written, documented as a scribe. Based on total visit time, I have performed more than 50% of this visit. Objective - Vital Signs Vital signs: Vital Signs Temp 97.7 F 02/14/22 05:00 Pulse 98 02/14/22 08:23 Resp 18 02/14/22 05:00 BP 122/72 02/14/22 05:00 Pulse Ox 97 02/14/22 05:00 FiO2 21 02/08/22 19:51 Intake & Output 02/13/22 02/14/22 02/14/22 18:59 06:59 18:59 Intake Total 100 0 Output Total 2310 Balance -2210 0 Intake: Intake, IV Titration 100 0 Amount Albumin Human 25% 50 ml 100 0 In Empty Bag 1 bag @ 50 mls/hr IVPB Q1H [facility] Rx#: [id number] Output: Other 2310 Other: Voiding Method Bedside Commode Bedside Commode # Voids 6 # Bowel Movements 1 - Labs CBC & Chem 7: 02/14/22 06:28 02/14/22 06:28 Labs: Abnormal Lab Results - Last 24 Hours (Table) 02/13/22 02/13/22 Range/Units 05:32 05:32 RBC 3.39 L (3.80-5.40) m/uL Hgb 9.0 L (11.4-16.0) gm/dL Hct 31.4 L (34.0-46.0) % MCHC 28.6 L (31.0-37.0) g/dL RDW 24.6 H (11.5-15.5) % Plt Count 126 L (150-450) k/uL Chloride 93 L (96-109) mmol/L Carbon Dioxide 37.8 H (20.0-27.5) mmol/L Anion Gap 8.40 L (10.00-18.00) mmol/L Creatinine 0.5 L (0.6-1.5) mg/dL BUN/Creatinine Ratio 37.34 H (12.00-20.00) Ratio Calcium 8.6 L (8.7-10.3) mg/dL Conjugated Bilirubin 0.51 H (0.20-0.40) mg/dL AST 61 H (13-35) U/L ALT 92 H (8-44) U/L Total Protein 5.7 L (6.2-8.2) g/dL Albumin 3.4 L (3.8-4.9) g/dL Albumin/Globulin Ratio 1.50 L (1.60-3.17) g/dL Microbiology - Last 24 Hours (Table) 02/13/22 11:24 Gram Stain - Preliminary Aspirate Body Fluid Culture - Preliminary 02/13/22 11:24 Fungal Culture - Preliminary Ascites Fluid 02/13/22 11:24 Acid Fast Bacilli Culture - Preliminary Peritoneal Fluid Assessment and Plan Time with Patient: Less than 30
[2022-02-14] MEDS: MAGNESIUM SULFATE-D5W PMX 1 GM in DEXTROSE/WATER 1 100ML.BAG IVPB SCH ×2 (13:49→15:25)
[2022-02-14] MEDS: MAGNESIUM OXIDE 400 MG TAB PO SCH (20:07)
[2022-02-15] MEDS: ALBUTEROL NEBULIZED 2.5 MG/3 ML INHALATION SCH ×4 (07:13→19:08)
[2022-02-15] MEDS: predniSONE 20 MG TAB PO SCH (07:35)
[2022-02-15] MEDS: SPIRONOLACTONE 25 MG TAB PO SCH (07:35)
[2022-02-15] MEDS: MAGNESIUM OXIDE 400 MG TAB PO SCH ×3 (07:35→21:18)
[2022-02-15] MEDS: PANTOPRAZOLE 40 MG TABLET PO SCH (07:35)
[2022-02-15] MEDS: FUROSEMIDE 40 MG TAB PO SCH ×2 (07:35→16:05)
[2022-02-15] MEDS: THIAMINE 100 MG TAB PO SCH ×2 (07:35→16:05)
[2022-02-15] MEDS: FERROUS SULFATE 325 MG TAB PO SCH ×2 (07:35→16:04)
[2022-02-15] MEDS ORDERED: Magnesium Replacement Protocol 1 EACH MISC MISCELLANE PRN (08:51)
[2022-02-15] MEDS ORDERED: PEG 3350 (236 GM/BTL) + LYTES 4,000 ML BOTTLE PO ONE (09:00)
[2022-02-15 09:47] LABS: African American GFR (CKD) 140.2 (60.0-200.0); Anion Gap 10.1 mmol/L (10.00-18.00); Blood Urea Nitrogen 10.5 mg/dL (9.0-27.0); Calcium 7.7 mg/dL (8.7-10.3); Carbon Dioxide 29.9 mmol/L (20.0-27.5); Potassium 3.2 mmol/L (3.5-5.5)
[2022-02-15 10:22] LABS: Basophils # (A) 0.01 X 10*3/uL (0.00-0.10); Basophils % (A) 0.1 %; Eosinophils # (A) 0.09 X 10*3/uL (0.04-0.35); Eosinophils % (A) 1.3 %; HCT 28.7 % (37.2-46.3); HGB 8.1 g/dL (12.0-15.0); Hypochromasia (M) 2+; Immature Grans, Automated 0.4 %; Immature Platelet Fraction 8.5 % (1.1-6.1); Lymphocytes # (A) 0.75 X 10*3/uL (0.90-5.00); MCH 25.7 pg (27.0-32.0); MCHC 28.2 g/dL (32.0-37.0); MCV 91.1 fL (80.0-97.0); Monocytes # (A) 0.41 X 10*3/uL (0.20-1.00); NRBC Per 100 WBC 0 /100 WBCS (0.0-0.0); Neutrophils # (A) 5.52 X 10*3/uL (1.80-7.70); Neutrophils % (A) 81.2 %; Platelet Count 77 X 10*3/uL (140-440); RBC 3.15 X 10*6/uL (4.10-5.20); RDW 27.6 % (11.5-14.5); WBC 6.81 X 10*3/uL (4.50-10.00)
[2022-02-15] MEDS: ACETAMINOPHEN TAB 325 MG TAB PO PRN ×2 (11:58→21:18)
[2022-02-15] MEDS ORDERED: POTASSIUM CHLORIDE ER 20 MEQ TAB.ER PO STA ×2 (12:44→14:10)
--- NOTE | 2022-02-15 12:46 | P.PN ---
Subjective Progress Note Date: 02/15/22 CHIEF COMPLAINT: Iron deficiency anemia HISTORY OF PRESENT ILLNESS: Surgical service following regards to patient's anemia. She does have a pre-existing history of anemia. Also known liver cirrhosis. Patient denies any blood in her stools or black stools. She is status post paracentesis with 2.3 L removed. Patient reports improvement in her abdominal distention. Denies any nausea or vomiting. Afebrile. WBC 6.81 Hgb down from 9-8.1 platelets 77 sodium 136 potassium 3.2 creatinine 0.3. Patient has been cleared by medicine service to proceed with endoscopies. Patient seen and examined with Dr. lynn PHYSICAL EXAM: VITAL SIGNS: Reviewed. GENERAL: Well-developed in no acute distress. HEENT: No sclera icterus. Extraocular movements grossly intact. Moist buccal mucosa. Head is atraumatic, normocephalic. ABDOMEN: Soft. Distended. Ventral hernia that is reducible. Abdominal asci charanjit decreased NEUROLOGIC: Alert and oriented. Cranial nerves II through XII grossly intact. Extremities: Bilateral lower extremity edema ASSESSMENT: 1. Anemia with iron deficiency anemia 2. Alcoholism 3. Alcoholic liver cirrhosis 4. Reducible ventral hernia 5. Hypokalemia PLAN: -Patient is scheduled for EGD and colonoscopy on , 02/16/[address] lynn -Start GoLYTELY prep today -Clear liquid diet today -Nothing by mouth after midnight -No surgical intervention planned on the ventral hernia Physician [employer] note has been reviewed by physician. Signing provider agrees with the documented findings, assessment, and plan of care. Objective - Vital Signs Vital signs: Vital Signs Temp 98.2 F 02/15/22 04:33 Pulse 102 H 02/15/22 11:15 Resp 16 02/15/22 08:00 BP 117/66 02/15/22 04:33 Pulse Ox 97 02/15/22 07:13 FiO2 21 02/08/22 19:51 Intake & Output 02/14/22 02/15/22 02/15/22 18:59 06:59 18:59 Intake Total 920 290 Balance 920 290 Weight 47.1 kg 54 kg Intake: Intake, IV Titration 200 50 Amount Magnesium Sulfate-D5w Pmx 200 1 gm In Dextrose/Water 1 100ml.bag @ 100 mls/hr IVPB Q1H [facility] Rx#: [id number] ceFAZolin 2 gm In Sodium 50 Chloride 0.9% 50 ml @ 100 mls/hr IVPB Q8HR [facility] Rx# :[id number] Oral 240 Tube Feeding 720 Other: Voiding Method Bedside Commode Bedside Commode Bedside Commode # Voids 2 4 2 # Bowel Movements 1 3 1 - Labs CBC & Chem 7: 02/15/22 04:43 02/15/22 04:43 Labs: Abnormal Lab Results - Last 24 Hours (Table) 02/15/22 02/15/22 Range/Units 04:43 04:43 RBC 3.15 L (4.10-5.20) X 10*6/uL Hgb 8.1 L (12.0-15.0) g/dL Hct 28.7 L (37.2-46.3) % MCH 25.7 L (27.0-32.0) pg MCHC 28.2 L (32.0-37.0) g/dL RDW 27.6 H (11.5-14.5) % Plt Count 77 L (140-440) X 10*3/uL Plt Count Comment DECREASED A Lymphocytes # 0.75 L (0.90-5.00) X 10*3/uL Immature Plt Fraction 8.5 H (1.1-6.1) % Potassium 3.2 L (3.5-5.5) mmol/L Carbon Dioxide 29.9 H (20.0-27.5) mmol/L Creatinine 0.3 L (0.6-1.5) mg/dL BUN/Creatinine Ratio 35.00 H (12.00-20.00) Ratio Glucose 121 H (70-110) mg/dL Calcium 7.7 L (8.7-10.3) mg/dL Microbiology - Last 24 Hours (Table) 02/13/22 11:24 Gram Stain - Preliminary Aspirate Body Fluid Culture - Preliminary 02/13/22 11:24 Acid Fast Bacilli Smear - Final Peritoneal Fluid Acid Fast Bacilli Culture - Preliminary
--- NOTE | 2022-02-15 14:12 | P.PN ---
Subjective Progress Note Date: 02/15/22 This is a 66-year-old female presents to the hospital with concern for acute alcohol withdrawal, patient also had a fall at home 5 days ago states she fell down 14 steps and has significant bruising on her side and legs. On admission alcohol level <10, patient has not had a drink in the last 2 days. Patient follows with Dr. Luz Marina Hannon in the primary care setting, chronic medical conditions include COPD, hypertension, alcohol dependence with alcoholic liver disease, anxiety depression, current daily smoker 1 pack per day also reports 3- 4 drinks of alcohol per day, mixed drinks or beer she drinks more or less depending on her mood and states that it helps her get to sleep. She has cut down on drinking in the last 10-15 years. She plans for alcohol cessation and will discharged to [facility] for rehab. She also follows with Dr Medellin outpatient for umbilical hernia pending surgical repair outpatient. Labs on admission showing a white count 3.4, hemoglobin 8.5 which is dropped from 9.7 on admission, platelet count of 38, INR 1.4, sodium 135, potassium 3.2, chloride 96, CO2 34, BUN 8, creatinine 0.3, glucose 116, magnesium 1.2, AST 74, ALT 34, total bili 3.2, BNP 378, a BUN 3.3. Chest x-ray completed showing no active cardiac disease with minimal fibrotic changes. EKG showing sinus rhythm heart rate of 99, QT interval 410. Patient received 2 g IV magnesium, oral potassium, has been started on thiamine supplementation as well as Librium taper is receiving IV fluids at normal saline 75 mL per hour. Patient is tachycardic at 108, blood pressure 123/76, 92% on room air. Patient is admitted to the hospital for alcohol withdrawal monitoring and evaluation regarding increased peripheral edema and ascites. Repeat labs are pending. 02/05/2022 Patient evaluated today resting in bed, she has been unable to ambulate due to significant weakness. She does report decrease pain to her right lower extremity. She continues with peripheral edema and has been started on IV lasix as well as oral aldactone. She is slightly lethargic today as well and her speech pattern is slow. She states the librium made her hallucinate last night and will discontinue this. We will also check an ammonia level today. Labs today show white count 4.0, hemoglobin 7.2, platelet count 42, sodium 132, potassium 4.4, BUN 7.3, creatinine 0.4, magnesium 1.5, total bili 1.40. Total protein 4.5, albumin 2.5. She is afebrile, heart rate 90, blood pressure on the lower side at 94/60 she is 96% nasal cannula. She does have significant expiratory wheezing today which we will order DuoNeb's. B12 folate and iron studies are pending. 02/06/2022 Patient evaluated today resting in bed, still reports weakness and unable to ambulate. PT has evaluated patient and she will require sub acute rehab on discharge. Wheezing has improved, continues on 2L Nasal cannula and duonebs as needed. Denies need for nicotine patch. No signs for acute alcohol withdrawal. Librium has been discontinued. Ammonia level 22. hgb today 7.7, platelets 47, sodium 133, potassium 4.3, BUN 7.5, creat 0.4, calcium 7.7. She will continue on IV lasix, mild improvement in lower extremity peripheral edema however still 2+. Iron studies showing total iron 17, %saturation 5.13. TIBC 333. B12 and folate are within normal limits. Heart rate is elevated today at 114, EKG pending. 02/07/2022 Patient continues to report generalized pain secondary to fall. She does have bruising on her left hip as well. She continues with bilateral peripheral edema and continues on IV lasix. Continue with strict intake and output documentation. REMY wrap to bilateral lower extremities as well. Labs today showing stable hemoglobin 7.5, platelets 58. Sodium today is 135, potassium 4.3, calcium 7.8, magnesium 1.4. She will receive 3 grams of magnesium today. Procalcitonin 0.18. Patient continues with expiratory wheeze. Will continue duonebs and add a short course of oral steroids. She is also tachycardic with heart rate in the low 100s to 110s. EKG completed showing sinus tachycardia will continue with telemetry monitoring. She is afebrile, blood pressure 110/72, 92% on 2L nasal cannula. 02/08/2022 Patient evaluated today she is up ambulating in the hallway with physical therapy. Unable to find a sub acute rehab on discharge. Lung sounds have improved this afternoon after breathing treatments, she is now on room air. Labs today showing sodium 136, potassium 3.4, magnesium level pending. She had some green sputum last night and azithromycin for 3 days has been added and IV solumedrol. Covid is negative. Suspect anemia mostly from myelosuppresion probably some underlying iron deficiency and we will also give patient some ferrlecit. Continue IV lasix overnight, and can transition to oral lasix tomorrow. She is afebrile, heart rate 107, blood pressure 116/65, 92% room air. Possible DC tomorrow. 02/09/2022 Patient is resting in bed today, she has been up ambulating with physical therapy and feels stronger. Pain has improved somewhat, she reports generalized pain. She continues with Remy wrap to lower extremities. She did lose IV access overnight. Midline was placed today. She continues on IV lasix Q12, and can pos sibly transition to oral lasix tomorrow. She has been started on IV solumedrol and 3 doses of oral azithromycin for possible COPD exacerbation, her wheezing has significant improved. We will arrange for nebulizer on discharge. One more dose of IV ferrlecit tomorrow and will be transitioned to oral ferrous sulfate on discharge. No chest pain, no shortness of breath. Bowels are moving. Vitals today showing temp 97.8, heart rate 106, blood pressure 113/72, 93% room air. Labs reviewed today showing white count 2.35, hgb 7.0, platelet count 71. 02/10/2022, resume the care of the patient today This is a pleasant 66 years old female who presents because she fell at home from stairs, she is alcohol drinker and this fall was awake, call for her as she describes and she decided to quit drinking and came to emergency room. She is fully awake and oriented, standing and walking in the room, however she is generally weak and she has distended abdomen Physical therapy recommended treatment However most subacute rehab the don't take her insurance, and sent patient wants to go home with home care, discussed with social worker school. She remains on Zithromax for possible infection, she has significant bilateral leg swelling on IV Lasix 40 mg twice daily however there is no evidence of pulmonary edema. 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 kruger. She is currently on Solu-Medrol 40 mg twice daily, she still has some limitation of air entry. She was taken IV iron which is stopped and switched to oral iron from tomorrow. WBC is 4.4 and hemoglobin 8.9 and platelet 104, all numbers shown improvement but looks concentrated sample as she is on IV Lasix. Liver enzymes mildly elevated We will check liver ultrasound and leg ultrasound She has evidence of an deficiency anemia and she never had colonoscopy so surgery team were consulted who recommended occult blood in his stool Vitamin B12 is 724 and folate 17.5. And TSH normal. proCalcitonin not elevated to 0.18 and 0.14 02/11/2022 Patient with mild exertional dyspnea but she has significant abdominal distention and bilateral leg swelling, she drinks a lot of fluid, patient was counseled extensively about fluid restriction and she agrees. Patient was placed on fluid restriction 1200 mL per day. Patient abdominal ultrasound showing ascites, we will consult IR team for paracentesis Increase her Lasix 40 mg 3 times a day, she is already on Aldactone 50 mg His breathing is improving, but her air entry with no wheezing and we switched her some adrenaline to prednisone 30 mg Patient walking in the room more freely. Monitor labs in the morning 02/12/2022 Patient dyspnea is improving, especially patient might not go to rehab because of her insurance issue, patient might be willing to go home with home care therefore she needs better diuresis. Also we consulted IR team for paracentesis for her significant abdominal distention. Patient is poor in compliance and outpatient follow-up with her doctors. Her vitals and labs are stable, she has mild myelosuppression secondary to her affect off alcohol. She remains on IV Lasix 40 mg every 8 hours. Also she is on prednisone 40 mg. 02/13/2022 Patient evaluated today sitting up at the bedside. She has been continued on IV lasix and we will transition to oral lasix today. She under paracentesis today with 2.3 Liters of fluid removed for abdominal ascites. Culture and cytology completed as baseline as this is first time patient has had a paracentesis. She is seeing general surgery and plan is for EGD/Colonoscopy on . Labs today showing hemoglobin stable at 9.0, platelet count 126, sodium 139, potassium 4.6, magnesium 1.8. Liver enzymes are elevated, stable. She is afebrile. blood pressure 135/75, 94% room air. 02/14/2022 Patient is status post paracentesis. Blood pressure 122/72, pulse oximetry 97%. She reports breathing better today, no shortness of breath. Surgery is following with plans for EGD/Colonoscopy to rule out GI bleed. Hemoglobin is stable today at 9.0, platelet count 108. Magnesium today 1.6 will give 2 grams IV today add daily oral magnesium. Echocardiogram has been completed with normal EF 55%, mild mitral regurg. She does have right lower extremity erythema and tenderness. There is also a scab to the right kelly that is not draining, scabbed over. This is a change overnight, and patient was started on cefazolin IV. 02/15/2022 Patient is seen and evaluated in follow-up this morning currently working with physical therapy and using a walker with standby assist. Patient reports to feeling generalized weakness although feels is improving daily. Patient continues with right lower extremity redness and is maintained on IV cefazolin. Patient does have a right kelly wound or skin tear noted that his dry with a scab and no drainage. Patient is afebrile and WBC is within normal limits at 6.81. Hemoglobin is stable at 8.1, platelets are decreased at 77. Sodium 136 with a potassium of 3.2 and current creatinine 0.3. Awaiting repeat magnesium as yesterday was 1.6 and replaced all no reports as of yet and will replace potassium per protocol. Patient was chronically taking magnesium oxide twice a day and will increase to 3 times a day and follow-up with repeat labs in the morning. Patient is currently afebrile and denies any chest pain or shortness of breath. Patient is starting the PeriphaGen prep for tentatively scheduled EGD/colonoscopy tomorrow with general surgery. Review of Systems Constitutional: Reports fatigue. denied any fever. Cardio vascular: denied any chest pain, palpitations Gastrointestinal: denied any nausea, vomiting, diarrhea Pulmonary: Denied any shortness of breath. Denies cough. Neurologic denied any new focal deficits All inpatient medications were reviewed and appropriate changes in these medications as dictated in the interval history and assessment and plan. PHYSICAL EXAMINATION: GENERAL: The patient is alert and oriented x3, not in any acute distress. Well developed, well nourished. HEENT: Pupils are round and equally reacting to light. EOMI. No scleral icterus. No conjunctival pallor. Normocephalic, atraumatic. No pharyngeal erythema. No thyromegaly. Multiple missing teeth noted CARDIOVASCULAR: S1 and S2 present. No murmurs, rubs, or gallops. PULMONARY: Lungs are clear, she does have a congested cough. ABDOMEN: Soft, nontender, distended, normoactive bowel sounds. No palpable or ganomegaly. Abdominal umbilical hernia present. MUSCULOSKELETAL: No joint swelling or deformity. EXTREMITIES: No cyanosis, clubbing. +2 lower extremity and pedal edema. +2 dorsalis pedis pulse bilateral NEUROLOGICAL: Gross neurological examination did not reveal any focal deficits. SKIN: Significant bruising to right hip/groin/upper thigh. bruising noted to left hip as well. There is also skin tear to right kelly, which is now scabbed over. The right lower extremity is red and warm to touch. Some mild improvement in erythema noted and no further drainage from skin tear on the kelly Assessment: Chronic alcohol abuse Acute on chronic alcoholic hepatitis Anemia most likely chronic from myelosupression with underlying iron deficiency Rule out GI bleed Right lower extremity cellulitis with skin tear that is scabbed over Thrombocytopenia secondary to chronic liver disease Supratherapeutic INR at 1.4 Tachycardia suspect from acute alcohol withdrawal resolved Hyponatremia from poor oral intake, resolved Hypokalemia resolved metabolic alkalosis, resolved Hypomagnesemia History of COPD, mild acute exacerbation, improved Hypertension currently normotensive Chronic nicotine dependence GI Prophylaxis: Protonix DVT Prophylaxis deferred due to low platelet count Full Code Plan: EGD/Colonoscopy on , patient is starting colonoscopy prep this morning Patient is continued on IV cefazolin for right lower extremity cellulitis Monitor for acute alcohol withdrawal Patient has been transitioned to oral lasix, continue oral aldactone. Daily weight Continue with ferrous sulfate Continue oral steroid taper Continue lactulose Continue to encourage incentive spirometery Continue to work with PT/OT ReCommend repeat labs for a.m. Discharge most likely if EGD/Colonoscopy reveals no active GI Bleed. The impression and plan of care has been dictated by Dang Mcgill, Nurse Practitioner as directed. Dr. Anastasiya MD I have performed a history and examination and MDM of this patient, discussed the same with the dictator, and agree with the dictator's assessment and plan as written ,documented as a scribe. Based on total visit time, I have performed more than 50% of the visit. Objective - Vital Signs Vital signs: Vital Signs Temp 98.2 F 02/15/22 04:33 Pulse 99 02/15/22 07:25 Resp 18 02/15/22 04:33 BP 117/66 02/15/22 04:33 Pulse Ox 97 02/15/22 07:13 FiO2 21 02/08/22 19:51 Intake & Output 02/14/22 02/15/22 02/15/22 18:59 06:59 18:59 Intake Total 920 290 Balance 920 290 Weight 47.1 kg 54 kg Intake: Intake, IV Titration 200 50 Amount Magnesium Sulfate-D5w Pmx 200 1 gm In Dextrose/Water 1 100ml.bag @ 100 mls/hr IVPB Q1H ALEX Rx#: [id number] ceFAZolin 2 gm In Sodium 50 Chloride 0.9% 50 ml @ 100 mls/hr IVPB Q8HR ALEX Rx# :[id number] Oral 240 Tube Feeding 720 Other: Voiding Method Bedside Commode Bedside Commode # Voids 2 4 1 # Bowel Movements 1 3 1 - Labs CBC & Chem 7: 02/15/22 04:43 02/15/22 04:43 Labs: Abnormal Lab Results - Last 24 Hours (Table) 02/14/22 02/14/22 Range/Units 06:28 06:28 RBC 3.55 L (4.10-5.20) X 10*6/uL Hgb 9.0 L (12.0-15.0) g/dL Hct 32.6 L (37.2-46.3) % MCH 25.4 L (27.0-32.0) pg MCHC 27.6 L (32.0-37.0) g/dL RDW 27.9 H (11.5-14.5) % Plt Count 108 L (140-440) X 10*3/uL Plt Count Comment DECREASED A Lymphocytes # 0.60 L (0.90-5.00) X 10*3/uL Carbon Dioxide 31.5 H (20.0-27.5) mmol/L Creatinine 0.4 L (0.6-1.5) mg/dL BUN/Creatinine Ratio 57.75 H (12.00-20.00) Ratio Microbiology - Last 24 Hours (Table) 02/13/22 11:24 Acid Fast Bacilli Smear - Final Peritoneal Fluid Acid Fast Bacilli Culture - Preliminary 02/13/22 11:24 Gram Stain - Preliminary Aspirate Body Fluid Culture - Preliminary
[2022-02-15] MEDS: MAGNESIUM SULFATE-D5W PMX 1 GM in DEXTROSE/WATER 1 100ML.BAG IVPB SCH ×2 (15:04→16:54)
[2022-02-16 07:38] LABS: Anisocytosis Marked; HCT 32.1 % (34.0-46.0); HGB 9.3 gm/dL (11.4-16.0); Hypochromasia Marked; MCH 27.4 pg (25.0-35.0); MCV 94.7 fL (80.0-100.0); Macrocytosis Moderate; Mean Platelet Volume 8.4; RBC 3.39 m/uL (3.80-5.40); RDW 24.3 % (11.5-15.5); WBC 5.1 k/uL (3.8-10.6)
[2022-02-16 08:02] LABS: African American GFR (CKD) >90 (>60 ml/min/1.73 sqM); Anion Gap 0 mmol/L; Blood Urea Nitrogen 6 mg/dL (7-17); Calcium 8.4 mg/dL (8.4-10.2); Carbon Dioxide 36 mmol/L (22-30); Chloride 96 mmol/L (98-107); Glucose 87 mg/dL (74-99); Magnesium 1.7 mg/dL (1.6-2.3); Non-African American GFR(CKD) >90 (>60 ml/min/1.73 sqM); Potassium 4.3 mmol/L (3.5-5.1); Sodium 132 mmol/L (137-145)
[2022-02-16] MEDS: ALBUTEROL NEBULIZED 2.5 MG/3 ML INHALATION SCH ×4 (08:03→19:12)
[2022-02-16] MEDS: PANTOPRAZOLE 40 MG TABLET PO SCH (09:14)
[2022-02-16] MEDS: FERROUS SULFATE 325 MG TAB PO SCH ×2 (09:14→16:34)
[2022-02-16] MEDS: predniSONE 20 MG TAB PO SCH (09:15)
[2022-02-16] MEDS: MAGNESIUM OXIDE 400 MG TAB PO SCH ×3 (09:15→21:18)
[2022-02-16] MEDS: SPIRONOLACTONE 25 MG TAB PO SCH (09:15)
[2022-02-16] MEDS: THIAMINE 100 MG TAB PO SCH ×2 (09:15→16:34)
[2022-02-16] MEDS: FUROSEMIDE 40 MG TAB PO SCH ×2 (09:15→16:34)
[2022-02-16 09:36] LABS: Platelet Count 79 k/uL (150-450)
[2022-02-16 10:59] LABS: Magnesium 1.6 mg/dL (1.5-2.4)
[2022-02-16] MEDS ORDERED: IV FLUID CONTINUATION 1,000 ML IV ONE ×2 (11:18)
[2022-02-16] MEDS ORDERED: PROPOFOL 10 MG/ML 20 ML VIAL IV ONE (11:21)
--- NOTE | 2022-02-16 11:36 | P.OP ---
Date of Procedure: 02/16/22 Preoperative Diagnosis: Anemia Postoperative Diagnosis: Antral gastritis Hiatal hernia Mild esophagitis Procedure(s) Performed: EGD Anesthesia: MAC Surgeon: Miles Medellin Pathology: other (Antrum, esophagus) Condition: stable Disposition: PACU Description of Procedure: Patient's placed on the endoscopy table in the lateral position. IV sedation. The gastro-/oropharynx passed in the esophagus and stomach. Scope was then placed through the pylorus. The first and second portion of the duodenum ap peared normal. Scope was then brought back the antrum was mildly inflamed. A biopsies performed. The scope was then retroflexed and the remainder of the stomach appeared normal. There was a moderate size hiatal hernia. The GE junction was at 38 cm. The distal esophagus was inflamed. A biopsies was performed. Scope was then brought back and the proximal esophagus appeared normal. Scope withdrawn for patient.
--- NOTE | 2022-02-16 15:02 | P.PN ---
Subjective Progress Note Date: 02/16/22 This is a 66-year-old female presents to the hospital with concern for acute alcohol withdrawal, patient also had a fall at home 5 days ago states she fell down 14 steps and has significant bruising on her side and legs. On admission alcohol level <10, patient has not had a drink in the last 2 days. Patient follows with Dr. Luz Marina Hannon in the primary care setting, chronic medical conditions include COPD, hypertension, alcohol dependence with alcoholic liver disease, anxiety depression, current daily smoker 1 pack per day also reports 3- 4 drinks of alcohol per day, mixed drinks or beer she drinks more or less depending on her mood and states that it helps her get to sleep. She has cut down on drinking in the last 10-15 years. She plans for alcohol cessation and will discharged to [facility] for rehab. She also follows with Dr Medellin outpatient for umbilical hernia pending surgical repair outpatient. Labs on admission showing a white count 3.4, hemoglobin 8.5 which is dropped from 9.7 on admission, platelet count of 38, INR 1.4, sodium 135, potassium 3.2, chloride 96, CO2 34, BUN 8, creatinine 0.3, glucose 116, magnesium 1.2, AST 74, ALT 34, total bili 3.2, BNP 378, a BUN 3.3. Chest x-ray completed showing no active cardiac disease with minimal fibrotic changes. EKG showing sinus rhythm heart rate of 99, QT interval 410. Patient received 2 g IV magnesium, oral potassium, has been started on thiamine supplementation as well as Librium taper is receiving IV fluids at normal saline 75 mL per hour. Patient is tachycardic at 108, blood pressure 123/76, 92% on room air. Patient is admitted to the hospital for alcohol withdrawal monitoring and evaluation regarding increased peripheral edema and ascites. Repeat labs are pending. 02/05/2022 Patient evaluated today resting in bed, she has been unable to ambulate due to significant weakness. She does report decrease pain to her right lower extremity. She continues with peripheral edema and has been started on IV lasix as well as oral aldactone. She is slightly lethargic today as well and her speech pattern is slow. She states the librium made her hallucinate last night and will discontinue this. We will also check an ammonia level today. Labs today show white count 4.0, hemoglobin 7.2, platelet count 42, sodium 132, potassium 4.4, BUN 7.3, creatinine 0.4, magnesium 1.5, total bili 1.40. Total protein 4.5, albumin 2.5. She is afebrile, heart rate 90, blood pressure on the lower side at 94/60 she is 96% nasal cannula. She does have significant expiratory wheezing today which we will order DuoNeb's. B12 folate and iron studies are pending. 02/06/2022 Patient evaluated today resting in bed, still reports weakness and unable to ambulate. PT has evaluated patient and she will require sub acute rehab on discharge. Wheezing has improved, continues on 2L Nasal cannula and duonebs as needed. Denies need for nicotine patch. No signs for acute alcohol withdrawal. Librium has been discontinued. Ammonia level 22. hgb today 7.7, platelets 47, sodium 133, potassium 4.3, BUN 7.5, creat 0.4, calcium 7.7. She will continue on IV lasix, mild improvement in lower extremity peripheral edema however still 2+. Iron studies showing total iron 17, %saturation 5.13. TIBC 333. B12 and folate are within normal limits. Heart rate is elevated today at 114, EKG pending. 02/07/2022 Patient continues to report generalized pain secondary to fall. She does have bruising on her left hip as well. She continues with bilateral peripheral edema and continues on IV lasix. Continue with strict intake and output documentation. REMY wrap to bilateral lower extremities as well. Labs today showing stable hemoglobin 7.5, platelets 58. Sodium today is 135, potassium 4.3, calcium 7.8, magnesium 1.4. She will receive 3 grams of magnesium today. Procalcitonin 0.18. Patient continues with expiratory wheeze. Will continue duonebs and add a short course of oral steroids. She is also tachycardic with heart rate in the low 100s to 110s. EKG completed showing sinus tachycardia will continue with telemetry monitoring. She is afebrile, blood pressure 110/72, 92% on 2L nasal cannula. 02/08/2022 Patient evaluated today she is up ambulating in the hallway with physical therapy. Unable to find a sub acute rehab on discharge. Lung sounds have improved this afternoon after breathing treatments, she is now on room air. Labs today showing sodium 136, potassium 3.4, magnesium level pending. She had some green sputum last night and azithromycin for 3 days has been added and IV solumedrol. Covid is negative. Suspect anemia mostly from myelosuppresion probably some underlying iron deficiency and we will also give patient some ferrlecit. Continue IV lasix overnight, and can transition to oral lasix tomorrow. She is afebrile, heart rate 107, blood pressure 116/65, 92% room air. Possible DC tomorrow. 02/09/2022 Patient is resting in bed today, she has been up ambulating with physical therapy and feels stronger. Pain has improved somewhat, she reports generalized pain. She continues with Remy wrap to lower extremities. She did lose IV access overnight. Midline was placed today. She continues on IV lasix Q12, and can pos sibly transition to oral lasix tomorrow. She has been started on IV solumedrol and 3 doses of oral azithromycin for possible COPD exacerbation, her wheezing has significant improved. We will arrange for nebulizer on discharge. One more dose of IV ferrlecit tomorrow and will be transitioned to oral ferrous sulfate on discharge. No chest pain, no shortness of breath. Bowels are moving. Vitals today showing temp 97.8, heart rate 106, blood pressure 113/72, 93% room air. Labs reviewed today showing white count 2.35, hgb 7.0, platelet count 71. 02/10/2022, resume the care of the patient today This is a pleasant 66 years old female who presents because she fell at home from stairs, she is alcohol drinker and this fall was awake, call for her as she describes and she decided to quit drinking and came to emergency room. She is fully awake and oriented, standing and walking in the room, however she is generally weak and she has distended abdomen Physical therapy recommended treatment However most subacute rehab the don't take her insurance, and sent patient wants to go home with home care, discussed with social insurance specialist. She remains on Zithromax for possible infection, she has significant bilateral leg swelling on IV Lasix 40 mg twice daily however there is no evidence of pulmonary edema. 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 kruger. She is currently on Solu-Medrol 40 mg twice daily, she still has some limitation of air entry. She was taken IV iron which is stopped and switched to oral iron from tomorrow. WBC is 4.4 and hemoglobin 8.9 and platelet 104, all numbers shown improvement but looks concentrated sample as she is on IV Lasix. Liver enzymes mildly elevated We will check liver ultrasound and leg ultrasound She has evidence of an deficiency anemia and she never had colonoscopy so surgery team were consulted who recommended occult blood in his stool Vitamin B12 is 724 and folate 17.5. And TSH normal. proCalcitonin not elevated to 0.18 and 0.14 02/11/2022 Patient with mild exertional dyspnea but she has significant abdominal distention and bilateral leg swelling, she drinks a lot of fluid, patient was counseled extensively about fluid restriction and she agrees. Patient was placed on fluid restriction 1200 mL per day. Patient abdominal ultrasound showing ascites, we will consult IR team for paracentesis Increase her Lasix 40 mg 3 times a day, she is already on Aldactone 50 mg His breathing is improving, but her air entry with no wheezing and we switched her some adrenaline to prednisone 30 mg Patient walking in the room more freely. Monitor labs in the morning 02/12/2022 Patient dyspnea is improving, especially patient might not go to rehab because of her insurance issue, patient might be willing to go home with home care therefore she needs better diuresis. Also we consulted IR team for paracentesis for her significant abdominal distention. Patient is poor in compliance and outpatient follow-up with her doctors. Her vitals and labs are stable, she has mild myelosuppression secondary to her affect off alcohol. She remains on IV Lasix 40 mg every 8 hours. Also she is on prednisone 40 mg. 02/13/2022 Patient evaluated today sitting up at the bedside. She has been continued on IV lasix and we will transition to oral lasix today. She under paracentesis today with 2.3 Liters of fluid removed for abdominal ascites. Culture and cytology completed as baseline as this is first time patient has had a paracentesis. She is seeing general surgery and plan is for EGD/Colonoscopy on . Labs today showing hemoglobin stable at 9.0, platelet count 126, sodium 139, potassium 4.6, magnesium 1.8. Liver enzymes are elevated, stable. She is afebrile. blood pressure 135/75, 94% room air. 02/14/2022 Patient is status post paracentesis. Blood pressure 122/72, pulse oximetry 97%. She reports breathing better today, no shortness of breath. Surgery is following with plans for EGD/Colonoscopy to rule out GI bleed. Hemoglobin is stable today at 9.0, platelet count 108. Magnesium today 1.6 will give 2 grams IV today add daily oral magnesium. Echocardiogram has been completed with normal EF 55%, mild mitral regurg. She does have right lower extremity erythema and tenderness. There is also a scab to the right kelly that is not draining, scabbed over. This is a change overnight, and patient was started on cefazolin IV. 02/15/2022 Patient is seen and evaluated in follow-up this morning currently working with physical therapy and using a walker with standby assist. Patient reports to feeling generalized weakness although feels is improving daily. Patient continues with right lower extremity redness and is maintained on IV cefazolin. Patient does have a right kelly wound or skin tear noted that his dry with a scab and no drainage. Patient is afebrile and WBC is within normal limits at 6.81. Hemoglobin is stable at 8.1, platelets are decreased at 77. Sodium 136 with a potassium of 3.2 and current creatinine 0.3. Awaiting repeat magnesium as yesterday was 1.6 and replaced all no reports as of yet and will replace potassium per protocol. Patient was chronically taking magnesium oxide twice a day and will increase to 3 times a day and follow-up with repeat labs in the morning. Patient is currently afebrile and denies any chest pain or shortness of breath. Patient is starting the GoLYTELY prep for tentatively scheduled EGD/colonoscopy tomorrow with general surgery. 02/16/2022 Patient is seen this morning currently attempting to undergo bowel prep with GoLYTELY although unable to continue and patient continues with noted around stool and unclear and is scheduled for EGD/colonoscopy today. Patient will continue with EGD and most likely need outpatient colonoscopy performed. Patient also having some anal tenderness most likely a hemorrhoid she reports with no bleeding noted. Patient's right lower extremity continues to be red with some swelling which has improved from yesterday although continues to be painful to the touch and warm and sensation. Patient is maintained on IV cefazolin and recommend another 24 hours of IV antibiotics with reevaluation of the wound in the morning. Encourage the patient to continue elevating lower extremity while at rest and also Remy wrapping lower extremity including the whole foot up to the knee with a nonadherent pad at the wound. Wound appears to be scabbing with no drainage noted. Patient is afebrile and WBC is 5.1 within normal limits. Hemoglobin is stable at 9.3. Sodium is 132 with a potassium of 4.3 and current creatinine is 0.29. Magnesium was replaced and is 1.7 and will increase oral magnesium oxide 2 400 mg 3 times daily. Patient will need close outpatient follow-up with GI and surgery in the outpatient setting. Patient has been working with physical therapy daily and doing well. Review of Systems Constitutional: No Reports of fatigue. denied any fever. Cardio vascular: denied any chest pain, palpitations Gastrointestinal: denied any nausea, vomiting, diarrhea Pulmonary: Denied any shortness of breath. Denies cough. Neurologic denied any new focal deficits, reports some right lower extremity pain and swelling although improved from yesterday All inpatient medications were reviewed and appropriate changes in these medications as dictated in the interval history and assessment and plan. Active Medications Acetaminophen (Acetaminophen Tab 325 Mg Tab) 650 mg PO Q6HR PRN PRN Reason: Fever and/ or Pain Last Admin: 02/15/22 21:18 Dose: 650 mg Albuterol Sulfate (Albuterol Nebulized 2.5 Mg/3 Ml) 2.5 mg INHALATION RT-QID [facility] Last Admin: 02/16/22 11:23 Dose: Not Given Albuterol/Ipratropium (Ipratropium-Albuterol 3 Ml Neb) 3 ml INHALATION RT-Q4H PRN PRN Reason: Shortness Of Breath Or Wheezing Last Admin: 02/09/22 07:19 Dose: 3 ml Ferrous Sulfate (Ferrous Sulfate 325 Mg Tab) 325 mg PO BID-W/MEALS [facility] Last Admin: 02/16/22 09:14 Dose: Not Given Furosemide (Furosemide 40 Mg Tab) 40 mg PO BID@0900,1600 [facility] Last Admin: 02/16/22 09:15 Dose: Not Given Cefazolin Sodium 2 gm/ Sodium (Chloride) 50 mls @ 100 mls/hr IVPB Q8HR [facility]; Protocol Last Admin: 02/16/22 09:27 Dose: 100 mls/hr Lorazepam (Lorazepam 0.5 Mg Tab) 0.5 mg PO Q8H PRN PRN Reason: Anxiety Last Admin: 02/09/22 21:31 Dose: 0.5 mg Magnesium Oxide (Magnesium Oxide 400 Mg Tab) 400 mg PO TID [facility] Last Admin: 02/16/22 09:15 Dose: Not Given Miscellaneous Information (Potassium Replacement Protocol 1 Each Misc) 1 each MISCELLANE DAILY PRN; Protocol PRN Reason: Per Protocol Miscellaneous Information (Magnesium Replacement Protocol 1 Each Mis) 1 each MISCELLANE DAILY PRN; Protocol PRN Reason: Per Protocol Pantoprazole Sodium (Pantoprazole 40 Mg Tablet) 40 mg PO [id number]-[id number] [facility] Last Admin: 02/16/22 09:14 Dose: Not Given Prednisone (Prednisone 20 Mg Tab) 20 mg PO DAILY [facility] Stop: 02/18/22 09:01 Last Admin: 02/16/22 09:15 Dose: Not Given Spironolactone (Spironolactone 25 Mg Tab) 50 mg PO DAILY [facility] Last Admin: 02/16/22 09:15 Dose: Not Given Thiamine HCl (Thiamine 100 Mg Tab) 100 mg PO BID-W/MEALS [facility] Last Admin: 02/16/22 09:15 Dose: Not Given PHYSICAL EXAMINATION: GENERAL: The patient is very pleasant 66-year-old female, alert and oriented x3, not in any acute distress. Well developed, well nourished. HEENT: Pupils are round and equally reacting to light. EOMI. No scleral icterus. No conjunctival pallor. Normocephalic, atraumatic. No pharyngeal erythema. No thyromegaly. Multiple missing teeth noted CARDIOVASCULAR: S1 and S2 present. No murmurs, rubs, or gallops. PULMONARY: Lungs are clear, she does have a congested cough. ABDOMEN: Soft, nontender, distended, normoactive bowel sounds. No palpable organomegaly. Abdominal umbilical hernia present. MUSCULOSKELETAL: No joint swelling or deformity. EXTREMITIES: No cyanosis, clubbing. +2 lower extremity and pedal edema more so on the right. +2 dorsalis pedis pulse bilateral NEUROLOGICAL: Gross neurological examination did not reveal any focal deficits. SKIN: Significant bruising to right hip/groin/upper thigh. bruising noted to left hip as well. There is also skin tear to right kelyl, which is now scabbed over. The right lower extremity is red and warm to touch. Some mild improvement in erythema noted and no further drainage from skin tear on the kelly Assessment: Chronic alcohol abuse Acute on chronic alcoholic hepatitis Anemia most likely chronic from myelosupression with underlying iron deficiency Rule out GI bleed Right lower extremity cellulitis with skin tear that is scabbed over Thrombocytopenia secondary to chronic liver disease Supratherapeutic INR at 1.4 Tachycardia suspect from acute alcohol withdrawal resolved Hyponatremia from poor oral intake, resolved Hypokalemia resolved metabolic alkalosis, resolved Hypomagnesemia History of COPD, mild acute exacerbation, improved Hypertension currently normotensive Chronic nicotine dependence GI Prophylaxis: Protonix DVT Prophylaxis deferred due to low platelet count Full Code Plan: Recommend to proceed with EGD although prep was not completed for Colonoscopy and will discuss with surgery about possible outpatient colonoscopy and continue with EGD for now. There is no bleeding noted and hemoglobin is stable at 9.3 today. Patient continues with right lower extremity swelling although the redness and swelling has improved slightly and encouraged the patient to continue to elevate and also use Remy wrap on the whole right foot up to the knee and continue to elevate frequently. Patient is continued on oral Lasix and Aldactone and will continue Patient is continued on IV cefazolin for right lower extremity cellulitis Monitor for acute alcohol withdrawal, no withdrawing noted Daily weight Continue with ferrous sulfate Continue oral steroid taper Continue lactulose Continue to encourage incentive spirometery Continue to work with PT/OT ReCommend repeat labs for a.m. to monitor electrolytes and replace per protocol Discharge possibly in 24 hours The impression and plan of care has been dictated by Dang Mcgill, Nurse Practitioner as directed. Dr. Anastasiya MD I have performed a history and examination and MDM of this patient, discussed the same with the dictator, and agree with the dictator's assessment and plan as written ,documented as a scribe. Based on total visit time, I have performed more than 50% of the visit. Objective - Vital Signs Vital signs: Vital Signs Temp 98 F 02/16/22 04:34 Pulse 90 02/16/22 08:30 Resp 16 02/16/22 04:34 BP 111/69 02/16/22 04:34 Pulse Ox 91 L 02/16/22 04:34 FiO2 21 02/08/22 19:51 Intake & Output 02/15/22 02/16/22 02/16/22 18:59 06:59 18:59 Intake Total 700 Balance 700 Weight 54 kg Intake: Intake, IV Titration 200 Amount Magnesium Sulfate-D5w Pmx 100 1 gm In Dextrose/Water 1 100ml.bag @ 100 mls/hr IVPB Q1H [facility] Rx#: [id number] ceFAZolin 2 gm In Sodium 100 Chloride 0.9% 50 ml @ 100 mls/hr IVPB Q8HR [facility] Rx# :[id number] Oral 500 Other: Voiding Method Bedside Commode Bedside Commode Bedside Commode # Voids 1 3 # Bowel Movements 4 2 - Labs CBC & Chem 7: 02/16/22 07:00 02/16/22 07:00 Labs: Abnormal Lab Results - Last 24 Hours (Table) 02/15/22 02/15/22 02/16/22 Range/Units 04:43 14:19 07:00 RBC 3.15 L 3.39 L (4.10-5.20) X 10*6/uL Hgb 8.1 L 9.3 L (12.0-15.0) g/dL Hct 28.7 L 32.1 L (37.2-46.3) % MCH 25.7 L (27.0-32.0) pg MCHC 28.2 L 29.0 L (32.0-37.0) g/dL RDW 27.6 H 24.3 H (11.5-14.5) % Plt Count 77 L 79 L (140-440) X 10*3/uL Plt Count Comment DECREASED A Lymphocytes # 0.75 L (0.90-5.00) X 10*3/uL Immature Plt Fraction 8.5 H (1.1-6.1) % Sodium (137-145) mmol/L Chloride (98-107) mmol/L Carbon Dioxide (22-30) mmol/L BUN (7-17) mg/dL Creatinine (0.52-1.04) mg/dL Magnesium 1.3 L (1.6-2.3) mg/dL 02/16/22 Range/Units 07:00 RBC (4.10-5.20) X 10*6/uL Hgb (12.0-15.0) g/dL Hct (37.2-46.3) % MCH (27.0-32.0) pg MCHC (32.0-37.0) g/dL RDW (11.5-14.5) % Plt Count (140-440) X 10*3/uL Plt Count Comment Lymphocytes # (0.90-5.00) X 10*3/uL Immature Plt Fraction (1.1-6.1) % Sodium 132 L (137-145) mmol/L Chloride 96 L (98-107) mmol/L Carbon Dioxide 36 H (22-30) mmol/L BUN 6 L (7-17) mg/dL Creatinine 0.29 L (0.52-1.04) mg/dL Magnesium (1.6-2.3) mg/dL Microbiology - Last 24 Hours (Table) 02/13/22 11:24 Gram Stain - Preliminary Aspirate Body Fluid Culture - Preliminary
[2022-02-16] MEDS: ACETAMINOPHEN TAB 325 MG TAB PO PRN (21:17)
[2022-02-17] MEDS: PANTOPRAZOLE 40 MG TABLET PO SCH (07:31)
[2022-02-17] MEDS: THIAMINE 100 MG TAB PO SCH ×2 (07:31→17:39)
[2022-02-17] MEDS: MAGNESIUM OXIDE 400 MG TAB PO SCH ×3 (07:31→21:30)
[2022-02-17] MEDS: predniSONE 20 MG TAB PO SCH (07:32)
[2022-02-17] MEDS: SPIRONOLACTONE 25 MG TAB PO SCH (07:32)
[2022-02-17] MEDS: FUROSEMIDE 40 MG TAB PO SCH ×2 (07:32→16:04)
[2022-02-17] MEDS: FERROUS SULFATE 325 MG TAB PO SCH ×2 (07:32→17:39)
[2022-02-17] MEDS ORDERED: Magnesium Replacement Protocol 1 EACH MISC MISCELLANE PRN (07:38)
[2022-02-17] MEDS: ALBUTEROL NEBULIZED 2.5 MG/3 ML INHALATION SCH ×4 (08:12→19:11)
[2022-02-17] MEDS: MAGNESIUM SULFATE-D5W PMX 1 GM in DEXTROSE/WATER 1 100ML.BAG IVPB SCH ×2 (09:51→12:27)
[2022-02-17] MEDS: IPRATROPIUM-ALBUTEROL 3 ML NEB INHALATION PRN (11:50)
[2022-02-17] MEDS: ACETAMINOPHEN TAB 325 MG TAB PO PRN ×2 (12:33→21:29)
--- NOTE | 2022-02-17 14:37 | P.PN ---
Subjective Progress Note Date: 02/17/22 CHIEF COMPLAINT: Iron deficiency anemia HISTORY OF PRESENT ILLNESS: Surgical service following regards to patient's anemia. Patient status post EGD revealing antral gastritis, hiatal hernia and mild esophagitis. Colonoscopy not completed due to poor bowel prep. She is afebrile. Hemoglobin stable at 9.3 Patient seen and examined with Dr. lynn PHYSICAL EXAM: VITAL SIGNS: Reviewed. GENERAL: Well-developed in no acute distress. HEENT: No sclera icterus. Extraocular movements grossly intact. Moist buccal mucosa. Head is atraumatic, normocephalic. ABDOMEN: Soft. Distended. Ventral hernia that is reducible. Abdominal ascites decreased NEUROLOGIC: Alert and oriented. Cranial nerves II through XII grossly intact. Extremities: Bilateral lower extremity edema. Right leg cellulitis ASSESSMENT: 1. Anemia with iron deficiency anemia 2. Alcoholism 3. Alcoholic liver cirrhosis 4. Reducible ventral hernia 5. Hypokalemia PLAN: -Patient is stable for discharge from surgical standpoint when medically cleared -No surgical intervention planned on the ventral hernia -Continue PPI for the gastritis and esophagitis Physician Gastroenterology Nurse note has been reviewed by physician. Signing provider agrees with the documented findings, assessment, and plan of care. Objective - Vital Signs Vital signs: Vital Signs Temp 98.1 F 02/17/22 12:15 Pulse 103 H 02/17/22 12:15 Resp 19 02/17/22 12:15 BP 167/88 02/17/22 12:15 Pulse Ox 93 L 02/17/22 12:15 FiO2 21 02/08/22 19:51 Intake & Output 02/16/22 02/17/22 02/17/22 18:59 06:59 18:59 Intake Total 300 1190 Balance 300 1190 Weight 54 kg Intake: IV 300 Oral 1190 Other: Voiding Method Bedside Commode Bedside Commode Bedside Commode # Voids 4 4 # Bowel Movements 2 - Labs CBC & Chem 7: 02/16/22 07:00 02/16/22 07:00 Labs: Microbiology - Last 24 Hours (Table) 02/13/22 11:24 Gram Stain - Final Aspirate Body Fluid Culture - Final
--- NOTE | 2022-02-17 20:33 | P.PN ---
Subjective Progress Note Date: 02/17/22 This is a 66-year-old female presents to the hospital with concern for acute alcohol withdrawal, patient also had a fall at home 5 days ago states she fell down 14 steps and has significant bruising on her side and legs. On admission alcohol level <10, patient has not had a drink in the last 2 days. Patient follows with Dr. Luz Marina Hannon in the primary care setting, chronic medical conditions include COPD, hypertension, alcohol dependence with alcoholic liver disease, anxiety depression, current daily smoker 1 pack per day also reports 3- 4 drinks of alcohol per day, mixed drinks or beer she drinks more or less depending on her mood and states that it helps her get to sleep. She has cut down on drinking in the last 10-15 years. She plans for alcohol cessation and will discharged to [facility] for rehab. She also follows with Dr Medellin outpatient for umbilical hernia pending surgical repair outpatient. Labs on admission showing a white count 3.4, hemoglobin 8.5 which is dropped from 9.7 on admission, platelet count of 38, INR 1.4, sodium 135, potassium 3.2, chloride 96, CO2 34, BUN 8, creatinine 0.3, glucose 116, magnesium 1.2, AST 74, ALT 34, total bili 3.2, BNP 378, a BUN 3.3. Chest x-ray completed showing no active cardiac disease with minimal fibrotic changes. EKG showing sinus rhythm heart rate of 99, QT interval 410. Patient received 2 g IV magnesium, oral potassium, has been started on thiamine supplementation as well as Librium taper is receiving IV fluids at normal saline 75 mL per hour. Patient is tachycardic at 108, blood pressure 123/76, 92% on room air. Patient is admitted to the hospital for alcohol withdrawal monitoring and evaluation regarding increased peripheral edema and ascites. Repeat labs are pending. 02/05/2022 Patient evaluated today resting in bed, she has been unable to ambulate due to significant weakness. She does report decrease pain to her right lower extremity. She continues with peripheral edema and has been started on IV lasix as well as oral aldactone. She is slightly lethargic today as well and her speech pattern is slow. She states the librium made her hallucinate last night and will discontinue this. We will also check an ammonia level today. Labs today show white count 4.0, hemoglobin 7.2, platelet count 42, sodium 132, potassium 4.4, BUN 7.3, creatinine 0.4, magnesium 1.5, total bili 1.40. Total protein 4.5, albumin 2.5. She is afebrile, heart rate 90, blood pressure on the lower side at 94/60 she is 96% nasal cannula. She does have significant expiratory wheezing today which we will order DuoNeb's. B12 folate and iron studies are pending. 02/06/2022 Patient evaluated today resting in bed, still reports weakness and unable to ambulate. PT has evaluated patient and she will require sub acute rehab on discharge. Wheezing has improved, continues on 2L Nasal cannula and duonebs as needed. Denies need for nicotine patch. No signs for acute alcohol withdrawal. Librium has been discontinued. Ammonia level 22. hgb today 7.7, platelets 47, sodium 133, potassium 4.3, BUN 7.5, creat 0.4, calcium 7.7. She will continue on IV lasix, mild improvement in lower extremity peripheral edema however still 2+. Iron studies showing total iron 17, %saturation 5.13. TIBC 333. B12 and folate are within normal limits. Heart rate is elevated today at 114, EKG pending. 02/07/2022 Patient continues to report generalized pain secondary to fall. She does have bruising on her left hip as well. She continues with bilateral peripheral edema and continues on IV lasix. Continue with strict intake and output documentation. REMY wrap to bilateral lower extremities as well. Labs today showing stable hemoglobin 7.5, platelets 58. Sodium today is 135, potassium 4.3, calcium 7.8, magnesium 1.4. She will receive 3 grams of magnesium today. Procalcitonin 0.18. Patient continues with expiratory wheeze. Will continue duonebs and add a short course of oral steroids. She is also tachycardic with heart rate in the low 100s to 110s. EKG completed showing sinus tachycardia will continue with telemetry monitoring. She is afebrile, blood pressure 110/72, 92% on 2L nasal cannula. 02/08/2022 Patient evaluated today she is up ambulating in the hallway with physical therapy. Unable to find a sub acute rehab on discharge. Lung sounds have improved this afternoon after breathing treatments, she is now on room air. Labs today showing sodium 136, potassium 3.4, magnesium level pending. She had some green sputum last night and azithromycin for 3 days has been added and IV solumedrol. Covid is negative. Suspect anemia mostly from myelosuppresion probably some underlying iron deficiency and we will also give patient some ferrlecit. Continue IV lasix overnight, and can transition to oral lasix tomorrow. She is afebrile, heart rate 107, blood pressure 116/65, 92% room air. Possible DC tomorrow. 02/09/2022 Patient is resting in bed today, she has been up ambulating with physical therapy and feels stronger. Pain has improved somewhat, she reports generalized pain. She continues with Remy wrap to lower extremities. She did lose IV access overnight. Midline was placed today. She continues on IV lasix Q12, and can pos sibly transition to oral lasix tomorrow. She has been started on IV solumedrol and 3 doses of oral azithromycin for possible COPD exacerbation, her wheezing has significant improved. We will arrange for nebulizer on discharge. One more dose of IV ferrlecit tomorrow and will be transitioned to oral ferrous sulfate on discharge. No chest pain, no shortness of breath. Bowels are moving. Vitals today showing temp 97.8, heart rate 106, blood pressure 113/72, 93% room air. Labs reviewed today showing white count 2.35, hgb 7.0, platelet count 71. 02/10/2022, resume the care of the patient today This is a pleasant 66 years old female who presents because she fell at home from stairs, she is alcohol drinker and this fall was awake, call for her as she describes and she decided to quit drinking and came to emergency room. She is fully awake and oriented, standing and walking in the room, however she is generally weak and she has distended abdomen Physical therapy recommended treatment However most subacute rehab the don't take her insurance, and sent patient wants to go home with home care, discussed with social work coordinator. She remains on Zithromax for possible infection, she has significant bilateral leg swelling on IV Lasix 40 mg twice daily however there is no evidence of pulmonary edema. She has history of COPD and she is not compliant with her roll reclaimer for her PCP Dr. kruger. She is currently on Solu-Medrol 40 mg twice daily, she still has some limitation of air entry. She was taken IV iron which is stopped and switched to oral iron from tomorrow. WBC is 4.4 and hemoglobin 8.9 and platelet 104, all numbers shown improvement but looks concentrated sample as she is on IV Lasix. Liver enzymes mildly elevated We will check liver ultrasound and leg ultrasound She has evidence of an deficiency anemia and she never had colonoscopy so surgery team were consulted who recommended occult blood in his stool Vitamin B12 is 724 and folate 17.5. And TSH normal. proCalcitonin not elevated to 0.18 and 0.14 02/11/2022 Patient with mild exertional dyspnea but she has significant abdominal distention and bilateral leg swelling, she drinks a lot of fluid, patient was counseled extensively about fluid restriction and she agrees. Patient was placed on fluid restriction 1200 mL per day. Patient abdominal ultrasound showing ascites, we will consult IR team for paracentesis Increase her Lasix 40 mg 3 times a day, she is already on Aldactone 50 mg His breathing is improving, but her air entry with no wheezing and we switched her some adrenaline to prednisone 30 mg Patient walking in the room more freely. Monitor labs in the morning 02/12/2022 Patient dyspnea is improving, especially patient might not go to rehab because of her insurance issue, patient might be willing to go home with home care therefore she needs better diuresis. Also we consulted IR team for paracentesis for her significant abdominal distention. Patient is poor in compliance and outpatient follow-up with her doctors. Her vitals and labs are stable, she has mild myelosuppression secondary to her affect off alcohol. She remains on IV Lasix 40 mg every 8 hours. Also she is on prednisone 40 mg. 02/13/2022 Patient evaluated today sitting up at the bedside. She has been continued on IV lasix and we will transition to oral lasix today. She under paracentesis today with 2.3 Liters of fluid removed for abdominal ascites. Culture and cytology completed as baseline as this is first time patient has had a paracentesis. She is seeing general surgery and plan is for EGD/Colonoscopy on . Labs today showing hemoglobin stable at 9.0, platelet count 126, sodium 139, potassium 4.6, magnesium 1.8. Liver enzymes are elevated, stable. She is afebrile. blood pressure 135/75, 94% room air. 02/14/2022 Patient is status post paracentesis. Blood pressure 122/72, pulse oximetry 97%. She reports breathing better today, no shortness of breath. Surgery is following with plans for EGD/Colonoscopy to rule out GI bleed. Hemoglobin is stable today at 9.0, platelet count 108. Magnesium today 1.6 will give 2 grams IV today add daily oral magnesium. Echocardiogram has been completed with normal EF 55%, mild mitral regurg. She does have right lower extremity erythema and tenderness. There is also a scab to the right kelly that is not draining, scabbed over. This is a change overnight, and patient was started on cefazolin IV. 02/15/2022 Patient is seen and evaluated in follow-up this morning currently working with physical therapy and using a walker with standby assist. Patient reports to feeling generalized weakness although feels is improving daily. Patient continues with right lower extremity redness and is maintained on IV cefazolin. Patient does have a right kelly wound or skin tear noted that his dry with a scab and no drainage. Patient is afebrile and WBC is within normal limits at 6.81. Hemoglobin is stable at 8.1, platelets are decreased at 77. Sodium 136 with a potassium of 3.2 and current creatinine 0.3. Awaiting repeat magnesium as yesterday was 1.6 and replaced all no reports as of yet and will replace potassium per protocol. Patient was chronically taking magnesium oxide twice a day and will increase to 3 times a day and follow-up with repeat labs in the morning. Patient is currently afebrile and denies any chest pain or shortness of breath. Patient is starting the GoLYTELY prep for tentatively scheduled EGD/colonoscopy tomorrow with general surgery. 02/16/2022 Patient is seen this morning currently attempting to undergo bowel prep with GoLYTELY although unable to continue and patient continues with noted around stool and unclear and is scheduled for EGD/colonoscopy today. Patient will continue with EGD and most likely need outpatient colonoscopy performed. Patient also having some anal tenderness most likely a hemorrhoid she reports with no bleeding noted. Patient's right lower extremity continues to be red with some swelling which has improved from yesterday although continues to be painful to the touch and warm and sensation. Patient is maintained on IV cefazolin and recommend another 24 hours of IV antibiotics with reevaluation of the wound in the morning. Encourage the patient to continue elevating lower extremity while at rest and also Remy wrapping lower extremity including the whole foot up to the knee with a nonadherent pad at the wound. Wound appears to be scabbing with no drainage noted. Patient is afebrile and WBC is 5.1 within normal limits. Hemoglobin is stable at 9.3. Sodium is 132 with a potassium of 4.3 and current creatinine is 0.29. Magnesium was replaced and is 1.7 and will increase oral magnesium oxide 2 400 mg 3 times daily. Patient will need close outpatient follow-up with GI and surgery in the outpatient setting. Patient has been working with physical therapy daily and doing well. 02/17/2022 Patient is evaluated today and continues with right lower extremity redness and swelling with tenderness noted. Wound on the kelly is scabbed with no drainage n oted. Patient had been rubbing coconut oil on the extremity as well. Encouraged remy wrapping the leg as is continues to be edematous with 3+ pitting edema noted mostly on the foot and ankle. Patient does have it elevated on pillows. Doing daily physical therapy and is improving although with some difficulty due to the swelling and tenderness noted on the right leg. Patient to continue on IV cefazo lazaro and and also oral lasix and aldactone. Replace electrolytes per protocol. Review of Systems Constitutional: No Reports of fatigue. denied any fever. Cardio vascular: denied any chest pain, palpitations Gastrointestinal: denied any nausea, vomiting, diarrhea Pulmonary: Denied any shortness of breath. Denies cough. Neurologic denied any new focal deficits, reports some right lower extremity pain and swelling although improved from yesterday All inpatient medications were reviewed and appropriate changes in these medications as dictated in the interval history and assessment and plan. Active Medications Acetaminophen (Acetaminophen Tab 325 Mg Tab) 650 mg PO Q6HR PRN PRN Reason: Fever and/ or Pain Last Admin: 02/17/22 12:33 Dose: 650 mg Albuterol Sulfate (Albuterol Nebulized 2.5 Mg/3 Ml) 2.5 mg INHALATION RT-QID ALEX Last Admin: 02/17/22 19:11 Dose: 2.5 mg Albuterol/Ipratropium (Ipratropium-Albuterol 3 Ml Neb) 3 ml INHALATION RT-Q4H PRN PRN Reason: Shortness Of Breath Or Wheezing Last Admin: 02/17/22 11:50 Dose: 3 ml Ferrous Sulfate (Ferrous Sulfate 325 Mg Tab) 325 mg PO BID-W/MEALS [facility] Last Admin: 02/17/22 17:39 Dose: 325 mg Furosemide (Furosemide 40 Mg Tab) 40 mg PO BID@0900,1600 [facility] Last Admin: 02/17/22 16:04 Dose: 40 mg Cefazolin Sodium 2 gm/ Sodium (Chloride) 50 mls @ 100 mls/hr IVPB Q8HR [facility]; Protocol Last Admin: 02/17/22 16:04 Dose: 100 mls/hr Lorazepam (Lorazepam 0.5 Mg Tab) 0.5 mg PO Q8H PRN PRN Reason: Anxiety Last Admin: 02/09/22 21:31 Dose: 0.5 mg Magnesium Oxide (Magnesium Oxide 400 Mg Tab) 400 mg PO TID [facility] Last Admin: 02/17/22 16:04 Dose: 400 mg Miscellaneous Information (Potassium Replacement Protocol 1 Each Misc) 1 each MISCELLANE DAILY PRN; Protocol PRN Reason: Per Protocol Miscellaneous Information (Magnesium Replacement Protocol 1 Each Misc) 1 each MISCELLANE DAILY PRN; Protocol PRN Reason: Per Protocol Miscellaneous Information (Magnesium Replacement Protocol 1 Each Misc) 1 each MISCELLANE DAILY PRN; Protocol PRN Reason: Per Protocol Pantoprazole Sodium (Pantoprazole 40 Mg Tablet) 40 mg PO [id number] [facility] Last Admin: 02/17/22 07:31 Dose: 40 mg Prednisone (Prednisone 20 Mg Tab) 20 mg PO DAILY [facility] Stop: 02/18/22 09:01 Last Admin: 02/17/22 07:32 Dose: 20 mg Spironolactone (Spironolactone 25 Mg Tab) 50 mg PO DAILY [facility] Last Admin: 02/17/22 07:32 Dose: 50 mg Thiamine HCl (Thiamine 100 Mg Tab) 100 mg PO BID-W/MEALS [facility] Last Admin: 02/17/22 17:39 Dose: 100 mg PHYSICAL EXAMINATION: GENERAL: The patient is very pleasant 66-year-old female, alert and oriented x3, not in any acute distress. Well developed, well nourished. HEENT: Pupils are round and equally reacting to light. EOMI. No scleral icterus. No conjunctival pallor. Normocephalic, atraumatic. No pharyngeal erythema. No thyromegaly. Multiple missing teeth noted CARDIOVASCULAR: S1 and S2 present. No murmurs, rubs, or gallops. PULMONARY: Lungs are clear, she does have a congested cough. ABDOMEN: Soft, nontender, mildly distended, normoactive bowel sounds. No palpable organomegaly. Abdominal umbilical hernia present. MUSCULOSKELETAL: No joint swelling or deformity. EXTREMITIES: No cyanosis, clubbing. +3 lower extremity and pedal edema more so on the right. tender to the touch. +2 dorsalis pedis pulse bilateral NEUROLOGICAL: Gross neurological examination did not reveal any focal deficits. SKIN: Significant bruising to right hip/groin/upper thigh. bruising noted to lef t hip as well. There is also skin tear to right kelly, which is now scabbed over. The right lower extremity is red and warm to touch. Some mild improvement in erythema noted and no further drainage from skin tear on the kelly, continues to be edematous Assessment: Chronic alcohol abuse Acute on chronic alcoholic hepatitis Anemia most likely chronic from myelosupression with underlying iron deficiency Ruled out GI bleed Right lower extremity cellulitis with skin tear that is scabbed over Thrombocytopenia secondary to chronic liver disease Supratherapeutic INR at 1.4 Tachycardia suspect from acute alcohol withdrawal resolved Hyponatremia from poor oral intake, resolved Hypokalemia resolved metabolic alkalosis, resolved Hypomagnesemia History of COPD, mild acute exacerbation, improved Hypertension currently normotensive Chronic nicotine dependence GI Prophylaxis: Protonix DVT Prophylaxis deferred due to low platelet count Full Code Plan: Recommend to continue protonix bid and diet has been resumed. Follow up with general surgery outpatient for colonoscopy and biopsy results from egd. Recommend to continue IV cefazolin for right lower extremity cellulitis and remy wrap to assist in swelling Replace electrolytes per protocol and repeat am labs. Continue with ferrous sulfate Continue oral steroid taper Continue lactulose Continue to encourage incentive spirometery Continue to work with PT/OT ReCommend repeat labs for a.m. to monitor electrolytes and replace per protocol Recommend continued counseling on smoking cessation and abstinence from alcohol. Discharge possibly in 24-48 hours The impression and plan of care has been dictated by Dang Mcgill, Nurse Practitioner as directed. Dr. Anastasiya MD I have performed a history and examination and MDM of this patient, discussed the same with the dictator, and agree with the dictator's assessment and plan as written ,documented as a scribe. Based on total visit time, I have performed more than 50% of the visit. Objective - Vital Signs Vital signs: Vital Signs Temp 98.1 F 02/17/22 04:10 Pulse 115 H 02/17/22 08:21 Resp 18 02/17/22 04:10 BP 124/75 02/17/22 04:10 Pulse Ox 91 L 02/17/22 08:12 FiO2 21 02/08/22 19:51 Intake & Output 02/16/22 02/17/22 02/17/22 18:59 06:59 18:59 Intake Total 300 1190 Balance 300 1190 Weight 54 kg Intake: IV 300 Oral 1190 Other: Voiding Method Bedside Commode Bedside Commode Bedside Commode # Voids 4 4 # Bowel Movements 2 - Labs CBC & Chem 7: 02/16/22 07:00 02/16/22 07:00 Labs: Microbiology - Last 24 Hours (Table) 02/13/22 11:24 Gram Stain - Final Aspirate Body Fluid Culture - Final
[2022-02-18] MEDS ORDERED: LACTATED RINGERS 1,000 ML IV SCH (06:57)
[2022-02-18] MEDS ORDERED: LIDOCAINE 1% (10MG/ML) FOR IV START INTRADERMA PRN (06:57)
[2022-02-18] MEDS: ALBUTEROL NEBULIZED 2.5 MG/3 ML INHALATION SCH ×4 (07:24→19:22)
[2022-02-18] MEDS: SPIRONOLACTONE 25 MG TAB PO SCH (08:14)
[2022-02-18] MEDS: FERROUS SULFATE 325 MG TAB PO SCH ×2 (08:14→14:56)
[2022-02-18] MEDS: FUROSEMIDE 40 MG TAB PO SCH ×2 (08:14→14:56)
[2022-02-18] MEDS: PANTOPRAZOLE 40 MG TABLET PO SCH (08:14)
[2022-02-18] MEDS: predniSONE 20 MG TAB PO SCH (08:14)
[2022-02-18] MEDS: MAGNESIUM OXIDE 400 MG TAB PO SCH ×3 (08:15→22:28)
[2022-02-18] MEDS: THIAMINE 100 MG TAB PO SCH ×2 (08:15→14:56)
--- NOTE | 2022-02-18 10:58 | P.PN ---
Progress Note - Text Progress Note Date: 02/18/22 Patient [place] stable. She has no new complaints. On exam is lesser stable. Abdomen soft. Ventral hernia is stable. Anemia. Ventral hernia. No surgical intervention is planned at this time. She is stable for discharge from a surgical standpoint.
[2022-02-19] MEDS: ALBUTEROL NEBULIZED 2.5 MG/3 ML INHALATION SCH ×4 (07:52→19:41)
[2022-02-19] MEDS: THIAMINE 100 MG TAB PO SCH ×2 (08:17→16:48)
[2022-02-19] MEDS: PANTOPRAZOLE 40 MG TABLET PO SCH (08:17)
[2022-02-19] MEDS: FERROUS SULFATE 325 MG TAB PO SCH ×2 (08:17→16:48)
[2022-02-19] MEDS: MAGNESIUM OXIDE 400 MG TAB PO SCH ×3 (08:17→20:31)
[2022-02-19] MEDS: SPIRONOLACTONE 25 MG TAB PO SCH (08:17)
[2022-02-19] MEDS: FUROSEMIDE 40 MG TAB PO SCH ×2 (08:17→16:48)
--- NOTE | 2022-02-19 13:10 | P.PN ---
Progress Note - Text Progress Note Date: 02/19/22 Patient [place] stable. On exam vital signs are stable. Abdomen soft. Ventral hernia stable. Stable chronic ventral hernia. Patient will follow-up as an outpatient when stable.
[2022-02-19] MEDS: ACETAMINOPHEN TAB 325 MG TAB PO PRN (20:37)
--- NOTE | 2022-02-20 00:39 | P.PN ---
Subjective Progress Note Date: 02/18/22 This is a 66-year-old female presents to the hospital with concern for acute alcohol withdrawal, patient also had a fall at home 5 days ago states she fell down 14 steps and has significant bruising on her side and legs. On admission alcohol level <10, patient has not had a drink in the last 2 days. Patient follows with Dr. Luz Marina Hannon in the primary care setting, chronic medical conditions include COPD, hypertension, alcohol dependence with alcoholic liver disease, anxiety depression, current daily smoker 1 pack per day also reports 3- 4 drinks of alcohol per day, mixed drinks or beer she drinks more or less depending on her mood and states that it helps her get to sleep. She has cut down on drinking in the last 10-15 years. She plans for alcohol cessation and will discharged to [facility] for rehab. She also follows with Dr Medellin outpatient for umbilical hernia pending surgical repair outpatient. Labs on admission showing a white count 3.4, hemoglobin 8.5 which is dropped from 9.7 on admission, platelet count of 38, INR 1.4, sodium 135, potassium 3.2, chloride 96, CO2 34, BUN 8, creatinine 0.3, glucose 116, magnesium 1.2, AST 74, ALT 34, total bili 3.2, BNP 378, a BUN 3.3. Chest x-ray completed showing no active cardiac disease with minimal fibrotic changes. EKG showing sinus rhythm heart rate of 99, QT interval 410. Patient received 2 g IV magnesium, oral potassium, has been started on thiamine supplementation as well as Librium taper is receiving IV fluids at normal saline 75 mL per hour. Patient is tachycardic at 108, blood pressure 123/76, 92% on room air. Patient is admitted to the hospital for alcohol withdrawal monitoring and evaluation regarding increased peripheral edema and ascites. Repeat labs are pending. 02/05/2022 Patient evaluated today resting in bed, she has been unable to ambulate due to significant weakness. She does report decrease pain to her right lower extremity. She continues with peripheral edema and has been started on IV lasix as well as oral aldactone. She is slightly lethargic today as well and her speech pattern is slow. She states the librium made her hallucinate last night and will discontinue this. We will also check an ammonia level today. Labs today show white count 4.0, hemoglobin 7.2, platelet count 42, sodium 132, potassium 4.4, BUN 7.3, creatinine 0.4, magnesium 1.5, total bili 1.40. Total protein 4.5, albumin 2.5. She is afebrile, heart rate 90, blood pressure on the lower side at 94/60 she is 96% nasal cannula. She does have significant expiratory wheezing today which we will order DuoNeb's. B12 folate and iron studies are pending. 02/06/2022 Patient evaluated today resting in bed, still reports weakness and unable to ambulate. PT has evaluated patient and she will require sub acute rehab on d ischarge. Wheezing has improved, continues on 2L Nasal cannula and duonebs as needed. Denies need for nicotine patch. No signs for acute alcohol withdrawal. Librium has been discontinued. Ammonia level 22. hgb today 7.7, platelets 47, sodium 133, potassium 4.3, BUN 7.5, creat 0.4, calcium 7.7. She will continue on IV lasix, mild improvement in lower extremity peripheral edema however still 2+. Iron studies showing total iron 17, %saturation 5.13. TIBC 333. B12 and folate are within normal limits. Heart rate is elevated today at 114, EKG pending. 02/07/2022 Patient continues to report generalized pain secondary to fall. She does have bruising on her left hip as well. She continues with bilateral peripheral edema and continues on IV lasix. Continue with strict intake and output documentation. REMY wrap to bilateral lower extremities as well. Labs today showing stable hemoglobin 7.5, platelets 58. Sodium today is 135, potassium 4.3, calcium 7.8, magnesium 1.4. She will receive 3 grams of magnesium today. Procalcitonin 0.18. Patient continues with expiratory wheeze. Will continue duonebs and add a short course of oral steroids. She is also tachycardic with heart rate in the low 100s to 110s. EKG completed showing sinus tachycardia will continue with telemetry monitoring. She is afebrile, blood pressure 110/72, 92% on 2L nasal cannula. 02/08/2022 Patient evaluated today she is up ambulating in the hallway with physical therapy. Unable to find a sub acute rehab on discharge. Lung sounds have improved this afternoon after breathing treatments, she is now on room air. Labs today showing sodium 136, potassium 3.4, magnesium level pending. She had some green sputum last night and azithromycin for 3 days has been added and IV solumedrol. Covid is negative. Suspect anemia mostly from myelosuppresion probably some underlying iron deficiency and we will also give patient some f errlecit. Continue IV lasix overnight, and can transition to oral lasix tomorrow. She is afebrile, heart rate 107, blood pressure 116/65, 92% room air. Possible DC tomorrow. 02/09/2022 Patient is resting in bed today, she has been up ambulating with physical therapy and feels stronger. Pain has improved somewhat, she reports generalized pain. She continues with Remy wrap to lower extremities. She did lose IV access overnight. Midline was placed today. She continues on IV lasix Q12, and can poss ibly transition to oral lasix tomorrow. She has been started on IV solumedrol and 3 doses of oral azithromycin for possible COPD exacerbation, her wheezing has significant improved. We will arrange for nebulizer on discharge. One more dose of IV ferrlecit tomorrow and will be transitioned to oral ferrous sulfate on discharge. No chest pain, no shortness of breath. Bowels are moving. Vitals today showing temp 97.8, heart rate 106, blood pressure 113/72, 93% room air. Labs reviewed today showing white count 2.35, hgb 7.0, platelet count 71. 02/10/2022, resume the care of the patient today This is a pleasant 66 years old female who presents because she fell at home from stairs, she is alcohol drinker and this fall was awake, call for her as she describes and she decided to quit drinking and came to emergency room. She is fully awake and oriented, standing and walking in the room, however she is generally weak and she has distended abdomen Physical therapy recommended treatment However most subacute rehab the don't take her insurance, and sent patient wants to go home with home care, discussed with social media sr strategy manager. She remains on Zithromax for possible infection, she has significant bilateral leg swelling on IV Lasix 40 mg twice daily however there is no evidence of pulmonary edema. She has history of COPD and she is not compliant with her [facility] aide for her PCP Dr. mini. She is currently on Solu-Medrol 40 mg twice daily, she still has some limitation of air entry. She was taken IV iron which is stopped and switched to oral iron from tomorrow. WBC is 4.4 and hemoglobin 8.9 and platelet 104, all numbers shown improvement but looks concentrated sample as she is on IV Lasix. Liver enzymes mildly elevated We will check liver ultrasound and leg ultrasound She has evidence of an deficiency anemia and she never had colonoscopy so surgery team were consulted who recommended occult blood in his stool Vitamin B12 is 724 and folate 17.5. And TSH normal. proCalcitonin not elevated to 0.18 and 0.14 02/11/2022 Patient with mild exertional dyspnea but she has significant abdominal distention and bilateral leg swelling, she drinks a lot of fluid, patient was counseled extensively about fluid restriction and she agrees. Patient was placed on fluid restriction 1200 mL per day. Patient abdominal ultrasound showing ascites, we will consult IR team for paracentesis Increase her Lasix 40 mg 3 times a day, she is already on Aldactone 50 mg His breathing is improving, but her air entry with no wheezing and we switched her some adrenaline to prednisone 30 mg Patient walking in the room more freely. Monitor labs in the morning 02/12/2022 Patient dyspnea is improving, especially patient might not go to rehab because of her insurance issue, patient might be willing to go home with home care therefore she needs better diuresis. Also we consulted IR team for paracentesis for her significant abdominal distention. Patient is poor in compliance and outpatient follow-up with her doctors. Her vitals and labs are stable, she has mild myelosuppression secondary to her affect off alcohol. She remains on IV Lasix 40 mg every 8 hours. Also she is on prednisone 40 mg. 02/13/2022 Patient evaluated today sitting up at the bedside. She has been continued on IV lasix and we will transition to oral lasix today. She under paracentesis today with 2.3 Liters of fluid removed for abdominal ascites. Culture and cytology completed as baseline as this is first time patient has had a paracentesis. She is seeing general surgery and plan is for EGD/Colonoscopy on . Labs today showing hemoglobin stable at 9.0, platelet count 126, sodium 139, potassium 4.6, magnesium 1.8. Liver enzymes are elevated, stable. She is afebrile. blood pressure 135/75, 94% room air. 02/14/2022 Patient is status post paracentesis. Blood pressure 122/72, pulse oximetry 97%. She reports breathing better today, no shortness of breath. Surgery is following with plans for EGD/Colonoscopy to rule out GI bleed. Hemoglobin is stable today at 9.0, platelet count 108. Magnesium today 1.6 will give 2 grams IV today add daily oral magnesium. Echocardiogram has been completed with normal EF 55%, mild mitral regurg. She does have right lower extremity erythema and tenderness. There is also a scab to the right kelly that is not draining, scabbed over. This is a change overnight, and patient was started on cefazolin IV. 02/15/2022 Patient is seen and evaluated in follow-up this morning currently working with physical therapy and using a walker with standby assist. Patient reports to feeling generalized weakness although feels is improving daily. Patient continues with right lower extremity redness and is maintained on IV cefazolin. Patient does have a right kelly wound or skin tear noted that his dry with a scab and no drainage. Patient is afebrile and WBC is within normal limits at 6.81. Hemoglobin is stable at 8.1, platelets are decreased at 77. Sodium 136 with a potassium of 3.2 and current creatinine 0.3. Awaiting repeat magnesium as yesterday was 1.6 and replaced all no reports as of yet and will replace potassium per protocol. Patient was chronically taking magnesium oxide twice a day and will increase to 3 times a day and follow-up with repeat labs in the morning. Patient is currently afebrile and denies any chest pain or shortness of breath. Patient is starting the GoLYTELY prep for tentatively scheduled EGD/colonoscopy tomorrow with general surgery. 02/16/2022 Patient is seen this morning currently attempting to undergo bowel prep with GoLYTELY although unable to continue and patient continues with noted around stool and unclear and is scheduled for EGD/colonoscopy today. Patient will continue with EGD and most likely need outpatient colonoscopy performed. Patient also having some anal tenderness most likely a hemorrhoid she reports with no bleeding noted. Patient's right lower extremity continues to be red with some swelling which has improved from yesterday although continues to be painful to the touch and warm and sensation. Patient is maintained on IV cefazolin and recommend another 24 hours of IV antibiotics with reevaluation of the wound in the morning. Encourage the patient to continue elevating lower extremity while at rest and also Remy wrapping lower extremity including the whole foot up to the knee with a nonadherent pad at the wound. Wound appears to be scabbing with no drainage noted. Patient is afebrile and WBC is 5.1 within normal limits. Hemoglobin is stable at 9.3. Sodium is 132 with a potassium of 4.3 and current creatinine is 0.29. Magnesium was replaced and is 1.7 and will increase oral magnesium oxide 2 400 mg 3 times daily. Patient will need close outpatient follow-up with GI and surgery in the outpatient setting. Patient has been working with physical therapy daily and doing well. 02/17/2022 Patient is evaluated today and continues with right lower extremity redness and swelling with tenderness noted. Wound on the kelly is scabbed with no drainage no ethel. Patient had been rubbing coconut oil on the extremity as well. Encouraged remy wrapping the leg as is continues to be edematous with 3+ pitting edema noted mostly on the foot and ankle. Patient does have it elevated on pillows. Doing daily physical therapy and is improving although with some difficulty due to the swelling and tenderness noted on the right leg. Patient to continue on IV cefazolin and and also oral lasix and aldactone. Replace electrolytes per protocol. 02/18/2022 Patient is currently lying in bed. Awake alert and oriented x3. Able to ambulate with a walker. Otherwise no nausea vomiting abdominal pain or diarrhea. No surgical impression as per general surgery. Right lower extremity cellulitis improving and stilted and is Remy wrap. Patient has been afebrile. On room air. No cough or sputum production. Current medications reviewed.. Review of Systems Constitutional: No Reports of fatigue. denied any fever. Cardio vascular: denied any chest pain, palpitations Gastrointestinal: denied any nausea, vomiting, diarrhea Pulmonary: Denied any shortness of breath. Denies cough. Neurologic denied any new focal deficits, reports some right lower extremity pain and swelling although improved from yesterday All inpatient medications were reviewed and appropriate changes in these medications as dictated in the interval history and assessment and plan. Active Medications Acetaminophen (Acetaminophen Tab 325 Mg Tab) 650 mg PO Q6HR PRN PRN Reason: Fever and/ or Pain Last Admin: 02/17/22 12:33 Dose: 650 mg Albuterol Sulfate (Albuterol Nebulized 2.5 Mg/3 Ml) 2.5 mg INHALATION RT-QID [facility] Last Admin: 02/17/22 19:11 Dose: 2.5 mg Albuterol/Ipratropium (Ipratropium-Albuterol 3 Ml Neb) 3 ml INHALATION RT-Q4H PRN PRN Reason: Shortness Of Breath Or Wheezing Last Admin: 02/17/22 11:50 Dose: 3 ml Ferrous Sulfate (Ferrous Sulfate 325 Mg Tab) 325 mg PO BID-W/MEALS [facility] Last Admin: 02/17/22 17:39 Dose: 325 mg Furosemide (Furosemide 40 Mg Tab) 40 mg PO BID@0900,1600 [facility] Last Admin: 02/17/22 16:04 Dose: 40 mg Cefazolin Sodium 2 gm/ Sodium (Chloride) 50 mls @ 100 mls/hr IVPB Q8HR [facility]; Protocol Last Admin: 02/17/22 16:04 Dose: 100 mls/hr Lorazepam (Lorazepam 0.5 Mg Tab) 0.5 mg PO Q8H PRN PRN Reason: Anxiety Last Admin: 02/09/22 21:31 Dose: 0.5 mg Magnesium Oxide (Magnesium Oxide 400 Mg Tab) 400 mg PO TID [facility] Last Admin: 02/17/22 16:04 Dose: 400 mg Miscellaneous Information (Potassium Replacement Protocol 1 Each Misc) 1 each MISCELLANE DAILY PRN; Protocol PRN Reason: Per Protocol Miscellaneous Information (Magnesium Replacement Protocol 1 Each Misc) 1 each MISCELLANE DAILY PRN; Protocol PRN Reason: Per Protocol Miscellaneous Information (Magnesium Replacement Protocol 1 Each Misc) 1 each MISCELLANE DAILY PRN; Protocol PRN Reason: Per Protocol Pantoprazole Sodium (Pantoprazole 40 Mg Tablet) 40 mg PO AC-BRKFST [facility] Last Admin: 02/17/22 07:31 Dose: 40 mg Prednisone (Prednisone 20 Mg Tab) 20 mg PO DAILY [facility] Stop: 02/18/22 09:01 Last Admin: 02/17/22 07:32 Dose: 20 mg Spironolactone (Spironolactone 25 Mg Tab) 50 mg PO DAILY [facility] Last Admin: 02/17/22 07:32 Dose: 50 mg Thiamine HCl (Thiamine 100 Mg Tab) 100 mg PO BID-W/MEALS [facility] Last Admin: 02/17/22 17:39 Dose: 100 mg Objective - Vital Signs Vital signs: Vital Signs Temp 97.9 F 02/18/22 11:12 Pulse 102 H 02/18/22 19:30 Resp 16 02/18/22 11:12 BP 116/55 02/18/22 11:12 Pulse Ox 94 L 02/18/22 11:12 FiO2 21 02/08/22 19:51 Intake & Output 02/18/22 02/18/22 02/19/22 06:59 18:59 06:59 Intake Total 500 Balance 500 Weight 53.5 kg Intake: Oral 500 Other: Voiding Method Bedside Commode Bedside Commode # Voids 4 2 # Bowel Movements 2 2 - Exam PHYSICAL EXAMINATION: GENERAL: The patient is very pleasant 66-year-old female, alert and oriented x3, not in any acute distress. Well developed, well nourished. HEENT: Pupils are round and equally reacting to light. EOMI. No scleral icterus. No conjunctival pallor. Normocephalic, atraumatic. No pharyngeal erythema. No thyromegaly. Multiple missing teeth noted CARDIOVASCULAR: S1 and S2 present. No murmurs, rubs, or gallops. PULMONARY: Lungs are clear, she does have a congested cough. ABDOMEN: Soft, nontender, mildly distended, normoactive bowel sounds. No palpable organomegaly. Abdominal umbilical hernia present. MUSCULOSKELETAL: No joint swelling or deformity. EXTREMITIES: No cyanosis, clubbing. +3 lower extremity and pedal edema more so on the right. tender to the touch. +2 dorsalis pedis pulse bilateral NEUROLOGICAL: Gross neurological examination did not reveal any focal deficits. SKIN: Significant bruising to right hip/groin/upper thigh. bruising noted to left hip as well. There is also skin tear to right kelly, which is now scabbed over. The right lower extremity is red and warm to touch. Some mild improvement in erythema noted and no further drainage from skin tear on the kelly, continues to be edematous - Labs CBC & Chem 7: 02/16/22 07:00 02/16/22 07:00 Assessment and Plan Assessment: Chronic alcohol abuse Acute on chronic alcoholic hepatitis Anemia most likely chronic from myelosupression with underlying iron deficiency Ruled out GI bleed Right lower extremity cellulitis with skin tear that is scabbed over Thrombocytopenia secondary to chronic liver disease Supratherapeutic INR at 1.4 Tachycardia suspect from acute alcohol withdrawal resolved Hyponatremia from poor oral intake, resolved Hypokalemia resolved metabolic alkalosis, resolved Hypomagnesemia History of COPD, mild acute exacerbation, improved Hypertension currently normotensive Chronic nicotine dependence GI Prophylaxis: Protonix DVT Prophylaxis deferred due to low platelet count Full Code Plan: Recommend to continue protonix bid and diet has been resumed. Follow up with general surgery outpatient for colonoscopy and biopsy results from [facility]d. Recommend to continue IV cefazolin for right lower extremity cellulitis and remy wrap to assist in swelling Replace electrolytes per protocol and repeat am labs. Continue with ferrous sulfate Continue oral steroid taper Continue lactulose Continue to encourage incentive spirometery Continue to work with PT/OT ReCommend repeat labs for a.m. to monitor electrolytes and replace per protocol Recommend continued counseling on smoking cessation and abstinence from alcohol. Time with Patient: Greater than 30
--- NOTE | 2022-02-20 00:39 | P.PN ---
Subjective Progress Note Date: 02/19/22 This is a 66-year-old female presents to the hospital with concern for acute alcohol withdrawal, patient also had a fall at home 5 days ago states she fell down 14 steps and has significant bruising on her side and legs. On admission alcohol level <10, patient has not had a drink in the last 2 days. Patient follows with Dr. Luz Marina Hannon in the primary care setting, chronic medical conditions include COPD, hypertension, alcohol dependence with alcoholic liver disease, anxiety depression, current daily smoker 1 pack per day also reports 3- 4 drinks of alcohol per day, mixed drinks or beer she drinks more or less depending on her mood and states that it helps her get to sleep. She has cut down on drinking in the last 10-15 years. She plans for alcohol cessation and will discharged to [place] for rehab. She also follows with Dr Medellin outpatient for umbilical hernia pending surgical repair outpatient. Labs on admission showing a white count 3.4, hemoglobin 8.5 which is dropped from 9.7 on admission, platelet count of 38, INR 1.4, sodium 135, potassium 3.2, chloride 96, CO2 34, BUN 8, creatinine 0.3, glucose 116, magnesium 1.2, AST 74, ALT 34, total bili 3.2, BNP 378, a BUN 3.3. Chest x-ray completed showing no active cardiac disease with minimal fibrotic changes. EKG showing sinus rhythm heart rate of 99, QT interval 410. Patient received 2 g IV magnesium, oral potassium, has been started on thiamine supplementation as well as Librium taper is receiving IV fluids at normal saline 75 mL per hour. Patient is tachycardic at 108, blood pressure 123/76, 92% on room air. Patient is admitted to the hospital for alcohol withdrawal monitoring and evaluation regarding increased peripheral edema and ascites. Repeat labs are pending. 02/05/2022 Patient evaluated today resting in bed, she has been unable to ambulate due to significant weakness. She does report decrease pain to her right lower extremity. She continues with peripheral edema and has been started on IV lasix as well as oral aldactone. She is slightly lethargic today as well and her speech pattern is slow. She states the librium made her hallucinate last night and will discontinue this. We will also check an ammonia level today. Labs today show white count 4.0, hemoglobin 7.2, platelet count 42, sodium 132, potassium 4.4, BUN 7.3, creatinine 0.4, magnesium 1.5, total bili 1.40. Total protein 4.5, albumin 2.5. She is afebrile, heart rate 90, blood pressure on the lower side at 94/60 she is 96% nasal cannula. She does have significant expiratory wheezing today which we will order DuoNeb's. B12 folate and iron studies are pending. 02/06/2022 Patient evaluated today resting in bed, still reports weakness and unable to ambulate. PT has evaluated patient and she will require sub acute rehab on d ischarge. Wheezing has improved, continues on 2L Nasal cannula and duonebs as needed. Denies need for nicotine patch. No signs for acute alcohol withdrawal. Librium has been discontinued. Ammonia level 22. hgb today 7.7, platelets 47, sodium 133, potassium 4.3, BUN 7.5, creat 0.4, calcium 7.7. She will continue on IV lasix, mild improvement in lower extremity peripheral edema however still 2+. Iron studies showing total iron 17, %saturation 5.13. TIBC 333. B12 and folate are within normal limits. Heart rate is elevated today at 114, EKG pending. 02/07/2022 Patient continues to report generalized pain secondary to fall. She does have bruising on her left hip as well. She continues with bilateral peripheral edema and continues on IV lasix. Continue with strict intake and output documentation. REMY wrap to bilateral lower extremities as well. Labs today showing stable hemoglobin 7.5, platelets 58. Sodium today is 135, potassium 4.3, calcium 7.8, magnesium 1.4. She will receive 3 grams of magnesium today. Procalcitonin 0.18. Patient continues with expiratory wheeze. Will continue duonebs and add a short course of oral steroids. She is also tachycardic with heart rate in the low 100s to 110s. EKG completed showing sinus tachycardia will continue with telemetry monitoring. She is afebrile, blood pressure 110/72, 92% on 2L nasal cannula. 02/08/2022 Patient evaluated today she is up ambulating in the hallway with physical therapy. Unable to find a sub acute rehab on discharge. Lung sounds have improved this afternoon after breathing treatments, she is now on room air. Labs today showing sodium 136, potassium 3.4, magnesium level pending. She had some green sputum last night and azithromycin for 3 days has been added and IV solumedrol. Covid is negative. Suspect anemia mostly from myelosuppresion probably some underlying iron deficiency and we will also give patient some f errlecit. Continue IV lasix overnight, and can transition to oral lasix tomorrow. She is afebrile, heart rate 107, blood pressure 116/65, 92% room air. Possible DC tomorrow. 02/09/2022 Patient is resting in bed today, she has been up ambulating with physical therapy and feels stronger. Pain has improved somewhat, she reports generalized pain. She continues with Remy wrap to lower extremities. She did lose IV access overnight. Midline was placed today. She continues on IV lasix Q12, and can poss ibly transition to oral lasix tomorrow. She has been started on IV solumedrol and 3 doses of oral azithromycin for possible COPD exacerbation, her wheezing has significant improved. We will arrange for nebulizer on discharge. One more dose of IV ferrlecit tomorrow and will be transitioned to oral ferrous sulfate on discharge. No chest pain, no shortness of breath. Bowels are moving. Vitals today showing temp 97.8, heart rate 106, blood pressure 113/72, 93% room air. Labs reviewed today showing white count 2.35, hgb 7.0, platelet count 71. 02/10/2022, resume the care of the patient today This is a pleasant 66 years old female who presents because she fell at home from stairs, she is alcohol drinker and this fall was awake, call for her as she describes and she decided to quit drinking and came to emergency room. She is fully awake and oriented, standing and walking in the room, however she is generally weak and she has distended abdomen Physical therapy recommended treatment However most subacute rehab the don't take her insurance, and sent patient wants to go home with home care, discussed with manager social media. She remains on Zithromax for possible infection, she has significant bilateral leg swelling on IV Lasix 40 mg twice daily however there is no evidence of pulmonary edema. 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 mini. She is currently on Solu-Medrol 40 mg twice daily, she still has some limitation of air entry. She was taken IV iron which is stopped and switched to oral iron from tomorrow. WBC is 4.4 and hemoglobin 8.9 and platelet 104, all numbers shown improvement but looks concentrated sample as she is on IV Lasix. Liver enzymes mildly elevated We will check liver ultrasound and leg ultrasound She has evidence of an deficiency anemia and she never had colonoscopy so surgery team were consulted who recommended occult blood in his stool Vitamin B12 is 724 and folate 17.5. And TSH normal. proCalcitonin not elevated to 0.18 and 0.14 02/11/2022 Patient with mild exertional dyspnea but she has significant abdominal distention and bilateral leg swelling, she drinks a lot of fluid, patient was counseled extensively about fluid restriction and she agrees. Patient was placed on fluid restriction 1200 mL per day. Patient abdominal ultrasound showing ascites, we will consult IR team for paracentesis Increase her Lasix 40 mg 3 times a day, she is already on Aldactone 50 mg His breathing is improving, but her air entry with no wheezing and we switched her some adrenaline to prednisone 30 mg Patient walking in the room more freely. Monitor labs in the morning 02/12/2022 Patient dyspnea is improving, especially patient might not go to rehab because of her insurance issue, patient might be willing to go home with home care therefore she needs better diuresis. Also we consulted IR team for paracentesis for her significant abdominal distention. Patient is poor in compliance and outpatient follow-up with her doctors. Her vitals and labs are stable, she has mild myelosuppression secondary to her affect off alcohol. She remains on IV Lasix 40 mg every 8 hours. Also she is on prednisone 40 mg. 02/13/2022 Patient evaluated today sitting up at the bedside. She has been continued on IV lasix and we will transition to oral lasix today. She under paracentesis today with 2.3 Liters of fluid removed for abdominal ascites. Culture and cytology completed as baseline as this is first time patient has had a paracentesis. She is seeing general surgery and plan is for EGD/Colonoscopy on . Labs today showing hemoglobin stable at 9.0, platelet count 126, sodium 139, potassium 4.6, magnesium 1.8. Liver enzymes are elevated, stable. She is afebrile. blood pressure 135/75, 94% room air. 02/14/2022 Patient is status post paracentesis. Blood pressure 122/72, pulse oximetry 97%. She reports breathing better today, no shortness of breath. Surgery is following with plans for EGD/Colonoscopy to rule out GI bleed. Hemoglobin is stable today at 9.0, platelet count 108. Magnesium today 1.6 will give 2 grams IV today add daily oral magnesium. Echocardiogram has been completed with normal EF 55%, mild mitral regurg. She does have right lower extremity erythema and tenderness. There is also a scab to the right kelly that is not draining, scabbed over. This is a change overnight, and patient was started on cefazolin IV. 02/15/2022 Patient is seen and evaluated in follow-up this morning currently working with physical therapy and using a walker with standby assist. Patient reports to feeling generalized weakness although feels is improving daily. Patient continues with right lower extremity redness and is maintained on IV cefazolin. Patient does have a right kelly wound or skin tear noted that his dry with a scab and no drainage. Patient is afebrile and WBC is within normal limits at 6.81. Hemoglobin is stable at 8.1, platelets are decreased at 77. Sodium 136 with a potassium of 3.2 and current creatinine 0.3. Awaiting repeat magnesium as yesterday was 1.6 and replaced all no reports as of yet and will replace potassium per protocol. Patient was chronically taking magnesium oxide twice a day and will increase to 3 times a day and follow-up with repeat labs in the morning. Patient is currently afebrile and denies any chest pain or shortness of breath. Patient is starting the GoLYTELY prep for tentatively scheduled EGD/colonoscopy tomorrow with general surgery. 02/16/2022 Patient is seen this morning currently attempting to undergo bowel prep with GoLYTELY although unable to continue and patient continues with noted around stool and unclear and is scheduled for EGD/colonoscopy today. Patient will continue with EGD and most likely need outpatient colonoscopy performed. Patient also having some anal tenderness most likely a hemorrhoid she reports with no bleeding noted. Patient's right lower extremity continues to be red with some swelling which has improved from yesterday although continues to be painful to the touch and warm and sensation. Patient is maintained on IV cefazolin and recommend another 24 hours of IV antibiotics with reevaluation of the wound in the morning. Encourage the patient to continue elevating lower extremity while at rest and also Remy wrapping lower extremity including the whole foot up to the knee with a nonadherent pad at the wound. Wound appears to be scabbing with no drainage noted. Patient is afebrile and WBC is 5.1 within normal limits. Hemoglobin is stable at 9.3. Sodium is 132 with a potassium of 4.3 and current creatinine is 0.29. Magnesium was replaced and is 1.7 and will increase oral magnesium oxide 2 400 mg 3 times daily. Patient will need close outpatient follow-up with GI and surgery in the outpatient setting. Patient has been working with physical therapy daily and doing well. 02/17/2022 Patient is evaluated today and continues with right lower extremity redness and swelling with tenderness noted. Wound on the kelly is scabbed with no drainage no ethel. Patient had been rubbing coconut oil on the extremity as well. Encouraged remy wrapping the leg as is continues to be edematous with 3+ pitting edema noted mostly on the foot and ankle. Patient does have it elevated on pillows. Doing daily physical therapy and is improving although with some difficulty due to the swelling and tenderness noted on the right leg. Patient to continue on IV cefazolin and and also oral lasix and aldactone. Replace electrolytes per protocol. 02/18/2022 Patient is currently lying in bed. Awake alert and oriented x3. Able to ambulate with a walker. Otherwise no nausea vomiting abdominal pain or diarrhea. No surgical impression as per general surgery. Right lower extremity cellulitis improving and stilted and is Remy wrap. Patient has been afebrile. On room air. No cough or sputum production. 02/19/2022 Patient is able to walk in the room. Feels weak and also right lower extremity redness and cellulitis improving. Follow-up hemoglobin tomorrow. Patient is able to walk in the hallway. General surgery recommends no surgical intervention. No nausea vomiting abdominal pain or diarrhea. Denied any dysuria or hematuria. Ventral hernia stable. Anticipate discharge in the next 24 hours with more clinical improvement and antibiotics at home. Current medications reviewed.. Review of Systems Constitutional: No Reports of fatigue. denied any fever. Cardio vascular: denied any chest pain, palpitations Gastrointestinal: denied any nausea, vomiting, diarrhea Pulmonary: Denied any shortness of breath. Denies cough. Neurologic denied any new focal deficits, reports some right lower extremity pain and swelling although improved from yesterday All inpatient medications were reviewed and appropriate changes in these medications as dictated in the interval history and assessment and plan. Active Medications Acetaminophen (Acetaminophen Tab 325 Mg Tab) 650 mg PO Q6HR PRN PRN Reason: Fever and/ or Pain Last Admin: 02/17/22 12:33 Dose: 650 mg Albuterol Sulfate (Albuterol Nebulized 2.5 Mg/3 Ml) 2.5 mg INHALATION RT-QID [facility] Last Admin: 02/17/22 19:11 Dose: 2.5 mg Albuterol/Ipratropium (Ipratropium-Albuterol 3 Ml Neb) 3 ml INHALATION RT-Q4H PRN PRN Reason: Shortness Of Breath Or Wheezing Last Admin: 02/17/22 11:50 Dose: 3 ml Ferrous Sulfate (Ferrous Sulfate 325 Mg Tab) 325 mg PO BID-W/MEALS [facility] Last Admin: 02/17/22 17:39 Dose: 325 mg Furosemide (Furosemide 40 Mg Tab) 40 mg PO BID@0900,1600 [facility] Last Admin: 02/17/22 16:04 Dose: 40 mg Cefazolin Sodium 2 gm/ Sodium (Chloride) 50 mls @ 100 mls/hr IVPB Q8HR [facility]; Protocol Last Admin: 02/17/22 16:04 Dose: 100 mls/hr Lorazepam (Lorazepam 0.5 Mg Tab) 0.5 mg PO Q8H PRN PRN Reason: Anxiety Last Admin: 02/09/22 21:31 Dose: 0.5 mg Magnesium Oxide (Magnesium Oxide 400 Mg Tab) 400 mg PO TID [facility] Last Admin: 02/17/22 16:04 Dose: 400 mg Miscellaneous Information (Potassium Replacement Protocol 1 Each Misc) 1 each MISCELLANE DAILY PRN; Protocol PRN Reason: Per Protocol Miscellaneous Information (Magnesium Replacement Protocol 1 Each Misc) 1 each MISCELLANE DAILY PRN; Protocol PRN Reason: Per Protocol Miscellaneous Information (Magnesium Replacement Protocol 1 Each Misc) 1 each MISCELLANE DAILY PRN; Protocol PRN Reason: Per Protocol Pantoprazole Sodium (Pantoprazole 40 Mg Tablet) 40 mg PO AC-[id number] [facility] Last Admin: 02/17/22 07:31 Dose: 40 mg Prednisone (Prednisone 20 Mg Tab) 20 mg PO DAILY [facility] Stop: 02/18/22 09:01 Last Admin: 02/17/22 07:32 Dose: 20 mg Spironolactone (Spironolactone 25 Mg Tab) 50 mg PO DAILY [facility] Last Admin: 02/17/22 07:32 Dose: 50 mg Thiamine HCl (Thiamine 100 Mg Tab) 100 mg PO BID-W/MEALS [facility] Last Admin: 02/17/22 17:39 Dose: 100 mg Objective - Vital Signs Vital signs: Vital Signs Temp 97.7 F 02/19/22 20:26 Pulse 109 H 02/19/22 20:26 Resp 20 02/19/22 20:26 BP 129/74 02/19/22 20:26 Pulse Ox 97 02/19/22 20:26 FiO2 21 02/08/22 19:51 Intake & Output 02/19/22 02/19/22 02/20/22 06:59 18:59 06:59 Intake Total 300 Balance 300 Weight 52.5 kg Intake: Oral 300 Other: Voiding Method Toilet Toilet # Voids 3 - Exam PHYSICAL EXAMINATION: GENERAL: The patient is very pleasant 66-year-old female, alert and oriented x3, not in any acute distress. Well developed, well nourished. HEENT: Pupils are round and equally reacting to light. EOMI. No scleral icterus. No conjunctival pallor. Normocephalic, atraumatic. No pharyngeal erythema. No thyromegaly. Multiple missing teeth noted CARDIOVASCULAR: S1 and S2 present. No murmurs, rubs, or gallops. PULMONARY: Lungs are clear, she does have a congested cough. ABDOMEN: Soft, nontender, mildly distended, normoactive bowel sounds. No palpable organomegaly. Abdominal umbilical hernia present. MUSCULOSKELETAL: No joint swelling or deformity. EXTREMITIES: No cyanosis, clubbing. +3 lower extremity and pedal edema more so on the right. tender to the touch. +2 dorsalis pedis pulse bilateral NEUROLOGICAL: Gross neurological examination did not reveal any focal deficits. SKIN: Significant bruising to right hip/groin/upper thigh. bruising noted to lef t hip as well. There is also skin tear to right kelly, which is now scabbed over. The right lower extremity is red and warm to touch. Some mild improvement in erythema noted and no further drainage from skin tear on the kelly, continues to be edematous - Labs CBC & Chem 7: 02/16/22 07:00 02/16/22 07:00 Assessment and Plan Assessment: Chronic alcohol abuse Acute on chronic alcoholic hepatitis Anemia most likely chronic from myelosupression with underlying iron deficiency Ruled out GI bleed Right lower extremity cellulitis with skin tear that is scabbed over Thrombocytopenia secondary to chronic liver disease Supratherapeutic INR at 1.4 Tachycardia suspect from acute alcohol withdrawal resolved Hyponatremia from poor oral intake, resolved Hypokalemia resolved metabolic alkalosis, resolved Hypomagnesemia History of COPD, mild acute exacerbation, improved Hypertension currently normotensive Chronic nicotine dependence GI Prophylaxis: Protonix DVT Prophylaxis deferred due to low platelet count Full Code Plan: Recommend to continue protonix bid and diet has been resumed. Follow up with general surgery outpatient for colonoscopy and biopsy results from egd. Recommend to continue IV cefazolin for right lower extremity cellulitis and remy wrap to assist in swelling Replace electrolytes per protocol and repeat am labs. Continue with ferrous sulfate Continue oral steroid taper Continue lactulose Continue to encourage incentive spirometery Continue to work with PT/OT ReCommend repeat labs for a.m. to monitor electrolytes and replace per protocol Recommend continued counseling on smoking cessation and abstinence from alcohol.
[2022-02-20] MEDS: ALBUTEROL NEBULIZED 2.5 MG/3 ML INHALATION SCH ×3 (07:27→16:21)
[2022-02-20] MEDS: SPIRONOLACTONE 25 MG TAB PO SCH (08:26)
[2022-02-20] MEDS: MAGNESIUM OXIDE 400 MG TAB PO SCH (08:26)
[2022-02-20] MEDS: THIAMINE 100 MG TAB PO SCH (08:26)
[2022-02-20] MEDS: FUROSEMIDE 40 MG TAB PO SCH (08:26)
[2022-02-20] MEDS: FERROUS SULFATE 325 MG TAB PO SCH (08:27)
[2022-02-20] MEDS: PANTOPRAZOLE 40 MG TABLET PO SCH (08:27)
[2022-02-20 09:23] LABS: African American GFR (CKD) 140.2 (60.0-200.0); Anion Gap 7.7 mmol/L (10.00-18.00); BUN/Creat Ratio 36.33 Ratio (12.00-20.00); Blood Urea Nitrogen 10.9 mg/dL (9.0-27.0); Calcium 8.6 mg/dL (8.7-10.3); Carbon Dioxide 28.3 mmol/L (20.0-27.5); Potassium 4.1 mmol/L (3.5-5.5)
[2022-02-20 10:28] LABS: Basophils # (A) 0.02 X 10*3/uL (0.00-0.10); Basophils % (A) 0.6 %; Eosinophils # (A) 0.09 X 10*3/uL (0.04-0.35); Eosinophils % (A) 2.5 %; HCT 31.2 % (37.2-46.3); Immature Grans, Automated 1.4 %; Lymphocytes # (A) 0.62 X 10*3/uL (0.90-5.00); Lymphocytes % (A) 17.4 %; MCH 27.1 pg (27.0-32.0); MCHC 28.8 g/dL (32.0-37.0); Monocytes # (A) 0.29 X 10*3/uL (0.20-1.00); Monocytes % (A) 8.1 %; NRBC Per 100 WBC 0 /100 WBCS (0.0-0.0); Neutrophils # (A) 2.49 X 10*3/uL (1.80-7.70); Platelet Count 87 X 10*3/uL (140-440); RBC 3.32 X 10*6/uL (4.10-5.20); WBC 3.56 X 10*3/uL (4.50-10.00)
[2022-02-20 11:32] VITALS: BP 150/84; PULSE 100; RESP 17; TEMP 98
--- NOTE | 2022-02-22 17:01 | P.DS ---
Providers Date of admission: 02/03/22 20:47 Expected date of discharge: 02/20/22 Attending physician: Jen Mott Consults: 02/10/22 12:57 Consult Physician Urgent Consulting Provider: Miles Medellin Consult Reason/Comments: iron def anemia Do you want consulting provider notified?: Yes Primary care physician: Luz Marina Hannon [facility] Course: Final diagnosis Chronic alcohol abuse Acute on chronic alcoholic hepatitis Anemia most likely chronic from myelosupression with underlying iron deficiency Ruled out GI bleed Right lower extremity cellulitis with skin tear that is scabbed over Thrombocytopenia secondary to chronic liver disease Supratherapeutic INR at 1.4 Tachycardia suspect from acute alcohol withdrawal resolved Hyponatremia from poor oral intake, resolved Hypokalemia resolved metabolic alkalosis, resolved Hypomagnesemia History of COPD, mild acute exacerbation, improved Hypertension currently normotensive Chronic nicotine dependence GI Prophylaxis: Protonix DVT Prophylaxis deferred due to low platelet count Full Code Discharge disposition Patient is being discharged in a stable condition with guarded prognosis to home with home care. Patient will follow-up with Dr. Hannon in the outpatient setting upon discharge. Patient is to also follow-up with GI Dr. Frey and hematology in the outpatient setting. Patient will continue on oral Keflex 4 times daily for the next one week to complete the course Total time taken is greater than 35 minutes. Hospital course This is a 66-year-old female who was recently admitted with acute alcohol withdrawal with recent falls and significant bruising with multiple chronic medical issues including COPD and liver disease. Patient had prolonged hospitalization and also underwent paracentesis for ascites and is maintained on Lasix and Aldactone. Patient was also evaluated by general surgery and underwent EGD with biopsies obtained. Unable to complete the colonoscopy due to poor prep and will have outpatient colonoscopy. Patient continued with weakness although continued to improve daily with physical therapy. Patient also had noted cellulitic changes of the right lower extremity due to her recent fall with the wound and was maintained on IV cefazolin and has improved and will continue on oral Keflex 4 times daily for the next one week to complete the course. Patient will have home care arranged and will be going home today. Currently no reports of chest pain, shortness of breath, or palpitations. Patient is afebrile. No reports of nausea or vomiting and patient is tolerating diet. Patient will be discharged home today. Extremely guarded prognosis is patient at high risk for readmissions and noncompliance with medications and continued alcohol drinking. Encourage the patient to avoid all alcohol intake as she has been sober for 14 days and encourage the patient follow-up with [facility] and her primary care provider for possible AA meetings or alcohol rehab. Patient will need close outpatient follow-up with GI as well. Please refer to previous dictations and other consultations notes for further HPI. Physical exam: Gen: This is a 66-year-old female awake, alert and oriented 3, thin built, appears older than stated age HEENT: Head is atraumatic, normocephalic. Pupils equal, round. Sclerae is anicteric. NECK: Supple. No JVD. No lymphadenopathy. No thyromegaly. LUNGS: Diminished breath sounds bilaterally with some scattered rhonchi noted. No intercostal retractions. HEART: Regular rate and rhythm. No murmur. ABDOMEN: Soft. Bowel sounds are present. No masses. No tenderness. EXTREMITIES: No pedal edema. No calf tenderness. Left kelly erythema and swelling improved NEUROLOGICAL: Patient is awake, alert and oriented x3. Cranial nerves 2 through 12 are grossly intact. Please refer to medication reconciliation sheet for a list of medications. The impression and plan of care has been dictated by Dang Mcgill, Nurse Practitioner as directed. Dr. Shelby MD I have performed a history and examination and MDM of this patient, discussed the same with the dictator, and agree with the dictator's assessment and plan as written ,documented as a scribe. Based on total visit time, I have performed more than 50% of the visit. Patient Condition at Discharge: Fair Plan - Discharge Summary Discharge Rx Participant: No New Discharge Prescriptions: New Spironolactone [Aldactone] 50 mg PO DAILY 30 Days #60 tab Docusate [Colace] 100 mg PO DAILY #30 capsule Magnesium Oxide [Mag-Ox] 400 mg PO TID 30 Days #90 tab Ipratropium-Albuterol Nebulize [Duoneb 0.5 mg-3 mg/3 ml Soln] 3 ml INHALATION RT-Q6H PRN #20 each PRN Reason: Shortness Of Breath Or Wheezing Ferrous Sulfate [Iron (65 MG Elemental)] 325 mg PO BID-W/MEALS #60 tab Furosemide [Lasix] 40 mg PO BID #60 tablet predniSONE 0 mg PO DIRECTED 4 Days #6 tab Thiamine [Vitamin B-1] 100 mg PO BID-W/MEALS #60 tab Famotidine [Pepcid] 20 mg PO DAILY #30 tablet Cephalexin [Keflex] 500 mg PO Q6HR 7 Days #28 cap Albuterol Inhaler [Ventolin Hfa Inhaler] 1 puff INHALATION RT-QID 30 Days #8 gm Discharge Medication List Docusate [Colace] 100 mg PO DAILY #30 capsule 02/13/22 [Rx] Famotidine [Pepcid] 20 mg PO DAILY #30 tablet 02/13/22 [Rx] Ferrous Sulfate [Iron (65 MG Elemental)] 325 mg PO BID-W/MEALS #60 tab 02/13/22 [Rx] Furosemide [Lasix] 40 mg PO BID #60 tablet 02/13/22 [Rx] Ipratropium-Albuterol Nebulize [Duoneb 0.5 mg-3 mg/3 ml Soln] 3 ml INHALATION RT-Q6H PRN #20 each 02/13/22 [Rx] Spironolactone [Aldactone] 50 mg PO DAILY 30 Days #60 tab 02/13/22 [Rx] Thiamine [Vitamin B-1] 100 mg PO BID-W/MEALS #60 tab 02/13/22 [Rx] predniSONE 0 mg PO DIRECTED 4 Days #6 tab 02/13/22 [Rx] Albuterol Inhaler [Ventolin Hfa Inhaler] 1 puff INHALATION RT-QID 30 Days #8 gm 02/20/22 [Rx] Cephalexin [Keflex] 500 mg PO Q6HR 7 Days #28 cap 02/20/22 [Rx] Magnesium Oxide [Mag-Ox] 400 mg PO TID 30 Days #90 tab 02/20/22 [Rx] Follow up Appointment(s)/Referral(s): Petar Anguiano MD [STAFF PHYSICIAN] - 2 Weeks (For your Iron Deficiency anemia, the office will call you with an appointment time and date.) [facility] [NON-STAFF] - 1 Week Tonie Frey MD [STAFF PHYSICIAN] - 1 Week (for chronic liver disease. This office does not take your insurance, please call around to find accepting stretcher leveler operator. telephone numbers provided.) Luz Marina Hannon MD [Primary Care Provider] - 02/22/22 9:30 am Ambulatory/Diagnostic Orders: Basic Metabolic Panel [LAB.AMB] Time Frame: 2 Days, Location: None Selected Complete Blood Count w/diff [LAB.AMB] Time Frame: 2 Days, Location: None Selected Magnesium [LAB.AMB] Time Frame: 2 Days, Location: None Selected Patient Instructions/Handouts: How to Stop Smoking (DC), Abuse of Alcohol (DC), Paracentesis (DC) Activity/Diet/Wound Care/Special Instructions: Recommend total alcohol cessation Recommend smoking cessation Nebulizer as needed every 6 hours for shortness of breath or wheezing Complete oral steroid taper Continue on oral lasix twice a day Continue aldactone daily Continue oral iron twice a day, medication can be constipating continue on colace daily Monitor weight daily and record, keep log for follow up appointments Recommend to follow up with Dr. Stu Frey with gastroenterology outpatient regarding liver disease Recommend to follow up with hematology regarding iron deficiency anemia outpatient Follow up with primary care in 1-2 days outpatient Continue taking antibiotics for the next one week to complete the course Avoid alcohol intake Repeat labs in 2-3 days outpatient Discharge Disposition: HOME WITH HOME HEALTH SERVICES
== END 2022-02-20 16:40 | disposition home health service (06) | DRG 433 ==
LOC: EC 15:01 → 5NMEDONC 20:47
PROVIDERS: ADMIT Hospitalist; ATTEND Hospitalist
PROC: 0W9G3ZX Drainage of Peritoneal Cavity, Percutaneous Approach, Diagnostic (ICD-10-PCS; principal; 2022-02-13)
PROC: 05HF33Z Insertion of Infusion Device into Left Cephalic Vein, Percutaneous Approach (ICD-10-PCS; 2022-02-14)
PROC: 0DB58ZX Excision of Esophagus, Via Natural or Artificial Opening Endoscopic, Diagnostic (ICD-10-PCS; 2022-02-16)
PROC: 0DB78ZX Excision of Stomach, Pylorus, Via Natural or Artificial Opening Endoscopic, Diagnostic (ICD-10-PCS; 2022-02-16)
DX: K70.31 Alcoholic cirrhosis of liver with ascites (principal); D61.818 Other pancytopenia; D68.4 Acquired coagulation factor deficiency; E44.0 Moderate protein-calorie malnutrition; E87.1 Hypo-osmolality and hyponatremia; E87.3 Alkalosis; J44.1 Chronic obstructive pulmonary disease with (acute) exacerbation; L03.115 Cellulitis of right lower limb; D50.9 Iron deficiency anemia, unspecified; D53.9 Nutritional anemia, unspecified; D69.59 Other secondary thrombocytopenia; Z68.21 Body mass index [BMI] 21.0-21.9, adult; E83.42 Hypomagnesemia; E87.6 Hypokalemia; K70.11 Alcoholic hepatitis with ascites; K72.10 Chronic hepatic failure without coma; F17.210 Nicotine dependence, cigarettes, uncomplicated; F32.A Depression, unspecified; I10 Essential (primary) hypertension; Z28.310 Unvaccinated for COVID-19; R73.9 Hyperglycemia, unspecified; Z20.822 Contact with and (suspected) exposure to COVID-19; F41.9 Anxiety disorder, unspecified; R00.0 Tachycardia, unspecified; I34.0 Nonrheumatic mitral (valve) insufficiency; K20.90 Esophagitis, unspecified without bleeding; K29.70 Gastritis, unspecified, without bleeding; K44.9 Diaphragmatic hernia without obstruction or gangrene; K43.9 Ventral hernia without obstruction or gangrene; K64.9 Unspecified hemorrhoids; S70.02XA Contusion of left hip, initial encounter; W10.9XXA Fall (on) (from) unspecified stairs and steps, initial encounter; Y92.009 Unspecified place in unspecified non-institutional (private) residence as the place of occurrence of the external cause; Z79.01 Long term (current) use of anticoagulants; Z79.899 Other long term (current) drug therapy; Z88.2 Allergy status to sulfonamides
CPT/HCPCS: 36410; 36415; 43239; 49083; 71046; 73502; 76705; 76937; 80048; 80053; 80076; 80320; 82140; 82150; 82550; 82607; 82728; 82746; 82945; 83540; 83550; 83615; 83735; 83880; 84132; 84145; 84157; 84443; 84484; 85025; 85027; 85610; 85730; 87070; 87102; 87116; 87205; 87206; 87635; 88108; 88305; 89050; 93005; 93306; 93970; 94640; 94760; 96365; 99285